=== PATIENT | male | born 1945 | race Caucasian/White ===

== ENCOUNTER → 2020-07-26 10:22 | Outpatient (BNVA) | payer MEDICARE, OTHER, SELFPAY | PROVIDERS: PCP Family Medicine; Visit Provider Internal Medicine | DX: I48.92 Unspecified atrial flutter (principal); I25.10 Atherosclerotic heart disease of native coronary artery without angina pectoris; I10 Essential (primary) hypertension; E11.9 Type 2 diabetes mellitus without complications; E78.5 Hyperlipidemia, unspecified; F17.200 Nicotine dependence, unspecified, uncomplicated; Z79.899 Other long term (current) drug therapy; Z95.5 Presence of coronary angioplasty implant and graft; Z71.6 Tobacco abuse counseling | CPT/HCPCS: 99214 ==

== ENCOUNTER → 2020-09-17 10:37 | Outpatient (BNVA) | payer MEDICARE, OTHER, SELFPAY | PROVIDERS: PCP Family Medicine; Referring Provider Family Medicine; Visit Provider Internal Medicine | DX: I48.92 Unspecified atrial flutter (principal); I48.0 Paroxysmal atrial fibrillation; I25.10 Atherosclerotic heart disease of native coronary artery without angina pectoris; I49.1 Atrial premature depolarization; I10 Essential (primary) hypertension; E11.9 Type 2 diabetes mellitus without complications; E78.5 Hyperlipidemia, unspecified; F17.210 Nicotine dependence, cigarettes, uncomplicated; Z88.0 Allergy status to penicillin; Z91.041 Radiographic dye allergy status; Z79.84 Long term (current) use of oral hypoglycemic drugs; Z79.899 Other long term (current) drug therapy | CPT/HCPCS: 93005; 99212 ==

== ENCOUNTER 2020-10-03 10:04 | Outpatient (REF) | payer MEDICARE, OTHER, SELFPAY ==
[2020-10-03 11:40] LABS: Anion Gap 13 (12-20); Blood Urea Nitrogen 19 mg/dL (9-16); Calcium 8.5 mg/dL (8.4-10.2); Carbon Dioxide 29 mmol/L (22-29); Chloride 106 mmol/L (96-108); Estimated Glomerular Filt Rate > 60; Glucose Fasting 103 mg/dL (60-99); Potassium 4.7 mmol/l (3.3-5.1); Sodium 143 mmol/L (135-145)
[2020-10-03 12:21] LABS: Creatinine Urine 34.72 mg/dL; Microalbum/Creatinine Ratio Ur 207.3 ug/mg cr
== END 2020-10-03 10:05 | disposition home or self-care (01) ==
LOC: HO.LAB 10:04
PROVIDERS: PCP Family Medicine; Visit Provider Family Medicine
DX: E78.5 Hyperlipidemia, unspecified (principal); E11.9 Type 2 diabetes mellitus without complications; I10 Essential (primary) hypertension
CPT/HCPCS: 80048; 82043

== ENCOUNTER → 2020-10-09 12:55 | Outpatient (REF) | payer MEDICARE, OTHER, SELFPAY ==
--- NOTE | 2020-10-09 12:58 | ECG_ITS ---
Hook-up date: 2020-10-09 13:09:00 Duration: 25:26:00 Test Indications: PAF Medications: 870652 QRS complexes 574 Ventricular ectopics which represent <1 % of total QRS comp. 69118 Supraventricular ectopics which represent 21 % of total QRS comp. * Paced QRS complexs which represent % of total QRS comp. VENTRICULAR ECTOPY 570 Isolated 0 Bigeminal Cycles 0 Couplets 1 Runs 4 Beats in Runs 4 Beats LONGEST at 210 BPM at 01:31:43 2020-10-10 4 Beats FASTEST at 210 BPM at 01:31:43 2020-10-10 SUPRAVENTRICULAR ECTOPY 40196 Isolated 1170 Couplets 1533 Runs 4715 Beats in Runs 6 Beats LONGEST at 86 BPM at 00:31:06 2020-10-10 3 Beats FASTEST at 172 BPM at 18:22:26 2020-10-09 HEART RATES 66 MIN at 08:01:56 2020-10-10 85 AVG 130 MAX at 18:02:59 2020-10-09 LONGEST RR 1.3360 secs at 04:45:59 2020-10-10 S-T LEVELS Channel 1 - 128 mm at 13:09:00 2020-10-09 - 128 mm at 13:09:00 2020-10-09 Channel 2 - 128 mm at 13:09:00 2020-10-09 - 128 mm at 13:09:00 2020-10-09 Channel 3 - 128 mm at 03:22:81 -- - 128 mm at 03:22:81 Basic rhythm Normal sinus rhythm No long pause or profound bradycardia Frequent Premature atrial complexes , 22% of total beats Frequent short runs of SVEs suggestive of PAT No sustained Atrial fibrillation Occasional Premature ventricular complexes One 4 beat runs of NSVT at 210 bpm Patient did not return diary Referred By: Mateo Lara Overread By: NAKUL RHODES MD
== END ==
LOC: HO.CARD 12:55
PROVIDERS: Visit Provider Internal Medicine
DX: I48.0 Paroxysmal atrial fibrillation (principal)
CPT/HCPCS: 93225; 93226

== ENCOUNTER 2020-10-24 14:03 | Inpatient (IN) | payer MEDICARE, SELFPAY ==
[2020-10-24 14:34] VITALS: BP 141/73; PULSE 86; RESP 14; TEMP 36.9; O2SAT 98; BMI 25.9
--- NOTE | 2020-10-24 14:41 | ECG_ITS ---
Test Reason : WEAKNESS Blood Pressure : / mmHG Vent. Rate : 083 BPM Atrial Rate : 083 BPM P-R Int : 168 ms QRS Dur : 106 ms QT Int : 380 ms P-R-T Axes : 040 -42 036 degrees QTc Int : 446 ms Sinus rhythm with Premature atrial complexes Left axis deviation Abnormal ECG When compared with ECG of 15-NOV-2019 14:39, Sinus rhythm has replaced Atrial flutter Referred By: Marcia Maza Electronically Signed By:TAABTHA ANTOINE
[2020-10-24 15:02] LABS: MANUAL DIFF FLAG NO
[2020-10-24 15:03] LABS: Basophils Percent Auto 0.2 % (0-2); Eosinophils Absolute Auto 0.1 X10*3/uL (0.0-0.4); Eosinophils Percent Auto 1.4 % (0-4); Hematocrit 41.9 % (42-52); Hemoglobin 13.8 g/dl (14.0-18.0); Imm Gran Abs Auto 0.03 X10*3/uL (0.00-0.03); Imm Gran Pct Auto 0.6 % (0.0-0.4); Lymphocytes Absolute Auto 0.7 X10*3/uL (1.2-4.9); Lymphocytes Percent Auto 15.3 % (20-40); Mean Corpuscular HGB Conc 32.9 g/dl (31.0-36.0); Mean Corpuscular Hemoglobin 34.3 pg (27.0-33.0); Mean Corpuscular Volume 104.2 fL (80-98); Monocytes Absolute Auto 0.6 X10*3/uL (0.1-1.2); Monocytes Percent Auto 11.8 % (2-11); Neutrophils Absolute Auto 3.4 X10*3/uL (2.0-8.3); Neutrophils Percent Auto 70.7 % (45-73); Platelet Count 170 X10*3/uL (160-400); Red Blood Count 4.02 X10*6/uL (4.60-5.80); Red Cell Distribution Width 14.6 % (11.0-16.0); White Blood Count 4.8 X10*3/uL (4.8-10.8)
[2020-10-24] MEDS: ondansetron HCL 4 MG/2 ML VIAL IVPUSH (15:04)
--- NOTE | 2020-10-24 15:09 | ED_ITS ---
HPI - GI Bleed General Chief complaint: Abdominal Pain Stated complaint: vomiting blood Time Seen by Provider: 10/24/20 14:33 Source: patient Mode of arrival: ambulatory Limitations: no limitations History of Present Illness HPI Narrative: 75-year-old male with a past medical history of AFib on Xarelto, high cholesterol, diabetes, hypertension, coronary artery disease with stents on plavix, peptic ulcer disease, former alcoholic here with vomiting blood x3 hours. The patient tells me that around 130 he started to have some upper abdominal discomfort and then vomited 3 times. He tells me there are large amount of bright red blood. On arrival he is feeling nauseous but denies any other complaints. He tells me that he has history of this happening before and had an upper endoscopy but is unclear what procedure he had done. Denies black or bloody stools. Denies fevers or chills. He tells me he has not drank alcohol in greater than 10 years. Of note he had an upper endoscopy done by Dr. Jackson 11/04/2019 which showed GERD, hiatal hernia, gastritis and duodenitis. He is on Pepcid 40 mg twice daily MD complaint: gross hematemesis Onset (ago): hour(s) Pain Consistency: intermittent Severity: mild Relieving factors: vomiting Context: history of GI bleed and alcohol abuse Associated symptoms: denies other symptoms Treatments Prior to Arrival: none Related Data Home Medications Medication Instructions Recorded Confirmed apixaban 5 mg tablet 5 mg PO BID 07/23/20 10/24/20 dulaglutide 0.75 mg/0.5 mL 0.75 mg SUBCUT MO 07/23/20 10/24/20 subcutaneous pen injector metformin 1,000 mg tablet 1,000 mg PO BIDWM 07/23/20 10/24/20 omeprazole 20 mg capsule,delayed 20 mg PO BEDTIME 07/23/20 10/24/20 release Previous Rx's Medication Instructions Recorded fluoxetine 20 mg capsule 60 mg PO DAILY #270 cap 08/27/20 diltiazem HCl 180 mg 180 mg PO DAILY #90 cap 08/28/20 capsule,extended release 24 hr atorvastatin 40 mg tablet 40 mg PO BEDTIME 90 Days #90 tab 10/03/20 Allergies Allergy/AdvReac Type Severity Reaction Status Date / Time Iodinated Contrast Media Allergy Severe ANAPHYLAXIS Verified 07/26/20 10:35 [IV CONTRAST] Penicillins [PENICILLINS] Allergy Unknown UNKNOWN Verified 07/26/20 10:35 Review of Systems Review of Systems: Yes all other systems are reviewed and are negative Constitutional: Constitutional: Reports no additional constitutional complaints, Denies body ache(s), Denies chills, Denies fever(s), Denies headache(s) and Denies weakness Eyes: Eyes: Reports no additional eye complaints and Denies change in vision ENT: Reports system reviewed and no additional complaints, except as documented, Denies dizziness, Denies headache(s), Denies nasal congestion, Denies nasal discharge and Denies neck pain Cardiovascular: Cardiovascular: Reports no additional cardiovascular comp laints, Denies chest pain, Denies leg edema and Denies dyspnea Respiratory: Respiratory: Reports no additional respiratory complaints, Denies cough and Denies dyspnea Gastrointestinal: Gastrointestinal: Reports no additional gastrointestinal complaints, Reports abdominal pain, Denies diarrhea, Reports nausea and Denies vomiting Comments: Hematemesis Genitourinary: Genitourinary: Denies urinary incontinence Musculoskeletal: Musculoskeletal: Reports no additional musculoskeletal complaints, Denies back pain, Denies arthralgias, Denies joint swelling, Denies neck pain, Denies numbness and Denies tingling Integumentary/Breasts: Skin/Breast: Reports system reviewed and no additional complaints, except as docu and Denies rash Neurologic: Reports system reviewed and no additional complaints, except as documented, Denies Abnormal speech present, Denies dizziness, Denies headache(s), Denies numbness, Denies tingling and Denies weakness [facility] Past Medical History Attestation statement: The following information was validated with the patient. Source: old records reviewed and nursing notes reviewed Medical History Arteriosclerotic cardiovascular disease Atrial flutter by electrocardiogram Essential hypertension Hyperlipidemia, unspecified PAF (paroxysmal atrial fibrillation) Smoker Type 2 diabetes mellitus with unspecified complications Surgical History History of surgical removal of ganglion cyst (~2016) Hx of cardiac cath (~2017) Hx of total knee replacement (~2004) S/P radical cystoprostatectomy (~2014) Family History Family History Father Staph infection Mother No problems noted. Social History Social History Alcohol intake: former Smoking Status: Current every day smoker Cigarettes Per Day: 5 Use of substances other than those prescribed or required for medical reasons: No Advance Directives: No Advance Directives Information Provided: Yes Physical Exam Vital Signs: Vital Signs: Last Vital Signs Temp 97.9 F 10/24/20 16:49 Pulse 81 10/24/20 16:49 Resp 18 10/24/20 16:49 BP 135/76 10/24/20 16:49 Pulse Ox 98 10/24/20 16:49 Body Mass Index 25.9 Const: General: cooperative, healthy appearing, comfortable and no acute distress Orientation/consciousness: patient oriented x3 Limitations: no limitations HENMT: Head: Yes normal to inspection Ears: hearing grossly normal bilaterally General nose exam: Normal external nose present Face and sinus : Yes normal facial exam Mouth: Normal oral and palatal mucosa present Throat: Yes posterior oropharynx normal Eyes: General: appearance normal, both eyes and all related structures Pupils: Equal, round and reactive pupils present Neck: Neck: Yes normal visual inspection Chest: Chest palpation & inspection: normal inspection of the chest Resp: Effort & Inspection: normal respiratory effort Auscultation: clear to auscultation bilaterally Cardio: Rate: regular rate Rhythm: regular rhythm Peripheral pulses: Peripheral pulses 2+ throughout GI: Inspection: Yes normal to inspection Palpation (GI): Soft to palpation and Tenderness to palpation present (GI) (Mild epigastric tenderness with no rebound or guarding) Auscultation: normal bowel sounds Rectal Exam - Male: Yes visual inspection normal, Yes normal sphincter tone and Yes other (Brown stool) Back/Spine/Pelvis: Thoracic/Lumbar Spine: thoracic and lumbar spine normal to inspection Skin: General skin exam: no rashes or lesions noted Neuro: General: patient oriented x3, no focal motor deficits and normal sensation to monofilament Cranial nerves: Yes Equal, round and reactive pu pils present Cognition (Neuro): normal cognition Speech: No Abnormal speech present Gait exam (Neuro): Normal gait present Motor exam (neuro): 5/5 motor strength present throughout Extrem: General: Yes normal to inspection Course Course Course Narrative: 75-year-old male here with a meta emesis x3 for the last 2-3 hours. He has some associated epigastric discomfort and nausea. Stable vital signs. History of the same secondary to PUD, gastritis, duodenitis, alcohol abuse. Will need labs including type and screen, EKG, discussion with GI. 1640-labs are stable. Patient has not had any additional vomiting episodes here. Discussed patient with Dr. Barbosa who recommends admission and endos copy in the morning. Discussed with Flora PALMER who accepted admission MDM - GI Bleed MDM Narrative Medical decision making narrative: Selene-Jackson tear, peptic ulcer disease, gastritis, upper GI bleed Medical Records Attestation: I reviewed the patient's medical records. Lab Data Attestation: I reviewed the patient's lab results. Result diagrams: 10/24/20 14:55 10/24/20 14:55 Labs: Lab Results 10/24/20 10/24/20 10/24/20 Range/Units 14:55 14:55 14:55 WBC 4.8 (4.8-10.8) X10*3/uL RBC 4.02 L (4.60-5.80) X10*6/uL Hgb 13.8 L (14.0-18.0) g/dl Hct 41.9 L (42-52) % MCV 104.2 H (80-98) fL MCH 34.3 H (27.0-33.0) pg MCHC 32.9 (31.0-36.0) g/dl RDW 14.6 (11.0-16.0) % Plt Count 170 (160-400) X10*3/uL MPV 10.0 (9.4-12.4) fL Immature Gran % (Auto) 0.6 H (0.0-0.4) % Neut % (Auto) 70.7 (45-73) % Lymph % (Auto) 15.3 L (20-40) % [place] % (Auto) 11.8 H (2-11) % Eos % (Auto) 1.4 (0-4) % Baso % (Auto) 0.2 (0-2) % Lymph # (Auto) 0.7 L (1.2-4.9) X10*3/uL [place] # (Auto) 0.6 (0.1-1.2) X10*3/uL Eos # (Auto) 0.1 (0.0-0.4) X10*3/uL Baso # (Auto) 0.0 (0.0-0.2) X10*3/uL Abs Immat Gran (auto) 0.03 (0.00-0.03) X10*3/uL Absolute Neuts (auto) 3.4 (2.0-8.3) X10*3/uL Absolute Nucleated RBC 0.000 (0.0-0.012) X10*3/uL Nucleated RBC % (auto) 0.0 (0.0-0.2) /100WBC PT 19.1 H (10.8-13.0) SEC INR 1.6 H (0.9-1.1) Sodium 142 (135-145) mmol/L Potassium 4.5 (3.3-5.1) mmol/l Chloride 107 (96-108) mmol/L Carbon Dioxide 26 (22-29) mmol/L Anion Gap 14 (12-20) BUN 33 H D (9-16) mg/dL Creatinine 1.02 (0.5-1.4) mg/dL Estim Creat Clear Calc 71.8 Estimated GFR > 60 Random Glucose 76 (60-115) mg/dL Calcium 9.1 D (8.4-10.2) mg/dL Total Bilirubin 0.4 (0.0-1.0) mg/dL Direct Bilirubin 0.2 (0.0-0.5) mg/dL AST 12 (5-37) U/L ALT 14 (0-40) U/L Alkaline Phosphatase 107 (39-117) U/L Total Protein 6.6 (6.5-8.0) g/dL Albumin 4.1 (3.5-5.0) g/dL Stool Occult Blood (NEG) COVID-19 ([facility]) (Negative) COVID-19 Clin Com Blood Type Antibody Screen 10/24/20 10/24/20 10/24/20 Range/Units 14:56 15:48 15:48 WBC (4.8-10.8) X10*3/uL RBC (4.60-5.80) X10*6/uL Hgb (14.0-18.0) g/dl Hct (42-52) % MCV (80-98) fL MCH (27.0-33.0) pg MCHC (31.0-36.0) g/dl RDW (11.0-16.0) % Plt Count (160-400) X10*3/uL MPV (9.4-12.4) fL Immature Gran % (Auto) (0.0-0.4) % Neut % (Auto) (45-73) % Lymph % (Auto) (20-40) % [place] % (Auto) (2-11) % Eos % (Auto) (0-4) % Baso % (Auto) (0-2) % Lymph # (Auto) (1.2-4.9) X10*3/uL [place] # (Auto) (0.1-1.2) X10*3/uL Eos # (Auto) (0.0-0.4) X10*3/uL Baso # (Auto) (0.0-0.2) X10*3/uL Abs Immat Gran (auto) (0.00-0.03) X10*3/uL Absolute Neuts (auto) (2.0-8.3) X10*3/uL Absolute Nucleated RBC (0.0-0.012) X10*3/uL Nucleated RBC % (auto) (0.0-0.2) /100WBC PT (10.8-13.0) SEC INR (0.9-1.1) Sodium (135-145) mmol/L Potassium (3.3-5.1) mmol/l Chloride (96-108) mmol/L Carbon Dioxide (22-29) mmol/L Anion Gap (12-20) BUN (9-16) mg/dL Creatinine (0.5-1.4) mg/dL Estim Creat Clear Calc Estimated GFR Random Glucose (60-115) mg/dL Calcium (8.4-10.2) mg/dL Total Bilirubin (0.0-1.0) mg/dL Direct Bilirubin (0.0-0.5) mg/dL AST (5-37) U/L ALT (0-40) U/L Alkaline Phosphatase (39-117) U/L Total Protein (6.5-8.0) g/dL Albumin (3.5-5.0) g/dL Stool Occult Blood NEG (NEG) COVID-19 ([facility]) Negative (Negative) COVID-19 Clin Com See Note Blood Type A Positive Antibody Screen NEGATIVE ECG Data Attestation: I personally reviewed and interpreted this ECG as follows: ECG interpretation date: 10/24/20 ECG interpretation time: 15:37 Interpretation: Sinus rhythm with occasional PACs, normal [place], normal QRS, normal QT Discharge Plan Discharge Clinical Impression: Hematemesis Patient Disposition: Admitted As Inpatient
[2020-10-24 15:10] LABS: INTERNATIONAL NORM RATIO 1.6 (0.9-1.1); Prothrombin Time 19.1 SEC (10.8-13.0)
[2020-10-24 15:18] LABS: COVID-19 Test Negative (Negative); IDNOW Serial# 9DD0AD1C
[2020-10-24 15:29] LABS: Alanine Aminotransferase 14 U/L (0-40); Albumin Level 4.1 g/dL (3.5-5.0); Alkaline Phosphatase 107 U/L (39-117); Anion Gap 14 (12-20); Aspartate Amino Transferase 12 U/L (5-37); Bilirubin Direct 0.2 mg/dL (0.0-0.5); Bilirubin Total 0.4 mg/dL (0.0-1.0); Blood Urea Nitrogen 33 mg/dL (9-16); Calcium 9.1 mg/dL (8.4-10.2); Carbon Dioxide 26 mmol/L (22-29); Chloride 107 mmol/L (96-108); Creatinine Clr Calc Pharmacy 71.8; Estimated Glomerular Filt Rate > 60; Glucose Random 76 mg/dL (60-115); Potassium 4.5 mmol/l (3.3-5.1); Sodium 142 mmol/L (135-145); Total Protein 6.6 g/dL (6.5-8.0)
[2020-10-24 15:58] LABS: OBS Int Ctl Valid YES; OBS1 NEG (NEG)
--- NOTE | 2020-10-24 16:29 | PM.EVENT ---
Event Note Date of Service: 10/24/20 Event Note: GI Pt to be seen and full note to follow in AM 75 yo male came to ED with hematemesis. On plavix and Eliquis for cad/stent. Hemodynamically stable, hct ok with neg AISLINN previous egd with gastritis and duodenitis. Rec: IV ppi follow hct EGD in am reviewed with Nico Maza NP.
[2020-10-24 16:49] VITALS: BP 135/76; PULSE 81; RESP 18; TEMP 36.6; O2SAT 98
[2020-10-24] MEDS: Pantoprazole Sodium 40 MG/10 ML VIAL IVPUSH (16:57)
--- NOTE | 2020-10-24 16:57 | PC.NURSE ---
Plan for pt to be admitted and to have upper GI procedure in am. Pt aware of plan.
[2020-10-24 17:00] VITALS: PULSE 82
--- NOTE | 2020-10-24 18:50 | P.EN_ITS ---
Event Note Date of Service: 10/24/20 Event Note: Patient seen examined with APC 75-year-old gentleman with history of coronary artery disease status post stent placement is stop using Plavix 2 days prior to presentation currently on Eliquis for atrial fibrillation presented to [facility] since he had 3 episodes of hematemesis this morning mostly bright red blood patient denies use of NSAIDs aspirin or any other ofbe-nkm-ywzlnwy medication, he does have prior history of gastric ulcer, on omeprazole 20 mg at bedtime. On examination Patient awake alert no distress Abdomen soft nontender bowel sounds audible Extremities no edema Assessment and plan Hematemesis likely related to use of Plavix and Eliquis with underlying history of gastric ulcer, patient stop using Plavix 2 days ago will discontinue Eliquis keep patient NPO for possible upper endoscopy at a.m. will check CBC q.6 hours and treat patient with Protonix.
[2020-10-24 19:05] LABS: Glucose, Whole Blood 134 mg/dL (60-115)
--- NOTE | 2020-10-24 19:07 | PC.NURSE ---
Pt tollerated clear liquid diet for dinner
--- NOTE | 2020-10-24 19:11 | PM.IMHP ---
History of Present Illness Date of Service: 10/24/20 <ESTELA Holland - Last Filed: 10/24/20 19:29> Chief Complaint: Vomiting blood <ESTELA Holland - Last Filed: 10/24/20 19:29> This is a 75-year-old male who presents to the emergency room today with complaints of vomiting blood. He was in his usual state of health until around 130 this afternoon when he and multiple episodes of hematemesis with bright red blood. Patient has a history of coronary artery disease but stopped taking his Plavix 2 days ago. He does take Eliquis for atrial fibrillation. In the emergency department vital signs remained stable. H/H 13/41. He was heme-negative from below. The case was discussed with GI who recommended IV PPI and plan for endoscopy in the morning. <ESTELA Holland - Last Filed: 10/24/20 19:29> Review of Systems Review of Systems: Yes all other systems are reviewed and are negative <ESTELA Holland - Last Filed: 10/24/20 19:29> Constitutional: Constitutional: Denies chills and Denies fever(s) <ESTELA Holland - Last Filed: 10/24/20 19:29> Cardiovascular: Cardiovascular: Denies chest pain <ESTELA Holland - Last Filed: 10/24/20 19:29> Respiratory: Respiratory: Denies cough <ESTELA Holland - Last Filed: 10/24/20 19:29> Gastrointestinal: Gastrointestinal: Denies abdominal pain <ESTELA Holland - Last Filed: 10/24/20 19:29> [facility] Medical History: Medical History Arteriosclerotic cardiovascular disease Atrial flutter by electrocardiogram Essential hypertension Hyperlipidemia, unspecified PAF (paroxysmal atrial fibrillation) Smoker Type 2 diabetes mellitus with unspecified complications <ESTELA Holland - Last Filed: 10/24/20 19:29> Functional capacity: independent ambulation <ESTELA Holland - Last Filed: 10/24/20 19:29> Family History: Family History Father Staph infection Mother No problems noted. <ESTELA Holland - Last Filed: 10/24/20 19:29> Surgical History: Surgical History History of surgical removal of ganglion cyst (~2016) Hx of cardiac cath (~2017) Hx of total knee replacement (~2004) S/P radical cystoprostatectomy (~2014) <ESTELA Holland - Last Filed: 10/24/20 19:29> Social History: Social History Household Members: Spouse Housing: House Do you presently have visiting nurse or other home services: No Alcohol intake: former Smoking Status: Current every day smoker Tobacco Type: Cigarette Cigarettes Per Day: 10 Smoked in Last 30 Days: Yes Patient Interested in Nicotine Replacement: No Patient Given Instructions on How to Stop Smoking: No Use of substances other than those prescribed or required for medical reasons: No Currently Displaying Signs/Symptoms of Drug Intoxication Withdrawal: No Have you been hit, kicked, punched, or otherwise hurt by someone within the past year? If so, by whom?: No Do you feel safe in your current relationship?: Yes Is there a partner from a previous relationship who is making you feel unsafe now?: No Are you made to feel afraid or neglected: No Advance Directives: No Advance Directives Information Provided: Yes Do you have thoughts of harming others: None Do you have a plan to hurt others: No Plan Recently lost weight without trying: Yes service: No Current occupational status: retired <ESTELA Holland - Last Filed: 10/24/20 19:29> Meds Allergies/Adverse reactions: Allergies Allergy/AdvReac Type Severity Reaction Status Date / Time Iodinated Contrast Media Allergy Severe ANAPHYLAXIS Verified 07/26/20 10:35 [IV CONTRAST] Penicillins [PENICILLINS] Allergy Unknown UNKNOWN Verified 07/26/20 10:35 <ESTELA Holland - Last Filed: 10/24/20 19:29> Home medications: Home Medications Medication Instructions Recorded Confirmed Type apixaban 5 mg tablet 5 mg PO BID 07/23/20 10/24/20 History dulaglutide 0.75 mg/0.5 mL 0.75 mg SUBCUT MO 07/23/20 10/24/20 History subcutaneous pen injector metformin 1,000 mg tablet 1,000 mg PO BIDWM 07/23/20 10/24/20 History <ESTELA Holland - Last Filed: 10/24/20 19:29> Physical Exam Vital Signs and Narrative: Vital Signs: Last Vital Signs Temp 97.9 F 10/24/20 16:49 Pulse 82 10/24/20 17:00 Resp 18 10/24/20 16:49 BP 135/76 10/24/20 16:49 Pulse Ox 98 10/24/20 16:49 Body Mass Index 25.9 <ESTELA Holland - Last Filed: 10/24/20 19:29> Const: General: no acute distress, alert and awake <ESTELA Holland - Last Filed: 10/24/20 19:29> Nutritional Appearance: well nourished <ESTELA Holland - Last Filed: 10/24/20 19:29> Orientation/consciousness: patient oriented x3 <ESTELA Holland - Last Filed: 10/24/20 19:29> HENMT: Head: Yes normocephalic and Yes atraumatic <ESTELA Holland - Last Filed: 10/24/20 19:29> Eyes: Sclerae: sclerae normal <ESTELA Holland - Last Filed: 10/24/20 19:29> Chest: Chest palpation & inspection: normal inspection of the chest <ESTELA Holland - Last Filed: 10/24/20 19:29> Resp: Effort & Inspection: normal respiratory effort and no respiratory distress <ESTELA Holland - Last Filed: 10/24/20 19:29> Auscultation: clear to auscultation bilaterally <ESTELA Holland - Last Filed: 10/24/20 19:29> Cardio: Rate: regular rate <ESTELA Holland - Last Filed: 10/24/20 19:29> Rhythm: regular rhythm <ESTELA Holland - Last Filed: 10/24/20 19:29> GI: Palpation (GI): Soft to palpation and nontender <ESTELA Holland - Last Filed: 10/24/20 19:29> Skin: General skin exam: no rashes or lesions noted <ESTELA Holland - Last Filed: 10/24/20 19:29> Neuro: General: patient oriented x3 <ESTELA Holland - Last Filed: 10/24/20 19:29> Cranial nerves: Yes CN's II-XII intact bilaterally and Yes Bilaterally intact EOM present <ESTELA Holland - Last Filed: 10/24/20 19:29> Extrem: General: Yes normal to inspection <ESTELA Holland - Last Filed: 10/24/20 19:29> Results Labs CBC and Chem 7: : 10/24/20 23:41 10/25/20 05:33 <ESTELA Holland - Last Filed: 10/24/20 19:29> Labs: Laboratory Results - last 24 hr 10/24/20 10/24/20 10/24/20 14:55 14:55 14:55 MCV 104.2 H MCH 34.3 H MCHC 32.9 RDW 14.6 Plt Count 170 MPV 10.0 Immature Gran % (Auto) 0.6 H Neut % (Auto) 70.7 Lymph % (Auto) 15.3 L [place] % (Auto) 11.8 H Eos % (Auto) 1.4 Baso % (Auto) 0.2 Lymph # (Auto) 0.7 L [place] # (Auto) 0.6 Eos # (Auto) 0.1 Baso # (Auto) 0.0 Abs Immat Gran (auto) 0.03 Absolute Neuts (auto) 3.4 Absolute Nucleated RBC 0.000 Nucleated RBC % (auto) 0.0 PT 19.1 H INR 1.6 H Anion Gap 14 Estim Creat Clear Calc 71.8 Estimated GFR > 60 POC Glucose Random Glucose 76 Calcium 9.1 D Total Bilirubin 0.4 Direct Bilirubin 0.2 AST 12 ALT 14 Alkaline Phosphatase 107 Total Protein 6.6 Albumin 4.1 Stool Occult Blood COVID-19 ([facility]) COVID-19 Clin Com Blood Type Antibody Screen 10/24/20 10/24/20 10/24/20 14:56 15:48 15:48 MCV MCH MCHC RDW Plt Count MPV Immature Gran % (Auto) Neut % (Auto) Lymph % (Auto) [place] % (Auto) Eos % (Auto) Baso % (Auto) Lymph # (Auto) [place] # (Auto) Eos # (Auto) Baso # (Auto) Abs Immat Gran (auto) Absolute Neuts (auto) Absolute Nucleated RBC Nucleated RBC % (auto) PT INR Anion Gap Estim Creat Clear Calc Estimated GFR POC Glucose Random Glucose Calcium Total Bilirubin Direct Bilirubin AST ALT Alkaline Phosphatase Total Protein Albumin Stool Occult Blood NEG COVID-19 ([facility]) Negative COVID-19 [facility] Com See Note Blood Type A Positive Antibody Screen NEGATIVE 10/24/20 19:01 MCV MCH MCHC RDW Plt Count MPV Immature Gran % (Auto) Neut % (Auto) Lymph % (Auto) [place] % (Auto) Eos % (Auto) Baso % (Auto) Lymph # (Auto) [place] # (Auto) Eos # (Auto) Baso # (Auto) Abs Immat Gran (auto) Absolute Neuts (auto) Absolute Nucleated RBC Nucleated RBC % (auto) PT INR Anion Gap Estim Creat Clear Calc Estimated GFR POC Glucose 134 H Random Glucose Calcium Total Bilirubin Direct Bilirubin AST ALT Alkaline Phosphatase Total Protein Albumin Stool Occult Blood COVID-19 ([facility]) COVID-19 Clin Com Blood Type Antibody Screen <ESTELA Holland - Last Filed: 10/24/20 19:29> Assessment and Plan (1) Hematemesis: Status: Acute <ESTELA Holland - Last Filed: 10/24/20 19:29> This is a 75-year-old male history of atrial fibrillation on Eliquis, CAD, PUD, diabetes among others presents the emergency department with hematemesis Hematemesis In the setting of Plavix (off plavix x 2 days) and Eliquis use h/o PUD NPO, IVF IV PPI CBC q.6 hours GI plan for EGD in a.m. Hold Eliquis Diabetes Hold Trulicity, metformin POC q.6 hours Atrial fibrillation Continue Cardizem Hold Eliquis Mood Continue fluoxetine Hyperlipidemia Hold statin DVT prophylaxis-mechanical devices due to GI bleed Code status-full code This case was discussed with <ESTELA Holland - Last Filed: 10/24/20 19:29>
[2020-10-24] MEDS: Lactated Ringers 1,000 ML 100 ML IVCONT (19:54)
[2020-10-24] MEDS: Pantoprazole Sodium 80 MG in 0.9 % Sodium Chloride 80 ML 10 MG IV (19:55)
[2020-10-24 20:31] VITALS: BP 142/76; PULSE 78; RESP 16; O2SAT 96
[2020-10-24 23:14] VITALS: BP 174/73; PULSE 69; RESP 18; TEMP 37.1; O2SAT 96
[2020-10-24 23:38] LABS: Glucose, Whole Blood 81 mg/dL (60-115)
[2020-10-24 23:49] LABS: MANUAL DIFF FLAG NO
[2020-10-25] VITALS (8 sets, daily range): BP systolic 94–161; BP diastolic 48–87; PULSE 67–83; RESP 14–18; TEMP 36.2–37.1; O2SAT 95–99
[2020-10-25 00:01] LABS: Basophils Percent Auto 0.5 % (0-2); Eosinophils Absolute Auto 0.1 X10*3/uL (0.0-0.4); Eosinophils Percent Auto 1.4 % (0-4); Hematocrit 38.3 % (42-52); Hemoglobin 12.3 g/dl (14.0-18.0); Imm Gran Abs Auto 0.02 X10*3/uL (0.00-0.03); Imm Gran Pct Auto 0.5 % (0.0-0.4); Lymphocytes Absolute Auto 0.9 X10*3/uL (1.2-4.9); Lymphocytes Percent Auto 21.4 % (20-40); Mean Corpuscular HGB Conc 32.1 g/dl (31.0-36.0); Mean Corpuscular Hemoglobin 34.1 pg (27.0-33.0); Mean Corpuscular Volume 106.1 fL (80-98); Mean Platelet Volume 9.9 fL (9.4-12.4); Monocytes Absolute Auto 0.6 X10*3/uL (0.1-1.2); Monocytes Percent Auto 13.5 % (2-11); Neutrophils Absolute Auto 2.6 X10*3/uL (2.0-8.3); Neutrophils Percent Auto 62.7 % (45-73); Platelet Count 140 X10*3/uL (160-400); Red Blood Count 3.61 X10*6/uL (4.60-5.80); Red Cell Distribution Width 14.6 % (11.0-16.0); White Blood Count 4.2 X10*3/uL (4.8-10.8)
[2020-10-25] MEDS: 0.9 % Sodium Chloride Flush 3 ML SYRINGE IVFLUSH ×2 (00:06→09:08)
[2020-10-25 01:35] LABS: Glucose, Whole Blood 143 mg/dL (60-115)
[2020-10-25] MEDS: Lactated Ringers 1,000 ML 100 ML IVCONT (05:54)
[2020-10-25] MEDS: Pantoprazole Sodium 80 MG in 0.9 % Sodium Chloride 80 ML 10 MG IV (05:55)
[2020-10-25 06:35] LABS: Glucose, Whole Blood 85 mg/dL (60-115)
[2020-10-25 07:00] LABS: Anion Gap 15 (12-20); Blood Urea Nitrogen 24 mg/dL (9-16); Calcium 8.6 mg/dL (8.4-10.2); Carbon Dioxide 25 mmol/L (22-29); Chloride 105 mmol/L (96-108); Creatinine Clr Calc Pharmacy 88.2; Estimated Glomerular Filt Rate > 60; Glucose Random 79 mg/dL (60-115); Potassium 4.2 mmol/l (3.3-5.1); Sodium 141 mmol/L (135-145)
[2020-10-25 07:29] LABS: Glucose, Whole Blood 88 mg/dL (60-115)
[2020-10-25] MEDS: Phytonadione (Vit K1) 10 MG in 0.9 % Sodium Chloride 50 ML 51 MG IV (09:08)
[2020-10-25] MEDS: FLUoxetine HCl 20 MG CAPSULE 60 MG PO (09:18)
[2020-10-25] MEDS: dilTIAZem HCL CD 180 MG CAP.ER.24H PO (09:18)
[2020-10-25 09:39] LABS: Glucose, Whole Blood 102 mg/dL (60-115)
--- NOTE | 2020-10-25 10:42 | P.CONAN_ITS ---
[facility] Past Medical History Medical History Arteriosclerotic cardiovascular disease Atrial flutter by electrocardiogram Essential hypertension Hyperlipidemia, unspecified PAF (paroxysmal atrial fibrillation) Smoker Type 2 diabetes mellitus with unspecified complications Functional capacity: independent ambulation Family History Family History Father Staph infection Mother No problems noted. Surgical History Surgical History History of surgical removal of ganglion cyst (~2016) Hx of cardiac cath (~2017) Hx of total knee replacement (~2004) S/P radical cystoprostatectomy (~2014) Social History Social History Household Members: Spouse Housing: House Do you presently have visiting nurse or other home services: No Alcohol intake: former Smoking Status: Current every day smoker Tobacco Type: Cigarette Cigarettes Per Day: 10 Smoked in Last 30 Days: Yes Patient Interested in Nicotine Replacement: No Patient Given Instructions on How to Stop Smoking: No Use of substances other than those prescribed or required for medical reasons: No Currently Displaying Signs/Symptoms of Drug Intoxication Withdrawal: No Have you been hit, kicked, punched, or otherwise hurt by someone within the past year? If so, by whom?: No Do you feel safe in your current relationship?: Yes Is there a partner from a previous relationship who is making you feel unsafe now?: No Are you made to feel afraid or neglected: No Advance Directives: No Advance Directives Information Provided: Yes Do you have thoughts of harming others: None Do you have a plan to hurt others: No Plan Recently lost weight without trying: Yes Meds Allergies Allergy/AdvReac Type Severity Reaction Status Date / Time Iodinated Contrast Media Allergy Severe ANAPHYLAXIS Verified 07/26/20 10:35 [IV CONTRAST] Penicillins [PENICILLINS] Allergy Unknown UNKNOWN Verified 07/26/20 10:35 Home Medications Medication Instructions Recorded Confirmed Type apixaban 5 mg tablet 5 mg PO BID 07/23/20 10/24/20 History dulaglutide 0.75 mg/0.5 mL 0.75 mg SUBCUT MO 07/23/20 10/24/20 History subcutaneous pen injector metformin 1,000 mg tablet 1,000 mg PO BIDWM 07/23/20 10/24/20 History omeprazole 20 mg capsule,delayed 20 mg PO BEDTIME 07/23/20 10/24/20 History release Exam Exam Date and Time: October 25, 2020 1042 Height,Weight and Vital Signs: Height 6 ft 1 in Weight 89.358 kg Last Vital Signs Temp 97.1 F 10/25/20 09:31 Pulse 78 10/25/20 09:31 Resp 16 10/25/20 09:31 BP 103/84 10/25/20 09:31 Pulse Ox 98 10/25/20 09:31 Pertinent Lab Results Pertinent Lab Results: Laboratory Tests 10/24/20 10/24/20 10/24/20 14:55 14:55 14:55 WBC 4.8 RBC 4.02 L Hgb 13.8 L Hct 41.9 L MCV 104.2 H MCH 34.3 H MCHC 32.9 RDW 14.6 Plt Count 170 MPV 10.0 Immature Gran % (Auto) 0.6 H Neut % (Auto) 70.7 Lymph % (Auto) 15.3 L [place] % (Auto) 11.8 H Eos % (Auto) 1.4 Baso % (Auto) 0.2 Lymph # (Auto) 0.7 L [place] # (Auto) 0.6 Eos # (Auto) 0.1 Baso # (Auto) 0.0 Abs Immat Gran (auto) 0.03 Absolute Neuts (auto) 3.4 Absolute Nucleated RBC 0.000 Nucleated RBC % (auto) 0.0 PT 19.1 H INR 1.6 H Sodium 142 Potassium 4.5 Chloride 107 Carbon Dioxide 26 Anion Gap 14 BUN 33 H D Creatinine 1.02 Estim Creat Clear Calc 71.8 Estimated GFR > 60 POC Glucose Random Glucose 76 Calcium 9.1 D Total Bilirubin 0.4 Direct Bilirubin 0.2 AST 12 ALT 14 Alkaline Phosphatase 107 Total Protein 6.6 Albumin 4.1 Stool Occult Blood COVID-19 ([facility]) COVID-19 Clin Com Blood Type Antibody Screen 10/24/20 10/24/20 10/24/20 14:56 15:48 15:48 WBC RBC Hgb Hct MCV MCH MCHC RDW Plt Count MPV Immature Gran % (Auto) Neut % (Auto) Lymph % (Auto) [place] % (Auto) Eos % (Auto) Baso % (Auto) Lymph # (Auto) [place] # (Auto) Eos # (Auto) Baso # (Auto) Abs Immat Gran (auto) Absolute Neuts (auto) Absolute Nucleated RBC Nucleated RBC % (auto) PT INR Sodium Potassium Chloride Carbon Dioxide Anion Gap BUN Creatinine Estim Creat Clear Calc Estimated GFR POC Glucose Random Glucose Calcium Total Bilirubin Direct Bilirubin AST ALT Alkaline Phosphatase Total Protein Albumin Stool Occult Blood NEG COVID-19 ([facility]) Negative COVID-19 Clin Com See Note Blood Type A Positive Antibody Screen NEGATIVE 10/24/20 10/24/20 10/24/20 19:01 23:13 23:41 WBC 4.2 L RBC 3.61 L Hgb 12.3 L Hct 38.3 L MCV 106.1 H MCH 34.1 H MCHC 32.1 RDW 14.6 Plt Count 140 L MPV 9.9 Immature Gran % (Auto) 0.5 H Neut % (Auto) 62.7 Lymph % (Auto) 21.4 [place] % (Auto) 13.5 H Eos % (Auto) 1.4 Baso % (Auto) 0.5 Lymph # (Auto) 0.9 L [place] # (Auto) 0.6 Eos # (Auto) 0.1 Baso # (Auto) 0.0 Abs Immat Gran (auto) 0.02 Absolute Neuts (auto) 2.6 Absolute Nucleated RBC 0.000 Nucleated RBC % (auto) 0.0 PT INR Sodium Potassium Chloride Carbon Dioxide Anion Gap BUN Creatinine Estim Creat Clear Calc Estimated GFR POC Glucose 134 H 81 Random Glucose Calcium Total Bilirubin Direct Bilirubin AST ALT Alkaline Phosphatase Total Protein Albumin Stool Occult Blood COVID-19 ([facility]) COVID-19 Clin Com Blood Type Antibody Screen 10/25/20 10/25/20 10/25/20 01:15 05:33 06:31 WBC RBC Hgb Hct MCV MCH MCHC RDW Plt Count MPV Immature Gran % (Auto) Neut % (Auto) Lymph % (Auto) [place] % (Auto) Eos % (Auto) Baso % (Auto) Lymph # (Auto) [place] # (Auto) Eos # (Auto) Baso # (Auto) Abs Immat Gran (auto) Absolute Neuts (auto) Absolute Nucleated RBC Nucleated RBC % (auto) PT INR Sodium 141 Potassium 4.2 Chloride 105 Carbon Dioxide 25 Anion Gap 15 BUN 24 H Creatinine 0.83 Estim Creat Clear Calc 88.2 Estimated GFR > 60 POC Glucose 143 H 85 Random Glucose 79 Calcium 8.6 Total Bilirubin Direct Bilirubin AST ALT Alkaline Phosphatase Total Protein Albumin Stool Occult Blood COVID-19 ([facility]) COVID-19 [employer] Com Blood Type Antibody Screen 10/25/20 10/25/20 07:14 09:36 WBC RBC Hgb Hct MCV MCH MCHC RDW Plt Count MPV Immature Gran % (Auto) Neut % (Auto) Lymph % (Auto) [place] % (Auto) Eos % (Auto) Baso % (Auto) Lymph # (Auto) [place] # (Auto) Eos # (Auto) Baso # (Auto) Abs Immat Gran (auto) Absolute Neuts (auto) Absolute Nucleated RBC Nucleated RBC % (auto) PT INR Sodium Potassium Chloride Carbon Dioxide Anion Gap BUN Creatinine Estim Creat Clear Calc Estimated GFR POC Glucose 88 102 Random Glucose Calcium Total Bilirubin Direct Bilirubin AST ALT Alkaline Phosphatase Total Protein Albumin Stool Occult Blood COVID-19 ([facility]) COVID-19 [employer] Com Blood Type Antibody Screen Airway Mallampati Class: III TM Dist: >3cm Neck ROM: Full Heart: RRR Lungs: CTA
--- NOTE | 2020-10-25 11:52 | PM.OP ---
Brief Operative Note Date of Service: 10/25/20 Pre-op diagnosis: hematemesis Post-op diagnosis: same (barretts esophagus) Procedure: egd Surgeon: Erlin Barbosa Anesthesia: MAC Estimated blood loss (mL): 0 Pathology: none sent Condition: stable Disposition: PACU
--- NOTE | 2020-10-25 12:02 | MHC.CM.PN ---
IMM 10/25/2020 Male 75 DX GI BLEED Pt is independent functional mobility. A copy of his HCP has been requested. DP home no services family transport. The patient is currantly in IR for upper endostomy.
[2020-10-25 12:58] LABS: Glucose, Whole Blood 96 mg/dL (60-115)
[2020-10-25] MEDS: Omeprazole 20 MG CAPSULE.DR PO (13:02)
--- NOTE | 2020-10-25 13:44 | CONS_ITS ---
DATE OF SERVICE: 10/25/2020 REFERRING PHYSICIAN: Anisa Castorena MD REASON FOR CONSULTATION: Hematemesis. HISTORY OF PRESENT ILLNESS: The patient is a 75-year-old man who was admitted to the hospital after presenting to the emergency room with hematemesis. He became nauseous after arriving at home after being out driving and vomited bright red blood 2 times and the 3rd time the blood was more pinkish. He had no abdominal pain or chest pain and denies using NSAIDs. He has been on Eliquis for atrial fibrillation with the last dose the day of admission. He was also on Plavix for a stent placement done approximately a year ago for coronary disease, which he stopped 2 days prior to admission because he ran out. He was evaluated in the emergency department with stable vital signs and a normal hematocrit with negative digital rectal examination. He does take omeprazole chronically and has previously undergone upper endoscopy in October of this year because of worsening reflux symptoms. Findings at that time included a small hiatal hernia, gastritis and duodenitis. He does have a remote history of peptic ulcer disease and does smoke. He denies alcohol use. PAST MEDICAL HISTORY: 1. Paroxysmal atrial fibrillation. 2. Peptic ulcer disease. 3. Coronary artery disease with history of stent placement. 4. Atrial flutter/fibrillation. 5. Hypertension. 6. Diabetes mellitus. CURRENT MEDICATIONS: His current medication list is reviewed in the chart. ALLERGIES: PENICILLIN AND CONTRAST DYE. FAMILY HISTORY: This is reviewed with the patient and is noncontributory. SOCIAL HISTORY: He does smoke. He denies alcohol use. REVIEW OF SYSTEMS: SKIN: No pruritus. HEENT: Negative. CARDIOPULMONARY: No shortness of breath or chest pain. GASTROINTESTINAL: As above. GENITOURINARY: Negative. NEUROPSYCHIATRIC: Negative. PAST SURGICAL HISTORY: Includes knee replacement, radical cystoprostatectomy, and ganglion cyst surgery. PHYSICAL EXAMINATION: GENERAL: Shows a pleasant male, lying in bed. VITAL SIGNS: Stable. SKIN: Anicteric. HEENT: Shows no scleral icterus. NECK: Without lymphadenopathy or thyromegaly. LUNGS: Clear. HEART: Shows regular rate and rhythm. S1, S2. No murmur. ABDOMEN: Soft without focal masses or tenderness. Bowel sounds are present. No organomegaly is noted. EXTREMITIES: Without edema. IMPRESSION: He should have further evaluation of his bleeding, especially as he will need to go back on Eliquis. I have discussed endoscopy with him including risks and benefits. He understands these and agrees to proceed. We discussed the differential diagnosis for upper GI bleeding including erosive esophagitis, gastritis, peptic ulcer disease, AVMs and Dieulafoy's lesions as well as Selene-Jackson tears. I would recommend monitoring his H and H and continuing his proton pump inhibitor. His Eliquis has been held. He will opt to check with his budget record clerk regarding whether he needs to resume Plavix. Thanks for asking me to see him. I will follow him in the hospital with you. MD RON Adams/ANGI / [phone]
--- NOTE | 2020-10-25 13:47 | MHC.CM.PN ---
Patient Discharged to home today. He had an upper Endostomy for GI bleed. DC with no services required. Patient is independent, no AD. He has arranged for a ride to home.
--- NOTE | 2020-10-25 14:06 | PM.DS ---
DS: Providers Provider Date of admission: 10/24/20 18:47 Primary care physician: Matias Roy. MD Consults: 10/24/20 18:47 Consult to Gastroenterology Routine Consulting Provider: Erlin Barbosa Reason for consultation: GI bleeding Has provider been notified: No DS: Diagnosis Discharge Diagnosis (1) Hematemesis: Status: Acute DS: Medications Discharge Medications Home Medications: Home Medications Medication Instructions Recorded Confirmed apixaban 5 mg tablet 5 mg PO BID 07/23/20 10/24/20 dulaglutide 0.75 mg/0.5 mL 0.75 mg SUBCUT MO 07/23/20 10/24/20 subcutaneous pen injector metformin 1,000 mg tablet 1,000 mg PO BIDWM 07/23/20 10/24/20 Previous Rx's Medication Instructions Recorded fluoxetine 20 mg capsule 60 mg PO DAILY #270 cap 08/27/20 diltiazem HCl 180 mg 180 mg PO DAILY #90 cap 08/28/20 capsule,extended release 24 hr atorvastatin 40 mg tablet 40 mg PO BEDTIME 90 Days #90 tab 10/03/20 omeprazole magnesium [Prilosec OTC] 20 mg PO BID #60 tab 10/25/20 DS: Summary Hospital Course Hospital Course: History of presenting illness Chief Complaint: Vomiting blood This is a 75-year-old male who presents to the emergency room today with complaints of vomiting blood. He was in his usual state of health until around 130 this afternoon when he and multiple episodes of hematemesis with bright red blood. Patient has a history of coronary artery disease but stopped taking his Plavix 2 days ago. He does take Eliquis for atrial fibrillation. In the emergency department vital signs remained stable. H/H 13/41. He was heme-negative from below. The case was discussed with GI who recommended IV PPI and plan for endoscopy in the morning. Medical History Arteriosclerotic cardiovascular disease Atrial flutter by electrocardiogram Essential hypertension Hyperlipidemia, unspecified PAF (paroxysmal atrial fibrillation) Smoker Type 2 diabetes mellitus with unspecified complications Hospital course 75-year-old male history of atrial fibrillation on Eliquis, CAD, PUD, diabetes among others presents the emergency department with hematemesis Hematemesis/upper GI bleed Patient admitted to intermediate care unit, repeat hematocrit remains stable, patient had no further bout of hematemesis or melena, patient seen by Dr. 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 Diabetes recommended to resume home medication Trulicity, and metformin Atrial fibrillation Continue Cardizem and Eliquis Mood Continue fluoxetine Time Spent with Patient Time attestation: Total time spent providing and/or coordinating discharge services: Physical Exam Vital Signs: Vital Signs: Last Vital Signs Temp 97.8 F 10/25/20 12:00 Pulse 83 10/25/20 12:12 Resp 18 10/25/20 12:12 BP 122/70 10/25/20 12:12 Pulse Ox 99 10/25/20 12:12 Body Mass Index 25.9 General patient resting comfortably in no acute distress. Neck is supple no JVD. CVS regular Respiratory lungs clear to auscultation, no respiratory distress. Gastrointestinal abdomen obese, soft, nontender, bowel sounds audible. Extremities no clubbing cyanosis or edema. Neuro nonfocal . Skin no rash DS: Data Data Completed and Pending Labs on day of discharge: Laboratory Last Values WBC 4.2 X10*3/uL (4.8-10.8) L 10/24/20 23:41 RBC 3.61 X10*6/uL (4.60-5.80) L 10/24/20 23:41 Hgb 12.3 g/dl (14.0-18.0) L 10/24/20 23:41 Hct 38.3 % (42-52) L 10/24/20 23:41 MCV 106.1 fL (80-98) H 10/24/20 23:41 MCH 34.1 pg (27.0-33.0) H 10/24/20 23:41 MCHC 32.1 g/dl (31.0-36.0) 10/24/20 23:41 RDW 14.6 % (11.0-16.0) 10/24/20 23:41 Plt Count 140 X10*3/uL (160-400) L 10/24/20 23:41 MPV 9.9 fL (9.4-12.4) 10/24/20 23:41 Immature Gran % (Auto) 0.5 % (0.0-0.4) H 10/24/20 23:41 Neut % (Auto) 62.7 % (45-73) 10/24/20 23:41 Lymph % (Auto) 21.4 % (20-40) 10/24/20 23:41 [place] % (Auto) 13.5 % (2-11) H 10/24/20 23:41 Eos % (Auto) 1.4 % (0-4) 10/24/20 23:41 Baso % (Auto) 0.5 % (0-2) 10/24/20 23:41 Lymph # (Auto) 0.9 X10*3/uL (1.2-4.9) L 10/24/20 23:41 [place] # (Auto) 0.6 X10*3/uL (0.1-1.2) 10/24/20 23:41 Eos # (Auto) 0.1 X10*3/uL (0.0-0.4) 10/24/20 23:41 Baso # (Auto) 0.0 X10*3/uL (0.0-0.2) 10/24/20 23:41 Abs Immat Gran (auto) 0.02 X10*3/uL (0.00-0.03) 10/24/20 23:41 Absolute Neuts (auto) 2.6 X10*3/uL (2.0-8.3) 10/24/20 23:41 Absolute Nucleated RBC 0.000 X10*3/uL (0.0-0.012) 10/24/20 23:41 Nucleated RBC % (auto) 0.0 /100WBC (0.0-0.2) 10/24/20 23:41 PT 19.1 SEC (10.8-13.0) H 10/24/20 14:55 INR 1.6 (0.9-1.1) H 10/24/20 14:55 Sodium 141 mmol/L (135-145) 10/25/20 05:33 Potassium 4.2 mmol/l (3.3-5.1) 10/25/20 05:33 Chloride 105 mmol/L (96-108) 10/25/20 05:33 Carbon Dioxide 25 mmol/L (22-29) 10/25/20 05:33 Anion Gap 15 (-20) 10/25/20 05:33 BUN 24 mg/dL (9-16) H 10/25/20 05:33 Creatinine 0.83 mg/dL (0.5-1.4) 10/25/20 05:33 Estim Creat Clear Calc 88.2 10/25/20 05:33 Estimated GFR > 60 10/25/20 05:33 POC Glucose 96 mg/dL (60-115) 10/25/20 12:50 Random Glucose 79 mg/dL (60-115) 10/25/20 05:33 Calcium 8.6 mg/dL (8.4-10.2) 10/25/20 05:33 Total Bilirubin 0.4 mg/dL (0.0-1.0) 10/24/20 14:55 Direct Bilirubin 0.2 mg/dL (0.0-0.5) 10/24/20 14:55 AST 12 U/L (5-37) 10/24/20 14:55 ALT 14 U/L (0-40) 10/24/20 14:55 Alkaline Phosphatase 107 U/L (39-117) 10/24/20 14:55 Total Protein 6.6 g/dL (6.5-8.0) 10/24/20 14:55 Albumin 4.1 g/dL (3.5-5.0) 10/24/20 14:55 Stool Occult Blood NEG (NEG) 10/24/20 15:48 COVID-19 ([facility]) Negative (Negative) 10/24/20 14:56 COVID-19 Clin Com See Note 10/24/20 14:56 Blood Type A Positive 10/24/20 15:48 Antibody Screen NEGATIVE 10/24/20 15:48 Discharge Plan Discharge Patient Disposition: Home, Self-Care Referrals: Matias Roy MD [Primary Care Provider] - Discharge Medications: New omeprazole magnesium [Prilosec OTC] 20 mg tablet,delayed release (DR/EC) 20 mg PO BID Qty: 60 RF: 0 Continued fluoxetine 20 mg capsule 60 mg PO DAILY Qty: 270 RF: 1 diltiazem HCl 180 mg capsule,extended release 24hr 180 mg PO DAILY Qty: 90 RF: 1 atorvastatin 40 mg tablet 40 mg PO BEDTIME 90 Days Qty: 90 RF: 3 dulaglutide 0.75 mg/0.5 mL pen injector 0.75 mg subcut MO RF: 0 apixaban 5 mg tablet 5 mg PO BID RF: 0 metformin 1,000 mg tablet 1,000 mg PO BIDWM RF: 0 Discontinued omeprazole 20 mg capsule,delayed release(DR/EC) 20 mg PO BEDTIME RF: 0 Discharge Orders: Discharge Order (Routine); Ordered 10/25/20 Ordered By: Anisa Castorena Diet: diabetic diet and low fat, low cholesterol Activity on Discharge: As tolerated Visit Report Forms: Patient Portal Discharge page Care Plan Goals: Return to check with any recurrent symptoms of bloody vomiting abdominal pain or diarrhea Health Concerns: Prevent further episodes of hematemesis Plan of Treatment: Outpatient follow-up with primary care physician and Dr. Jackson
--- NOTE | 2020-10-25 14:15 | OP_ITS ---
SURGEON: Erlin Barbosa MD INDICATIONS: Hematemesis. PREOPERATIVE DIAGNOSIS: POSTOPERATIVE DIAGNOSIS: PROCEDURE PERFORMED: Upper endoscopy. ESTIMATED BLOOD LOSS: COMPLICATIONS: ANESTHESIA: ASSISTANTS: SPECIMENS: MEDICATIONS: Monitored anesthesia care. DESCRIPTION OF PROCEDURE: History and physical performed. The risks and benefits of the procedure were explained to the patient. Informed consent was obtained. The patient was placed in the left lateral decubitus position. The Olympus video gastroscope was introduced into the esophagus, stomach, and duodenum. Examination was performed and the scope was removed. He tolerated the procedure well and was taken to recovery area in stable condition. FINDINGS: Esophagus: There appeared to be an approximately 1 cm patchy area of Rivera's esophagus at the EG junction with no raised lesions or ulcerated areas. There was no esophagitis. No biopsies were obtained because of the patient's recent use of Eliquis. Stomach: The stomach was normal. Two polyps were identified in the fundus with a benign appearance measuring less than 5 mm. No biopsies were obtained. There was no ulceration or no mass lesions. No source for bleeding was identified. Duodenum: The bulb and second portion were normal. IMPRESSION: 1. Normal upper endoscopy, no source for bleeding identified. 2. Rivera's esophagus. 3. Gastric polyps. RECOMMENDATIONS: 1. Follow up as needed. 2. Eliquis may be resumed. 3. Continue proton pump inhibitor. 4. The patient may be discharged later today. MD RON Adams/ANGI / [id number]
== END 2020-10-25 15:08 | disposition home or self-care (01) | DRG 382 ==
LOC: HO.ED 16:43 → HO.IMC 20:07
PROVIDERS: Internal Medicine Gastroenterology; Nurse Practitioner Family; Physician Assistant Medical; Admitting Provider Hospitalist; Emergency Provider Emergency Medicine Emergency Medical Services; PCP Family Medicine; Visit Provider Hospitalist
DX: K22.70 Barrett's esophagus without dysplasia (principal); K31.7 Polyp of stomach and duodenum; K92.0 Hematemesis; F17.210 Nicotine dependence, cigarettes, uncomplicated; I25.10 Atherosclerotic heart disease of native coronary artery without angina pectoris; I48.0 Paroxysmal atrial fibrillation; E11.9 Type 2 diabetes mellitus without complications; E78.5 Hyperlipidemia, unspecified; F39 Unspecified mood [affective] disorder; Z20.828 Contact with and (suspected) exposure to other viral communicable diseases; Z88.0 Allergy status to penicillin; Z79.01 Long term (current) use of anticoagulants; Z79.02 Long term (current) use of antithrombotics/antiplatelets; Z79.84 Long term (current) use of oral hypoglycemic drugs; Z79.899 Other long term (current) drug therapy
CPT/HCPCS: 36415; 80048; 80076; 82272; 82947; 85025; 85610; 86850; 86900; 86901; 87635; 93005; 96374; 96375; 99285; J2405; J3430

== ENCOUNTER → 2020-11-07 12:25 | Outpatient (BNVA) | payer MEDICARE, OTHER, SELFPAY | PROVIDERS: PCP Family Medicine; Visit Provider Internal Medicine | DX: Z01.810 Encounter for preprocedural cardiovascular examination (principal); I48.92 Unspecified atrial flutter; I48.0 Paroxysmal atrial fibrillation; I25.10 Atherosclerotic heart disease of native coronary artery without angina pectoris; I10 Essential (primary) hypertension; E11.8 Type 2 diabetes mellitus with unspecified complications; E78.5 Hyperlipidemia, unspecified; F17.200 Nicotine dependence, unspecified, uncomplicated; K92.2 Gastrointestinal hemorrhage, unspecified | CPT/HCPCS: 93005; 99212 ==

== ENCOUNTER → 2021-01-29 10:02 | Outpatient (BNVA) | payer MEDICARE, OTHER, SELFPAY | PROVIDERS: Visit Provider Internal Medicine | DX: J44.9 Chronic obstructive pulmonary disease, unspecified (principal); I25.10 Atherosclerotic heart disease of native coronary artery without angina pectoris; I10 Essential (primary) hypertension; I48.92 Unspecified atrial flutter; I48.0 Paroxysmal atrial fibrillation; G47.33 Obstructive sleep apnea (adult) (pediatric); F17.210 Nicotine dependence, cigarettes, uncomplicated; Z88.0 Allergy status to penicillin; Z91.041 Radiographic dye allergy status; Z99.89 Dependence on other enabling machines and devices; Z79.84 Long term (current) use of oral hypoglycemic drugs; Z79.899 Other long term (current) drug therapy | CPT/HCPCS: Q3014 ==

== ENCOUNTER → 2021-02-06 13:22 | Outpatient (BNVA) | payer MEDICARE, OTHER, SELFPAY | PROVIDERS: PCP Family Medicine; Visit Provider Internal Medicine | DX: I48.92 Unspecified atrial flutter (principal); I48.0 Paroxysmal atrial fibrillation; I25.10 Atherosclerotic heart disease of native coronary artery without angina pectoris; I10 Essential (primary) hypertension; E11.8 Type 2 diabetes mellitus with unspecified complications; E78.5 Hyperlipidemia, unspecified; F17.200 Nicotine dependence, unspecified, uncomplicated; K92.2 Gastrointestinal hemorrhage, unspecified | CPT/HCPCS: 93005; 99212 ==

== ENCOUNTER 2021-06-01 23:01 | Emergency (ER) | payer MEDICARE, OTHER, SELFPAY ==
--- NOTE | ~2021-06-01 | CT_ITS ---
EXAMINATION: CT HEAD WITHOUT CONTRAST CT CERVICAL SPINE WITHOUT CONTRAST CLINICAL INFORMATION: Reason for Exam s/p fall COMPARISON: None. TECHNIQUE: Imaging was performed from the skull base to vertex without intravenous administration of contrast. In addition, helical noncontrast CT imaging was acquired through the cervical spine and source images were reviewed along with axial reconstructions and sagittal and coronal MPRs. This CT examination was performed using dose optimization techniques as appropriate, variously including the following: *Automated exposure control. *Adjustment of mA and/or kV according to patient size (this includes techniques or standardized protocols for targeted exams where dose is matched to indication/reason for exam; i.e. extremities or head). *Use of iterative reconstruction technique. Total exam dose-length product 1461.1 mGy-cm FINDINGS: HEAD: No intracranial mass, hemorrhage, or midline shift is visualized. The ventricles and sulci are age-appropriate. No extra-axial collections are identified. The paranasal sinuses and mastoid air cells are well aerated. CERVICAL SPINE: Large claw like osteophyte formations are present with partial loss fusion at C3-C4, C4-C5 and C5-C6. Large claw like osteophyte formation/ossification of the posterior longitudinal ligament is also noted at the upper cervical spine at the level of C3, C4 and C5 vertebral bodies, producing significant narrowing of the central spinal canal. Moderate diffuse osteopenia is noted. Extensive hypertrophic changes are noted at the uncovertebral joints bilaterally throughout the entire cervical spine. There is no evidence of acute cervical spine fracture. Vertebral bodies remain normal in height, and alignment is anatomic. No evidence of any prevertebral soft tissue hematoma present. Incidental note is made of a circumscribed hypodense nodule within the right lobe of the thyroid gland measuring 1.4 cm (image #53 series 14). Limited assessment of the lung apices is unremarkable. CT/CT cervical spine wo con IMPRESSION: 1. No acute intracranial pathology. 2. No CT evidence of acute cervical spine fracture or traumatic subluxation. 3. Extensive osteophyte formations are present within the upper cervical spine with partial fusion of the upper cervical spine. Specific note is made of large claw like osteophyte formations/ossification of posterior longitudinal ligament at the upper cervical spine, producing significant central spinal canal narrowing. 4. 1.5 cm hypodense nodule within the right lobe of the thyroid gland.
[2021-06-01 23:05] VITALS: BP 142/82; PULSE 82; O2SAT 98
[2021-06-01 23:06] VITALS: BP 142/71; PULSE 83; RESP 18; TEMP 36.6; O2SAT 97; BMI 28.1
--- NOTE | 2021-06-01 23:28 | ED.FALL ---
HPI - Fall General Chief Complaint: Fall Stated Complaint: fall etoh Time Seen by Provider: 06/01/21 23:28 Source: patient Mode of arrival: EMS Limitations: no limitations History of Present Illness HPI Narrative: Patient on Eliquis for paroxysmal AFib was outside the bar had few drinks lost balance stumbled and fell came with superficial abrasion to the nose and head small abrasion to bilateral hand no neck pain no loss of consciousness no chest pain or palpitation no other injuries Related Data Home Medications Medication Instructions Recorded Confirmed apixaban 5 mg tablet 5 mg PO BID 07/23/20 02/06/21 dulaglutide 0.75 mg/0.5 mL 0.75 mg SUBCUT MO 07/23/20 02/06/21 subcutaneous pen injector omeprazole 20 mg capsule,delayed 20 mg PO DAILY 11/07/20 02/06/21 release cholecalciferol (vitamin D3) 50 50 mcg PO DAILY 11/14/20 02/06/21 mcg (2,000 unit) capsule zinc gluconate 50 mg tablet 50 mg PO DAILY 11/14/20 02/06/21 metformin 1,000 mg tablet 500 mg PO BIDWM tab 01/30/21 02/06/21 Previous Rx's Medication Instructions Recorded atorvastatin 40 mg tablet 40 mg PO BEDTIME 90 Days #90 tab 10/03/20 diltiazem HCl 180 mg 180 mg PO DAILY #90 cap 03/18/21 capsule,extended release 24 hr fluoxetine 20 mg capsule 60 mg PO DAILY #270 cap 04/09/21 Allergies Allergy/AdvReac Type Severity Reaction Status Date / Time Iodinated Contrast Media Allergy Severe ANAPHYLAXIS Verified 06/01/21 23:15 [IV CONTRAST] Penicillins [PENICILLINS] Allergy Severe trouble Verified 06/01/21 23:15 breathing Review of Systems Review of Systems: Yes all other systems are reviewed and are negative PMFSH Past Medical History Medical History Arteriosclerotic cardiovascular disease Atrial flutter by electrocardiogram COPD (chronic obstructive pulmonary disease) Essential hypertension Hyperlipidemia, unspecified ALISON on CPAP PAF (paroxysmal atrial fibrillation) Smoker Type 2 diabetes mellitus with unspecified complications Upper GI bleeding Surgical History History of surgical removal of ganglion cyst (~2016) Hx of cardiac cath (~2017) Hx of total knee replacement (~2004) S/P radical cystoprostatectomy (~2014) Family History Family History Father Staph infection Mother No problems noted. Social History Social History Household Members: Spouse Housing: House Do you presently have visiting nurse or other home services: No Alcohol intake: former Cigarettes Per Day: 10 Advance Directives: No Advance Directives Information Provided: Yes service: No Current occupational status: retired Physical Exam Vital Signs: Vital Signs: Last Vital Signs Temp 97.8 F 06/01/21 23:06 Pulse 83 06/01/21 23:06 Resp 18 06/01/21 23:06 BP 142/71 H 06/01/21 23:06 Pulse Ox 97 06/01/21 23:06 Body Mass Index 28.1 Const: General: comfortable and no acute distress Nutritional Appearance: average body habitus Orientation/consciousness: patient oriented x3 HENMT: Head: Yes normocephalic Head images: 1. Superficial abrasion 2. Superficial abrasion Ears: hearing grossly normal bilaterally Eyes: General: appearance normal, both eyes and all related structures Neck: Neck: Yes normal visual inspection, Yes full ROM and No tender Chest: Chest palpation & inspection: normal inspection of the chest and normal palpation of entire chest wall Resp: Effort & Inspection: normal respiratory effort Auscultation: clear to auscultation bilaterally Cardio: Palpation: normal PMI Rate: regular rate Rhythm: regular rhythm Heart sounds: S1 normal heart sound present and S2 normal heart sound present Peripheral pulses: Peripheral pulses 2+ throughout GI: Inspection: Yes normal to inspection Palpation (GI): Soft to palpation and nontender : General: Yes no CVA tenderness Back/Spine/Pelvis: Back: no CVA tenderness Cervical Spine: normal cervical lordosis and cervical ROM normal Thoracic/Lumbar Spine: No thoracic spinal tenderness and No lumbar spinal tenderness Neuro: General: patient oriented x3, gait normal, no focal motor deficits and CN's II-XI intact bilaterally MDM - Fall MDM Narrative Medical decision making narrative: Patient's CT scan head and C-spine negative for any acute ambulatory in the ER will discharge patient with family Imaging Data CT scan - head: Radiologist's impression: Patient: Chilo Fox MR#: [id number] : 1945 Acct:[id number] Age/Sex: 75 / M ADM Date: 06/01/21 Loc: HO.ED Attending Dr: Ordering Physician: Tanner Davidson MD Date of Service: 06/01/21 Procedure(s): CT head/brain wo con Accession Number(s): [id number] cc: Tanner Davidson MD~ EXAMINATION: CT HEAD WITHOUT CONTRAST CT CERVICAL SPINE WITHOUT CONTRAST CLINICAL INFORMATION: Reason for Exam s/p fall COMPARISON: None. TECHNIQUE: Imaging was performed from the skull base to vertex without intravenous administration of contrast. In addition, helical noncontrast CT imaging was acquired through the cervical spine and source images were reviewed along with axial reconstructions and sagittal and coronal MPRs. This CT examination was performed using dose optimization techniques as appropriate, variously including the following: *Automated exposure control. *Adjustment of mA and/or kV according to patient size (this includes techniques or standardized protocols for targeted exams where dose is matched to indication/reason for exam; i.e. extremities or head). *Use of iterative reconstruction technique. Total exam dose-length product 1461.1 mGy-cm FINDINGS: HEAD: No intracranial mass, hemorrhage, or midline shift is visualized. The ventricles and sulci are age-appropriate. No extra-axial collections are identified. The paranasal sinuses and mastoid air cells are well aerated. CERVICAL SPINE: Large claw like osteophyte formations are present with partial loss fusion at C3-C4, C4-C5 and C5-C6. Large claw like osteophyte formation/ossification of the posterior longitudinal ligament is also noted at the upper cervical spine at the level of C3, C4 and C5 vertebral bodies, producing significant narrowing of the central spinal canal. Moderate diffuse osteopenia is noted. Extensive hypertrophic changes are noted at the uncovertebral joints bilaterally throughout the entire cervical spine. There is no evidence of acute cervical spine fracture. Vertebral bodies remain normal in height, and alignment is anatomic. No evidence of any prevertebral soft tissue hematoma present. Incidental note is made of a circumscribed hypodense nodule within the right lobe of the thyroid gland measuring 1.4 cm (image #53 series 14). Limited assessment of the lung apices is unremarkable. CT/CT head/brain wo con IMPRESSION: 1. No acute intracranial pathology. 2. No CT evidence of acute cervical spine fracture or traumatic subluxation. 3. Extensive osteophyte formations are present within the upper cervical spine with partial fusion of the upper cervical spine. Specific note is made of large claw like osteophyte formations/ossification of posterior longitudinal ligament at the upper cervical spine, producing significant central spinal canal narrowing. 4. 1.5 cm hypodense nodule within the right lobe of the thyroid gland. Dictated By: MICHELLE WITT MD Signed By: <Electronically signed by MICHELLE WITT MD in OV> 06/02/21 0015 DD/ 2331 TD/TT:? Director Ambulatory: [facility] Discharge Plan Discharge Clinical Impression: Minor closed head injury Fall Qualifiers: Encounter type: initial encounter Qualified Code(s): W19.XXXA - Unspecified fall, initial encounter Patient Disposition: Home, Self-Care Instructions: Head Injury (ED), Fall Prevention (ED) Additional Instructions: Care as advised Follow-up with PCP if any concerns Prescriptions: No Action atorvastatin 40 mg tablet 40 mg PO BEDTIME 90 Days Qty: 90 RF: 3 diltiazem HCl 180 mg capsule,extended release 24hr 180 mg PO DAILY Qty: 90 RF: 1 fluoxetine 20 mg capsule 60 mg PO DAILY Qty: 270 RF: 1 zinc gluconate 50 mg tablet 50 mg PO DAILY RF: 0 cholecalciferol (vitamin D3) 50 mcg (2,000 unit) capsule 50 mcg PO DAILY RF: 0 omeprazole 20 mg capsule,delayed release(DR/EC) 20 mg PO DAILY RF: 0 dulaglutide 0.75 mg/0.5 mL pen injector 0.75 mg subcut MO RF: 0 apixaban 5 mg tablet 5 mg PO BID RF: 0 metformin 1,000 mg tablet 500 mg PO BIDWM RF: 0
--- NOTE | 2021-06-01 23:35 | PC.NURSE ---
Patient away for CT Scan.
== END 2021-06-02 01:09 | disposition home or self-care (01) ==
PROVIDERS: Emergency Provider Internal Medicine; PCP Family Medicine
DX: S09.90XA Unspecified injury of head, initial encounter (principal); S00.31XA Abrasion of nose, initial encounter; S60.512A Abrasion of left hand, initial encounter; S60.511A Abrasion of right hand, initial encounter; W01.0XXA Fall on same level from slipping, tripping and stumbling without subsequent striking against object, initial encounter; I48.0 Paroxysmal atrial fibrillation; E11.9 Type 2 diabetes mellitus without complications; I10 Essential (primary) hypertension; Y93.89 Activity, other specified; Y92.481 Parking lot as the place of occurrence of the external cause; Y99.9 Unspecified external cause status
CPT/HCPCS: 70450; 72125; 99283; 99284

== ENCOUNTER 2021-07-10 13:09 | Outpatient (REF) | payer MEDICARE, SELFPAY ==
[2021-07-10 15:14] LABS: Alanine Aminotransferase 15 U/L (0-40); Albumin Level 3.6 g/dL (3.5-5.0); Alkaline Phosphatase 108 U/L (39-117); Anion Gap 11 (12-20); Aspartate Amino Transferase 15 U/L (5-37); Bilirubin Total 0.5 mg/dL (0.0-1.0); Blood Urea Nitrogen 24 mg/dL (9-16); Calcium 8.2 mg/dL (8.4-10.2); Carbon Dioxide 22 mmol/L (22-29); Chloride 111 mmol/L (96-108); Cholesterol 125 mg/dL; Estimated Glomerular Filt Rate > 60; Glucose Fasting 132 mg/dL (60-99); HDL Cholesterol 56 mg/dL; LDL Cholesterol Calculated 55 mg/dl; Potassium 4.4 mmol/L (3.3-5.1); Sodium 140 mmol/L (135-145); Total Protein 5.9 g/dL (6.5-8.0); Triglycerides 71 mg/dL
[2021-07-10 15:35] LABS: TSH reflex Free T4 1.64 uIU/mL (0.32-4.0)
== END 2021-07-10 13:10 | disposition home or self-care (01) ==
LOC: HO.LAB 13:09
PROVIDERS: PCP Family Medicine; Visit Provider Family Medicine
DX: Z00.00 Encounter for general adult medical examination without abnormal findings (principal)
CPT/HCPCS: 36415; 80053; 80061; 84443

== ENCOUNTER 2021-07-11 11:26 | Outpatient (REF) | payer MEDICARE, SELFPAY | END 2021-07-11 11:27 | disposition home or self-care (01) | LOC: HO.LNP 11:26 | PROVIDERS: Visit Provider Family Medicine | DX: Z20.822 Contact with and (suspected) exposure to COVID-19 (principal); B34.9 Viral infection, unspecified | CPT/HCPCS: U0003; U0005 ==

== ENCOUNTER 2021-07-24 10:17 | Outpatient (REF) | payer MEDICARE, SELFPAY ==
[2021-07-24 11:06] LABS: Anion Gap 10 (12-20); Blood Urea Nitrogen 22 mg/dL (9-16); Calcium 8.7 mg/dL (8.4-10.2); Carbon Dioxide 26 mmol/L (22-29); Chloride 108 mmol/L (96-108); Estimated Glomerular Filt Rate > 60; Potassium 4.4 mmol/L (3.3-5.1); Sodium 140 mmol/L (135-145)
[2021-07-24 11:39] LABS: Appearance Urine CLOUDY; Color Urine YELLOW; Glucose Urine UA NEG (NEG); Leukocyte Esterase Urine 3+ (NEG); Nitrite Urine NEG (NEG); Urine Blood 2+ (NEG); Urine Ketones NEG (NEG); Urine Protein 1+ MG/DL (NEG-TRACE)
[2021-07-24 11:59] LABS: Squamous Epithelial Cell Urine 2+ /LPF; WBC Urine 50-75 /HPF (0-4)
[2021-07-24 12:00] LABS: Amorphous Sediment Urine 2+ /LPF; Bacteria Urine 2+ /LPF; Mucus Urine 2+ /LPF
[2021-07-24 12:10] LABS: Creatinine Urine 90.14 mg/dL; Protein/Creatinine Ratio, Ur 0.63 (<0.2); Total Protein Urine Random 57 mg/dL (<12)
== END 2021-07-24 10:18 | disposition home or self-care (01) ==
LOC: HO.LAB 10:17
PROVIDERS: PCP Family Medicine; Visit Provider Internal Medicine Hypertension Specialist
DX: N18.9 Chronic kidney disease, unspecified (principal)
CPT/HCPCS: 36415; 80051; 81001; 82310; 82565; 84156; 84520

== ENCOUNTER 2021-07-26 11:15 | Outpatient (REF) | payer MEDICARE, SELFPAY ==
--- NOTE | ~2021-07-26 | XR_ITS ---
EXAMINATION: XR CHEST CLINICAL INFORMATION: Orthopnea COMPARISON: Previous chest x-ray and chest CT October 2019 TECHNIQUE: 2 views of the chest were obtained. FINDINGS: The cardiac and mediastinal contours are stable. The lungs are clear. There is no pleural effusion or pneumothorax. There are degenerative changes of the spine. XR/XR chest 2V IMPRESSION: No evidence for acute disease in the chest.
[2021-07-26 11:30] LABS: MANUAL DIFF FLAG NO
[2021-07-26 11:39] LABS: Basophils Percent Auto 0.2 % (0-2); Hematocrit 37.2 % (42-52); Hemoglobin 11.6 g/dl (14.0-18.0); Imm Gran Abs Auto 0.04 X10*3/uL (0.00-0.03); Lymphocytes Absolute Auto 0.6 X10*3/uL (1.2-4.9); Lymphocytes Percent Auto 15.4 % (20-40); Mean Corpuscular HGB Conc 31.2 g/dl (31.0-36.0); Mean Corpuscular Hemoglobin 31.4 pg (27.0-33.0); Mean Corpuscular Volume 100.8 fL (80-98); Mean Platelet Volume 9.6 fL (9.4-12.4); Monocytes Absolute Auto 0.5 X10*3/uL (0.1-1.2); Monocytes Percent Auto 10.8 % (2-11); Neutrophils Percent Auto 71.6 % (45-73); Platelet Count 188 X10*3/uL (160-400); Red Blood Count 3.69 X10*6/uL (4.60-5.80); White Blood Count 4.2 X10*3/uL (4.8-10.8)
[2021-07-26 12:12] LABS: Alanine Aminotransferase 12 U/L (0-40); Albumin Level 3.7 g/dL (3.5-5.0); Alkaline Phosphatase 117 U/L (39-117); Anion Gap 12 (12-20); Aspartate Amino Transferase 15 U/L (5-37); Bilirubin Total 0.7 mg/dL (0.0-1.0); Blood Urea Nitrogen 19 mg/dL (9-16); Carbon Dioxide 29 mmol/L (22-29); Chloride 106 mmol/L (96-108); Estimated Glomerular Filt Rate > 60; Glucose Random 147 mg/dL (60-115); Potassium 4.6 mmol/L (3.3-5.1); Sodium 142 mmol/L (135-145); Total Protein 6.4 g/dL (6.5-8.0)
[2021-07-26 12:18] LABS: B Type Natriuretic Peptide 234 pg/mL (<100); Troponin-I High Sensitivity 36.6 ng/L (<3.5-35.0)
== END 2021-07-26 11:16 | disposition home or self-care (01) ==
LOC: HO.XRAY 11:15
PROVIDERS: PCP Family Medicine; Visit Provider Family Medicine
DX: Z00.00 Encounter for general adult medical examination without abnormal findings (principal); R06.01 Orthopnea; I50.9 Heart failure, unspecified; I48.91 Unspecified atrial fibrillation
CPT/HCPCS: 36415; 71046; 80053; 83880; 84484; 85025

== ENCOUNTER → 2021-07-29 14:06 | Outpatient (BNVA) | payer MEDICARE, SELFPAY | PROVIDERS: PCP Family Medicine; Referring Provider Family Medicine; Visit Provider Internal Medicine | DX: I11.0 Hypertensive heart disease with heart failure (principal); I50.31 Acute diastolic (congestive) heart failure; E11.8 Type 2 diabetes mellitus with unspecified complications; E78.5 Hyperlipidemia, unspecified; F17.200 Nicotine dependence, unspecified, uncomplicated; K92.2 Gastrointestinal hemorrhage, unspecified; R60.9 Edema, unspecified | CPT/HCPCS: 93005; 99212 ==

== ENCOUNTER → 2021-09-06 09:30 | Outpatient (REF) | payer MEDICARE, SELFPAY ==
--- NOTE | 2021-09-06 09:33 | CA_ITS ---
Transthoracic Echocardiogram Patient (Last, First, Middle): Chilo Fox J Gender: Male Date of : 1945 Age: 76 Procedure Date: 09/06/2021 Procedure Type: Transthoracic Echocardiogram Location: OP Height: 182.88 cm Weight: 91.63 kg BSA: 2.14 m2 Heart Rate: bpm BP: 130 / 70 mmHg [employer] Operator: DSG Referring MD: Mateo Lara MD Symptoms: I50.31 - Acute diastolic (congestive) heart failure Study Quality: Fair ECG Rhythm: Undetermined Conclusions: - The left ventricular systolic function is mildly decreased. The visually estimated ejection fraction is between 45-50%. - There is mild mitral annular calcification. Findings Left Ventricle Normal left ventricular cavity size. There is moderately increased left ventricular wall thickness. The left ventricular systolic function is mildly decreased. The visually estimated ejection fraction is between 45-50%. Diastolic function is indeterminate on the basis of available data. E/E prime ratio is between 8 and 15 consistent with indeterminate filling pressures. Right Ventricle Normal right ventricular cavity size and systolic function. Atria Both atria are normal in size. Aortic Valve There is a normal trileaflet aortic valve. There is mild calcification of the aortic valve. There is no aortic valve stenosis. There is trace (trivial) aortic valve regurgitation. Mitral Valve There is mild mitral annular calcification. There is trace mitral valve regurgitation. There is no mitral valve stenosis. Pulmonic Valve The pulmonic valve was not well visualized. Tricuspid Valve Normal tricuspid valve structure. There is trace tricuspid valve regurgitation. The pulmonary artery systolic pressure is normal. Great Vessels The aortic annulus, sinuses of valsalva, and asc aorta are normal in size. Venous The inferior vena cava is normal in size and collapses greater than 50% with inspiration. Pericardium/Pleural There is no evidence of pericardial effusion. Prior Study Comparison Changes noted compared to prior study dated: 10/12/2019. LVEF is lower. Measurements 2D Linear Measurements IVSd: 1.60 0.6-0.9/0.6-1.0 cm LVIDd: 5.46 3.9-5.3/4.2-5.9 cm LVIDd Index: 2.55 2.4-3.2/2.2-3.1 cm/m2 LVIDs: 3.96 2.0-3.6 cm LVPWd: 1.58 0.7-1.1 cm Ao Root: 3.50 2.1-3.5 cm LA Diam: 4.10 2.7-3.8/3.0-4.0 cm LAIDs Index: 1.92 1.5-2.3 cm/m2 LV Mass: 501.49 67-162/88-224 g LV Mass Index: 234.34 43-95/49-115 g/m2 LVOT Diam: 2.10 3.0+(-)1.3 cm 2D Systolic Function EF 4C: 50.10 >55% EF 2C: 53.80 >55% EF BiP: 51.00 >55% Mitral Valve MV Pk E: 0.58 MV PK A: 0.89 MV Decel Time: 336.00 E/A: 0.70 E'Lateral: 4.68 E'Medial: 3.92 E/E' Med: 14.80 E/E' Lat: 12.40 PHT: 98.00 MVA PHT: 2.24 Decel [place]: 1.73 Aortic Valve AoV Pk Brant: 1.51 AoV Pk Grad: 9.00 LVOT LVOT Pk Brant: 1.14 LVOT Mn Brant: 0.70 LVOT VTI: 0.22 LVOT Pk Grad: 5.00 LVOT Mn Grad: 3.00 LVOT Diam: 2.10 LVOT Area: 3.46 Diastolic Function MV Pk E: 0.58 MV Pk A: 0.89 E/A: 0.70 E'Medial: 3.92 E/E' Med: 14.80 E' Laterial: 4.68 E/E' Lat: 12.40 Right Ventricle TAPSE (mm): 2.52 Tricuspid Valve TR Pk Brant: 2.32 TR Pk Grad: 22.00 Great Vessels Aorta Ao Root-2D: 3.50 2.0-3.7 cm Ao Asc: 3.60 2.1-3.4 cm Updated in Other Vendor System with Status of Final Mateo Lara MD electronically signed on 09/08/2021 1:06:07 PM with status of Final
== END ==
LOC: HO.CARD 09:30
PROVIDERS: PCP Family Medicine; Visit Provider Internal Medicine
DX: I50.31 Acute diastolic (congestive) heart failure (principal)
CPT/HCPCS: 93306

== ENCOUNTER → 2021-09-16 13:31 | Outpatient (BNVA) | payer MEDICARE, SELFPAY | PROVIDERS: PCP Family Medicine; Referring Provider Family Medicine; Visit Provider Internal Medicine | DX: I48.92 Unspecified atrial flutter (principal); I48.0 Paroxysmal atrial fibrillation; I25.10 Atherosclerotic heart disease of native coronary artery without angina pectoris; I11.0 Hypertensive heart disease with heart failure; I50.32 Chronic diastolic (congestive) heart failure; E78.5 Hyperlipidemia, unspecified; E11.8 Type 2 diabetes mellitus with unspecified complications; K92.2 Gastrointestinal hemorrhage, unspecified; G47.33 Obstructive sleep apnea (adult) (pediatric); Z99.89 Dependence on other enabling machines and devices; F17.200 Nicotine dependence, unspecified, uncomplicated | CPT/HCPCS: 99212 ==

== ENCOUNTER 2021-10-01 10:45 | Outpatient (REF) | payer MEDICARE, SELFPAY ==
[2021-10-01 13:53] LABS: MANUAL DIFF FLAG NO
[2021-10-01 14:03] LABS: Basophils Percent Auto 0.6 % (0-2); Eosinophils Absolute Auto 0.1 X10*3/uL (0.0-0.4); Eosinophils Percent Auto 1.7 % (0-4); Hematocrit 36.3 % (42.0-52.0); Hemoglobin 11.4 g/dl (14.0-18.0); Imm Gran Abs Auto 0.05 X10*3/uL (0.00-0.03); Imm Gran Pct Auto 1.4 % (0.0-0.4); Lymphocytes Absolute Auto 0.7 X10*3/uL (1.2-4.9); Lymphocytes Percent Auto 19.9 % (20-40); Mean Corpuscular HGB Conc 31.4 g/dl (31.0-36.0); Mean Corpuscular Hemoglobin 30.9 pg (27.0-33.0); Mean Corpuscular Volume 98.4 fL (80.0-98.0); Mean Platelet Volume 9.8 fL (9.4-12.4); Monocytes Absolute Auto 0.5 X10*3/uL (0.1-1.2); Monocytes Percent Auto 14.4 % (2-11); Neutrophils Absolute Auto 2.2 x10*3/uL (2.0-8.3); Platelet Count 183 X10*3/uL (160-400); Red Blood Count 3.69 X10*6/uL (4.60-5.80); Red Cell Distribution Width 16.7 % (11.0-16.0); White Blood Count 3.6 X10*3/uL (4.8-10.8)
[2021-10-01 14:28] LABS: Anion Gap 10 (12-20); Blood Urea Nitrogen 24 mg/dL (9-16); Carbon Dioxide 24 mmol/L (22-29); Chloride 110 mmol/L (96-108); Estimated Glomerular Filt Rate > 60; Glucose Random 192 mg/dL (60-115); Potassium 4.4 mmol/L (3.3-5.1); Sodium 140 mmol/L (135-145)
== END 2021-10-01 10:46 | disposition home or self-care (01) ==
LOC: HO.WFDLDS 10:45
PROVIDERS: Visit Provider Family Medicine
DX: Z00.00 Encounter for general adult medical examination without abnormal findings (principal)
CPT/HCPCS: 36415; 80048; 85025

== ENCOUNTER → 2021-11-11 09:47 | Outpatient (BNVA) | payer MEDICARE, SELFPAY | PROVIDERS: PCP Family Medicine; Referring Provider Family Medicine; Visit Provider Internal Medicine | DX: Z01.810 Encounter for preprocedural cardiovascular examination (principal); I11.0 Hypertensive heart disease with heart failure; I50.32 Chronic diastolic (congestive) heart failure; I48.0 Paroxysmal atrial fibrillation; I48.92 Unspecified atrial flutter; I25.10 Atherosclerotic heart disease of native coronary artery without angina pectoris; E11.8 Type 2 diabetes mellitus with unspecified complications; E78.5 Hyperlipidemia, unspecified; K92.2 Gastrointestinal hemorrhage, unspecified; G47.33 Obstructive sleep apnea (adult) (pediatric); F17.200 Nicotine dependence, unspecified, uncomplicated; Z79.84 Long term (current) use of oral hypoglycemic drugs; Z99.89 Dependence on other enabling machines and devices | CPT/HCPCS: 93005; 99212 ==

== ENCOUNTER 2021-11-29 06:26 | Emergency (ER) | payer MEDICARE, SELFPAY ==
--- NOTE | ~2021-11-29 | CT_ITS ---
EXAMINATION: CT HEAD WITHOUT CONTRAST CLINICAL INFORMATION: Hallucinations. On Eliquis. COMPARISON: Head CT 06/01/2021 TECHNIQUE: Contiguous axial imaging was performed from the skull base to vertex without intravenous administration of contrast. This CT examination was performed using dose optimization techniques as appropriate, variously including the following: *Automated exposure control *Adjustment of mA and/or kV according to patient size (this includes techniques or standardized protocols for targeted exams where dose is matched to indication/reason for exam; i.e. extremities or head) *Use of iterative reconstruction technique DLP: 815 mGy-cm FINDINGS: There is no evidence of acute intracranial hemorrhage or territorial infarction. No abnormal mass effect or midline shift is appreciated. Ruiz-white differentiation is well preserved. No extra-axial fluid collections. The ventricular system and cortical sulci are normal in size for age. There are areas of low density in the periventricular and subcortical white matter, most consistent with sequelae of microvascular ischemic change. The osseous structures and soft tissues are normal. There are calcifications of the cavernous internal carotid arteries. The visualized paranasal sinuses and mastoid air cells are well aerated. CT/CT head/brain wo con IMPRESSION: Chronic microvascular ischemic changes with no CT evidence of acute intracranial abnormality.
--- NOTE | ~2021-11-29 | XR_ITS ---
EXAMINATION: XR CHEST CLINICAL INFORMATION: Hallucinations and weakness COMPARISON: 07/26/2021 TECHNIQUE: Frontal view of the chest was obtained. FINDINGS: No significant abnormality is noted involving the heart, lungs, mediastinum, bony thorax or soft tissues. XR/XR chest 1V IMPRESSION: Unremarkable examination.
[2021-11-29 06:32] VITALS: BP 137/98; BP 148/70; PULSE 88; PULSE 95; RESP 20; TEMP 37; O2SAT 97; O2SAT 98; BMI 28.4
--- NOTE | 2021-11-29 06:41 | ECG_ITS ---
Test Reason : afib Blood Pressure : / mmHG Vent. Rate : 094 BPM Atrial Rate : 094 BPM P-R Int : 170 ms QRS Dur : 100 ms QT Int : 362 ms P-R-T Axes : 079 -36 036 degrees QTc Int : 452 ms Sinus rhythm with Premature atrial complexes Left axis deviation Abnormal ECG When compared with ECG of 24-OCT-2020 15:37, No significant change was found Referred By: Ashlie Duran Electronically Signed By:TABATHA ANTOINE
--- NOTE | 2021-11-29 06:41 | ED_ITS ---
HPI - General Adult General Chief complaint: General Medical Stated complaint: AMS Time Seen by Provider: 11/29/21 06:40 Source: patient Mode of arrival: EMS Limitations: no limitations History of Present Illness HPI narrative: called police tonight about someone in his car - no one was there brought to ED, alert and oriented x 3, has hallucinated on oxycodone in the past. MD complaint: hallucinations Onset (ago): week(s) (1) Severity: moderate Relieving factors: none Exacerbating factors: other (started since taking oxycodone for L TKR 1 week ago since then hallucinating he is seeing people and animals in the evening mostly) Associated symptoms: confusion and malaise Treatments prior to arrival: none Related Data Home Medications Medication Instructions Recorded Confirmed omeprazole 20 mg capsule,delayed 20 mg PO DAILY 11/07/20 11/11/21 release cholecalciferol (vitamin D3) 50 50 mcg PO DAILY 11/14/20 11/11/21 mcg (2,000 unit) capsule magnesium chloride 70 mg 70 mg PO .QOD tab 11/11/21 11/11/21 (magnesium chloride) tablet,delayed release metformin 500 mg tablet,extended 500 mg PO BID 11/11/21 11/11/21 release 24 hr Previous Rx's Medication Instructions Recorded atorvastatin 40 mg tablet 40 mg PO BEDTIME 90 Days #90 tab 10/03/20 apixaban 5 mg tablet 5 mg PO BID 90 Days #180 tab 07/04/21 furosemide 20 mg tablet (Lasix) 20 mg PO DAILY #90 tab 07/29/21 diltiazem HCl 240 mg 240 mg PO DAILY #90 cap 10/08/21 capsule,extended release 24 hr fluoxetine 20 mg capsule 40 mg PO ONCE 90 Days #180 cap 10/24/21 Allergies Allergy/AdvReac Type Severity Reaction Status Date / Time Iodinated Contrast Allergy Severe ANAPHYLAXIS Verified 11/29/21 06:41 Media [IV CONTRAST] Penicillins Allergy Severe trouble Verified 11/29/21 06:41 [PENICILLINS] breathing Review of Systems Verdana 4l Review of Systems: Verdana 4d Verdana 4d Constitutional : No Weight loss, No Fever, No Chills, No Fatigue, No Malaise ENT/Mouth : No sore throat, No Rhinorrhea Eyes: No Eye Pain, No Swelling, No Redness Cardiovascular : No Chest Pain, No SOB, No Dyspnea on Exertion, No Orthopnea,, No Edema, No Palpitations Respiratory : No Cough, No Sputum, No Wheezing Gastrointestinal : No Nausea, No Vomiting, No Diarrhea, No Constipation, No abdominal Pain, No Hematochezia, No Melena Genitourinary : No Dysuria, No Urinary Frequency, No Hematuria, Musculoskeletal : pos joint pain, No Myalgias, No Joint Swelling Skin : No Skin Lesions, No rash Neuro : No Weakness, No Numbness, No Dizziness, No Headache Psych : No Anxiety/Panic, No Depression, pos hallucinations Heme/Lymph: No Bruising, No Bleeding,No Lymphadenopathy Endocrine : No Polyuria, No Polydipsia All other systems reviewed and are negative [facility] Past Medical History Attestation statement: The following information was validated with the patient. Medical History Arteriosclerotic cardiovascular disease Atrial flutter by electrocardiogram COPD (chronic obstructive pulmonary disease) Essential hypertension Hyperlipidemia, unspecified ALISON on CPAP PAF (paroxysmal atrial fibrillation) Smoker Type 2 diabetes mellitus with unspecified complications Upper GI bleeding Surgical History History of surgical removal of ganglion cyst (~2016) Hx of cardiac cath (~2017) Hx of total knee replacement (~2004) S/P radical cystoprostatectomy (~2014) Family History Family History Father Staph infection Mother No problems noted. Social History Social History Household Members: Spouse Housing: House Do you presently have visiting nurse or other home services: No Alcohol intake: former Patient Tobacco Use Status: Current everyday Tobacco user Cigarettes Per Day: 10 Use of substances other than those prescribed or required for medical reasons: No Advance Directives: No Advance Directives Information Provided: Yes service: No Current occupational status: retired Physical Exam Verdana 4l Vital Signs: Verdana 4d Verdana 4d Vital Signs: Verdana 4d Verdana 4Bd Last Vital Signs Verdana 4d Credit Collections Specialist New 4d Credit Collections Specialist New 4d Temp 98.2 F 11/29/21 07:13 Credit Collections Specialist New 4d Pulse 81 11/29/21 07:13 Credit Collections Specialist New 4d Resp 19 11/29/21 07:13 BP 155/76 H 11/29/21 07:13 Pulse Ox 98 11/29/21 07:13 BMI result Body Mass Index 28.4 Appearance: Alert. Oriented X3. No acute distress. Eyes: Pupils equal, round and reactive to light. ENT: Pharynx normal. Neck: Normal inspection. Neck supple. CVS: Normal heart rate and rhythm. Pulses normal. Respiratory: No respiratory distress. Breath sounds normal. Abdomen: Soft and nontender. Skin: Skin warm and dry. Normal skin color. L knee swollen no erythema no warmth no drainage, dressing c/d/i - distal NV intact Neuro: Oriented X 3. No motor deficit. No sensory deficit. Course Course Course Narrative: baseline hemoglobin around 11 prior to surgery today 8.9 - will obtain post op H/H from [facility] preop hemoglobin 9.4 - surgery on 11/22 hemoglobin on 11/23 9.7 suspect patient is still coming up from acute blood loss anemiam- no hypotension no GIB symptoms no UTI oxycodone likely causing hallucinations - review of literature could try dilaudid or the patient may just have to take tylenol at this time given his sensitivity to narcotics and prior reports of hallucinations with narcotics completely alert and oriented did discuss maybe switching narcotics but he does not want want them and only wants to try tylenol at this time - he is alert and oriented, no hallucinations while here, negative work up Medical Decision Making MDM Narrative Medical decision making narrative: 76 yo male with hx of HFpEF, arhritis, PAF On eliquis, DM, HTN here 1 week post op L TKR at [facility] he notes since starting oxycodone he has had hallucinations in regards to seeing people and animals mostly at night. Tonight he called the police about someone in his car. He is alert and oriented. He denies infectious symptoms. At this time will need labs, UA, CXR, CT head for ICH. He is sensitive to narcotics and reports hallucinations in the past. Possible reaction to the oxycodone. Lab Data Result diagrams: 11/29/21 06:51 11/29/21 06:51 Labs: Lab Results 11/29/21 11/29/21 11/29/21 Range/Units 06:50 06:51 06:51 WBC 4.7 L (4.8-10.8) X10*3/uL RBC 2.84 L D (4.60-5.80) X10*6/uL Hgb 8.9 L D (14.0-18.0) g/dl Hct 28.1 L D (42.0-52.0) % MCV 98.9 H (80.0-98.0) fL MCH 31.3 (27.0-33.0) pg MCHC 31.7 (31.0-36.0) g/dl RDW 16.4 H (11.0-16.0) % Plt Count 226 (160-400) X10*3/uL MPV 9.7 (9.4-12.4) fL Immature Gran % (Auto) 3.0 H (0.0-0.4) % Neut % (Auto) 67.7 (45-73) % Lymph % (Auto) 10.2 L (20-40) % Trego % (Auto) 17.0 H (2-11) % Eos % (Auto) 1.7 (0-4) % Baso % (Auto) 0.4 (0-2) % Lymph # (Auto) 0.5 L (1.2-4.9) X10*3/uL Trego # (Auto) 0.8 (0.1-1.2) X10*3/uL Eos # (Auto) 0.1 (0.0-0.4) X10*3/uL Baso # (Auto) 0.0 (0.0-0.2) X10*3/uL Abs Immat Gran (auto) 0.14 H (0.00-0.03) X10*3/uL Absolute Neuts (auto) 3.2 (2.0-8.3) x10*3/uL Absolute Nucleated RBC 0.000 (0.0-0.012) X10*3/uL Nucleated RBC % (auto) 0.0 (0.0-0.2) /100WBC PT (9.9-13.0) SEC INR (0.9-1.1) Sodium 136 (135-145) mmol/L Potassium 4.9 (3.3-5.1) mmol/L Chloride 103 (96-108) mmol/L Carbon Dioxide 23 (22-29) mmol/L Anion Gap 15 (12-20) BUN 20 H (9-16) mg/dL Creatinine 0.90 (0.5-1.4) mg/dL Estim Creat Clear Calc 82.4 Estimated GFR > 60 Random Glucose 145 H (60-115) mg/dL Lactic Acid (0.5-2.0) mmol/L Calcium 9.0 (8.4-10.2) mg/dL Magnesium 1.6 (1.6-2.6) mg/dL Total Bilirubin 0.7 (0.0-1.0) mg/dL Direct Bilirubin 0.3 (0.0-0.5) mg/dL AST 18 (5-37) U/L ALT 10 (0-40) U/L Alkaline Phosphatase 84 D (39-117) U/L Troponin I High Sens (<3.5-35.0) ng/L C-Reactive Protein 10.13 H (< or = 0.50) mg/dL Total Protein 6.4 L (6.5-8.0) g/dL Albumin 3.4 L (3.5-5.0) g/dL TSH 1.04 (0.32-4.0) uIU/mL Urine Color Urine Appearance Urine pH (5.0-8.0) Ur Specific [place] (1.005-1.025) Urine Protein (NEG-TRACE) MG/DL Urine Glucose (UA) (NEG) MG/DL Urine Ketones (NEG) MG/DL Urine Blood (NEG) Urine Nitrite (NEG) Ur Leukocyte Esterase (NEG) Urine RBC (0) /HPF Urine WBC (0-4) /HPF Ur Squamous Epith Cells /LPF Ur Renal Epithelial Cell /LPF Urine Bacteria /LPF COVID-19 (ENMANUEL) Negative (Negative) COVID-19 Clin Com See Note 11/29/21 11/29/21 11/29/21 Range/Units 06:51 06:51 06:51 WBC (4.8-10.8) X10*3/uL RBC (4.60-5.80) X10*6/uL Hgb (14.0-18.0) g/dl Hct (42.0-52.0) % MCV (80.0-98.0) fL MCH (27.0-33.0) pg MCHC (31.0-36.0) g/dl RDW (11.0-16.0) % Plt Count (160-400) X10*3/uL MPV (9.4-12.4) fL Immature Gran % (Auto) (0.0-0.4) % Neut % (Auto) (45-73) % Lymph % (Auto) (20-40) % Trego % (Auto) (2-11) % Eos % (Auto) (0-4) % Baso % (Auto) (0-2) % Lymph # (Auto) (1.2-4.9) X10*3/uL [place] # (Auto) (0.1-1.2) X10*3/uL Eos # (Auto) (0.0-0.4) X10*3/uL Baso # (Auto) (0.0-0.2) X10*3/uL Abs Immat Gran (auto) (0.00-0.03) X10*3/uL Absolute Neuts (auto) (2.0-8.3) x10*3/uL Absolute Nucleated RBC (0.0-0.012) X10*3/uL Nucleated RBC % (auto) (0.0-0.2) /100WBC PT 15.4 H (9.9-13.0) SEC INR 1.3 H (0.9-1.1) Sodium (135-145) mmol/L Potassium (3.3-5.1) mmol/L Chloride (96-108) mmol/L Carbon Dioxide (22-29) mmol/L Anion Gap (12-20) BUN (9-16) mg/dL Creatinine (0.5-1.4) mg/dL Estim Creat Clear Calc Estimated GFR Random Glucose (60-115) mg/dL Lactic Acid 1.2 (0.5-2.0) mmol/L Calcium (8.4-10.2) mg/dL Magnesium (1.6-2.6) mg/dL Total Bilirubin (0.0-1.0) mg/dL Direct Bilirubin (0.0-0.5) mg/dL AST (5-37) U/L ALT (0-40) U/L Alkaline Phosphatase (39-117) U/L Troponin I High Sens 26.8 (<3.5-35.0) ng/L C-Reactive Protein (< or = 0.50) mg/dL Total Protein (6.5-8.0) g/dL Albumin (3.5-5.0) g/dL TSH (0.32-4.0) uIU/mL Urine Color Urine Appearance Urine pH (5.0-8.0) Ur Specific [place] (1.005-1.025) Urine Protein (NEG-TRACE) MG/DL Urine Glucose (UA) (NEG) MG/DL Urine Ketones (NEG) MG/DL Urine Blood (NEG) Urine Nitrite (NEG) Ur Leukocyte Esterase (NEG) Urine RBC (0) /HPF Urine WBC (0-4) /HPF Ur Squamous Epith Cells /LPF Ur Renal Epithelial Cell /LPF Urine Bacteria /LPF COVID-19 (ENMANUEL) (Negative) COVID-19 Clin Com 11/29/21 11/29/21 Range/Units 06:51 07:29 WBC (4.8-10.8) X10*3/uL RBC (4.60-5.80) X10*6/uL Hgb (14.0-18.0) g/dl Hct (42.0-52.0) % MCV (80.0-98.0) fL MCH (27.0-33.0) pg MCHC (31.0-36.0) g/dl RDW (11.0-16.0) % Plt Count (160-400) X10*3/uL MPV (9.4-12.4) fL Immature Gran % (Auto) (0.0-0.4) % Neut % (Auto) (45-73) % Lymph % (Auto) (20-40) % Trego % (Auto) (2-11) % Eos % (Auto) (0-4) % Baso % (Auto) (0-2) % Lymph # (Auto) (1.2-4.9) X10*3/uL Treg[place] # (Auto) (0.1-1.2) X10*3/uL Eos # (Auto) (0.0-0.4) X10*3/uL Baso # (Auto) (0.0-0.2) X10*3/uL Abs Immat Gran (auto) (0.00-0.03) X10*3/uL Absolute Neuts (auto) (2.0-8.3) x10*3/uL Absolute Nucleated RBC (0.0-0.012) X10*3/uL Nucleated RBC % (auto) (0.0-0.2) /100WBC PT (9.9-13.0) SEC INR (0.9-1.1) Sodium (135-145) mmol/L Potassium (3.3-5.1) mmol/L Chloride (96-108) mmol/L Carbon Dioxide (22-29) mmol/L Anion Gap (12-20) BUN (9-16) mg/dL Creatinine (0.5-1.4) mg/dL Estim Creat Clear Calc Estimated GFR Random Glucose (60-115) mg/dL Lactic Acid (0.5-2.0) mmol/L Calcium (8.4-10.2) mg/dL Magnesium (1.6-2.6) mg/dL Total Bilirubin (0.0-1.0) mg/dL Direct Bilirubin (0.0-0.5) mg/dL AST (5-37) U/L ALT (0-40) U/L Alkaline Phosphatase (39-117) U/L Troponin I High Sens (<3.5-35.0) ng/L C-Reactive Protein (< or = 0.50) mg/dL Total Protein (6.5-8.0) g/dL Albumin (3.5-5.0) g/dL TSH Cancelled (0.32-4.0) uIU/mL Urine Color YELLOW Urine Appearance CLEAR Urine pH 6.0 (5.0-8.0) Ur Specific [place] 1.010 (1.005-1.025) Urine Protein 1+ H (NEG-TRACE) MG/DL Urine Glucose (UA) NEG (NEG) MG/DL Urine Ketones NEG (NEG) MG/DL Urine Blood 3+ H (NEG) Urine Nitrite NEG (NEG) Ur Leukocyte Esterase NEG (NEG) Urine RBC 10-14 H (0) /HPF Urine WBC 1-4 (0-4) /HPF Ur Squamous Epith Cells TRACE /LPF Ur Renal Epithelial Cell TRACE /LPF Urine Bacteria TRACE /LPF COVID-19 (ENMANUEL) (Negative) COVID-19 Clin Com ECG Data Attestation: I personally reviewed and interpreted this ECG as follows: Interpretation: Rate: 94 Rhythm: NSR with PACs [place]: left Normal P waves. Normal AILYN. Normal QRS complex. ST T wave : no JET, nonspecific qTC: normal prior studies: no acute ischemia The study has been interpreted contemporaneously by me. . Discharge Plan Discharge Clinical Impression: Postoperative anemia Adverse reaction to drug Qualifiers: Encounter type: initial encounter Qualified Code(s): T50.905A - Adverse effect of unspecified drugs, medicaments and biological substances, initial encounter Patient Disposition: Home, Self-Care Instructions: Anemia (ED), Hallucinations (ED) Additional Instructions: return to ED for any worsening symptoms or concerns you are very sensitive to narcotics - negative workup for infection, no UTI, no pneumonia, CT of the head is normal your doctor needs to recheck your hemoglobin CBC on Thursday for post operative anemia please take tylenol for pain no more than 3 grams per day total Prescriptions: No Action atorvastatin 40 mg tablet 40 mg PO BEDTIME 90 Days Qty: 90 3RF apixaban 5 mg tablet 5 mg PO BID 90 Days Qty: 180 3RF diltiazem HCl 240 mg capsule,extended release 24hr 240 mg PO DAILY Qty: 90 4RF cholecalciferol (vitamin D3) 50 mcg (2,000 unit) capsule 50 mcg PO DAILY 0RF magnesium chloride 70 mg tablet,delayed release (DR/EC) 70 mg PO .QOD 0RF omeprazole 20 mg capsule,delayed release(DR/EC) 20 mg PO DAILY 0RF fluoxetine 20 mg capsule 40 mg PO ONCE 90 Days Qty: 180 2RF furosemide [Lasix] 20 mg tablet 20 mg PO DAILY Qty: 90 4RF Rx Instructions: daily as needed for leg swelling. metformin 500 mg tablet extended release 24 hr 500 mg PO BID 0RF Referrals: Physician,Unknown J [Primary Care Provider] - 3 days
[2021-11-29 06:57] LABS: MANUAL DIFF FLAG NO
[2021-11-29 07:07] LABS: Basophils Percent Auto 0.4 % (0-2); Eosinophils Absolute Auto 0.1 X10*3/uL (0.0-0.4); Eosinophils Percent Auto 1.7 % (0-4); Hematocrit 28.1 % (42.0-52.0); Imm Gran Abs Auto 0.14 X10*3/uL (0.00-0.03); Lymphocytes Absolute Auto 0.5 X10*3/uL (1.2-4.9); Lymphocytes Percent Auto 10.2 % (20-40); Mean Corpuscular HGB Conc 31.7 g/dl (31.0-36.0); Mean Corpuscular Hemoglobin 31.3 pg (27.0-33.0); Mean Corpuscular Volume 98.9 fL (80.0-98.0); Mean Platelet Volume 9.7 fL (9.4-12.4); Monocytes Absolute Auto 0.8 X10*3/uL (0.1-1.2); Neutrophils Absolute Auto 3.2 x10*3/uL (2.0-8.3); Neutrophils Percent Auto 67.7 % (45-73); Platelet Count 226 X10*3/uL (160-400); Red Blood Count 2.84 X10*6/uL (4.60-5.80); Red Cell Distribution Width 16.4 % (11.0-16.0); White Blood Count 4.7 X10*3/uL (4.8-10.8)
[2021-11-29 07:09] LABS: Hemoglobin 8.9 g/dl (14.0-18.0); Lactic Acid 1.2 mmol/L (0.5-2.0)
[2021-11-29 07:11] LABS: COVID-19 Test Negative (Negative); IDNOW Serial# 9DD0AD1C
[2021-11-29 07:13] VITALS: BP 155/76; PULSE 81; RESP 19; TEMP 36.8; O2SAT 98
[2021-11-29 07:14] LABS: INTERNATIONAL NORM RATIO 1.3 (0.9-1.1); Prothrombin Time 15.4 SEC (9.9-13.0)
[2021-11-29 07:15] LABS: Alanine Aminotransferase 10 U/L (0-40); Albumin Level 3.4 g/dL (3.5-5.0); Alkaline Phosphatase 84 U/L (39-117); Anion Gap 15 (12-20); Aspartate Amino Transferase 18 U/L (5-37); Bilirubin Direct 0.3 mg/dL (0.0-0.5); Bilirubin Total 0.7 mg/dL (0.0-1.0); Blood Urea Nitrogen 20 mg/dL (9-16); C Reactive Protein 10.13 mg/dL (< or = 0.50); Carbon Dioxide 23 mmol/L (22-29); Chloride 103 mmol/L (96-108); Creatinine Clr Calc Pharmacy 82.4; Estimated Glomerular Filt Rate > 60; Glucose Random 145 mg/dL (60-115); Magnesium 1.6 mg/dL (1.6-2.6); Potassium 4.9 mmol/L (3.3-5.1); Sodium 136 mmol/L (135-145); Total Protein 6.4 g/dL (6.5-8.0)
[2021-11-29 07:19] LABS: Troponin-I High Sensitivity 26.8 ng/L (<3.5-35.0)
[2021-11-29 07:34] LABS: TSH reflex Free T4 1.04 uIU/mL (0.32-4.0)
[2021-11-29 07:43] LABS: Appearance Urine CLEAR; Color Urine YELLOW; Glucose Urine UA NEG (NEG); Leukocyte Esterase Urine NEG (NEG); Nitrite Urine NEG (NEG); UACC Culture Trigger NO; Urine Blood 3+ (NEG); Urine Ketones NEG (NEG); Urine Protein 1+ MG/DL (NEG-TRACE)
[2021-11-29 07:55] LABS: Bacteria Urine TRACE /LPF; Renal Epithelial Cells Urine TRACE /LPF; Squamous Epithelial Cell Urine TRACE /LPF
[2021-11-29] MEDS: Acetaminophen 325 MG TABLET 650 MG PO (10:09)
== END 2021-11-29 10:17 | disposition home or self-care (01) ==
PROVIDERS: Emergency Provider Emergency Medicine
DX: R44.1 Visual hallucinations (principal); T40.2X5A Adverse effect of other opioids, initial encounter; Y92.019 Unspecified place in single-family (private) house as the place of occurrence of the external cause; Z20.822 Contact with and (suspected) exposure to COVID-19; D64.89 Other specified anemias; E11.9 Type 2 diabetes mellitus without complications; E78.5 Hyperlipidemia, unspecified; I48.0 Paroxysmal atrial fibrillation; I11.0 Hypertensive heart disease with heart failure; I50.31 Acute diastolic (congestive) heart failure; F17.200 Nicotine dependence, unspecified, uncomplicated; Z96.652 Presence of left artificial knee joint
CPT/HCPCS: 36415; 70450; 71045; 80048; 80076; 81001; 83605; 83735; 84443; 84484; 85025; 85610; 86140; 87040; 87635; 93005; 99284; 99285

== ENCOUNTER → 2022-02-24 10:50 | Outpatient (REF) | payer MEDICARE, SELFPAY ==
--- NOTE | 2022-02-24 11:16 | HM_ITS ---
* Total monitoring time 3 days. * Underlying rhythm is sinus; average rate 82/Min; range 58 to 109/Min. * No atrial fibrillation or flutter or AV blocks or pauses. * Frequent supraventricular ectopy with short runs. Longest episode 32 beats. Overall burden 16%. * Rare ventricular ectopy; overall burden 0.4%. * No patient events. MTDD
== END ==
LOC: HO.CARD 10:50
PROVIDERS: PCP Family Medicine; Visit Provider Internal Medicine
DX: I48.0 Paroxysmal atrial fibrillation (principal)
CPT/HCPCS: 93242

== ENCOUNTER 2022-03-12 08:30 | Outpatient (REF) | payer MEDICARE, SELFPAY ==
[2022-03-12 11:39] LABS: MANUAL DIFF FLAG NO
[2022-03-12 11:48] LABS: Basophils Percent Auto 0.3 % (0-2); Eosinophils Absolute Auto 0.1 X10*3/uL (0.0-0.4); Eosinophils Percent Auto 3.1 % (0-4); Hematocrit 33.1 % (42.0-52.0); Hemoglobin 9.9 g/dl (14.0-18.0); Imm Gran Abs Auto 0.03 X10*3/uL (0.00-0.03); Lymphocytes Absolute Auto 0.6 X10*3/uL (1.2-4.9); Lymphocytes Percent Auto 20.5 % (20-40); Mean Corpuscular HGB Conc 29.9 g/dl (31.0-36.0); Mean Corpuscular Hemoglobin 28.4 pg (27.0-33.0); Mean Corpuscular Volume 95.1 fL (80.0-98.0); Mean Platelet Volume 10.7 fL (9.4-12.4); Monocytes Absolute Auto 0.5 X10*3/uL (0.1-1.2); Monocytes Percent Auto 15.6 % (2-11); Neutrophils Absolute Auto 1.7 x10*3/uL (2.0-8.3); Neutrophils Percent Auto 59.5 % (45-73); Platelet Count 173 X10*3/uL (160-400); Red Blood Count 3.48 X10*6/uL (4.60-5.80); Red Cell Distribution Width 16.7 % (11.0-16.0); White Blood Count 2.9 X10*3/uL (4.8-10.8)
[2022-03-12 11:49] LABS: Appearance Urine HAZY; Color Urine YELLOW; Glucose Urine UA NEG (NEG); Leukocyte Esterase Urine TRACE (NEG); Nitrite Urine POS (NEG); PH 7.5 (5.0-8.0); Urine Blood 3+ (NEG); Urine Ketones NEG (NEG); Urine Protein 1+ MG/DL (NEG-TRACE)
[2022-03-12 12:06] LABS: Alanine Aminotransferase 11 U/L (0-40); Albumin Level 3.6 g/dL (3.5-5.0); Alkaline Phosphatase 117 U/L (39-117); Anion Gap 11 (12-20); Aspartate Amino Transferase 11 U/L (5-37); Bilirubin Total 0.5 mg/dL (0.0-1.0); Blood Urea Nitrogen 19 mg/dL (9-16); Calcium 8.7 mg/dL (8.4-10.2); Carbon Dioxide 23 mmol/L (22-29); Chloride 108 mmol/L (96-108); Cholesterol 122 mg/dL; Estimated Glomerular Filt Rate > 60; Glucose Fasting 212 mg/dL (60-99); HDL Cholesterol 55 mg/dL; LDL Cholesterol Calculated 58 mg/dl; Potassium 4.2 mmol/L (3.3-5.1); Sodium 138 mmol/L (135-145); Total Protein 6.2 g/dL (6.5-8.0); Triglycerides 47 mg/dL; WBC Urine 30-49 /HPF (0-4)
[2022-03-12 12:07] LABS: Bacteria Urine 1+ /LPF; Renal Epithelial Cells Urine 2+ /LPF; Squamous Epithelial Cell Urine 1+ /LPF
[2022-03-12 12:10] LABS: Creatinine Urine 59.66 mg/dL; Microalbum/Creatinine Ratio Ur 221.2 ug/mg cr
[2022-03-12 12:28] LABS: Prostate Specific Antigen Scr < 0.05 ng/mL (<0.05-4.0); TSH reflex Free T4 1.45 uIU/mL (0.32-4.0)
== END 2022-03-12 08:31 | disposition home or self-care (01) ==
LOC: HO.WFDLDS 08:30
PROVIDERS: Visit Provider Family Medicine
DX: Z00.00 Encounter for general adult medical examination without abnormal findings (principal); Z12.5 Encounter for screening for malignant neoplasm of prostate; I10 Essential (primary) hypertension
CPT/HCPCS: 36415; 80053; 80061; 81001; 82043; 84153; 84443; 85025

== ENCOUNTER 2022-03-13 09:14 | Outpatient (REF) | payer MEDICARE, SELFPAY ==
[2022-03-13 11:31] LABS: Appearance Urine HAZY; Color Urine YELLOW; Glucose Urine UA NEG (NEG); Leukocyte Esterase Urine NEG (NEG); Nitrite Urine POS (NEG); PH 7.5 (5.0-8.0); Urine Blood 2+ (NEG); Urine Ketones NEG (NEG); Urine Protein 1+ MG/DL (NEG-TRACE)
[2022-03-13 11:39] LABS: Mucus Urine 4+ /LPF
[2022-03-13 11:41] LABS: WBC Clumps Urine NOTED
[2022-03-13 11:42] LABS: Amorphous Sediment Urine 3+ /LPF; Bacteria Urine 2+ /LPF; Squamous Epithelial Cell Urine 2+ /LPF
== END 2022-03-13 09:15 | disposition home or self-care (01) ==
LOC: HO.WFDLNP 09:14
PROVIDERS: Visit Provider Family Medicine
DX: R82.90 Unspecified abnormal findings in urine (principal)
CPT/HCPCS: 81001; 87086

== ENCOUNTER → 2022-03-17 09:38 | Outpatient (BNVA) | payer MEDICARE, SELFPAY | PROVIDERS: PCP Family Medicine; Referring Provider Family Medicine; Visit Provider Internal Medicine | DX: I11.0 Hypertensive heart disease with heart failure (principal); I50.32 Chronic diastolic (congestive) heart failure; I48.0 Paroxysmal atrial fibrillation; I48.92 Unspecified atrial flutter; I25.10 Atherosclerotic heart disease of native coronary artery without angina pectoris; E11.8 Type 2 diabetes mellitus with unspecified complications; E78.5 Hyperlipidemia, unspecified; G47.33 Obstructive sleep apnea (adult) (pediatric); K92.2 Gastrointestinal hemorrhage, unspecified; F17.210 Nicotine dependence, cigarettes, uncomplicated; Z99.89 Dependence on other enabling machines and devices | CPT/HCPCS: 99212 ==

== ENCOUNTER 2022-06-12 10:32 | Outpatient (REF) | payer MEDICARE, SELFPAY ==
[2022-06-12 11:10] LABS: Appearance Urine Cloudy; Color Urine Yellow; Glucose Urine UA Negative (Negative); Leukocyte Esterase Urine Trace (Negative); Nitrite Urine Positive (Negative); PH 8.5 (5.0-8.0); Urine Blood Small (1+) (Negative); Urine Ketones Negative (Negative); Urine Protein 30 (1+) mg/dL (Neg-Trace)
[2022-06-12 11:38] LABS: Bacteria Urine 4+ (None Seen); Hyaline Casts Urine 0-2 /LPF (0-2); Other Crystals Urine Present; RBC Urine 0-2 /HPF (0-2); UACC Culture Trigger YES; WBC Urine 21-50 /HPF (0-5)
== END 2022-06-12 10:33 | disposition home or self-care (01) ==
LOC: HO.LNP 10:32
PROVIDERS: Visit Provider Family Medicine
DX: R82.71 Bacteriuria (principal)
CPT/HCPCS: 81001; 81003; 87086

== ENCOUNTER 2022-06-20 09:39 | Outpatient (RCR) | payer MEDICARE, SELFPAY ==
[2022-06-20 10:07] VITALS: BP 126/70; PULSE 68; O2SAT 100
== END 2022-08-25 12:34 | disposition home or self-care (01) ==
LOC: HO.PTWFD 09:39
PROVIDERS: PCP Family Medicine; Visit Provider Family Medicine
DX: M25.551 Pain in right hip (principal); M25.552 Pain in left hip
CPT/HCPCS: 97110; 97162; 97535

== ENCOUNTER → 2023-01-16 14:53 | Outpatient (BNVA) | payer MEDICARE, SELFPAY | PROVIDERS: PCP Family Medicine; Visit Provider Nurse Practitioner Family | DX: G47.33 Obstructive sleep apnea (adult) (pediatric) (principal); J44.9 Chronic obstructive pulmonary disease, unspecified; I11.0 Hypertensive heart disease with heart failure; I50.33 Acute on chronic diastolic (congestive) heart failure; I48.0 Paroxysmal atrial fibrillation; Z99.89 Dependence on other enabling machines and devices | CPT/HCPCS: 99202 ==

== ENCOUNTER → 2023-02-05 19:30 | Outpatient (REF) | payer MEDICARE, SELFPAY | LOC: HO.SL 19:30 | PROVIDERS: PCP Family Medicine; Visit Provider Nurse Practitioner Family | DX: G47.33 Obstructive sleep apnea (adult) (pediatric) (principal); G47.9 Sleep disorder, unspecified; I50.33 Acute on chronic diastolic (congestive) heart failure; Z99.89 Dependence on other enabling machines and devices; J44.9 Chronic obstructive pulmonary disease, unspecified; I48.0 Paroxysmal atrial fibrillation; I10 Essential (primary) hypertension | CPT/HCPCS: 95811 ==

== ENCOUNTER 2023-02-10 08:00 | Outpatient (RCR) | payer MEDICARE, SELFPAY ==
--- NOTE | 2023-01-05 09:54 | MHC.PT.EP ---
[facility] [place] Office [place] Office [place] Office [address] Jose Niño [address] [phone] F: [phone] F: [phone] F: [phone] F: [phone] Physical Therapy Plan of Care Date of Evaluation: Date of Surgery: N/A Diagnosis: Other symptoms and signs involving the musculoskeletal system Unspecified mononeuropathy of unspecified lower limb Lower extremity weakness Neuropathy of foot Assessment: Pt is a pleasant 77yo M who presents to PT with lower extremity weakness and neuropathy. He presents to PT with current impairments in pain, decreased L ankle ROM, decreased L ankle strength, decreased muscle length, and impaired balance and gait. Light touch and proprioception intact L foot. Pt is limited functionally by prolonged standing, bending, prolonged walking, stair navigation, and golfing. He is a good candidate for skilled PT in order to address current impairments to facilitate return to PLOF. He is recommended to be seen 1x/week for 5 weeks and will be reassessed at that time. Frequency and Duration: The patient will be seen 1x/week for 5 weeks Short Term Goals: Pt will be I with HEP to promote self management of symptoms Pt will improve L DF by at least 5 degrees Skilled Nursing Goals: Pt will achieve full ROM and strength throughout L ankle to improve gait mechanics Pt will demonstrate improvements in function as evidenced by statistically significant improvement in LEFI outcome measure Treatment Plan: Modalities to reduce pain, spasms and effusion. Manual therapy to restore motion and function. Therapeutic exercise to improve strength and flexibility. Neuromuscular re-education for posture and balance. Therapeutic activities to return to functional activities of daily living. Electronically signed by: Maylin Villanueva, PT, DPT Please sign and return to therapist. Thank you for your referral.
--- NOTE | 2023-03-17 15:15 | MHC.PT.DC ---
[facility] [place] Office [place] Office [place] Office [address] Jose Niño [address] [facility] [phone] F: [phone] F: [phone] F: [phone] F: [phone] Physical Therapy Discharge Report Diagnosis: Other symptoms and signs involving the musculoskeletal system Unspecified mononeuropathy of unspecified lower limb Lower extremity weakness Neuropathy of foot Date of Surgery: N/A Date of Evaluation: 01/05/23 Date of Discharge: 03/17/23 Treatments to Date: 5 Cancellations to Date: 2 No Shows to Date: 2 Discharge Status: Visit Non-compliance Discharge Summary: Pt was seen for PT from 01/05/23-02/10/23. His last attended appointment was 02/10/23. He has had multiple cancellations and no-show appointments since SOC. Pt is being D/C from skilled PT per [facility] attendance policy and visit non-compliance. Pt current level of function unknown at this time. Electronically signed by: Maylin Villanueva, PT, DPT Please sign and return to therapist. Thank you for your referral.
== END 2023-03-17 15:16 | disposition home or self-care (01) ==
LOC: HO.PT 08:00
PROVIDERS: PCP Family Medicine; Visit Provider Family Medicine
DX: R29.898 Other symptoms and signs involving the musculoskeletal system (principal); G57.90 Unspecified mononeuropathy of unspecified lower limb
CPT/HCPCS: 97110; 97162; 97530

== ENCOUNTER → 2023-02-12 07:20 | Outpatient (BNVA) | payer MEDICARE, SELFPAY | PROVIDERS: PCP Family Medicine; Visit Provider Psychiatry & Neurology Neurology | DX: M21.372 Foot drop, left foot (principal); G47.30 Sleep apnea, unspecified | CPT/HCPCS: 99212 ==

== ENCOUNTER 2023-03-17 11:24 | Outpatient (REF) | payer MEDICARE, SELFPAY ==
[2023-03-17 12:22] LABS: Appearance Urine Cloudy; Color Urine Yellow; Glucose Urine UA Negative (Negative); Leukocyte Esterase Urine Trace (Negative); Mean Corpuscular Volume 103.5 fL (80.0-98.0); Nitrite Urine Negative (Negative); SCAN SMEAR FLAG 1; UMIC TRIGGER UA YES; Urine Blood Moderate (2+) (Negative); Urine Ketones Negative (Negative); Urine Protein 100 (2+) mg/dL (Neg-Trace)
[2023-03-17 12:27] LABS: Basophils Percent Auto 0.3 % (0-2); Eosinophils Absolute Auto 0.2 X10*3/uL (0.0-0.4); Eosinophils Percent Auto 5.4 % (0-4); Hematocrit 38.9 % (42.0-52.0); Imm Gran Abs Auto 0.09 X10*3/uL (0.00-0.03); Lymphocytes Absolute Auto 0.5 X10*3/uL (1.2-4.9); Lymphocytes Percent Auto 17.8 % (20-40); Mean Corpuscular HGB Conc 30.8 g/dl (31.0-36.0); Mean Corpuscular Hemoglobin 31.9 pg (27.0-33.0); Mean Platelet Volume 10.2 fL (9.4-12.4); Monocytes Absolute Auto 0.4 X10*3/uL (0.1-1.2); Monocytes Percent Auto 13.5 % (2-11); Neutrophils Absolute Auto 1.8 x10*3/uL (2.0-8.3); Platelet Count 172 X10*3/uL (160-400); Red Blood Count 3.76 X10*6/uL (4.60-5.80); Red Cell Distribution Width 16.8 % (11.0-16.0)
[2023-03-17 12:28] LABS: MANUAL DIFF FLAG NO
[2023-03-17 12:38] LABS: Bacteria Urine 4+ (None Seen); Hyaline Casts Urine 0-2 /LPF (0-2)
[2023-03-17 12:41] LABS: Creatinine Urine 63.89 mg/dL; Microalbum/Creatinine Ratio Ur 483.6 ug/mg cr
[2023-03-17 15:35] LABS: Alanine Aminotransferase 10 U/L (0-40); Albumin Level 3.6 g/dL (3.5-5.0); Alkaline Phosphatase 102 U/L (39-117); Anion Gap 12 (12-20); Aspartate Amino Transferase 12 U/L (5-37); Bilirubin Total 0.5 mg/dL (0.0-1.0); Blood Urea Nitrogen 24 mg/dL (9-16); Calcium 8.9 mg/dL (8.4-10.2); Carbon Dioxide 24 mmol/L (22-29); Chloride 109 mmol/L (96-108); Cholesterol 141 mg/dL; Estimated Glomerular Filt Rate > 60; Glucose Random 171 mg/dL (60-115); HDL Cholesterol 59 mg/dL; Iron 47 mcg/dL (45-160); LDL Cholesterol Calculated 70 mg/dl; Percent Iron Saturation 14 % (15-50); Potassium 4.6 mmol/L (3.3-5.1); Sodium 140 mmol/L (135-145); Total Iron Binding Capacity 328 mcg/dL (228-428); Total Protein 6.5 g/dL (6.5-8.0); Triglycerides 62 mg/dL; Unsaturated Iron Binding 281 ug/dL
[2023-03-17 16:04] LABS: Prostate Specific Antigen Scr < 0.10 ng/mL (<0.05-4.0); TSH reflex Free T4 1.41 uIU/mL (0.32-4.0); Vitamin B12 186 pg/mL (200-900)
[2023-03-20 00:58] LABS: LDL Cholesterol Direct 60 mg/dL (<100)
== END 2023-03-17 11:25 | disposition home or self-care (01) ==
LOC: HO.WFDLDS 11:24
PROVIDERS: Visit Provider Family Medicine
DX: Z00.00 Encounter for general adult medical examination without abnormal findings (principal); Z12.5 Encounter for screening for malignant neoplasm of prostate; I10 Essential (primary) hypertension; D64.9 Anemia, unspecified; E53.8 Deficiency of other specified B group vitamins
CPT/HCPCS: 36415; 80053; 80061; 81001; 82043; 82607; 82746; 83540; 83721; 84153; 84443; 85025

== ENCOUNTER → 2023-03-20 10:51 | Outpatient (BNVA) | payer MEDICARE, SELFPAY | PROVIDERS: PCP Family Medicine; Visit Provider Nurse Practitioner Family | DX: G47.30 Sleep apnea, unspecified (principal) | CPT/HCPCS: 99212 ==

== ENCOUNTER → 2023-03-31 08:50 | Outpatient (BNVA) | payer MEDICARE, SELFPAY | PROVIDERS: PCP Family Medicine; Referring Provider Family Medicine; Visit Provider Internal Medicine | DX: I11.0 Hypertensive heart disease with heart failure (principal); I50.32 Chronic diastolic (congestive) heart failure; I48.0 Paroxysmal atrial fibrillation; I48.92 Unspecified atrial flutter; I25.10 Atherosclerotic heart disease of native coronary artery without angina pectoris; E11.8 Type 2 diabetes mellitus with unspecified complications; K92.2 Gastrointestinal hemorrhage, unspecified; G47.33 Obstructive sleep apnea (adult) (pediatric); F17.210 Nicotine dependence, cigarettes, uncomplicated; Z99.89 Dependence on other enabling machines and devices | CPT/HCPCS: 93005; 99212 ==

== ENCOUNTER 2023-05-27 08:52 | Outpatient (AMB) | payer MEDICARE, OTHER, SELFPAY ==
[2023-05-27 08:55] VITALS: BP 130/90; PULSE 85; O2SAT 100
--- NOTE | 2023-05-27 08:55 | A.OFFVIS_ITS ---
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 He feels better with PT and not crossing his legs . His dropped foot is better It started about 12 months ago . He had h/o pain and numbness in todd feet for 2 years. He thinks its related to diabetic neuropathy. He takes marijuana gummies which helps his discomfort at nightHe has neck pain since his injury 35 years ago , low back pain. No shooting pains from back .He had h/o bladder cancer and has a ostomy .His walk is slower and he fell twice while playing Golf.His last HgA1C was 6.5 . Pt underwent split sleep study. The baseline portion of the sleep study was significant for severe degree of sleep apnea with increased severity in REM. The AHI was 34/hr, REM AHI was 73/hr and oxygen geovanna was 84%. Pt was trialed on CPAP [id number]. The breathing and oxygenation improved with CPAP at 9cmH2O and above. New CPAP prescription sent but pt wants to try Inspire. He has schedule for initial evaluation for Inspire on 06/22. He is using his CPAP until then [facility] Medical History Arteriosclerotic cardiovascular disease Atrial flutter by electrocardiogram COPD (chronic obstructive pulmonary disease) Essential hypertension Foot drop, left foot Hyperlipidemia, unspecified MRSA infection ALISON on CPAP PAF (paroxysmal atrial fibrillation) Smoker Type 2 diabetes mellitus with unspecified complications Upper GI bleeding Surgical History History of knee replacement (~10/2021) History of surgical removal of ganglion cyst (~2016) Hx of cardiac cath (~2017) Hx of total knee replacement (~2004) S/P radical cystoprostatectomy (~2014) Status post surgical removal of malignant neoplasm of skin Family History Father Staph infection Mother Hypertension Brother Heart problem Social History (Updated 05/27/23 @ 09:02 by Constance Murry CMA) Household Members: Spouse Household Members Other:: pets: dogs Housing: House Do you presently have visiting nurse or other home services: No Alcohol intake: former Patient Tobacco Use Status: Current everyday Tobacco user Cigarettes Per Day: 6 e-Cigarette/Vaping Use: Never Used Second Hand Smoke Exposure: No Use of substances other than those prescribed or required for medical reasons: No service: No Current occupational status: retired Current occupational exposures/hazards: No Cognitive needs: No Hearing needs: No Vision needs: No Review of Systems ENT Reports Normal hearing present Neuro Reports Normal hearing present Physical Exam Vital Signs: Last Vital Signs Pulse 85 05/27/23 08:55 BP 130/90 H 05/27/23 08:55 Pulse Ox 100 05/27/23 08:55 Oxygen Delivery Method Room Air 05/27/23 08:55 Const General: cooperative and tired appearing Nutritional Appearance: average body habitus Orientation/consciousness: patient oriented x3 Neuro Other: motor- 5/5 in all , weakness of left great toe dorsiflexion- mild Left foot- dorsiflexion 5/5 Foot adduction and abduction 5/5 plantar flexion 5/5 General: patient oriented x3, gait normal and moves all extremities Cranial nerves: Yes Bilaterally intact EOM present, Yes Normal facial strength present, Yes Midline tongue present, Yes Symmetric palate elevation present, Yes Normal hearing present, Yes Ability to bilaterally rotate head present and Yes Ability to bilaterally elevate shoulders present Cognition (Neuro): normal cognition Deep tendon reflexes (DTR's): Right triceps reflex intensity grade: 1+, Left triceps reflex intensity grade: 1+, Rt Biceps (C5, C6): 1+, Left biceps reflex intensity grade: 1+, Right brachioradialis reflex intensity grade: 1+, Left brachioradialis reflex intensity grade: 1+, Right patellar reflex intensity grade: 1+ and Left patellar reflex intensity grade: 1+ Assessment & Plan Assessment & Plan (1) Foot drop, left foot: Comment: 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 The AHI was 34/hr. Code(s): G47.30 - Sleep apnea, unspecified Plan Continue PT AVoid crossing legs Continue CPAP - compliance stressed Inspire appointment in 4 weeks Coding Level of Care Code Est Pt Level 4 (74229) Diagnoses Foot drop, left foot M21.372 Sleep apnea G47.30
== END 2023-05-27 09:18 | disposition home or self-care (01) ==
PROVIDERS: Visit Provider Psychiatry & Neurology Neurology
DX: M21.372 Foot drop, left foot (principal); G47.30 Sleep apnea, unspecified
CPT/HCPCS: 99214

== ENCOUNTER → 2023-05-27 08:52 | Outpatient (BNVA) | payer MEDICARE, SELFPAY | PROVIDERS: Visit Provider Psychiatry & Neurology Neurology | DX: M21.372 Foot drop, left foot (principal); G47.30 Sleep apnea, unspecified; E11.41 Type 2 diabetes mellitus with diabetic mononeuropathy; E11.65 Type 2 diabetes mellitus with hyperglycemia; Z99.89 Dependence on other enabling machines and devices | CPT/HCPCS: 99212 ==

== ENCOUNTER 2023-10-12 20:40 | Emergency (ER) | payer MEDICARE, OTHER, SELFPAY ==
--- NOTE | 2023-10-12 | ECG_ITS ---
Test Reason : chest pain Blood Pressure : / mmHG Vent. Rate : 087 BPM Atrial Rate : 087 BPM P-R Int : 160 ms QRS Dur : 100 ms QT Int : 366 ms P-R-T Axes : 065 -46 034 degrees QTc Int : 440 ms Poor data quality, interpretation may be adversely affected Sinus rhythm with Premature atrial complexes Left anterior fascicular block Abnormal ECG When compared with ECG of 29-NOV-2021 06:47, No significant change was found Referred By: Generic ED Physician Electronically Signed By:NAKUL RHODES MD
--- NOTE | ~2023-10-12 | XR_ITS ---
EXAMINATION: XR CHEST CLINICAL INFORMATION: Chest pain. Shortness of breath. COMPARISON: Chest x-ray November 29, 2021 TECHNIQUE: Frontal portable view of the chest was obtained. 2130 hours FINDINGS: Lungs are clear. No pulmonary vascular congestion. There is no pleural effusion. The heart size is normal. The cardiac and mediastinal contours are normal. There are calcifications of the thoracic aorta. There are multilevel degenerative changes of dorsal spine. XR/XR chest 1V IMPRESSION: Unremarkable examination.
--- NOTE | 2023-10-12 20:45 | ED_ITS ---
HPI - Chest Pain General Chief Complaint: Chest Pain Stated Complaint: chest pain Time Seen by Provider: 10/12/23 20:58 Source: patient Mode of arrival: ambulatory Limitations: no limitations History of Present Illness HPI narrative: Patient is a 78-year-old male with past medical history of atrial fibrillation anticoagulated on Eliquis, history of a flutter, COPD, ALISON, hyperlipidemia, diabetes, bladder cancer s/p Cystectomy with urostomy, heart failure with preserved EF presenting to emergency department for evaluation of chest pain and shortness of breath. He reports he has been experiencing intermittent substernal chest pain/left sternal border pain for the past few weeks, and shortness of breath with a productive cough that is typical for him. He reports that tonight he had sudden onset worsening of his chest pain and shortness of breath. Pain is described as a ?banging/pounding sensation? lasting approximately 5-10 seconds before self-resolving and occurs approximately every 10 minutes. Shortness of breath is felt even when pain is not present, worse with exertion. Denies any known sick contacts. Denies fevers, chills, nausea vomiting, abdominal pain, numbness or tingling of the extremities, lower extremity edema. Related Data Home Medications Medication Instructions Recorded Confirmed omeprazole 20 mg capsule,delayed 20 mg PO DAILY 11/07/20 04/15/23 release cholecalciferol (vitamin D3) 50 50 mcg PO DAILY 11/14/20 04/15/23 mcg (2,000 unit) capsule magnesium chloride 70 mg 70 mg PO .QOD 11/11/21 04/15/23 (magnesium chloride) tablet,delayed release metformin 500 mg tablet,extended 500 mg PO BID 11/11/21 04/15/23 release 24 hr lisinopril 5 mg tablet 5 mg PO DAILY 01/23/22 04/15/23 fluocinonide 0.05 % topical cream appl topical BID PRN 12/08/22 04/15/23 mecobalamin (vitamin B12) 1,000 1,000 mcg PO DAILY 05/27/23 mcg chewable tablet Previous Rx's Medication Instructions Recorded trazodone 100 mg tablet 100 mg PO BEDTIME PRN sleep 30 01/06/23 days #30 tabs atorvastatin 40 mg tablet 40 mg PO BEDTIME 90 days #90 tabs 02/24/23 mecobalamin (vitamin B12) 1,000 1,000 mcg sublingual DAILY 90 days 04/15/23 mcg disintegrating #90 tabs tablet,sublingual diltiazem HCl 180 mg 180 mg PO DAILY #90 caps 07/21/23 capsule,extended release 24 hr apixaban 5 mg tablet (Eliquis) 5 mg PO BID #180 tabs 10/05/23 ferrous gluconate 324 mg (38 mg 324 mg PO DAILY #30 tabs 10/05/23 iron) tablet fluoxetine 20 mg capsule 40 mg (2 x 20 mg) PO ONCE 90 days 10/05/23 #180 caps Allergies Allergy/AdvReac Type Severity Reaction Status Date / Time Iodinated Contrast Media Allergy Severe ANAPHYLAXIS Verified 05/27/23 08:58 [IV CONTRAST] Penicillins [PENICILLINS] Allergy Severe trouble Verified 05/27/23 08:58 breathing doxycycline AdvReac Intermediate rASH Verified 05/27/23 08:58 Review of Systems 2 Review of Systems: Yes all other systems are reviewed and are negative PMFSH Past Medical History Attestation statement: The following information was validated with the patient. Source: old records reviewed Medical History MRSA infection Foot drop, left foot ALISON on CPAP COPD (chronic obstructive pulmonary disease) Upper GI bleeding PAF (paroxysmal atrial fibrillation) Smoker Hyperlipidemia, unspecified Type 2 diabetes mellitus with unspecified complications Essential hypertension Arteriosclerotic cardiovascular disease Atrial flutter by electrocardiogram Surgical History Status post surgical removal of malignant neoplasm of skin History of knee replacement (~10/2021) Hx of cardiac cath (~2017) History of surgical removal of ganglion cyst (~2016) S/P radical cystoprostatectomy (~2014) Hx of total knee replacement (~2004) Family History Family History Father Staph infection Mother Hypertension Brother Heart problem Social History Social History (Updated 05/27/23 @ 09:02 by Constance Murry CMA) Household Members: Spouse Household Members Other:: pets: dogs Housing: House Do you presently have visiting nurse or other home services: No Alcohol intake: former Patient Tobacco Use Status: Current everyday Tobacco user Cigarettes Per Day: 6 Smoked in Last 30 Days: Yes e-Cigarette/Vaping Use: Never Used Second Hand Smoke Exposure: No Use of substances other than those prescribed or required for medical reasons: No Advance Directives: Yes Advance Directives Information Provided: No Advance Directives on File: No service: No Current occupational status: retired Current occupational exposures/hazards: No Cognitive needs: No Hearing needs: No Vision needs: No Physical Exam 2 Vital Signs: Vital Signs: Last Vital Signs Temp 98.2 F 10/12/23 21:01 Pulse 74 10/13/23 01:45 Resp 20 10/13/23 01:45 BP 132/80 10/13/23 01:45 Pulse Ox 93 10/13/23 01:45 O2 Del Method Room Air 10/13/23 01:45 BMI result Body Mass Index 30.0 Appearance: Alert.?Oriented to person, place and time. No acute distress.?Normal affect. Eyes: Pupils equal, round and reactive to light.? ENT: Pharynx normal.?? Neck: Normal inspection.? Neck supple.?? CVS: Heart sounds normal. Normal heart rate and rhythm.? Pulses normal.?? Respiratory: No respiratory distress.? Lung sounds clear to auscultation bilaterally except for mild rhonchi to the right lower lobe Abdomen: Soft and non-tender. Normoactive bowel sounds. No pulsatile mass.?? Skin: Skin warm and dry.? Normal skin color.? Extremities: No lower extremity edema.? No calf ttp? Neuro: Moves all extremities spontaneously. Sensation intact bilaterally. CN II- XII intact. No focal neuro deficits. Ambulates with normal steady gait. Course Course Course Narrative: This is an RME: Additional HPI, ROS, PE not included below will be deferred to primary provider. 78-year-old male, with a hx of a flutter, COPD, ALISON, HLD, PAF on eliquis, DM, presenting to the ER with complaints of chest pain. He has had intermittent chest pain for the last several weeks however states that tonight has been much worse. Patient wheezing in triage. Plan: EKG, CXR, labs, further ER evaluation needed. Reevaluation(s) Reevaluation #1: CBC reveals pancytopenia consistent with baseline. CMP reveals renal function slightly increased from baseline, though does not meet criteria for DOM. Overall to frequency of the chest pain is improving, states he has only had a few episodes over the past couple of hours. High sensitive troponin 29.1 which appears consistent with prior levels obtained November 2021, EKG without acute ischemic findings, clinically have lower suspicion for ACS given duration of symptoms, however based on his past medical history, age, sudden onset of worsening of symptoms will obtain delta troponin. Chest x-ray without acute cardiopulmonary findings. BNP consistent with baseline, no evidence of fluid overload. Time: 22:55 Reevaluation #2: Delta troponin pending, patient signed out to Dr. Duran. I anticipate discharge home should there be no acute changes. Time: 01:53 Reevaluation #3: discussed findings - NSR on monitor, trop flat, CXR negative - he states he is always compliant with eliquis doubt VTE. he states he feels better and just wants to go home and sleep. I asked if he needed to stay but he states no. Medical Decision Making Medical Decision Making MDM Narrative: Patient is a 78-year-old male with past medical history of atrial fibrillation anticoagulated on Eliquis, history of a flutter, COPD, ALISON, hyperlipidemia, diabetes, bladder cancer s/p Cystectomy with urostomy, heart failure with preserved EF, CAD with stent, presenting to emergency department for evaluation of chest pain and shortness of breath as per HPI of sudden onset at 19:30 today. At the time my examination he is overall well-appearing, nontoxic, afebrile. No tachycardia. No tachypnea or hypoxia. He speaking clear full sentences. Will obtain CBC to evaluate for leukocytosis/ anemia, CMP to evaluate for abnormal electrolytes /abnormal renal function/ abnormal hepatic function, EKG and troponin to evaluate for ischemia/ACS. Chest x-ray to evaluate for consolidation/ infiltrate/ mass/ pulmonary congestion and Urinalysis. Differential Diagnosis Differential Diagnoses: The differential diagnosis associated with the presentation includes (ACS, COPD exacerbation, pneumonia, muscular strain, arrhythmia. Wells negative, unlikely PE, and he is anticoagulated on Eliquis with compliance) Admission/Observation Consideration of admission/observation: Escalation of care including admission/observation considered (See narrative above and course narrative for further details) Lab Data MDM Lab Attestation statement: I reviewed the patient's lab results. (See course narrative for further details) 10/12/23 21:06 10/12/23 21:06 Labs: Lab Results 10/12/23 10/12/23 10/13/23 Range/Units 21:06 21:43 01:48 WBC 4.4 L (4.8-10.8) X10*3/uL RBC 3.70 L (4.60-5.80) X10*6/uL Hgb 13.5 L (14.0-18.0) g/dl Hct 41.0 L (42.0-52.0) % MCV 110.8 H (80.0-98.0) fL MCH 36.5 H (27.0-33.0) pg MCHC 32.9 (31.0-36.0) g/dl RDW 15.8 (11.0-16.0) % Plt Count 145 L (160-400) X10*3/uL MPV 10.3 (9.4-12.4) fL Immature Gran % (Auto) 4.3 H (0.0-0.4) % Neut % (Auto) 59.9 (45-73) % Lymph % (Auto) 22.0 (20-40) % [place] % (Auto) 9.6 (2-11) % Eos % (Auto) 3.7 (0-4) % Baso % (Auto) 0.5 (0-2) % Lymph # (Auto) 1.0 L (1.2-4.9) X10*3/uL [place] # (Auto) 0.4 (0.1-1.2) X10*3/uL Eos # (Auto) 0.2 (0.0-0.4) X10*3/uL Baso # (Auto) 0.0 (0.0-0.2) X10*3/uL Abs Immat Gran (auto) 0.19 H (0.00-0.03) X10*3/uL Absolute Neuts (auto) 2.6 (2.0-8.3) x10*3/uL Absolute Nucleated RBC 0.000 (0.0-0.012) X10*3/uL Nucleated RBC % (auto) 0.0 (0.0-0.2) /100WBC Sodium 138 (135-145) mmol/L Potassium 4.3 (3.3-5.1) mmol/L Chloride 110 H (96-108) mmol/L Carbon Dioxide 19 L (22-29) mmol/L Anion Gap 13 (12-20) BUN 37 H (9-16) mg/dL Creatinine 1.33 (0.5-1.4) mg/dL Estim Creat Clear Calc 55.3 Estimated GFR 52 Random Glucose 243 H (60-115) mg/dL Calcium 8.7 (8.4-10.2) mg/dL Total Bilirubin 0.3 (0.0-1.0) mg/dL AST 14 (5-37) U/L ALT 13 (0-40) U/L Alkaline Phosphatase 93 (39-117) U/L Troponin I High Sens 29.1 22.3 (<3.5-35.0) ng/L B-Natriuretic Peptide 216 H (<100) pg/mL Total Protein 7.2 (6.5-8.0) g/dL Albumin 3.5 (3.5-5.0) g/dL COVID-19 (ENMANUEL) Negative (Negative) COVID-19 Clin Com See Note Influenza Type A (DON) Negative (Negative) Influenza Type B (DON) Negative (Negative) Influenza A & B Note See Note Independent Interpretation I performed an independent interpretation of an: EKG and Plain X-Ray (I personally interpreted chest x-ray and agree with radiologist impression) Interpretation: Rate:87 Rhythm:? Sinus rhythm with PACs Normal P waves.? Normal AILYN.?? Normal QRS complex.?? ST T wave :??No ST elevation, no ST depression qTC:440 prior studies:? November 2021 The study has been interpreted contemporaneously by me. Radiology Impression Discussion of test interpretation with radiology: I have reviewed the radiologist's reading. Independent Historian Clinical information obtained from an independent historian. History obtained from or confirmed by: Spouse (Present at bedside who confirms history) External Record Review External record reviewed: Outpatient record Discharge Plan Discharge Clinical Impression: Chest pain Patient Disposition: Home, Self-Care Instructions: Chest Pain (ED) Additional Instructions: Please contact your primary care provider and arrange for a follow-up visit within 1-2 days. Continue taking all of your medications as prescribed. You may return back to emergency department any new or worsening symptoms or concerns. Prescriptions: No Action trazodone 100 mg tablet 100 mg PO BEDTIME PRN (Reason: sleep) 30 Days Qty: 30 0RF atorvastatin 40 mg tablet 40 mg PO BEDTIME 90 Days Qty: 90 3RF diltiazem HCl 180 mg capsule,extended release 24hr 180 mg PO DAILY Qty: 90 3RF Eliquis 5 mg tablet 5 mg PO BID Qty: 180 3RF fluoxetine 20 mg capsule 40 mg PO ONCE 90 Days Qty: 180 3RF ferrous gluconate 324 mg (38 mg iron) tablet 324 mg PO DAILY Qty: 30 6RF Rx Instructions: 4x week due to constipation. cholecalciferol (vitamin D3) 50 mcg (2,000 unit) capsule 50 mcg PO DAILY magnesium chloride 70 mg tablet,delayed release (DR/EC) 70 mg PO .QOD omeprazole 20 mg capsule,delayed release(DR/EC) 20 mg PO DAILY fluocinonide 0.05 % cream topical BID PRN mecobalamin (vitamin B12) 1,000 mcg tablet,disintegrating 1,000 mcg sublingual DAILY 90 Days Qty: 90 3RF Rx Instructions: place tablet under tongue and allow to dissolve for at least30 secs before swallowing lisinopril 5 mg tablet 5 mg PO DAILY metformin 500 mg tablet extended release 24 hr 500 mg PO BID mecobalamin (vitamin B12) 1,000 mcg tablet,chewable 1,000 mcg PO DAILY Referrals: Matias Roy MD [Primary Care Provider] -
[2023-10-12 20:56] VITALS: BP 138/81; PULSE 84; RESP 20; TEMP 37.1; O2SAT 97
[2023-10-12 21:01] VITALS: BP 132/62; PULSE 82; RESP 23; TEMP 36.8; O2SAT 96
[2023-10-12 21:10] LABS: MANUAL DIFF FLAG NO
[2023-10-12 21:14] LABS: Basophils Percent Auto 0.5 % (0-2); Eosinophils Absolute Auto 0.2 X10*3/uL (0.0-0.4); Eosinophils Percent Auto 3.7 % (0-4); Hemoglobin 13.5 g/dl (14.0-18.0); Imm Gran Abs Auto 0.19 X10*3/uL (0.00-0.03); Imm Gran Pct Auto 4.3 % (0.0-0.4); Mean Corpuscular HGB Conc 32.9 g/dl (31.0-36.0); Mean Corpuscular Hemoglobin 36.5 pg (27.0-33.0); Mean Platelet Volume 10.3 fL (9.4-12.4); Monocytes Absolute Auto 0.4 X10*3/uL (0.1-1.2); Monocytes Percent Auto 9.6 % (2-11); Neutrophils Absolute Auto 2.6 x10*3/uL (2.0-8.3); Neutrophils Percent Auto 59.9 % (45-73); Platelet Count 145 X10*3/uL (160-400); Red Cell Distribution Width 15.8 % (11.0-16.0); White Blood Count 4.4 X10*3/uL (4.8-10.8)
[2023-10-12 21:27] LABS: Alanine Aminotransferase 13 U/L (0-40); Albumin Level 3.5 g/dL (3.5-5.0); Alkaline Phosphatase 93 U/L (39-117); Anion Gap 13 (12-20); Aspartate Amino Transferase 14 U/L (5-37); Bilirubin Total 0.3 mg/dL (0.0-1.0); Blood Urea Nitrogen 37 mg/dL (9-16); Calcium 8.7 mg/dL (8.4-10.2); Carbon Dioxide 19 mmol/L (22-29); Chloride 110 mmol/L (96-108); Creatinine Clr Calc Pharmacy 55.3; Estimated Glomerular Filt Rate 52; Glucose Random 243 mg/dL (60-115); Potassium 4.3 mmol/L (3.3-5.1); Sodium 138 mmol/L (135-145); Total Protein 7.2 g/dL (6.5-8.0)
[2023-10-12 21:34] LABS: Troponin-I High Sensitivity 29.1 ng/L (<3.5-35.0)
[2023-10-12 21:36] LABS: Mean Corpuscular Volume 110.8 fL (80.0-98.0)
[2023-10-12 21:51] LABS: B Type Natriuretic Peptide 216 pg/mL (<100)
[2023-10-12 21:55] VITALS: PULSE 87
--- NOTE | 2023-10-12 21:57 | PC.NURSE ---
Pt presents to ED with reports of intermittent chest pains over the last month. Pt reports pain has been coming and going, with sharp pain ranging from 6-10 on the pain scale. Pt is an everyday smoker and reports some incresaed wheezing over the past month. Otherwise, pt is A&Ox4, GCS 15, denies nausea/vomiting at this time. labs and ekg obtained, pt waiting results at this time.
[2023-10-12 22:12] LABS: IDNOW Serial# 08D9AD1C; Influenza A Negative (Negative); Influenza B2 Negative (Negative)
[2023-10-12 22:13] LABS: COVID-19 Test Negative (Negative); IDNOW Serial# BCCEAD1C
[2023-10-12 23:34] VITALS: BP 125/78; PULSE 77; RESP 20; O2SAT 95
[2023-10-13 01:45] VITALS: BP 132/80; PULSE 74; RESP 20; O2SAT 93
[2023-10-13 02:13] LABS: Troponin-I High Sensitivity 22.3 ng/L (<3.5-35.0)
== END 2023-10-13 02:55 | disposition home or self-care (01) ==
PROVIDERS: Nurse Practitioner Family; Emergency Provider Internal Medicine; PCP Family Medicine
DX: R07.89 Other chest pain (principal); R06.02 Shortness of breath; F17.210 Nicotine dependence, cigarettes, uncomplicated; Z71.6 Tobacco abuse counseling; Z11.52 Encounter for screening for COVID-19; Z20.822 Contact with and (suspected) exposure to COVID-19; Z79.899 Other long term (current) drug therapy
CPT/HCPCS: 36415; 71045; 80053; 83880; 84484; 85025; 87502; 87635; 93005; 99284; 99285

== ENCOUNTER → 2023-10-12 20:40 | Outpatient (BNV) | payer MEDICARE, OTHER, SELFPAY | PROVIDERS: Emergency Provider Internal Medicine; PCP Family Medicine; Visit Provider Internal Medicine Cardiovascular Disease | DX: R07.9 Chest pain, unspecified (principal) | CPT/HCPCS: 93010 ==

== ENCOUNTER 2023-11-04 14:46 | Outpatient (REF) | payer MEDICARE, OTHER, SELFPAY ==
[2023-11-04 15:34] LABS: Basophils Percent Auto 0.5 % (0-2); Eosinophils Absolute Auto 0.1 X10*3/uL (0.0-0.4); Eosinophils Percent Auto 2.7 % (0-4); Hematocrit 42.7 % (42.0-52.0); Hemoglobin 13.7 g/dl (14.0-18.0); Lymphocytes Absolute Auto 0.7 X10*3/uL (1.2-4.9); Lymphocytes Percent Auto 16.6 % (20-40); Mean Corpuscular HGB Conc 32.1 g/dl (31.0-36.0); Mean Corpuscular Hemoglobin 35.8 pg (27.0-33.0); Mean Platelet Volume 10.9 fL (9.4-12.4); Monocytes Absolute Auto 0.4 X10*3/uL (0.1-1.2); Monocytes Percent Auto 10.1 % (2-11); Neutrophils Absolute Auto 2.6 x10*3/uL (2.0-8.3); Neutrophils Percent Auto 65.1 % (45-73); Platelet Count 114 X10*3/uL (160-400); Red Blood Count 3.83 X10*6/uL (4.60-5.80); Red Cell Distribution Width 16.3 % (11.0-16.0)
[2023-11-04 15:39] LABS: MANUAL DIFF FLAG SCAN; Mean Corpuscular Volume 111.5 fL (80.0-98.0)
[2023-11-04 15:46] LABS: Appearance Urine Cloudy; Color Urine Yellow; Glucose Urine UA Negative (Negative); Leukocyte Esterase Urine Trace (Negative); Nitrite Urine Negative (Negative); PH >= 9.0 (5.0-9.0); Specific Gravity - Urine 1.015 (1.005-1.025); UMIC TRIGGER UA YES; Urine Blood Large (3+) (Negative); Urine Ketones Negative (Negative); Urine Protein 100 (2+) mg/dL (Neg-Trace)
[2023-11-04 15:52] LABS: Bacteria Urine 4+ (None Seen); Hyaline Casts Urine 0-2 /LPF (0-2)
[2023-11-04 16:16] LABS: Creatinine Urine 79.79 mg/dL; Microalbum/Creatinine Ratio Ur 255.6 ug/mg cr (<30)
[2023-11-04 16:22] LABS: Alanine Aminotransferase 12 U/L (0-40); Albumin Level 3.6 g/dL (3.5-5.0); Alkaline Phosphatase 97 U/L (39-117); Anion Gap 13 (12-20); Aspartate Amino Transferase 13 U/L (5-37); Bilirubin Total 0.4 mg/dL (0.0-1.0); Blood Urea Nitrogen 30 mg/dL (9-16); Calcium 9.3 mg/dL (8.4-10.2); Carbon Dioxide 23 mmol/L (22-29); Chloride 109 mmol/L (96-108); Cholesterol 144 mg/dL (<200); Estimated Glomerular Filt Rate 57; Glucose Fasting 153 mg/dL (60-99); Glucose Random 152 mg/dL (60-115); HDL Cholesterol 57 mg/dL (>40); Iron 73 mcg/dL (45-160); LDL Cholesterol Calculated 65 mg/dL (<100); Percent Iron Saturation 29 % (15-50); Potassium 4.1 mmol/L (3.3-5.1); Sodium 141 mmol/L (135-145); Total Iron Binding Capacity 249 mcg/dL (228-428); Total Protein 7.1 g/dL (6.5-8.0); Triglycerides 110 mg/dL (<150); Unsaturated Iron Binding 176 ug/dL
[2023-11-04 16:36] LABS: SLIDE REVIEW VERIFIED
[2023-11-04 16:38] LABS: TSH reflex Free T4 0.98 uIU/mL (0.32-4.0)
[2023-11-04 16:56] LABS: Prostate Specific Antigen Scr < 0.10 ng/mL (<0.05-4.0); Vitamin B12 574 pg/mL (200-900)
== END 2023-11-04 14:47 | disposition home or self-care (01) ==
LOC: HO.LAB 14:46
PROVIDERS: PCP Family Medicine; Visit Provider Family Medicine
DX: Z00.00 Encounter for general adult medical examination without abnormal findings (principal); D64.9 Anemia, unspecified; I10 Essential (primary) hypertension; E53.8 Deficiency of other specified B group vitamins; Z12.5 Encounter for screening for malignant neoplasm of prostate
CPT/HCPCS: 36415; 80053; 80061; 81001; 82043; 82570; 82607; 82746; 83540; 84153; 84443; 85025

== ENCOUNTER 2023-11-06 14:29 | Outpatient (AMB) | payer MEDICARE, OTHER, SELFPAY ==
[2023-11-06 14:33] VITALS: BP 118/70; PULSE 51; RESP 19; O2SAT 98; BMI 28.7
--- NOTE | 2023-11-06 14:33 | MHC.PC.OV ---
Vital Signs 11/06/23 14:33 Height 5 ft 11 in Weight 206 lb BMI 28.7 BP 118/70 Blood Pressure Location Rt brachial Position Sitting Respiration 19 Pulse 51 Pulse Source Pulse Oximeter Pulse Oximetry (%) 98 Oxygen Delivery Method Room Air Intake Visit Reasons: f/u anemia, rescheduled from 10/15 Patient Service Technician Pst Required: No Accompanied by: Self / Same As Patient Allergies Iodinated Contrast Media [IV CONTRAST] Allergy (Severe, Verified 11/06/23 14:40) ANAPHYLAXIS Penicillins [PENICILLINS] Allergy (Severe, Verified 11/06/23 14:40) trouble breathing doxycycline Adverse Reaction (Intermediate, Verified 11/06/23 14:40) rASH Tobacco use date assessed: 11/06/23 Fall risk assessment: No Falls in past year Last assessed Fall Risk: 11/06/23 Dental Screening Dental Screen Date: 11/06/23 Did you have a dental visit in the last 12 months?: Yes Did you have a dental problem in the last 6 months where you did not have access to dental care?: No Was dental information given to patient?: Patient has dentist HPI f/u anemia, rescheduled from 10/15 HPI Details 78 y/o male presents to f/u anemia with B12 deficiency and mild iron deficiency. Labs were drawn 11/04/23. Reviewed labs with pt. Ongoing anemia though RBC, Hgb mildly improved. Pt reports he has been taking an iron pill along with vitamin B12. Blood pressure today 118/70. He is on lisinopril 5mg daily. Pt notes he had recently went to the emergency department for chest pain. Cardiac work-up had been negative. He reports he f/u with [facility] endocrinology for his diabetes. He notes last A1c was controlled. [facility] Medical History MRSA infection Foot drop, left foot ALISON on CPAP COPD (chronic obstructive pulmonary disease) Upper GI bleeding PAF (paroxysmal atrial fibrillation) Smoker Hyperlipidemia, unspecified Type 2 diabetes mellitus with unspecified complications Essential hypertension Arteriosclerotic cardiovascular disease Atrial flutter by electrocardiogram Surgical History Status post surgical removal of malignant neoplasm of skin History of knee replacement (~10/2021) Hx of cardiac cath (~2017) History of surgical removal of ganglion cyst (~2016) S/P radical cystoprostatectomy (~2014) Hx of total knee replacement (~2004) Family History Father Staph infection Mother Hypertension Brother Heart problem Social History Household Members: Spouse Household Members Other:: pets: dogs Housing: House Do you presently have visiting nurse or other home services: No Alcohol intake: former Patient Tobacco Use Status: Current everyday Tobacco user Cigarettes Per Day: 6 e-Cigarette/Vaping Use: Never Used Second Hand Smoke Exposure: No service: No Current occupational status: retired Current occupational exposures/hazards: No Cognitive needs: No Hearing needs: No Vision needs: No Questionnaire PHQ-9 Over the last 2 weeks, how often have you been bothered by any of the following problems? 1. Little interest or pleasure in doing things: not at all 2. Feeling down, depressed, or hopeless: not at all 3. Trouble falling or staying asleep, or sleeping too much: not at all 4. Feeling tired or having little energy: not at all 5. Poor appetite or overeating: not at all 6. Feeling bad about yourself - or that you are a failure or have let yourself or your family down: not at all 7. Trouble concentrating on things, such as reading the newspaper or watching television: not at all 8. Moving or speaking so slowly that other people could have noticed. Or the opposite - being so fidgety or restless that you have been moving around a lot more than usual: not at all 9. Thoughts that you would be better off or of hurting yourself in some way: not at all Total score: 0 Depression Screening Interpretation: Negative Depression Screening Done: Yes 59325 - PHQ-9 Billing: Yes Source: Developed by Drs. Shiva Kearney, Kaycee Berry, Dale Alston and colleagues, with an educational shannon from [employer]. Thrive Questionnaire Date Thrive assessed: 11/06/23 I am a: Patient What is your living situation today?: I have a steady place to live Within the past 12 months, did the food you bought not last and you didn't have the money to get more?: Never true Within the past 12 months, did you worry whether your food would run out before you got money to buy more?: Never true Do you have trouble paying for medicines?: No Do you have trouble getting transportation to medical appointments?: No Do you have trouble paying your heating and electricity bill?: No Do you have trouble taking care of your child, family member or friend?: No Do you have trouble with day-to-day activities such as bathing, preparing meals, shopping, managing finances, etc.?: No Are you currently unemployed and looking for a job?: No Are you interested in more education?: No Please select the resources that you would like help with: None Currently or been in a relationship where the following occur: no concerns reported AUDIT C Alcohol Use Questionnaire (AUDIT-C) 1. How often do you have a drink containing alcohol?: Never 3. How often do you have six or more drinks on one occasion?: Never Total Score: 0 SURYA-7 AMB Questionnaire SURYA-7 Date SURYA - 7 assessed: 11/06/23 Feeling nervous, anxious, or on edge: 0 = Not at all Not being able to stop or control worryin = Not at all Worrying too much about different things: 0 = Not at all Trouble relaxin = Not at all Being so restless that it is hard to sit still: 0 = Not at all Becoming easily annoyed or irritable: 0 = Not at all Feeling afraid as if something awful might happen: 0 = Not at all Total SURYA-7 score (0-4 normal; 5-9 mild; 10-14 moderate; 15-21 severe): 0 Source: Developed by Drs. Shiva Kearney, Kaycee Berry, Dale Alston and colleagues, with an educational shannon from [employer]. SURYA-7 Assessment Billing SURYA-7 Assessment Tool: SURYA-7 Assessment 64964 Review of Systems Const Denies chills, Denies fatigue, Denies fever(s), Denies headache(s) and Denies weakness ENT Denies dizziness and Denies headache(s) Card Denies chest pain, Denies lightheadedness, Denies dyspnea and Denies other (Palpitations) Resp Denies cough, Denies dyspnea, Denies wheezing and Denies other ( shortness of breath) Musc Denies numbness and Denies tingling Neuro Denies dizziness, Denies headache(s), Denies numbness, Denies tingling, Denies paresthesias and Denies weakness Psych Denies anxiety and Denies depression Endo Denies fatigue Aller/Immun Denies wheezing Physical exam (Primary Care) Vital Signs: Last Vital Signs Pulse 51 11/06/23 14:33 Resp 19 11/06/23 14:33 BP 118/70 11/06/23 14:33 Pulse Ox 98 11/06/23 14:33 Oxygen Delivery Method Room Air 11/06/23 14:33 BMI result Body Mass Index 28.7 Tobacco/Smoking Status: Tobacco use Status Tobacco use date assessed 11/06/23 11/06/23 14:43 Patient Tobacco Use Status Current everyday Tobacco 11/06/23 14:36 e-Cigarette/Vaping Use Never Used 11/06/23 14:36 PHQ-9: PHQ-9 Score PHQ-9: Total score 0 11/06/23 14:45 Depression Screening Interpretation: Negative Thrive Assessment: Date of Thrive Assessment Date Thrive assessed 11/06/23 11/06/23 14:45 Currently or been in a relationship where the following occur: no concerns reported Const General: no acute distress and well developed Nutritional Appearance: well nourished Orientation/consciousness: patient oriented x3 [facility] Head: Yes normocephalic and Yes atraumatic Eyes General: appearance normal, both eyes and all related structures Pupils: Equal, round and reactive pupils present EOM: EOMs intact bilaterally Resp Effort & Inspection: normal respiratory effort Auscultation: clear to auscultation bilaterally Cardio Rate: regular rate Rhythm: abnormal rhythm Heart sounds: S1 normal heart sound present, S2 normal heart sound present, no gallops, no murmurs and no rubs Neuro General: patient oriented x3 and gait normal Cranial nerves: Yes Equal, round and reactive pupils present Psych Affect: normal affect Assessment and Plan Assessment & Plan (1) Anemia: Code(s): D64.9 - Anemia, unspecified Plan: Patient?had?had?a?macrocytic?anemia?with?low?B12?level. B12?levels?have?been?improving?with?me?cobalamin?and?his?H&H?has?steadily?been?increasing?as?macrocytosis?has?been?normalizing. Continue?B12 (2) Essential hypertension: Code(s): I10 - Essential (primary) hypertension Plan: Blood?pressure?is?well?controlled (3) Chest pain: Code(s): R07.9 - Chest pain, unspecified Plan: Patient?had?been?to?the?ED?for?chest?pain?and?workup?was?negative?for?ACS Diagnosed?as?chest?wall?pain Has?a?history?COPD,?paroxysmal?atrial?fibrillation?and?coronary?artery?disease. Follow-up?with?tug master Call?or?come?to?office?if?any?concerning?symptoms?or?if?chest?pain?lasting?longer?than?a?few?minutes,?he?should?go?to?the?ED?again (4) Type 2 diabetes mellitus with unspecified complications: Code(s): E11.8 - Type 2 diabetes mellitus with unspecified complications Plan: Last?A1c?by?his?test operator?showed?good?control Continue?diabetic?diet?and?follow-up?with?endocrinology Coding Level of Care Code Est Pt Level 4 (41195) Diagnoses Anemia D64.9 Essential hypertension I10 Chest pain R07.9 Type 2 diabetes mellitus with unspecified complications E11.8 Additional Codes SURYA-7 Assessment Billing - SURYA-7 Assessment Tool: SURYA-7 Assessment [id number] ([id number])
== END 2023-11-06 15:11 | disposition home or self-care (01) ==
PROVIDERS: PCP Family Medicine; Visit Provider Family Medicine
DX: E11.8 Type 2 diabetes mellitus with unspecified complications (principal); D64.9 Anemia, unspecified; I10 Essential (primary) hypertension; R07.9 Chest pain, unspecified
CPT/HCPCS: 99214

== ENCOUNTER 2023-11-26 11:34 | Outpatient (AMB) | payer MEDICARE, OTHER, SELFPAY ==
--- NOTE | 2023-11-26 11:47 | A.OFFVIS_ITS ---
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 He feels better with PT and not crossing his legs . His dropped foot is better. He sees a coding specialist home health Pt underwent split sleep study. The baseline portion of the sleep study was significant for severe degree of sleep apnea with increased severity in REM. The AHI was 34/hr, REM AHI was 73/hr and oxygen geovanna was 84%. Pt was trialed on CPAP [id number]. The breathing and oxygenation improved with CPAP at 9cmH2O and above. He wants to get a new CPAP and king snot want INSPIRE> PFSH Medical History MRSA infection Foot drop, left foot ALISON on CPAP COPD (chronic obstructive pulmonary disease) Upper GI bleeding PAF (paroxysmal atrial fibrillation) Smoker Hyperlipidemia, unspecified Type 2 diabetes mellitus with unspecified complications Essential hypertension Arteriosclerotic cardiovascular disease Atrial flutter by electrocardiogram Surgical History Status post surgical removal of malignant neoplasm of skin History of knee replacement (~10/2021) Hx of cardiac cath (~2017) History of surgical removal of ganglion cyst (~2016) S/P radical cystoprostatectomy (~2014) Hx of total knee replacement (~2004) Family History Father Staph infection Mother Hypertension Brother Heart problem Social History Household Members: Spouse Household Members Other:: pets: dogs Housing: House Do you presently have visiting nurse or other home services: No Alcohol intake: former Patient Tobacco Use Status: Current everyday Tobacco user Cigarettes Per Day: 6 e-Cigarette/Vaping Use: Never Used Second Hand Smoke Exposure: No service: No Current occupational status: retired Current occupational exposures/hazards: No Cognitive needs: No Hearing needs: No Vision needs: No Review of Systems ENT Reports Normal hearing present Neuro Reports Normal hearing present Physical Exam Vital Signs: Last Vital Signs Pulse 80 11/26/23 11:48 Resp 16 11/26/23 11:48 BP 134/72 11/26/23 11:48 Pulse Ox 97 11/26/23 11:48 Oxygen Delivery Method Room Air 11/26/23 11:48 Const General: cooperative and tired appearing Nutritional Appearance: average body habitus Orientation/consciousness: patient oriented x3 Neuro Other: motor- 5/5 in all , weakness of left great toe dorsiflexion- mild Left foot- dorsiflexion 5/5 Foot adduction and abduction 5/5 plantar flexion 5/5 General: patient oriented x3, gait normal and moves all extremities Cranial nerves: Yes Bilaterally intact EOM present, Yes Normal facial strength present, Yes Midline tongue present, Yes Symmetric palate elevation present, Yes Normal hearing present, Yes Ability to bilaterally rotate head present and Yes Ability to bilaterally elevate shoulders present Cognition (Neuro): normal cognition Assessment & Plan Assessment & Plan (1) Foot drop, left foot: Comment: 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 The AHI was 34/hr. Code(s): G47.30 - Sleep apnea, unspecified Plan Continue PT AVoid crossing legs AN order for a new CPAP 9-20 was sent to [facility] Coding Level of Care Code Est Pt Level 4 (76519) Diagnoses Foot drop, left foot M21.372 Sleep apnea G47.30
[2023-11-26 11:48] VITALS: BP 134/72; PULSE 80; RESP 16; O2SAT 97
== END 2023-11-26 12:10 | disposition home or self-care (01) ==
PROVIDERS: PCP Family Medicine; Visit Provider Psychiatry & Neurology Neurology
DX: M21.372 Foot drop, left foot (principal); G47.30 Sleep apnea, unspecified
CPT/HCPCS: 99214

== ENCOUNTER → 2023-11-26 11:34 | Outpatient (BNVA) | payer MEDICARE, SELFPAY | PROVIDERS: PCP Family Medicine; Visit Provider Psychiatry & Neurology Neurology | DX: G47.30 Sleep apnea, unspecified (principal); M21.372 Foot drop, left foot | CPT/HCPCS: 99212 ==

== ENCOUNTER 2023-12-27 22:25 | Emergency (ER) | payer MEDICARE, OTHER, SELFPAY ==
--- NOTE | 2023-12-27 22:36 | ECG_ITS ---
Test Reason : OD ON MEDS Blood Pressure : / mmHG Vent. Rate : 075 BPM Atrial Rate : 075 BPM P-R Int : 196 ms QRS Dur : 108 ms QT Int : 410 ms P-R-T Axes : 067 -23 033 degrees QTc Int : 457 ms Sinus rhythm with Premature supraventricular complexes Otherwise normal ECG When compared with ECG of 27-DEC-2023 22:38, No significant change was found Referred By: Generic ED Physician Electronically Signed By:Navarro King
[2023-12-27 22:38] VITALS: BP 132/63; BP 150/86; PULSE 53; PULSE 60; RESP 16; TEMP 36.5; O2SAT 96; O2SAT 99; BMI 28.6
--- NOTE | 2023-12-27 23:04 | ED_ITS ---
HPI - Overdose General Chief Complaint: Overdose Stated Complaint: SI, TOOK 400MG OF TRAZADONE W/ 3 ALCOHOLIC DRINKS Time Seen by Provider: 12/27/23 23:03 Source: patient and EMS Mode of arrival: EMS Limitations: no limitations History of Present Illness HPI Narrative: 78-year-old male brought in by ambulance for evaluation of depression and attempt of overdose on trazodone. Patient had an argument with his because he went to buy a new car with his senior living money but did not want to approve it, patient went out for dinner had 3 martinis beverage, while he was in a car patient felt frustrated and depressed took 4 pills of trazodone 100 mg each, patient declined any other coingestion. Patient also complaining of chest pain that is been chronic and he had a previous evaluation of the chest pain and was told it is muscular pain. Related Data Home Medications Medication Instructions Recorded Confirmed omeprazole 20 mg capsule,delayed 20 mg PO DAILY 11/07/20 04/15/23 release cholecalciferol (vitamin D3) 50 50 mcg PO DAILY 11/14/20 04/15/23 mcg (2,000 unit) capsule magnesium chloride 70 mg 70 mg PO .QOD 11/11/21 04/15/23 (magnesium chloride) tablet,delayed release metformin 500 mg tablet,extended 500 mg PO BID 11/11/21 04/15/23 release 24 hr lisinopril 5 mg tablet 5 mg PO DAILY 01/23/22 04/15/23 mecobalamin (vitamin B12) 1,000 1,000 mcg PO DAILY 05/27/23 mcg chewable tablet Previous Rx's Medication Instructions Recorded trazodone 100 mg tablet 100 mg PO BEDTIME PRN sleep 30 01/06/23 days #30 tabs atorvastatin 40 mg tablet 40 mg PO BEDTIME 90 days #90 tabs 02/24/23 mecobalamin (vitamin B12) 1,000 1,000 mcg sublingual DAILY 90 days 04/15/23 mcg disintegrating #90 tabs tablet,sublingual diltiazem HCl 180 mg 180 mg PO DAILY #90 caps 07/21/23 capsule,extended release 24 hr apixaban 5 mg tablet (Eliquis) 5 mg PO BID #180 tabs 10/05/23 ferrous gluconate 324 mg (38 mg 324 mg PO DAILY #30 tabs 10/05/23 iron) tablet fluoxetine 20 mg capsule 40 mg (2 x 20 mg) PO ONCE 90 days 10/05/23 #180 caps Allergies Allergy/AdvReac Type Severity Reaction Status Date / Time Iodinated Contrast Media Allergy Severe ANAPHYLAXIS Verified 12/27/23 22:37 [IV CONTRAST] Penicillins [PENICILLINS] Allergy Severe trouble Verified 12/27/23 22:37 breathing doxycycline AdvReac Intermediate rASH Verified 12/27/23 22:37 Review of Systems 2 Review of Systems: All other systems are reviewed and are negative Constitutional: Reports as per HPI and Reports no additional constitutional complaints Eyes: Reports as per HPI and Reports no additional eye complaints Reports system reviewed and no additional complaints, except as documented Cardiovascular: Reports as per HPI and Reports no additional cardiovascular complaints Respiratory: Reports as per HPI and Reports no additional respiratory complaints Gastrointestinal: Reports as per HPI and Reports no additional gastrointestinal complaints Genitourinary: Reports no additional female genitourinary complaints Musculoskeletal: Reports no additional musculoskeletal complaints Skin/Breast: Reports system reviewed and no additional complaints, except as docu Psychiatric: Reports no additional psychiatric complaints Endocrine: Reports no additional endocrine complaints Hematologic/Lymphatic: Reports no additional hematologic/lymphatic complaints Allergic/Immunologic: Reports no additional allergic/immunologic complaints Reports system reviewed and no additional complaints, except as documented and Reports Abnormal speech present [facility] Past Medical History Medical History MRSA infection Foot drop, left foot ALISON on CPAP COPD (chronic obstructive pulmonary disease) Upper GI bleeding PAF (paroxysmal atrial fibrillation) Smoker Hyperlipidemia, unspecified Type 2 diabetes mellitus with unspecified complications Essential hypertension Arteriosclerotic cardiovascular disease Atrial flutter by electrocardiogram Surgical History Status post surgical removal of malignant neoplasm of skin History of knee replacement (~10/2021) Hx of cardiac cath (~2017) History of surgical removal of ganglion cyst (~2016) S/P radical cystoprostatectomy (~2014) Hx of total knee replacement (~2004) Family History Family History Father Staph infection Mother Hypertension Brother Heart problem Social History Social History Household Members: Spouse Household Members Other:: pets: dogs Housing: House Do you presently have visiting nurse or other home services: No Alcohol intake: current Alcohol intake frequency: 0-2 drinks per day Alcohol type: hard liquor Patient Tobacco Use Status: Current everyday Tobacco user Cigarettes Per Day: 6 Smoked in Last 30 Days: Yes e-Cigarette/Vaping Use: Never Used Second Hand Smoke Exposure: No Use of substances other than those prescribed or required for medical reasons: No Advance Directives: No Advance Directives Information Provided: No service: No Current occupational status: retired Current occupational exposures/hazards: No Cognitive needs: No Hearing needs: No Vision needs: No Physical Exam 2 Vital Signs: Vital Signs: Last Vital Signs Temp 97.4 F 12/28/23 01:55 Pulse 75 12/28/23 01:55 Resp 19 12/28/23 01:55 BP 139/71 12/28/23 01:55 Pulse Ox 95 12/28/23 01:55 O2 Del Method Room Air 12/28/23 01:55 BMI result Body Mass Index 28.6 Vital signs have been reviewed and appear to be correct. Blood pressure elevated. Heart rate normal. Respiratory rate normal. Temperature normal. Oxygen saturation normal. Appearance: Alert. Oriented X3. No acute distress. Head: Normal external exam. Normocephalic. Atraumatic. No Ramsey signs noted. No raccoon eyes noted Eyes: PERRLA. EOMI. Conjunctiva and sclera normal. Eyelids normal. ENT: TM's Normal. Pharynx normal. Uvula midline. Moist mucous membranes. No trismus noted. No drooling noted. No muffled voice noted. Neck: Normal inspection. Neck supple. FROM. No adenopathy. Thyroid Normal. No meningeal signs. No neck mass noted. CVS: Normal heart rate and rhythm. Heart sound normal. No murmurs noted. Pulses normal throughout. Respiratory: No respiratory distress. Painless inspiration. Breath sounds normal. No wheezes/rales/rhonchi noted. Chest nontender. No accessory muscle usage noted or decreased air movement noted. Abdomen: Soft and nontender. Bowel sounds normal in all 4 quadrants. No distention noted. No organomegaly noted. No visible injury noted. Back: No CVA tenderness. Full range of motion noted. Skin: Skin warm and dry. Normal skin color. Normal skin turgor. No rashes/lesions/lacerations noted. Extremities: No lower extremity edema. Extremities exhibit normal range of motion. Extremities nontender. Neuro: Oriented X 3. Cranial nerve exam: II-XII are grossly intact No motor deficit. No sensory deficit. Reflexes normal. Patient Orientation: Person, Place, Time and Situation, okay hygiene and grooming. Fair eye contact, attentive, no tics or tremors. Level of Consciousness: Awake, Appropriate and Alert Patient Behavior: Appropriate, Guarded, Cooperative and Anxious Mood Description: Constricted, Blunted and Apprehensive Affect Description: Constricted, Blunted and Apprehensive Patient Cognition Impaired: No Ability to Follow Directions: Excellent Speech Pattern: Clear, Appropriate and Spontaneous Speech, nonpressured, spontaneous with regular rate and rhythm, normal volume and prosody. No dysarthria. Memory Description: Intact, Immediate Intact and Short Term Intact Hallucinations: None Delusions: Not Present Thought Process: Intact Thought Content: positive for Intact, positive for Logical, patient remorses his suicidal attempt last night however still feel depressed. denies Homicidal Ideation. Depressive Symptoms: Not present. Judgement and Insight: Limited but adequate. Course Reevaluation(s) Reevaluation #1: Poison control was contacted recommended EKG, labs, drug/ETOH levels, electrolytes, monitor for 4 hours. Time: 23:12 Reevaluation #2: Labs are unremarkable, ASA, and Tylenol level nontoxic, case was discussed and reviewed with poison control input is appreciated patient is medically cleared for psych consultation. Time: 05:15 Medications Administered Discontinued Medications Generic Name Dose Route Start Last Admin Trade Name Freq PRN Reason Stop Dose Admin Magnesium Sulfate 2 gm in 50 mls @ 25 mls/hr 12/28/23 04:36 12/28/23 04:44 Magnesium Sulfate/H2o IV 12/28/23 06:35 25 mls/hr ONCE ONE Administration Medical Decision Making Differential Diagnosis Differential Diagnoses: The differential diagnosis associated with the presentation includes (Trazodone overdose, aspirin overdose, Tylenol overdose, alcohol intoxication, severe anemia, electrolyte derangement, EKG changes, psych evaluation.) Admission/Observation Consideration of admission/observation: Escalation of care including admission/observation considered Consult Healthcare Provider Management of the patient was discussed with: [facility] (With poison control) Lab Data MDM Lab Attestation statement: I reviewed the patient's lab results. 12/28/23 02:58 12/28/23 02:58 Labs: Lab Results 12/27/23 12/28/23 Range/Units 23:19 02:58 WBC 2.8 L 2.6 L (4.8-10.8) X10*3/uL RBC 3.02 L D 3.00 L (4.60-5.80) X10*6/uL Hgb 11.4 L 11.2 L (14.0-18.0) g/dl Hct 34.4 L 34.2 L (42.0-52.0) % MCV 113.9 H 114.0 H (80.0-98.0) fL MCH 37.7 H 37.3 H (27.0-33.0) pg MCHC 33.1 32.7 (31.0-36.0) g/dl RDW 16.5 H 16.4 H (11.0-16.0) % Plt Count 107 L 102 L (160-400) X10*3/uL MPV 10.5 10.3 (9.4-12.4) fL Immature Gran % (Auto) 3.9 H Cancelled (0.0-0.4) % Neut % (Auto) 40.5 L Cancelled (45-73) % Lymph % (Auto) 40.2 H Cancelled (20-40) % [place] % (Auto) 10.7 Cancelled (2-11) % Eos % (Auto) 4.3 H Cancelled (0-4) % Baso % (Auto) 0.4 Cancelled (0-2) % Lymph # (Auto) 1.1 L Cancelled (1.2-4.9) X10*3/uL [place] # (Auto) 0.3 Cancelled (0.1-1.2) X10*3/uL Eos # (Auto) 0.1 Cancelled (0.0-0.4) X10*3/uL Baso # (Auto) 0.0 Cancelled (0.0-0.2) X10*3/uL Abs Immat Gran (auto) 0.11 H Cancelled (0.00-0.03) X10*3/uL Absolute Neuts (auto) 1.1 L Cancelled (2.0-8.3) x10*3/uL Absolute Nucleated RBC 0.000 0.000 (0.0-0.012) X10*3/uL Nucleated RBC % (auto) 0.0 0.0 (0.0-0.2) /100WBC Neutrophils % (Manual) 27 L (45-73) % Band Neutrophils % 5 (3-5) % Lymphocytes % (Manual) 44 H (20-40) % Atypical Lymphs % (Man) 2 (0-6) % Monocytes % (Manual) 15 H (2-11) % Eosinophils % (Manual) 6 H (0-4) % Metamyelocytes % 1 % Abs Neuts (Manual) 0.8 L (2.0-8.3) X10*3/uL Lymphocytes # (Manual) 1.1 L (1.2-4.9) X10*3/uL Atyp Lymphs # (Manual) 0.1 x10*3/uL Monocytes # (Manual) 0.4 (0.1-1.2) X10*3/uL Eosinophils # (Manual) 0.2 (0.0-0.4) X10*3/uL Platelet Estimate DECREASED (NORMAL) Large Platelets PRESENT Plt Morphology Comment NOTED RBC Morphology NOTED Macrocytosis 3+ (>30) /OIF Tear Drop Cells 1+ (0-2) /OIF Ovalocytes 1+ (5-14) /OIF Acanthocytes (Spur) 1+ (0-2) /OIF Sodium 141 142 (135-145) mmol/L Potassium 4.1 4.0 (3.3-5.1) mmol/L Chloride 112 H 111 H (96-108) mmol/L Carbon Dioxide 18 L 22 (22-29) mmol/L Anion Gap 15 13 (12-20) BUN 20 H 18 H (9-16) mg/dL Creatinine 1.16 1.09 (0.5-1.4) mg/dL Estim Creat Clear Calc 62.1 66.0 Estimated GFR > 60 > 60 Random Glucose 146 H 123 H (60-115) mg/dL Calcium 8.5 D 8.6 (8.4-10.2) mg/dL Magnesium 1.6 1.5 L (1.6-2.6) mg/dL Total Bilirubin 0.2 (0.0-1.0) mg/dL AST 17 (5-37) U/L ALT 13 (0-40) U/L Alkaline Phosphatase 79 (39-117) U/L Troponin I High Sens 29.7 (<3.5-35.0) ng/L Total Protein 6.3 L (6.5-8.0) g/dL Albumin 3.2 L (3.5-5.0) g/dL Salicylates < 5.0 L < 5.0 L (15-30) mg/dL Acetaminophen < 3 < 3 (<30) mcg/mL Ethyl Alcohol 83 mg/dL Independent Interpretation I performed an independent interpretation of an: EKG (Normal sinus rhythm at 75 beats per minutes with occasional premature supraventricular complex, mild QRS prolongation otherwise normal intervals, no ST-T changes.) Discharge Plan Discharge Clinical Impression: Suicide attempt, Depression, Intentional overdose, Medical clearance for psychiatric admission Patient Disposition: Still a Patient Prescriptions: No Action trazodone 100 mg tablet 100 mg PO BEDTIME PRN (Reason: sleep) 30 Days Qty: 30 0RF atorvastatin 40 mg tablet 40 mg PO BEDTIME 90 Days Qty: 90 3RF diltiazem HCl 180 mg capsule,extended release 24hr 180 mg PO DAILY Qty: 90 3RF Eliquis 5 mg tablet 5 mg PO BID Qty: 180 3RF fluoxetine 20 mg capsule 40 mg PO ONCE 90 Days Qty: 180 3RF ferrous gluconate 324 mg (38 mg iron) tablet 324 mg PO DAILY Qty: 30 6RF Rx Instructions: 4x week due to constipation. cholecalciferol (vitamin D3) 50 mcg (2,000 unit) capsule 50 mcg PO DAILY magnesium chloride 70 mg tablet,delayed release (DR/EC) 70 mg PO .QOD omeprazole 20 mg capsule,delayed release(DR/EC) 20 mg PO DAILY mecobalamin (vitamin B12) 1,000 mcg tablet,disintegrating 1,000 mcg sublingual DAILY 90 Days Qty: 90 3RF Rx Instructions: place tablet under tongue and allow to dissolve for at least30 secs before swallowing lisinopril 5 mg tablet 5 mg PO DAILY metformin 500 mg tablet extended release 24 hr 500 mg PO BID mecobalamin (vitamin B12) 1,000 mcg tablet,chewable 1,000 mcg PO DAILY
--- NOTE | 2023-12-27 23:05 | PC.NURSE ---
Patient BIBA from home for evaluation s/p taking Trazodone 400 mg PO with 3 martini drinks around 9:00 pm. Patient reports taking Trazodone 50 mg PO at bedtime at baseline. Patient admits SI earlier today. Patient denies SI/HI at present. Patient endorsing upper chest pain 3/10, states more likely musculoskeletal. EKG completed, patient placed \on quarrying manager. Patient is alert and oriented x4. VSS. Patient changed over with assistance of security, patient's belongings placed into a pod. 1:1 sitter at bedside. Phone call made to [facility], instructions received to draw labs CBC, CMP, Trop, Mg, repaet EKG in 1 hr, labs in 4 hrs. Monitor patient for SNS depression, hypotension, bradycardia, supplement potassium and magnesium as needed, IV fluids as needed.
[2023-12-27 23:25] LABS: Basophils Percent Auto 0.4 % (0-2); Eosinophils Absolute Auto 0.1 X10*3/uL (0.0-0.4); Eosinophils Percent Auto 4.3 % (0-4); Hematocrit 34.4 % (42.0-52.0); Hemoglobin 11.4 g/dl (14.0-18.0); Imm Gran Abs Auto 0.11 X10*3/uL (0.00-0.03); Imm Gran Pct Auto 3.9 % (0.0-0.4); Lymphocytes Absolute Auto 1.1 X10*3/uL (1.2-4.9); Lymphocytes Percent Auto 40.2 % (20-40); MANUAL DIFF FLAG NO; Mean Corpuscular HGB Conc 33.1 g/dl (31.0-36.0); Mean Corpuscular Hemoglobin 37.7 pg (27.0-33.0); Mean Corpuscular Volume 113.9 fL (80.0-98.0); Mean Platelet Volume 10.5 fL (9.4-12.4); Monocytes Absolute Auto 0.3 X10*3/uL (0.1-1.2); Monocytes Percent Auto 10.7 % (2-11); Neutrophils Absolute Auto 1.1 x10*3/uL (2.0-8.3); Neutrophils Percent Auto 40.5 % (45-73); Platelet Count 107 X10*3/uL (160-400); Red Blood Count 3.02 X10*6/uL (4.60-5.80); Red Cell Distribution Width 16.5 % (11.0-16.0); White Blood Count 2.8 X10*3/uL (4.8-10.8)
[2023-12-27 23:51] LABS: Alanine Aminotransferase 13 U/L (0-40); Albumin Level 3.2 g/dL (3.5-5.0); Alkaline Phosphatase 79 U/L (39-117); Anion Gap 15 (12-20); Aspartate Amino Transferase 17 U/L (5-37); Bilirubin Total 0.2 mg/dL (0.0-1.0); Blood Urea Nitrogen 20 mg/dL (9-16); Calcium 8.5 mg/dL (8.4-10.2); Carbon Dioxide 18 mmol/L (22-29); Chloride 112 mmol/L (96-108); Creatinine Clr Calc Pharmacy 62.1; Estimated Glomerular Filt Rate > 60; Ethanol 83 mg/dL; Glucose Random 146 mg/dL (60-115); Magnesium 1.6 mg/dL (1.6-2.6); Potassium 4.1 mmol/L (3.3-5.1); Sodium 141 mmol/L (135-145); Total Protein 6.3 g/dL (6.5-8.0)
[2023-12-27 23:52] LABS: Troponin-I High Sensitivity 29.7 ng/L (<3.5-35.0)
[2023-12-28 01:55] VITALS: BP 139/71; PULSE 75; RESP 19; TEMP 36.3; O2SAT 95
[2023-12-28 03:04] LABS: Hematocrit 34.2 % (42.0-52.0); Hemoglobin 11.2 g/dl (14.0-18.0); Mean Corpuscular HGB Conc 32.7 g/dl (31.0-36.0); Mean Corpuscular Hemoglobin 37.3 pg (27.0-33.0); Mean Platelet Volume 10.3 fL (9.4-12.4); Platelet Count 102 X10*3/uL (160-400); Red Cell Distribution Width 16.4 % (11.0-16.0); White Blood Count 2.6 X10*3/uL (4.8-10.8)
[2023-12-28 03:20] LABS: Acetaminophen LAB < 3 mcg/mL (<30); Anion Gap 13 (12-20); Blood Urea Nitrogen 18 mg/dL (9-16); Calcium 8.6 mg/dL (8.4-10.2); Carbon Dioxide 22 mmol/L (22-29); Chloride 111 mmol/L (96-108); Estimated Glomerular Filt Rate > 60; Glucose Random 123 mg/dL (60-115); Magnesium 1.5 mg/dL (1.6-2.6); Salicylate < 5.0 mg/dL (15-30); Sodium 142 mmol/L (135-145)
[2023-12-28 03:26] LABS: Acetaminophen LAB < 3 mcg/mL (<30); Salicylate < 5.0 mg/dL (15-30)
[2023-12-28 04:21] LABS: Atypical Lymph Absolute Manual 0.1 x10*3/uL; Atypical Lymphs Percent Manual 2 % (0-6); Band Neutrophils Percent 5 % (3-5); Eosinophils Absolute Manual 0.2 X10*3/uL (0.0-0.4); Eosinophils Percent Manual 6 % (0-4); Lymphocytes Absolute Manual 1.1 X10*3/uL (1.2-4.9); Lymphocytes Percent Manual 44 % (20-40); Metamyelocytes Percent 1 %; Monocytes Absolute Manual 0.4 X10*3/uL (0.1-1.2); Monocytes Percent Manual 15 % (2-11); Neutrophils Absolute Manual 0.8 X10*3/uL (2.0-8.3); Neutrophils Percent Manual 27 % (45-73)
[2023-12-28 04:23] LABS: Macrocytosis 3+ (>30) /OIF; Platelet Estimate DECREASED (NORMAL); Platelet Morphology Comment NOTED; RBC Morphology NOTED
[2023-12-28 04:24] LABS: Acanthocytes 1+ (0-2) /OIF; Large Platelet PRESENT; Ovalocytes 1+ (5-14) /OIF; Tear Drop Cells 1+ (0-2) /OIF
--- NOTE | 2023-12-28 04:39 | PC.NURSE ---
This RN called to [facility], patient cleared. Plan to be seen by care team.
[2023-12-28] MEDS: Magnesium Sulfate/H2O 2 GM/50 ML PIGGYBACK IV (04:44)
[2023-12-28 07:41] LABS: MANUAL DIFF FLAG NO
[2023-12-28 07:42] LABS: Basophils Percent Auto 0.3 % (0-2); Eosinophils Absolute Auto 0.1 X10*3/uL (0.0-0.4); Eosinophils Percent Auto 3.5 % (0-4); Hematocrit 37.4 % (42.0-52.0); Hemoglobin 12.3 g/dl (14.0-18.0); Imm Gran Abs Auto 0.17 X10*3/uL (0.00-0.03); Lymphocytes Absolute Auto 0.9 X10*3/uL (1.2-4.9); Lymphocytes Percent Auto 25.7 % (20-40); Mean Corpuscular HGB Conc 32.9 g/dl (31.0-36.0); Mean Corpuscular Hemoglobin 37.4 pg (27.0-33.0); Mean Platelet Volume 10.6 fL (9.4-12.4); Monocytes Absolute Auto 0.2 X10*3/uL (0.1-1.2); Monocytes Percent Auto 6.7 % (2-11); Neutrophils Percent Auto 58.8 % (45-73); Platelet Count 106 X10*3/uL (160-400); Red Blood Count 3.29 X10*6/uL (4.60-5.80); Red Cell Distribution Width 16.2 % (11.0-16.0); White Blood Count 3.4 X10*3/uL (4.8-10.8)
[2023-12-28 07:45] VITALS: BP 173/88; PULSE 75; RESP 12; O2SAT 97
[2023-12-28 07:46] LABS: Mean Corpuscular Volume 113.7 fL (80.0-98.0)
[2023-12-28 07:50] LABS: Amphetamine Screen Urine Not Detected (Not Detect); Barbiturates, Urine Not Detected (Not Detect); Benzodiazepines Screen Urine Not Detected (Not Detect); Cannabinoid Screen Urine Not Detected (Not Detect); Cocaine Screen Urine Not Detected (Not Detect); Fentanyl, urine Not Detected (Not Detect); Opiate Screen Urine Not Detected (Not Detect); Phencyclidine Screen Urine Not Detected (Not Detect)
[2023-12-28 07:58] LABS: Anion Gap 10 (12-20); Blood Urea Nitrogen 19 mg/dL (9-16); Calcium 8.8 mg/dL (8.4-10.2); Carbon Dioxide 26 mmol/L (22-29); Chloride 110 mmol/L (96-108); Estimated Glomerular Filt Rate > 60; Glucose Random 150 mg/dL (60-115); Magnesium 1.9 mg/dL (1.6-2.6); Potassium 4.7 mmol/L (3.3-5.1); Sodium 141 mmol/L (135-145)
[2023-12-28 08:00] VITALS: PULSE 70
--- NOTE | 2023-12-28 08:04 | PC.NURSE ---
Patient denies HI/SI, flood and fluids provided
[2023-12-28 10:12] VITALS: BP 160/75; PULSE 72; RESP 13; TEMP 36.6; O2SAT 99
--- NOTE | 2023-12-28 11:09 | MHC.CARE ---
Pt has care manger through [facility] [phone]
--- NOTE | 2023-12-28 13:09 | MHC.EDTECH ---
am care done bed change .
--- NOTE | 2023-12-28 14:04 | PC.NURSE ---
With patients permission updated on current condition, aware [facility] care team will be seeing patient this afternoon and she can call back alter this afternoon for furhter updates
--- NOTE | 2023-12-28 15:39 | MHC.CARE ---
Patient evaluated by the CARE Team, does not need an inpatient hospitalization and his will pick him up at 4:30 pm. See record for written assessment and safety plan. ED provider, Dr. Duran updated and in agreement with plan of care.
--- NOTE | 2023-12-28 16:17 | PC.NURSE ---
Ambulating with steady gait to bathroom, denies SI/HI. Patient requesting for to bring ostomy supplies, per care team wfie coming at 4:30 to bring patient home
--- NOTE | 2023-12-28 16:48 | PC.NURSE ---
Cleared by care team, patients belongings in POD returned to patient along with ostomy supplies. renetta at bedside to transport patient home
== END 2023-12-28 17:09 | disposition home or self-care (01) ==
PROVIDERS: Emergency Medicine; Emergency Provider Emergency Medicine
DX: T43.212A Poisoning by selective serotonin and norepinephrine reuptake inhibitors, intentional self-harm, initial encounter (principal); R45.851 Suicidal ideations; F33.1 Major depressive disorder, recurrent, moderate; R94.31 Abnormal electrocardiogram [ECG] [EKG]; Y92.9 Unspecified place or not applicable; F10.20 Alcohol dependence, uncomplicated; Y90.4 Blood alcohol level of 80-99 mg/100 ml; Z79.899 Other long term (current) drug therapy
CPT/HCPCS: 36415; 80048; 80053; 80143; 80179; 80307; 83735; 84484; 85007; 85025; 85027; 93005; 96365; 96366; 99284; 99285; J3475; S9485

== ENCOUNTER → 2023-12-27 22:36 | Outpatient (BNV) | payer MEDICARE, OTHER, SELFPAY | PROVIDERS: Emergency Provider Emergency Medicine; Visit Provider Internal Medicine Cardiovascular Disease | DX: T43.292A Poisoning by other antidepressants, intentional self-harm, initial encounter (principal) | CPT/HCPCS: 93010 ==

== ENCOUNTER 2024-02-09 09:21 | Outpatient (AMB) | payer MEDICARE, OTHER, SELFPAY ==
[2024-02-09 09:23] VITALS: BP 138/72; PULSE 63; O2SAT 99; BMI 28.4
--- NOTE | 2024-02-09 09:23 | MHC.PC.OV ---
Vital Signs 02/09/24 09:23 Height 5 ft 11 in Weight 204 lb BMI 28.4 BP 138/72 Blood Pressure Location Rt brachial Position Sitting Pulse 63 Pulse Source Pulse Oximeter Pulse Oximetry (%) 99 Oxygen Delivery Method Room Air Intake Visit Reasons: f/u hypertension, diabetes Intake Note: Patient is here to follow up on hypertension, and diabetes, complains of left elbow pain, swelling since last night. Allergies Iodinated Contrast Media [IV CONTRAST] Allergy (Severe, Verified 02/09/24 09:30) ANAPHYLAXIS Penicillins [PENICILLINS] Allergy (Severe, Verified 02/09/24 09:30) trouble breathing doxycycline Adverse Reaction (Intermediate, Verified 02/09/24 09:30) rASH Medication List - Last Reconciled 02/09/24 by Matias Roy MD apixaban (Eliquis) 5 mg PO BID atorvastatin 40 mg PO BEDTIME 90 days cholecalciferol (vitamin D3) 50 mcg PO DAILY diltiazem HCl CD 180 mg PO DAILY ferrous gluconate 324 mg PO DAILY fluoxetine 40 mg (2 x 20 mg) PO ONCE 90 days lisinopril 10 mg PO DAILY 90 days magnesium chloride 70 mg PO .QOD mecobalamin (vitamin B12) 1,000 mcg sublingual DAILY 90 days mecobalamin (vitamin B12) 1,000 mcg PO DAILY metformin ER 500 mg PO BID omeprazole 20 mg PO DAILY Tobacco use date assessed: 02/09/24 Fall risk assessment: No Falls in past year Last assessed Fall Risk: 02/09/24 Dental Screening Dental Screen Date: 11/06/23 HPI f/u hypertension, diabetes HPI Details 78 y/o male presents to f/u hypertension, diabetes. Follows up with endocrinology for his diabetes - last seen 01/25/24 and A1c 6.3%. Blood pressure today 138/72. He is on lisinopril 5mg daily. Pt has complaints of L elbow pain and swelling. He denies any recent falls/trauma. Pt reports depression. FOR[facility]LY [facility] Medical History MRSA infection Foot drop, left foot ALISON on CPAP COPD (chronic obstructive pulmonary disease) Upper GI bleeding PAF (paroxysmal atrial fibrillation) Smoker Hyperlipidemia, unspecified Type 2 diabetes mellitus with unspecified complications Essential hypertension Arteriosclerotic cardiovascular disease Atrial flutter by electrocardiogram Surgical History Status post surgical removal of malignant neoplasm of skin History of knee replacement (~10/2021) Hx of cardiac cath (~2017) History of surgical removal of ganglion cyst (~2016) S/P radical cystoprostatectomy (~2014) Hx of total knee replacement (~2004) Family History Father Staph infection Mother Hypertension Brother Heart problem Social History Household Members: Spouse Household Members Other:: pets: dogs Housing: House Do you presently have visiting nurse or other home services: No Alcohol intake: current Alcohol intake frequency: 0-2 drinks per day Alcohol type: hard liquor Patient Tobacco Use Status: Current everyday Tobacco user Cigarettes Per Day: 5 e-Cigarette/Vaping Use: Never Used Second Hand Smoke Exposure: No service: No Current occupational status: retired Current occupational exposures/hazards: No Cognitive needs: No Hearing needs: No Vision needs: No Questionnaire Thrive Questionnaire Date Thrive assessed: 11/06/23 SURYA-7 AMB Questionnaire SURYA-7 Date SURYA - 7 assessed: 11/06/23 Source: Developed by Drs. Shiva Kearney, Kaycee Berry, Dale Alston and colleagues, with an educational shannon from [employer]. Review of Systems Const Denies chills, Denies fatigue, Denies fever(s), Denies headache(s) and Denies weakness ENT Denies dizziness and Denies headache(s) Card Denies dyspnea Resp Denies cough, Denies dyspnea, Denies wheezing and Denies other (shortness of breath) Musc Denies numbness and Denies tingling Neuro Denies dizziness, Denies headache(s), Denies numbness, Denies tingling and Denies weakness Psych Reports depression Endo Denies fatigue Aller/Immun Denies wheezing Physical exam (Primary Care) Vital Signs: Last Vital Signs Pulse 63 02/09/24 09:23 BP 138/72 02/09/24 09:23 Pulse Ox 99 02/09/24 09:23 Oxygen Delivery Method Room Air 02/09/24 09:23 BMI result Body Mass Index 28.4 Tobacco/Smoking Status: Tobacco use Status Tobacco use date assessed 02/09/24 02/09/24 09:31 Patient Tobacco Use Status Current everyday Tobacco 02/09/24 09:25 e-Cigarette/Vaping Use Never Used 02/09/24 09:25 Thrive Assessment: Date of Thrive Assessment Date Thrive assessed 11/06/23 02/09/24 09:25 Const General: well developed; No acute distress Nutritional Appearance: well nourished Orientation/consciousness: patient oriented x3 HENMT Head: Yes normocephalic and Yes atraumatic Eyes General: appearance normal, both eyes and all related structures Pupils: Equal, round and reactive pupils present EOM: EOMs intact bilaterally Resp Effort & Inspection: normal respiratory effort Auscultation: clear to auscultation bilaterally Cardio Rate: regular rate Rhythm: regular rhythm Heart sounds: S1 normal heart sound present, S2 normal heart sound present, no gallops, no murmurs and no rubs Neuro General: patient oriented x3 and gait normal Cranial nerves: Yes Equal, round and reactive pupils present Psych Affect: normal affect Assessment and Plan Assessment & Plan (1) Essential hypertension: Code(s): I10 - Essential (primary) hypertension Plan: Blood?pressure?is?a?little?above?goal?of?less?than?130/80 Increase?lisinopril?from?5?mg?to?10?mg?daily (2) Type 2 diabetes mellitus with unspecified complications: Code(s): E11.8 - Type 2 diabetes mellitus with unspecified complications Plan: A1c?6.3%?earlier?this?month. 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 Will?continue?to?follow?and?will?manage?his?medications?and?A1c subsequently. (3) Arteriosclerotic cardiovascular disease: Comment: Status post LAD stenting- 09/2019 Code(s): I25.10 - Atherosclerotic heart disease of [place] coronary artery without angina pectoris Plan: Stable Continue?atorvastatin Follow-up?with?Cardiology?as?recommended (4) Bursitis of left elbow: Code(s): M70.32 - Other bursitis of elbow, left elbow Plan: Infected?left?olecranon?bursitis Will?send?script?for?cephalexin Also?advise?cold?packs?and?keeping?pressure?off?elbow (5) Depression with anxiety: Code(s): F41.8 - Other specified anxiety disorders Plan: Now?has?a?therapist Continue?fluoxetine Patient?declined?adjunct?medication?such?as?bupropion?but?seems?to?be?doing?well?with?therapist?now. Orders: Orders Comprehensive Met. Panel Today M70.32 - Other bursitis of elbow, left elbow Uric Acid Today M70.32 - Other bursitis of elbow, left elbow Complete Blood Count Auto Diff Today M70.32 - Other bursitis of elbow, left elbow, Z00.00 - Encounter for general adult medical examination without abnormal findings Medications: Changed From lisinopril 5 mg PO DAILY To lisinopril 10 mg PO DAILY 90 days 90 tabs 2RF Discontinued trazodone Discontinued Reason: Doctor's Order 100 mg PO BEDTIME 30 days PRN 30 tabs 0RF sleep Coding Level of Care Code Est Pt Level 4 (50600) Diagnoses Essential hypertension I10 Type 2 diabetes mellitus with unspecified complications E11.8 Arteriosclerotic cardiovascular disease I25.10 Bursitis of left elbow M70.32 Depression with anxiety F41.8
== END 2024-02-09 10:07 | disposition home or self-care (01) ==
PROVIDERS: PCP Family Medicine; Visit Provider Family Medicine
DX: I10 Essential (primary) hypertension (principal); E11.8 Type 2 diabetes mellitus with unspecified complications; I25.10 Atherosclerotic heart disease of native coronary artery without angina pectoris; M70.32 Other bursitis of elbow, left elbow; F41.8 Other specified anxiety disorders
CPT/HCPCS: 99214

== ENCOUNTER 2024-02-09 10:58 | Outpatient (REF) | payer MEDICARE, OTHER, SELFPAY ==
--- NOTE | ~2024-02-09 | XR_ITS ---
EXAMINATION: XR ELBOW, LEFT CLINICAL INFORMATION: Left elbow pain, bursitis. Patient stated swollen left elbow this morning, no injury. COMPARISON: None available. TECHNIQUE: AP, lateral, and oblique views of the left elbow. FINDINGS: Bony alignment is preserved. Focal calcification versus bony exostosis in the soft tissues along the medial epicondyle and faint calcifications in the soft tissues lateral to the lateral epicondyle, concerning for epicondylitis. Alignment preserved. Radiopaque marker placed by technologist to indicate the area of concern as indicated by the patient along the dorsal aspect of the elbow and demonstrated focal soft tissue swelling. There is a tiny dorsal olecranon spur. XR/XR elbow LT min 3V IMPRESSION: 1. Focal calcification versus bony exostosis in the soft tissues along the medial epicondyle and faint calcifications in the soft tissues lateral to the lateral epicondyle, concerning for epicondylitis. 2. Focal soft tissue swelling along the dorsal aspect of the elbow. 3. Recommend follow up imaging in 10-14 days if fracture is suspected.
[2024-02-09 11:11] LABS: MANUAL DIFF FLAG NO
[2024-02-09 11:49] LABS: Eosinophils Absolute Auto 0.1 X10*3/uL (0.0-0.4); Eosinophils Percent Auto 3.8 % (0-4); Hematocrit 38.7 % (42.0-52.0); Hemoglobin 12.7 g/dl (14.0-18.0); Imm Gran Abs Auto 0.07 X10*3/uL (0.00-0.03); Imm Gran Pct Auto 1.9 % (0.0-0.4); Lymphocytes Absolute Auto 1.1 X10*3/uL (1.2-4.9); Mean Corpuscular HGB Conc 32.8 g/dl (31.0-36.0); Mean Corpuscular Hemoglobin 38.4 pg (27.0-33.0); Mean Platelet Volume 10.2 fL (9.4-12.4); Monocytes Absolute Auto 0.5 X10*3/uL (0.1-1.2); Monocytes Percent Auto 12.5 % (2-11); Neutrophils Absolute Auto 1.9 x10*3/uL (2.0-8.3); Neutrophils Percent Auto 50.8 % (45-73); Platelet Count 114 X10*3/uL (160-400); Red Blood Count 3.31 X10*6/uL (4.60-5.80); Red Cell Distribution Width 15.1 % (11.0-16.0); White Blood Count 3.7 X10*3/uL (4.8-10.8)
[2024-02-09 11:57] LABS: Appearance Urine Cloudy; Color Urine Yellow; Glucose Urine UA Negative (Negative); Leukocyte Esterase Urine Small (1+) (Negative); Nitrite Urine Negative (Negative); Specific Gravity - Urine 1.015 (1.005-1.025); UMIC TRIGGER UA YES; Urine Blood Large (3+) (Negative); Urine Ketones Negative (Negative); Urine Protein 100 (2+) mg/dL (Neg-Trace)
[2024-02-09 11:58] LABS: Mean Corpuscular Volume 116.9 fL (80.0-98.0)
[2024-02-09 12:05] LABS: Bacteria Urine 4+ (None Seen); Hyaline Casts Urine 0-2 /LPF (0-2); RBC Urine >20 /HPF (0-2); Squamous Epithelial Cell Urine 0-2 /HPF (0-2); WBC Urine 21-50 /HPF (0-5)
[2024-02-09 12:44] LABS: Alanine Aminotransferase 15 U/L (0-40); Albumin Level 3.5 g/dL (3.5-5.0); Alkaline Phosphatase 89 U/L (39-117); Anion Gap 12 (12-20); Aspartate Amino Transferase 14 U/L (5-37); Bilirubin Total 0.4 mg/dL (0.0-1.0); Blood Urea Nitrogen 23 mg/dL (9-16); Calcium 8.9 mg/dL (8.4-10.2); Carbon Dioxide 24 mmol/L (22-29); Chloride 108 mmol/L (96-108); Estimated Glomerular Filt Rate 54; Glucose Random 192 mg/dL (60-115); Sodium 139 mmol/L (135-145); Total Protein 6.9 g/dL (6.5-8.0); Uric Acid 4.9 mg/dL (3.4-7.0)
[2024-02-09 19:28] LABS: Folate 10.4 ng/mL (> or = 4.0); Vitamin B12 687 pg/mL (200-900)
== END 2024-02-09 10:59 | disposition home or self-care (01) ==
LOC: HO.LAB 10:58
PROVIDERS: PCP Family Medicine; Visit Provider Family Medicine
DX: Z00.00 Encounter for general adult medical examination without abnormal findings (principal); M70.32 Other bursitis of elbow, left elbow; E53.8 Deficiency of other specified B group vitamins; D64.9 Anemia, unspecified; M25.522 Pain in left elbow; M25.422 Effusion, left elbow
CPT/HCPCS: 36415; 73080; 80053; 81001; 81003; 82607; 82746; 84550; 85025

== ENCOUNTER → 2024-03-02 07:46 | Outpatient (REF) | payer MEDICARE, OTHER, SELFPAY ==
--- NOTE | 2024-03-02 07:49 | HM_ITS ---
* Total monitoring time 3 days. * Underlying rhythm is sinus with an average rate of 77/Min. * Frequent supraventricular ectopy with a burden of 24%. * Atrial fibrillation burden 0.3%. Controlled rates. * Rare ventricular ectopy. * No significant pauses or AV blocks. * No patient markers or diary events. MTDD
--- NOTE | 2024-03-02 07:49 | CA_ITS ---
Transthoracic Echocardiogram Patient (Last, First, Middle): Chilo Fox J Gender: Male Date of : 1945 Age: 78 Procedure Date: 03/02/2024 Procedure Type: Transthoracic Echocardiogram Location: OP Height: 182.88 cm Weight: 92.99 kg BSA: 2.15 m2 Heart Rate: bpm BP: 150 / 82 mmHg Peanut [place]orter: TO Referring MD: Mateo Lara MD Rnfa: Cesar Gallo MD Symptoms: I50.32 - Chronic diastolic (congestive) heart failure Study Quality: Adequate ECG Rhythm: Sinus with extra beats Conclusions: - 1. Low normal LV ejection fraction 50-55% with grade 2 diastolic dysfunction with regional wall motion abnormality consistent with underlying coronary artery disease 2. Mild aortic regurgitation 3. Mildly dilated ascending aorta 3.7 cm 4. Normal RV systolic pressure 5. No gross pericardial effusion Findings Left Ventricle Normal left ventricular cavity size. There is mildly increased left ventricular wall thickness. The left ventricular systolic function is low normal. The visually estimated ejection fraction is between 50-55%. Spectral Doppler is indicative of a pseudonormal filling pattern. E/E prime ratio is >15, consistent with elevated filling pressures. Evidence suggests grade II (moderate) diastolic dysfunction. Wall Motion Rest Echo Findings The inferoseptal wall, the basal inferior, and mid inferior segments are hypokinetic. All other scored wall segments showed normal motion. Right Ventricle Normal right ventricular cavity size and systolic function. Atria The left atrium is moderately dilated. There is lipomatous hypertrophy of the interatrial septum. There is no evidence of interatrial shunt. The right atrium is likely dilated. Aortic Valve There is mild calcification of the aortic valve. There is mild thickening of the aortic valve. There is no aortic valve stenosis. There is mild aortic valve regurgitation. Mitral Valve There is mild anterior and posterior mitral leaflet thickening. There is mild anterior and mild posterior mitral annular calcification. There is mild mitral annular calcification. There is trace mitral valve regurgitation. There is no mitral valve stenosis. Pulmonic Valve The pulmonic valve is likely normal. There is trace pulmonic valve regurgitation. Tricuspid Valve Normal tricuspid valve structure. There is mild tricuspid valve regurgitation. The right ventricular systolic pressure is normal. The right ventricular systolic pressure is 34 mmHg. Normal right atrial pressure. There is no evidence of pulmonary hypertension. Great Vessels The pulmonary artery was not well visualized. There is mild dilatation of the ascending aorta measuring 3.70 cm. Venous The inferior vena cava is normal in size and collapses greater than 50% with inspiration. Pericardium/Pleural There is no evidence of pericardial effusion. Prior Study Comparison Changes noted compared to prior study dated: 09/06/2021. Mild aortic regurgitation noted Measurements 2D Linear Measurements IVSd: 1.23 0.6-0.9/0.6-1.0 cm LVIDd: 5.94 3.9-5.3/4.2-5.9 cm LVIDd Index: 2.76 2.4-3.2/2.2-3.1 cm/m2 LVIDs: 3.61 2.0-3.6 cm LVPWd: 1.20 0.7-1.1 cm LA Diam: 4.70 2.7-3.8/3.0-4.0 cm LAIDs Index: 2.19 1.5-2.3 cm/m2 LV Mass: 391.86 67-162/88-224 g LV Mass Index: 182.26 43-95/49-115 g/m2 LVOT Diam: 2.30 3.0+(-)1.3 cm 2D Systolic Function EF 4C: 47.80 >55% EF 2C: 59.30 >55% EF BiP: 54.20 >55% Mitral Valve MV VTI: 0.34 MV Pk Brant: 1.15 MV Mn Brant: 0.71 MV Pk Grad: 5.00 MV Mn Grad: 2.00 MV Pk E: 0.90 MV PK A: 0.75 MV Decel Time: 287.00 E/A: 1.20 E'Lateral: 5.66 E'Medial: 4.57 E/E' Med: 19.60 E/E' Lat: 15.80 PHT: 84.00 MVA PHT: 2.62 MVA Continuity: 3.18 Decel [place]: 3.13 Aortic Valve AoV Pk Brant: 1.69 AoV Mn Brant: 1.17 AoV VTI: 0.36 AoV Pk Grad: 11.00 Aov Mn Grad: 6.00 ESME Cont.VTI: 2.97 LVOT LVOT Pk Brant: 1.21 LVOT Mn Brant: 0.74 LVOT VTI: 0.26 LVOT Pk Grad: 6.00 LVOT Mn Grad: 2.00 LVOT Diam: 2.30 LVOT Area: 4.15 Diastolic Function MV Pk E: 0.90 MV Pk A: 0.75 E/A: 1.20 E'Medial: 4.57 E/E' Med: 19.60 E' Laterial: 5.66 E/E' Lat: 15.80 Right Ventricle TAPSE (mm): 20.40 TVS' Brant: 14.00 Tricuspid Valve TR Pk Brant: 2.55 TR Pk Grad: 26.00 RA Press: 8.00 RVSP: 34.00 Great Vessels Aorta Sinus of Valsalva: 4.11 2.0-3.[address] [place]: 3.03 1.7-3.4 cm Ao Asc: 3.70 2.1-3.4 cm Updated in Other Vendor System with Status of Final Cesar Gallo MD electronically signed on 03/02/2024 3:44:02 PM with status of Final
== END ==
LOC: HO.CARD 07:46
PROVIDERS: PCP Family Medicine; Visit Provider Internal Medicine
DX: I48.0 Paroxysmal atrial fibrillation (principal); I50.32 Chronic diastolic (congestive) heart failure
CPT/HCPCS: 93242; 93306

== ENCOUNTER → 2024-03-02 07:49 | Outpatient (BNV) | payer MEDICARE, OTHER, SELFPAY | PROVIDERS: PCP Family Medicine; Visit Provider Internal Medicine Cardiovascular Disease | DX: I47.10 Supraventricular tachycardia, unspecified (principal) | CPT/HCPCS: 93244; 93306 ==

== ENCOUNTER 2024-04-05 13:37 | Outpatient (AMB) | payer MEDICARE, OTHER, SELFPAY ==
[2024-04-05 13:45] VITALS: BP 132/70; PULSE 74; BMI 29.3
--- NOTE | 2024-04-05 13:45 | A.OFFVIS_ITS ---
Vital Signs 04/05/24 13:45 Height 5 ft 11 in Weight 210 lb BMI 29.3 BP 132/70 Blood Pressure Location Lt brachial Position Sitting Pulse 74 Intake Visit Reasons: 1 yr s/p echo/ [facility] Shift Lead Required: No Accompanied by: Self / Same As Patient Allergies Iodinated Contrast Media [IV CONTRAST] Allergy (Severe, Verified 02/09/24 09:30) ANAPHYLAXIS Penicillins [PENICILLINS] Allergy (Severe, Verified 02/09/24 09:30) trouble breathing doxycycline Adverse Reaction (Intermediate, Verified 02/09/24 09:30) rASH Medication List - Last Reconciled 04/05/24 by Mateo Lara MD apixaban (Eliquis) 5 mg PO BID atorvastatin 40 mg PO BEDTIME cephalexin 500 mg PO Q12H 12 days cholecalciferol (vitamin D3) 50 mcg PO DAILY diltiazem HCl CD 180 mg PO DAILY ferrous gluconate 324 mg PO DAILY fluoxetine 40 mg (2 x 20 mg) PO ONCE 90 days lisinopril 10 mg PO DAILY 90 days magnesium chloride 70 mg PO .QOD mecobalamin (vitamin B12) 1,000 mcg sublingual DAILY 90 days mecobalamin (vitamin B12) 1,000 mcg PO DAILY metformin ER 500 mg PO BID omeprazole 20 mg PO DAILY sulfamethoxazole-trimethoprim 800-160 mg (Bactrim DS) 1 tab PO Q12H 10 days HPI Comments Details: Chilo returns for follow-up including various cardiac issues including coronary artery disease, atrial arrhythmias among others. He states that he is extremely active and feeling great. Plays golf regularly without any issues. He was recently in [place] and walk miles with no issues. No complaints like angina or shortness of breath or palpitations or in fact anything cardiac sounding. He plans to go for colonoscopy as well as elbow surgery in the near future. FORMERLY [facility] Medical History MRSA infection Foot drop, left foot ALISON on CPAP COPD (chronic obstructive pulmonary disease) Upper GI bleeding PAF (paroxysmal atrial fibrillation) Smoker Hyperlipidemia, unspecified Type 2 diabetes mellitus with unspecified complications Essential hypertension Arteriosclerotic cardiovascular disease Atrial flutter by electrocardiogram Surgical History Status post surgical removal of malignant neoplasm of skin History of knee replacement (~10/2021) Hx of cardiac cath (~2017) History of surgical removal of ganglion cyst (~2016) S/P radical cystoprostatectomy (~2014) Hx of total knee replacement (~2004) Family History Father Staph infection Mother Hypertension Brother Heart problem Social History Household Members: Spouse Household Members Other:: pets: dogs Housing: House Do you presently have visiting nurse or other home services: No Alcohol intake: current Alcohol intake frequency: 0-2 drinks per day Alcohol type: hard liquor Patient Tobacco Use Status: Current everyday Tobacco user Cigarettes Per Day: 5 e-Cigarette/Vaping Use: Never Used Second Hand Smoke Exposure: No service: No Current occupational status: retired Current occupational exposures/hazards: No Cognitive needs: No Hearing needs: No Vision needs: No Review of Systems Const Denies chills, Denies fatigue, Denies fever(s), Denies frequent falls, Denies weakness, Denies weight gain and Denies weight loss ENT Denies dizziness Card Denies chest pain, Denies leg edema, Denies lightheadedness, Denies palpitations, Denies dyspnea and Denies dyspnea on exertion Resp Denies cough, Denies dyspnea and Denies dyspnea on exertion GI Denies hematochezia Musc Denies abnormal gait, Denies muscle weakness, Denies numbness, Denies radiating pain into limb and Denies tingling Neuro Denies abnormal gait, Denies dizziness, Denies frequent falls, Denies numbness, Denies tingling and Denies weakness Endo Denies fatigue and Denies palpitations Physical Exam Vital Signs: Last Vital Signs Pulse 74 04/05/24 13:45 BP 132/70 04/05/24 13:45 BMI result Body Mass Index 29.3 Const General: comfortable and no acute distress Orientation/consciousness: patient oriented x3 HEENT Other: Unremarkable Head: Yes normal to inspection Neck Neck: Yes normal visual inspection Chest Chest palpation & inspection: normal inspection of the chest Resp Auscultation: clear to auscultation bilaterally Cardio Palpation: normal PMI Heart sounds: S1 normal heart sound present, S2 normal heart sound present, no gallops, no murmurs and no rubs GI Palpation (GI): Soft to palpation Back/Spine/Pelvis Other: unremarkable Skin General skin exam: no rashes or lesions noted Neuro General: patient oriented x3 Extrem General: Yes normal to inspection Psych Mental Status: mental status grossly normal Office Procedures EKG Details: EKG with sinus rhythm at 74/Min; incomplete right bundle-branch pattern; supraventricular and ventricular ectopy; [place] [id number], Complete Assessment & Plan Assessment & Plan (1) Chronic heart failure with preserved ejection fraction (HFpEF): Code(s): I50.32 - Chronic diastolic (congestive) heart failure Category: Medical Plan: Stable. No recent issues. (2) PAF (paroxysmal atrial fibrillation): Comment: status post pulmonary vein isolation 08/2020 Code(s): I48.0 - Paroxysmal atrial fibrillation Category: Medical Plan: No recent issues. Continue diltiazem, anticoagulation. (3) Atrial flutter by electrocardiogram: Comment: status post ablation 08/2020. Code(s): I48.92 - Unspecified atrial flutter Category: Medical Plan: Continue anticoagulation. (4) Arteriosclerotic cardiovascular disease: Comment: Status post LAD stenting- 09/2019 Code(s): I25.10 - Atherosclerotic heart disease of [place] coronary artery without angina pectoris Category: Medical Plan: No recent angina. Continue statins. Direct LDL 60 mg/dL. (5) Essential hypertension: Code(s): I10 - Essential (primary) hypertension Category: Medical Plan: Stable. No changes. (6) Smoker: Code(s): F17.200 - Nicotine dependence, unspecified, uncomplicated Category: Social Hx Plan: He states that he smokes about 6 cigarettes a day. Advised to stop. (7) Upper GI bleeding: Code(s): K92.2 - Gastrointestinal hemorrhage, unspecified Category: Medical Plan: Endoscopy showed Rivera's esophagus but no clear sources. Off Plavix. No recent issues. (8) ALISON on CPAP: Code(s): G47.33 - Obstructive sleep apnea (adult) (pediatric); Z99.89 - Dependence on other enabling machines and devices Category: Medical Plan: Continue CPAP. (9) Preoperative cardiovascular examination: Code(s): Z01.810 - Encounter for preprocedural cardiovascular examination Category: Medical Plan: Plan for colonoscopy/elbow surgery. May proceed as planned. Intermediate cardiac risk. May hold Eliquis-last 4 doses prior to surgery, if necessary Coding Level of Care Code Est Pt Level 4 (33940) Diagnoses Chronic heart failure with preserved ejection fraction (HFpEF) I50.32 PAF (paroxysmal atrial fibrillation) I48.0 Atrial flutter by electrocardiogram I48.92 Arteriosclerotic cardiovascular disease I25.10 Essential hypertension I10 Smoker F17.200 Upper GI bleeding K92.2 ALISON on CPAP G47.33; Z99.89 Preoperative cardiovascular examination Z01.810 CPT Codes EKG - CPT: 70540-[id number], Complete ([id number])
== END 2024-04-05 14:26 | disposition home or self-care (01) ==
PROVIDERS: PCP Family Medicine; Visit Provider Internal Medicine
DX: I50.32 Chronic diastolic (congestive) heart failure (principal); I48.0 Paroxysmal atrial fibrillation; I48.92 Unspecified atrial flutter; I25.10 Atherosclerotic heart disease of native coronary artery without angina pectoris; I10 Essential (primary) hypertension; F17.200 Nicotine dependence, unspecified, uncomplicated; K92.2 Gastrointestinal hemorrhage, unspecified; G47.33 Obstructive sleep apnea (adult) (pediatric); Z99.89 Dependence on other enabling machines and devices; Z01.810 Encounter for preprocedural cardiovascular examination
CPT/HCPCS: 93010; 99214

== ENCOUNTER → 2024-04-05 13:37 | Outpatient (BNVA) | payer MEDICARE, OTHER, SELFPAY | PROVIDERS: PCP Family Medicine; Visit Provider Internal Medicine | DX: Z01.810 Encounter for preprocedural cardiovascular examination (principal); I11.0 Hypertensive heart disease with heart failure; I50.32 Chronic diastolic (congestive) heart failure; I48.0 Paroxysmal atrial fibrillation; I48.92 Unspecified atrial flutter; I25.10 Atherosclerotic heart disease of native coronary artery without angina pectoris; K92.2 Gastrointestinal hemorrhage, unspecified; G47.33 Obstructive sleep apnea (adult) (pediatric); F17.210 Nicotine dependence, cigarettes, uncomplicated; Z99.89 Dependence on other enabling machines and devices | CPT/HCPCS: 93005; 99212 ==

== ENCOUNTER 2024-04-20 06:18 | Day surgery (SDC) | payer MEDICARE, OTHER, SELFPAY ==
[2024-04-18 12:49] VITALS: BMI 29.3
--- NOTE | 2024-04-19 10:05 | HO.ANESPROP2 ---
Documented by User: Shayy Jenkins NP 04/19/24 10:08 HPI - Anesthesia Eval Consult details Narrative: 78yo M for Colonoscopy Eliquis for afib Follows [facility] cardiology. Last office visit 03/2024. Stable, good exercise tolerance. PMF Active Problems Active Problems: All Active Problems Olecranon bursitis (Acute) Pain and swelling of left elbow (Acute) Depression with anxiety (Acute) Bursitis of left elbow (Acute) Low vitamin B12 level (Acute) Adult general medical examination (Acute) Foot drop, left foot (Acute) Difficulty sleeping (Acute) Sleep apnea (Acute) Lower extremity weakness (Acute) Neuropathy of foot (Acute) Anemia (Acute) Seasonal allergies (Acute) Bacteriuria (Acute) Screening for prostate cancer (Acute) Screening for colon cancer (Acute) Annual physical exam (Acute) Abnormal urine findings (Acute) Arthritis of knee (Acute) Neoplasm of uncertain behavior of skin (Acute) Chronic heart failure with preserved ejection fraction (HFpEF) (Acute) Acute diastolic (congestive) heart failure (Acute) Edema (Acute) Edema of right ankle (Acute) Orthopnea (Acute) Viral illness (Acute) Depression (Acute) Status post left knee replacement (Acute) ALISON on CPAP (Acute) COPD (chronic obstructive pulmonary disease) (Acute) Preoperative clearance (Acute) Upper GI bleeding (Acute) Preoperative cardiovascular examination (Acute) PAF (paroxysmal atrial fibrillation) (Acute) Smoker (Acute) Hyperlipidemia, unspecified (Acute) Type 2 diabetes mellitus with unspecified complications (Acute) Essential hypertension (Acute) Arteriosclerotic cardiovascular disease (Acute) Atrial flutter by electrocardiogram (Acute) Past Medical History Medical History MRSA infection Foot drop, left foot ALISON on CPAP COPD (chronic obstructive pulmonary disease) Upper GI bleeding PAF (paroxysmal atrial fibrillation) Smoker Hyperlipidemia, unspecified Type 2 diabetes mellitus with unspecified complications Essential hypertension Arteriosclerotic cardiovascular disease Atrial flutter by electrocardiogram Family History Family History Father Staph infection Mother Hypertension Brother Heart problem Surgical History Surgical History Status post surgical removal of malignant neoplasm of skin History of knee replacement (~10/2021) Hx of cardiac cath (~2018) History of surgical removal of ganglion cyst (~2016) S/P radical cystoprostatectomy (~2014) Hx of total knee replacement (~2004) Social History Social History Household Members: Spouse Household Members Other:: pets: dogs Housing: House Do you presently have visiting nurse or other home services: No Alcohol intake: current Alcohol intake frequency: 0-2 drinks per day Alcohol type: hard liquor Patient Tobacco Use Status: Current everyday Tobacco user Cigarettes Per Day: 5 e-Cigarette/Vaping Use: Never Used Second Hand Smoke Exposure: No Advance Directives: No Advance Directives Information Provided: Yes service: No Current occupational status: retired Current occupational exposures/hazards: No Cognitive needs: No Hearing needs: No Vision needs: No Meds Allergies Allergy/AdvReac Type Severity Reaction Status Date / Time Iodinated Contrast Media Allergy Severe ANAPHYLAXIS Verified 02/09/24 09:30 [IV CONTRAST] Penicillins [PENICILLINS] Allergy Severe trouble Verified 02/09/24 09:30 breathing doxycycline AdvReac Intermediate rASH Verified 02/09/24 09:30 Home Medications ?Medication ?Instructions ?Recorded ?Confirmed ?Last Taken ?Type omeprazole 20 mg capsule,delayed 20 mg PO DAILY 11/07/20 04/20/24 04/20/24 06:00 History release cholecalciferol (vitamin D3) 50 50 mcg PO DAILY 11/14/20 04/18/24 Unknown History mcg (2,000 unit) capsule magnesium chloride 70 mg 70 mg PO .QOD 11/11/21 04/18/24 Unknown History (magnesium chloride) tablet,delayed release metformin 500 mg tablet,extended 500 mg PO BID 11/11/21 04/18/24 Unknown History release 24 hr mecobalamin (vitamin B12) 1,000 1,000 mcg PO DAILY 05/27/23 04/18/24 Unknown History mcg chewable tablet Exam Height,Weight and Vital Signs: Height 5 ft 11 in Weight 95.254 kg Pertinent Lab Results Pertinent Lab Results: Laboratory Tests 02/09/24 11:09 WBC 3.7 L Hgb 12.7 L Hct 38.7 L Plt Count 114 L Sodium 139 Potassium 5.0 Chloride 108 Carbon Dioxide 24 BUN 23 H Creatinine 1.30 Narrative Narrative: EKG 03/2024 sinus rhythm at 74/Min; incomplete right bundle-branch pattern; supraventricular and ventricular ectopy; normal UT and corrected QT ECHO 02/2024 Conclusions: - 1. Low normal LV ejection fraction 50-55% with grade 2 diastolic dysfunction with regional wall motion abnormality consistent with underlying coronary artery disease 2. Mild aortic regurgitation 3. Mildly dilated ascending aorta 3.7 cm 4. Normal RV systolic pressure 5. No gross pericardial effusion Holter 2023 Total monitoring time 3 days. Underlying rhythm is sinus with an average rate of 77/Min. Frequent supraventricular ectopy with a burden of 24%. Atrial fibrillation burden 0.3%. Controlled rates. Rare ventricular ectopy. No significant pauses or AV blocks. No patient markers or diary events. Assessment and Plan Assessment Anesthesia Assessment: Chart Reviewed Documented by User: Xavi Felix MD 04/20/24 07:06 [facility] Past Medical History Medical History MRSA infection Foot drop, left foot ALISON on CPAP COPD (chronic obstructive pulmonary disease) Upper GI bleeding PAF (paroxysmal atrial fibrillation) Smoker Hyperlipidemia, unspecified Type 2 diabetes mellitus with unspecified complications Essential hypertension Arteriosclerotic cardiovascular disease Atrial flutter by electrocardiogram Family History Family History Father Staph infection Mother Hypertension Brother Heart problem Family history of problems with anesthesia: No Surgical History Surgical History Status post surgical removal of malignant neoplasm of skin History of knee replacement (~10/2021) Hx of cardiac cath (~2017) History of surgical removal of ganglion cyst (~2016) S/P radical cystoprostatectomy (~2014) Hx of total knee replacement (~2004) History of Problems with Anesthesia: No Social History Social History Household Members: Spouse Household Members Other:: pets: dogs Housing: House Do you presently have visiting nurse or other home services: No Alcohol intake: current Alcohol intake frequency: 0-2 drinks per day Alcohol type: hard liquor Patient Tobacco Use Status: Current everyday Tobacco user Cigarettes Per Day: 5 e-Cigarette/Vaping Use: Never Used Second Hand Smoke Exposure: No Advance Directives: No Advance Directives Information Provided: Yes service: No Current occupational status: retired Current occupational exposures/hazards: No Cognitive needs: No Hearing needs: No Vision needs: No Meds Allergies Allergy/AdvReac Type Severity Reaction Status Date / Time Iodinated Contrast Media Allergy Severe ANAPHYLAXIS Verified 02/09/24 09:30 [IV CONTRAST] Penicillins [PENICILLINS] Allergy Severe trouble Verified 02/09/24 09:30 breathing doxycycline AdvReac Intermediate rASH Verified 02/09/24 09:30 Home Medications ?Medication ?Instructions ?Recorded ?Confirmed ?Last Taken ?Type omeprazole 20 mg capsule,delayed 20 mg PO DAILY 11/07/20 04/20/24 04/20/24 06:00 History release cholecalciferol (vitamin D3) 50 50 mcg PO DAILY 11/14/20 04/18/24 Unknown History mcg (2,000 unit) capsule magnesium chloride 70 mg 70 mg PO .QOD 11/11/21 04/18/24 Unknown History (magnesium chloride) tablet,delayed release metformin 500 mg tablet,extended 500 mg PO BID 11/11/21 04/18/24 Unknown History release 24 hr mecobalamin (vitamin B12) 1,000 1,000 mcg PO DAILY 05/27/23 04/18/24 Unknown History mcg chewable tablet Exam Airway Mallampati Class: III TM Dist: >3cm Neck ROM: Full Assessment and Plan Assessment Anesthesia Assessment: Anesthesia Plan Discussed Final Anesthetic Review Family History of Problems with Anesthesia: No History of Problems with Anesthesia: No NPO: Yes ASA Class: III Final Preanesthetic Review: No Changes in Pt Med Stat, Meds/Allgs Chart Reviewed, Consent Obtained/Reviewed and Anes Risks/Benef Reviewed Patient Risk: Intermediate Procedure Risk: Low Anesthetic Plan Anesthetic Plan: TIVA Disposition: Standard PACU
[2024-04-20 07:05] VITALS: BMI 29.0
[2024-04-20 07:11] VITALS: BP 133/63; PULSE 81; RESP 18; TEMP 36.2; O2SAT 96
[2024-04-20] MEDS: Lactated Ringers 1,000 ML 100 ML IVCONT (07:18)
[2024-04-20 07:27] LABS: Glucose, Whole Blood 135 mg/dL (60-115)
--- NOTE | 2024-04-20 07:35 | PC.NURSE ---
24hr update documented on paper.
[2024-04-20 08:38] VITALS: BP 106/61; PULSE 80; RESP 20; TEMP 36.1; O2SAT 97
--- NOTE | 2024-04-20 08:41 | P.BOP_ITS ---
Brief Operative Note Date of Service: 04/20/24 Pre-op diagnosis: Screening Post-op diagnosis: other (Polyp) Procedure: Colonoscopy to the cecum with hot snare polypectomy and placement of 2 Resolution clips Surgeon: Shiva Jackson MD Anesthesia: MAC Was an Addiction Psychiatrist used for this Procedure?: No Estimated blood loss (mL): 0 Pathology: other (A. Cecal polyp) Condition: stable Disposition: PACU
[2024-04-20 08:53] VITALS: BP 103/58; PULSE 81; RESP 20; O2SAT 98
[2024-04-20 09:05] VITALS: BP 107/71; PULSE 82; RESP 16; TEMP 36.3; O2SAT 98
--- NOTE | 2024-04-20 09:41 | OP_ITS ---
DATE OF SERVICE: 04/20/2024 SURGEON: Shiva Jackson MD INDICATIONS: The patient presents for evaluation of colorectal cancer screening and personal history of tubular adenoma of the colon. Full consent has been obtained from him for this, including risks of bleeding and perforation. PREOPERATIVE DIAGNOSIS: POSTOPERATIVE DIAGNOSIS: PROCEDURE PERFORMED: Colonoscopy to the cecum with hot snare polypectomy and placement of 2 Resolution clips on the cecal polypectomy site. ESTIMATED BLOOD LOSS: COMPLICATIONS: ANESTHESIA: Monitored anesthesia care. ASSISTANTS: SPECIMENS: PREOPERATIVE DIAGNOSES: Colorectal cancer screening and personal history of tubular adenoma of the colon. POSTOPERATIVE DIAGNOSES: Colorectal cancer screening, personal history of tubular adenoma of the colon, colon polyp, diverticulosis, and internal hemorrhoids. DESCRIPTION OF PROCEDURE: The patient was placed in the left lateral decubitus position. The digital rectal exam revealed some external hemorrhoids. The [employer] video pediatric colonoscope was then entered into the rectum and advanced easily to the cecum. Once in the cecum, I identified cecal pouch with appendiceal orifice and a normal-appearing ileocecal valve. The entire cecum was well visualized. In the cecum, was an approximately 6 mm x 15 mm flat, but raised polypoid lesion. This was removed in piecemeal fashion by hot snare polypectomy with pieces recovered by suction. The polypectomy site appeared clean, without any sign of residual polyp nor bleeding. I did place 2 Resolution clips on to the polypectomy site with good deployment and good hemostasis. The scope was then slowly withdrawn assessing all mucosal surfaces carefully. Preparation throughout the colon for the most part was good, but there was some residual fair amount of liquid stool in the descending and sigmoid colon, which had to be irrigated and suctioned away as best as possible. I did not visualize any other polyps, colitis, nor angiodysplasias. There was a moderate amount of descending and sigmoid colon diverticulosis. In the rectum, scope was retroflexed, visualizing some small internal hemorrhoids, but no other pathology. The rectal mucosa appeared normal. The scope was straightened and withdrawn from the patient. He tolerated the procedure well and was returned to the recovery area in stable condition. IMPRESSION: 1. Cecal polyp. 2. Diverticulosis. 3. Internal hemorrhoids. PLAN: The results of the pathology will be checked. At this point, given his age and associated medical problems, I do not think he will need any further screening colonoscopy. He was advised not to use any aspirin nor NSAIDs for least 1 week, but most likely should avoid them long-term since he is on chronic Eliquis. He was advised to resume his Eliquis in 48 hours. He will, otherwise, see me on a p.r.n. basis. This has been discussed with his . MD ADRIÁN Aviles/ANGI / [id number]
== END 2024-04-20 09:42 | disposition home or self-care (01) ==
PROVIDERS: PCP Family Medicine; Visit Provider Internal Medicine
PROC: 0DJD8ZZ Inspection of Lower Intestinal Tract, Via Natural or Artificial Opening Endoscopic (ICD-10-PCS; CPT 45378; principal; 2024-04-20 07:30)
DX: Z12.11 Encounter for screening for malignant neoplasm of colon (principal); Z86.010 Personal history of colon polyps; D12.0 Benign neoplasm of cecum; K57.30 Diverticulosis of large intestine without perforation or abscess without bleeding; K64.8 Other hemorrhoids; K21.9 Gastro-esophageal reflux disease without esophagitis; I10 Essential (primary) hypertension; I48.91 Unspecified atrial fibrillation; I48.92 Unspecified atrial flutter; G47.33 Obstructive sleep apnea (adult) (pediatric); J44.9 Chronic obstructive pulmonary disease, unspecified; E11.9 Type 2 diabetes mellitus without complications; Z79.01 Long term (current) use of anticoagulants; Z79.51 Long term (current) use of inhaled steroids; Z79.84 Long term (current) use of oral hypoglycemic drugs; Z79.899 Other long term (current) drug therapy; Z99.89 Dependence on other enabling machines and devices; Z85.51 Personal history of malignant neoplasm of bladder; F17.210 Nicotine dependence, cigarettes, uncomplicated; Z98.890 Other specified postprocedural states
CPT/HCPCS: 45385; 82947; 88305; J2704

== ENCOUNTER 2024-05-10 09:27 | Outpatient (AMB) | payer MEDICARE, OTHER, SELFPAY ==
[2024-05-10 09:34] VITALS: BP 144/74; PULSE 77; RESP 15; TEMP 36.6; O2SAT 96; BMI 28.3
--- NOTE | 2024-05-10 09:34 | MHC.PC.OV ---
Vital Signs 05/10/24 09:34 05/10/24 11:05 Height 5 ft 11 in Weight 203 lb BMI 28.3 BP 144/74 H 114/76 Blood Pressure Location Rt brachial Position Sitting Respiration 15 Pulse 77 Pulse Source Pulse Oximeter Temp 98 F Temp Source Temporal Artery Scan Pulse Oximetry (%) 96 Oxygen Delivery Method Room Air Intake Visit Reasons: Extended exam with f/u labs and health maint. Intake Note: Patiemt currently has no concerns Weights And Measures Inspector Required: No Accompanied by: Self / Same As Patient Allergies Iodinated Contrast Media [IV CONTRAST] Allergy (Severe, Verified 05/10/24 09:38) ANAPHYLAXIS Penicillins [PENICILLINS] Allergy (Severe, Verified 05/10/24 09:38) trouble breathing doxycycline Adverse Reaction (Intermediate, Verified 05/10/24 09:38) rASH Medication List - Last Reconciled 05/10/24 by Matias Roy MD apixaban (Eliquis) 5 mg PO BID atorvastatin 40 mg PO BEDTIME cholecalciferol (vitamin D3) 50 mcg PO DAILY diltiazem HCl CD 180 mg PO DAILY ferrous gluconate 324 mg PO DAILY fluoxetine 40 mg (2 x 20 mg) PO ONCE 90 days lisinopril 10 mg PO DAILY 90 days mecobalamin (vitamin B12) 1,000 mcg PO DAILY metformin ER 500 mg PO BID omeprazole 20 mg PO DAILY Tobacco use date assessed: 05/10/24 Fall risk assessment: 1 Fall in past year Last assessed Fall Risk: 05/10/24 Dental Screening Dental Screen Date: 05/10/24 Did you have a dental visit in the last 12 months?: Yes Did you have a dental problem in the last 6 months where you did not have access to dental care?: No Was dental information given to patient?: Patient has dentist HPI Extended exam with f/u labs and health maint. HPI Details 78 y/o male presents for an extended exam with f/u labs and health maintenance. No recent CPE-labs to review. A1c today 05/10/24 6.6%. He is on metformin 500mg b.i.d. Blood pressure today 144/74. He is on lisinopril 10mg daily. He notes he has surgery this week for his L elbow with [facility]. Pt reports ongoing blood in urine. PENDING SALE TO [facility] Medical History (Updated 05/10/24 @ 10:44 by Tripp Morrow) MRSA infection Foot drop, left foot ALISON on CPAP COPD (chronic obstructive pulmonary disease) Upper GI bleeding PAF (paroxysmal atrial fibrillation) Smoker Hyperlipidemia, unspecified Type 2 diabetes mellitus with unspecified complications Essential hypertension Arteriosclerotic cardiovascular disease Atrial flutter by electrocardiogram Surgical History (Updated 05/10/24 @ 09:41 by MUKUL Darling) H/O colonoscopy Status post surgical removal of malignant neoplasm of skin History of knee replacement (~10/2021) Hx of cardiac cath (~2017) History of surgical removal of ganglion cyst (~2016) S/P radical cystoprostatectomy (~2014) Hx of total knee replacement (~2004) Family History (Updated 05/10/24 @ 09:41 by MUKUL Darling) Father Staph infection Mother Hypertension Brother Heart problem Social History Household Members: Spouse Household Members Other:: pets: dogs Housing: House Do you presently have visiting nurse or other home services: No Alcohol intake: current Alcohol intake frequency: 0-2 drinks per day Alcohol type: hard liquor Patient Tobacco Use Status: Current everyday Tobacco user Cigarette Packs Per Day: 0.25 Cigarettes Per Day: 5 Years Smoked: 64 e-Cigarette/Vaping Use: Never Used Second Hand Smoke Exposure: No service: Yes Current occupational status: retired Current occupational exposures/hazards: No Cognitive needs: No Hearing needs: Yes Vision needs: No Questionnaire PHQ-9 Over the last 2 weeks, how often have you been bothered by any of the following problems? 1. Little interest or pleasure in doing things: not at all 2. Feeling down, depressed, or hopeless: not at all 3. Trouble falling or staying asleep, or sleeping too much: not at all 4. Feeling tired or having little energy: not at all 5. Poor appetite or overeating: not at all 6. Feeling bad about yourself - or that you are a failure or have let yourself or your family down: not at all 7. Trouble concentrating on things, such as reading the newspaper or watching television: not at all 8. Moving or speaking so slowly that other people could have noticed. Or the opposite - being so fidgety or restless that you have been moving around a lot more than usual: not at all 9. Thoughts that you would be better off or of hurting yourself in some way: not at all Total score: 0 Depression Screening Interpretation: Negative Depression Screening Done: Yes 97881 - PHQ-9 Billing: Yes Source: Developed by Drs. Shiva Kearney, Kaycee Berry, Dale Alston and colleagues, with an educational shannon from [employer]. Thrive Questionnaire Date Thrive assessed: 05/10/24 I am a: Patient What is your living situation today?: I have a steady place to live Within the past 12 months, did the food you bought not last and you didn't have the money to get more?: Never true Within the past 12 months, did you worry whether your food would run out before you got money to buy more?: Never true Do you have trouble paying for medicines?: No Do you have trouble getting transportation to medical appointments?: No Do you have trouble paying your heating and electricity bill?: No Do you have trouble taking care of your child, family member or friend?: No Do you have trouble with day-to-day activities such as bathing, preparing meals, shopping, managing finances, etc.?: No Are you currently unemployed and looking for a job?: No Are you interested in more education?: No Please select the resources that you would like help with: None Currently or been in a relationship where the following occur: No concerns reported THRIVE Score: 0 AUDIT C Alcohol Use Questionnaire (AUDIT-C) 1. How often do you have a drink containing alcohol?: Never 3. How often do you have six or more drinks on one occasion?: Never Total Score: 0 SURYA-7 AMB Questionnaire SURYA-7 Date SURYA - 7 assessed: 05/10/24 Feeling nervous, anxious, or on edge: 0 = Not at all Not being able to stop or control worryin = Not at all Worrying too much about different things: 0 = Not at all Trouble relaxin = Not at all Being so restless that it is hard to sit still: 0 = Not at all Becoming easily annoyed or irritable: 0 = Not at all Feeling afraid as if something awful might happen: 0 = Not at all Total SURYA-7 score (0-4 normal; 5-9 mild; 10-14 moderate; 15-21 severe): 0 Source: Developed by Drs. Shiva Kearney, Kaycee Berry, Dale Alston and colleagues, with an educational shannon from [employer]. SURYA-7 Assessment Billing SURYA-7 Assessment Tool: SURYA-7 Assessment 38131 Review of Systems Const Denies chills, Denies fatigue, Denies fever(s), Denies headache(s) and Denies weakness Eyes Denies change in vision ENT Denies dizziness, Denies headache(s), Denies hearing loss, Denies nasal congestion, Denies sinus pain, Denies sinus pressure and Denies sore throat Card Denies chest pain, Denies lightheadedness, Denies dyspnea and Denies other (palpitations) Resp Denies cough, Denies dyspnea and Denies wheezing GI Denies abdominal pain, Denies melena, Denies hematochezia, Denies change in bowel habits, Denies dyspepsia and Denies nausea Denies hematuria and Denies dysuria Musc Denies abnormal gait, Denies myalgias, Denies arthralgias, Denies numbness and Denies tingling Skin/Breast Denies rash, Denies unusual bruising and Denies wounds Neuro Denies abnormal gait, Denies dizziness, Denies headache(s), Denies memory loss, Denies numbness, Denies Sensory deficit (Neuro), Denies tingling and Denies weakness Psych Denies anxiety, Denies depression and Denies memory loss Endo Denies cold intolerance, Denies fatigue, Denies heat intolerance, Denies polydipsia and Denies polyuria Phill/Lymph Denies easy bleeding and Denies easy bruising Aller/Immun Denies wheezing Physical exam (Primary Care) Vital Signs: Last Vital Signs Temp 98 F 05/10/24 09:34 Pulse 77 05/10/24 09:34 Resp 15 05/10/24 09:34 BP 114/76 05/10/24 11:05 Pulse Ox 96 05/10/24 09:34 Oxygen Delivery Method Room Air 05/10/24 09:34 BMI result Body Mass Index 28.3 Tobacco/Smoking Status: Tobacco use Status Tobacco use date assessed 05/10/24 05/10/24 09:43 Patient Tobacco Use Status Current everyday Tobacco 05/10/24 09:43 e-Cigarette/Vaping Use Never Used 05/10/24 09:43 PHQ-9: PHQ-9 Score PHQ-9: Total score 0 05/10/24 11:05 Depression Screening Interpretation: Negative Thrive Assessment: Date of Thrive Assessment Date Thrive assessed 05/10/24 05/10/24 09:43 Currently or been in a relationship where the following occur: No concerns reported Const General: no acute distress, well developed, alert and awake Nutritional Appearance: well nourished Orientation/consciousness: patient oriented x3 HENMT Head: Yes normocephalic and Yes atraumatic Ears: hearing grossly normal bilaterally and TM's normal bilaterally General nose exam: Normal external nose present and Normal nares present Mouth: Normal oral and palatal mucosa present and moist mucous membranes Teeth and gingiva: dentition normal Throat: Yes posterior oropharynx normal Eyes General: appearance normal, both eyes and all related structures Pupils: Equal, round and reactive pupils present and Pupil accommodation reflex normal EOM: EOMs intact bilaterally Neck Neck: Yes normal visual inspection, Yes no lymphadenopathy and Yes trachea midline Thyroid: Thyroid normal Carotids: no bruits Lymphatic: no lymphadenopathy noted Chest Chest palpation & inspection: normal inspection of the chest Resp Effort & Inspection: normal respiratory effort Auscultation: clear to auscultation bilaterally Cardio Rate: regular rate Rhythm: regular rhythm Heart sounds: S1 normal heart sound present, S2 normal heart sound present, no gallops, no murmurs and no rubs Bruits: no abdominal aortic bruits and no carotid bruits GI Palpation (GI): No Abdominal aortic bruit present, Soft to palpation, nontender, No hepatosplenomegaly present and No Rebound tenderness present Auscultation: normal bowel sounds General: Yes no CVA tenderness Back/Spine/Pelvis Back: no CVA tenderness Cervical Spine: cervical ROM normal and No Cervical spine tenderness Thoracic/Lumbar Spine: thoraco-lumbar ROM normal, No pain with thoraco-lumbar ROM, No thoracic spinal tenderness and No lumbar spinal tenderness Skin Lesions: no lesions Rashes: no rashes Trauma: no lacerations or abrasions Wounds: no wounds Nails: normal Neuro General: patient oriented x3 Cranial nerves: Yes Equal, round and reactive pupils present Cognition (Neuro): normal cognition Gait exam (Neuro): Normal gait present Motor exam (neuro): 5/5 motor strength present throughout Sensory Exam: No Sensory deficit (Neuro) Deep tendon reflexes (DTR's): Right patellar reflex intensity grade: 2+ and Left patellar reflex intensity grade: 2+ Extrem General: Yes normal to inspection and No edema Psych Appearance: grossly normal Affect: normal affect Attitude: cooperative Thought process: Normal thought process present Results AMB Hemoglobin A1c AMB Hemoglobin A1c 6.6 % Last Edit by MUKUL Darling on 05/10/24 10:00 Results Reviewed Results Reviewed: Laboratory Last Values Hgb A1c (Clinic) 6.6 % (4.0-6.0) H 05/10/24 09:44 Assessment and Plan Assessment & Plan (1) Type 2 diabetes mellitus with unspecified complications: Code(s): E11.8 - Type 2 diabetes mellitus with unspecified complications Plan: A1c?climbed?to?6.6%?but?still?at?goal?less?than?7.0% He?notes?that?he?was?on?vacation?and?had?dietary?indiscretions He?will?work?at?a?diet?lower?in?sugars?and?starches.??Control?weight?and?continue?regular?exercise. (2) Essential hypertension: Code(s): I10 - Essential (primary) hypertension Plan: Blood?pressure?had?been?elevated?at?prior?visit?so?I changed?lisinopril?to?10?mg?daily. Blood?pressure?mildly?elevated?at?initial?presentation?but?decreases?with?relaxation. BP?controlled.??Goal?is?less?than?130/80 Continue?current?medication (3) Arteriosclerotic cardiovascular disease: Comment: Status post LAD stenting- 09/2019 Code(s): I25.10 - Atherosclerotic heart disease of [place] coronary artery without angina pectoris Plan: Stable Follow-up?with?Cardiology?as?recommended-has?appointment?in?September (4) Screening for colon cancer: Code(s): Z12.11 - Encounter for screening for malignant neoplasm of colon Plan: Patient?had?recent?colonoscopy?with? Single?polyp?seen?in?patient?is?78.??Patient?says?that?his?medical accounting clerk?told?him?he?does?not?need?further?screening.?? (5) Screening for prostate cancer: Code(s): Z12.5 - Encounter for screening for malignant neoplasm of prostate Plan: PSA?acquired?in?October?was?okay (6) Hematuria: Code(s): R31.9 - Hematuria, unspecified Plan: Ongoing?hematuria Referred?to?urology (7) Annual physical exam: Code(s): Z00.00 - Encounter for general adult medical examination without abnormal findings Plan: 78-year-old?male?presents?for?extended?exam Orders: Orders AMB Hemoglobin A1c Today E11.8 - Type 2 diabetes mellitus with unspecified complications Referrals Urology Referral R31.9 - Hematuria, unspecified Coding Level of Care Code Est Pt Level 4 (63506) Diagnoses Type 2 diabetes mellitus with unspecified complications E11.8 Essential hypertension I10 Arteriosclerotic cardiovascular disease I25.10 Screening for colon cancer Z12.11 Screening for prostate cancer Z12.5 Hematuria R31.9 Annual physical exam Z00.00 Additional Codes SURYA-7 Assessment Billing - SURYA-7 Assessment Tool: SURYA-7 Assessment [id number] ([id number])
[2024-05-10 11:05] VITALS: BP 114/76
== END 2024-05-10 11:44 | disposition home or self-care (01) ==
PROVIDERS: Visit Provider Family Medicine
DX: E11.8 Type 2 diabetes mellitus with unspecified complications (principal); I10 Essential (primary) hypertension; I25.10 Atherosclerotic heart disease of native coronary artery without angina pectoris; Z12.11 Encounter for screening for malignant neoplasm of colon; Z12.5 Encounter for screening for malignant neoplasm of prostate; R31.9 Hematuria, unspecified; Z00.00 Encounter for general adult medical examination without abnormal findings
CPT/HCPCS: 83036; 99214

== ENCOUNTER 2024-06-19 17:37 | Inpatient (IN) | payer MEDICARE, OTHER, SELFPAY ==
--- NOTE | ~2024-06-19 | NM_ITS ---
Lexiscan Myocardial perfusion study Indication: Chest pain Technique: The patient was brought in for a Lexiscan perfusion study on 06/21/2024 and was injected 0.4 mg of Lexiscan intravenously. Within a minute of this injection 30 mCi of sestamibi was given intravenously. Images were obtained using the SPECT gamma camera interlaced with the gating device. Images were obtained in supine position. Resting perfusion study was performed on 06/20/2024. Patient was administered 30 mCi of sestamibi intravenously at rest. Images were then obtained in supine position. Total DLP 88mGy-cm. Images were processed with the software and compared side to side in short axis, horizontal long axis and vertical long axis views. Findings: Raw acquisition reviewed. The stress perfusion study showed diminished tracer uptake along the inferior wall. There is improvement with CT attenuation correction suggestive of diaphragmatic attenuation artifact. There is also subdiaphragmatic tracer uptake. The gated study shows diminished LV systolic function with calculated LVEF of 49%. LV cavity is normal in size. The gated study shows globally reduced wall thickening and contraction of segments. Resting study shows diminished tracer uptake along the inferior wall. There is also subdiaphragmatic tracer uptake. There is improvement with CT attenuation correction suggestive of diaphragmatic attenuation artifact. Gating at rest reveals normal wall motion with ejection fraction at 47%. The findings are consistent with fixed inferior perfusion defect, that could be from diaphragmatic attenuation artifact.. NM/NM andrea perf SPECT rest & str Impression: 1. Myocardial perfusion imaging study shows no clear evidence of ischemia or infarction. Probably normal perfusion. 2. Gated LVEF is 49% during stress and 57% during rest. Correlate with echocardiogram. 3. Transient ischemic dilatation not present. EKG component of the test reported separately. Electronically signed by: Mateo Lara MD 06/21/2024 11:50 AM EDT
--- NOTE | ~2024-06-19 | XR_ITS ---
EXAMINATION: XR CHEST CLINICAL INFORMATION: Chest pain COMPARISON: Chest radiograph October 12, 2023 TECHNIQUE: 2 views of the chest FINDINGS: Prominent pulmonary vasculature. No pleural effusion. The heart and mediastinal borders are normal. No pneumothorax. No acute osseous abnormality. XR/XR chest 2V IMPRESSION: Pulmonary vasculature. Electronically signed by: Jovanni Rayo MD 06/19/2024 06:46 PM EDT RP
--- NOTE | ~2024-06-19 | MR_ITS ---
EXAMINATION: MRA OF THE CHEST WITHOUT AND WITH CONTRAST CLINICAL INFORMATION: Chest pain. Evaluate for aortic pathology COMPARISON: CT chest with contrast March 28, 2018 TECHNIQUE: MR angiography of the chest was performed without and with contrast. 15 mL Gadavist administered intravenously without complication. FINDINGS: ASCENDING AORTA: No aortic dissection. The mid ascending aorta measures 3.6 cm in diameter. AORTIC ARCH: 2-vessel arch anatomy. The great vessels are patent. DESCENDING AORTA: Normal in caliber. No aortic dissection. INCLUDED UPPER ABDOMINAL AORTA: The upper abdominal aorta is normal in caliber. The included celiac and superior mesenteric artery origins appear patent. PULMONARY ARTERIES: The exam was performed in the systemic arterial phase and not timed to evaluate the pulmonary arteries. NON-VASCULAR: Lungs: The lungs are clear with no evidence of inflammation or nodules. Mediastinum: The mediastinum is normal. Central vascular structures are unremarkable. No hilar or mediastinal lymphadenopathy. Pericardium/Pleura: There is no significant effusion. No pleural mass or thickening. Chest Wall/Axilla: Unremarkable. Upper Abdomen: Unremarkable Osseous Structures: Unremarkable. MR/MR angio chest wo/w con IMPRESSION: No aortic dissection. The thoracic aorta is normal in caliber. Electronically signed by: Jovanni Rayo MD 06/21/2024 11:04 AM EDT
--- NOTE | 2024-06-19 17:37 | ECG_ITS ---
Test Reason : CHEST PAIN Blood Pressure : / mmHG Vent. Rate : 082 BPM Atrial Rate : 000 BPM P-R Int : 000 ms QRS Dur : 108 ms QT Int : 388 ms P-R-T Axes : 000 -38 035 degrees QTc Int : 453 ms Atrial fibrillation Left axis deviation Abnormal ECG When compared with ECG of 27-DEC-2023 23:51, Atrial fibrillation has replaced Sinus rhythm Referred By: Anahi Erwin Electronically Signed By:COLEEN BARRIGA
[2024-06-19 17:49] VITALS: BP 184/86; PULSE 73; RESP 20; TEMP 36.8; O2SAT 99; BMI 30.2
--- NOTE | 2024-06-19 17:49 | ED_ITS ---
HPI - General Adult General Chief complaint: Chest Pain Stated complaint: chest pain Time Seen by Provider: 06/19/24 19:57 Source: patient, RN notes reviewed and old records reviewed Mode of arrival: ambulatory Limitations: no limitations History of Present Illness ED Provider: Nico Argueta PA-C HPI narrative: 78-year-old male with a history of CAD s/p LAD stent in 2018, AFib/aflutter on Eliquis, HLD, DM2, COPD, ALISON, smoker, HFpEF who presents to the ER for evaluation chest pain. He states around 16:00 today he was lying down in bed when he got a 10/10 very sharp, central chest pain that lasted 3 or 4 seconds and self-resolved. He states since then he has had another 20-30 episodes of dull, aching, 6/10, central and nonradiating chest pains that last anywhere from 1-2 minutes. They are associated with shortness of breath, nausea and dizziness. He denies any history of angina, he does not have a prescription for nitroglycerin. He states his last episode was about an hour ago when he was sitting in the waiting room. He has been compliant with all of his cardiac medications. He follows with Dr. Lara and last saw him in March. complaint: Chest pain Onset (ago): hour(s) (4) Location: chest Radiation: non-radiation Severity: severe Severity scale (1-10): 10 Quality: aching Pain Consistency: intermittent Related Data Home Medications ?Medication ?Instructions ?Recorded ?Confirmed omeprazole 20 mg capsule,delayed 20 mg PO DAILY 11/07/20 05/10/24 release cholecalciferol (vitamin D3) 50 50 mcg PO DAILY 11/14/20 05/10/24 mcg (2,000 unit) capsule metformin 500 mg tablet,extended 500 mg PO BID 11/11/21 05/10/24 release 24 hr Previous Rx's ?Medication ?Instructions ?Recorded diltiazem HCl 180 mg 180 mg PO DAILY #90 caps 07/21/23 capsule,extended release 24 hr apixaban 5 mg tablet (Eliquis) 5 mg PO BID #180 tabs 10/05/23 fluoxetine 20 mg capsule 40 mg (2 x 20 mg) PO ONCE 90 days 10/05/23 #180 caps lisinopril 10 mg tablet 10 mg PO DAILY 90 days #90 tabs 02/09/24 atorvastatin 40 mg tablet 40 mg PO BEDTIME #90 tabs 06/03/24 ferrous gluconate 324 mg (38 mg 324 mg PO DAILY #30 tabs 06/14/24 iron) tablet mecobalamin (vitamin B12) 1,000 1,000 mcg sublingual DAILY 90 days 06/17/24 mcg disintegrating #90 tabs tablet,sublingual Allergies Allergy/AdvReac Type Severity Reaction Status Date / Time Iodinated Contrast Media Allergy Severe ANAPHYLAXIS Verified 06/19/24 17:52 [IV CONTRAST] Penicillins [PENICILLINS] Allergy Severe trouble Verified 06/19/24 17:52 breathing doxycycline AdvReac Intermediate rASH Verified 06/19/24 17:52 Review of Systems 2 Review of Systems: Yes all other systems are reviewed and are negative [facility] Past Medical History Medical History MRSA infection Foot drop, left foot ALISON on CPAP COPD (chronic obstructive pulmonary disease) Upper GI bleeding PAF (paroxysmal atrial fibrillation) Smoker Hyperlipidemia, unspecified Type 2 diabetes mellitus with unspecified complications Essential hypertension Arteriosclerotic cardiovascular disease Atrial flutter by electrocardiogram Surgical History H/O colonoscopy Status post surgical removal of malignant neoplasm of skin History of knee replacement (~10/2021) Hx of cardiac cath (~2017) History of surgical removal of ganglion cyst (~2016) S/P radical cystoprostatectomy (~2014) Hx of total knee replacement (~2004) Family History Family History Father Staph infection Mother Hypertension Brother Heart problem Social History Social History Household Members: Spouse Household Members Other:: pets: dogs Housing: House Do you presently have visiting nurse or other home services: No Alcohol intake: current Alcohol intake frequency: 0-2 drinks per day Alcohol type: hard liquor Patient Tobacco Use Status: Current everyday Tobacco user Cigarette Packs Per Day: 0.25 Cigarettes Per Day: 5 Years Smoked: 64 Smoked in Last 30 Days: Yes e-Cigarette/Vaping Use: Never Used Second Hand Smoke Exposure: No Use of substances other than those prescribed or required for medical reasons: No Advance Directives: No Advance Directives Information Provided: No Do you have a plan to hurt others: No Plan service: Yes Current occupational status: retired Current occupational exposures/hazards: No Cognitive needs: No Hearing needs: Yes Vision needs: No Physical Exam ED Vital Signs: Vital Signs - 24 hr 06/19/24 17:49 06/19/24 19:43 06/19/24 20:30 Temperature 98.2 F 97.4 F 97.6 F Pulse Rate 73 89 66 Respiratory Rate 20 22 H 19 Blood Pressure 184/86 H 158/89 H 163/74 H Pulse Oximetry 99 97 98 Oxygen Delivery Method Room Air Room Air Room Air 06/19/24 21:47 Temperature Pulse Rate Respiratory Rate Blood Pressure 174/86 H Pulse Oximetry Oxygen Delivery Method BMI result Body Mass Index 30.2 Appearance: Alert. Oriented X3. No acute distress. Head: normocephalic, atraumatic. Eyes: Pupils equal, round and reactive to light. ENT: Pharynx normal. No tonsillar swelling or exudate. Neck: Normal inspection. Neck supple. CVS: Irregularly irregular, ventricular rate 60-70. Pulses normal. Respiratory: No respiratory distress. Breath sounds normal. Abdomen: Soft and nontender. Urostomy in place +BS x4 Skin: Skin warm and dry. Normal skin color. Normal skin turgor. No rashes. Extremities: No lower extremity edema. No joint swelling. Neuro/psych: Oriented X 3. No motor deficit. No sensory deficit. CN II-XII intact. Normal speech and cognition. Course Course Course Narrative: This is a rapid medical exam performed by Benjamin Erwin NP: Additional HPI, ROS, PE not included below will be deferred to primary provider. Patient is a 78-year-old male with history of T2DM, HTN, aib on eliquis, ALISON, COPD, HLD arteriosclerotic cardiovascular disease, stent presenting with intermittent mild chest pain for several days, today was laying down and had an episode of severe chest pain lasting 3-4 seconds, associated dyspnea. Sees Dr. Lara. Feels lightheaded. Plan: EKG, labs, cxr Medications Administered Generic Name Dose Route Start Last Admin Trade Name Freq PRN Reason Stop Dose Admin Atorvastatin Calcium 40 mg 06/19/24 22:00 06/19/24 22:51 Atorvastatin Calcium 40 Mg Tablet PO 40 mg BEDTIME JASMYNE Administration Discontinued Medications Generic Name Dose Route Start Last Admin Trade Name Timothy PRN Reason Stop Dose Admin Nitroglycerin 0.4 mg 06/19/24 21:43 06/19/24 21:47 Nitroglycerin 0.4 Mg Tab.Subl SUBLINGUAL 06/19/24 21:44 0.4 mg ONCE ONE Administration Medical Decision Making Medical Decision Making [facility] Narrative: 78-year-old male an extensive cardiac history including coronary artery disease requiring stent to the left anterior descending artery, history of AFib/a flutter on Eliquis, multiple cardiac risk factors including hypertension, hyperlipidemia, diabetes, smoker who presents to the ER for evaluation of recurrent episodes of chest pain that started about 4 hours ago. EKG does not have any ischemic changes. Patient has multiple comorbidities with concern for unstable angina/ACS. Patient is currently hemodynamically stable and pain-free. Will consult Cardiology. Initial troponin is 25, repeat is flat. 21:20 - Dr. Jacob recommend admit, NPO after midnight, hold eliquis for now, heparin TDB, may need stress test. patient updated on plan of care Differential Diagnosis Differential Diagnoses: The differential diagnosis associated with the presentation includes Unstable angina, ACS, dissection, myocarditis, pericarditis, pneumothorax, CHF Admission/Observation Consideration of admission/observation: Escalation of care including admission/observation considered Consult Healthcare Provider Management of the patient was discussed with: Hospitalist and Manufacturing Engineering Technologist Dr. King Lab Data [facility] Lab Attestation statement: I reviewed the patient's lab results. Pancytopenia, which is stable and chronic 06/19/24 17:57 06/19/24 17:57 Labs: Lab Results 06/19/24 06/19/24 Range/Units 17:57 20:19 WBC 2.7 L (4.8-10.8) X10*3/uL RBC 3.04 L (4.60-5.80) X10*6/uL Hgb 11.9 L (14.0-18.0) g/dl Hct 35.7 L (42.0-52.0) % MCV 117.4 H (80.0-98.0) fL MCH 39.1 H (27.0-33.0) pg MCHC 33.3 (31.0-36.0) g/dl RDW 15.9 (11.0-16.0) % Plt Count 96 L (160-400) X10*3/uL MPV 10.7 (9.4-12.4) fL Immature Gran % (Auto) 2.6 H (0.0-0.4) % Neut % (Auto) 35.1 L (45-73) % Lymph % (Auto) 45.4 H (20-40) % [place] % (Auto) 11.4 H (2-11) % Eos % (Auto) 5.5 H (0-4) % Baso % (Auto) 0.0 (0-2) % Lymph # (Auto) 1.2 (1.2-4.9) X10*3/uL [place] # (Auto) 0.3 (0.1-1.2) X10*3/uL Eos # (Auto) 0.2 (0.0-0.4) X10*3/uL Baso # (Auto) 0.0 (0.0-0.2) X10*3/uL Abs Immat Gran (auto) 0.07 H (0.00-0.03) X10*3/uL Absolute Neuts (auto) 1.0 L (2.0-8.3) x10*3/uL Absolute Nucleated RBC 0.020 H (0.0-0.012) X10*3/uL Nucleated RBC % (auto) 0.7 H (0.0-0.2) /100WBC Smear Tech's Comments VERIFIED PT 16.4 H (11.1-13.3) SEC INR 1.3 H (0.9-1.1) Sodium 142 (135-145) mmol/L Potassium 4.3 (3.3-5.1) mmol/L Chloride 110 H (96-108) mmol/L Carbon Dioxide 25 (22-29) mmol/L Anion Gap 11 L (12-20) BUN 28 H (9-16) mg/dL Creatinine 1.38 (0.5-1.4) mg/dL Estim Creat Clear Calc 53.5 Estimated GFR 50 Random Glucose 98 (60-115) mg/dL Calcium 9.0 (8.4-10.2) mg/dL Magnesium 1.6 (1.6-2.6) mg/dL Total Bilirubin 0.4 (0.0-1.0) mg/dL AST 19 (5-37) U/L ALT 15 (0-40) U/L Alkaline Phosphatase 97 (39-117) U/L Troponin I High Sens 24.3 22.8 (<3.5-35.0) ng/L B-Natriuretic Peptide 346 H (<100) pg/mL Total Protein 7.1 (6.5-8.0) g/dL Albumin 3.7 (3.5-5.0) g/dL Independent Interpretation I performed an independent interpretation of an: EKG and Plain X-Ray Interpretation: EKG with irregularly irregular, ?afib vs sinus with PAC (p waves seen) ventricular rate 82 beats per minute, no ST segment elevations or depressions Chest x-ray with increased vascular congestion, no pleural effusions or overt pulmonary edema Radiology Impression Discussion of test interpretation with radiology: I have reviewed the radiologist's reading. Radiologist Impression: EXAMINATION: XR CHEST CLINICAL INFORMATION: Chest pain COMPARISON: Chest radiograph October 12, 2023 TECHNIQUE: 2 views of the chest FINDINGS: Prominent pulmonary vasculature. No pleural effusion. The heart and mediastinal borders are normal. No pneumothorax. No acute osseous abnormality. XR/XR chest 2V IMPRESSION: Pulmonary vasculature External Record Review External record reviewed: Inpatient record, Office record, Outpatient record, Prior outpatient labs and Prior outpatient radiology Prescription Management I considered prescription management with: Pain Medication and Other (nitroglycerina) Chronic Conditions Patient?s care impacted by: Diabetes, Hypertension and Other (HLD, CAD, smoker) Discharge Plan Discharge Clinical Impression: Chest pain Qualifiers: Chest pain type: unspecified Qualified Code(s): R07.9 - Chest pain, unspecified Patient Disposition: Admitted As Inpatient
[2024-06-19 18:08] LABS: Eosinophils Absolute Auto 0.2 X10*3/uL (0.0-0.4); Eosinophils Percent Auto 5.5 % (0-4); Hematocrit 35.7 % (42.0-52.0); Hemoglobin 11.9 g/dl (14.0-18.0); Imm Gran Abs Auto 0.07 X10*3/uL (0.00-0.03); Imm Gran Pct Auto 2.6 % (0.0-0.4); Lymphocytes Absolute Auto 1.2 X10*3/uL (1.2-4.9); Lymphocytes Percent Auto 45.4 % (20-40); MANUAL DIFF FLAG SCAN; Mean Corpuscular HGB Conc 33.3 g/dl (31.0-36.0); Mean Corpuscular Hemoglobin 39.1 pg (27.0-33.0); Mean Corpuscular Volume 117.4 fL (80.0-98.0); Mean Platelet Volume 10.7 fL (9.4-12.4); Monocytes Absolute Auto 0.3 X10*3/uL (0.1-1.2); Monocytes Percent Auto 11.4 % (2-11); NRBC Pct Auto 0.7 /100WBC (0.0-0.2); Neutrophils Percent Auto 35.1 % (45-73); Platelet Count 96 X10*3/uL (160-400); Red Blood Count 3.04 X10*6/uL (4.60-5.80); Red Cell Distribution Width 15.9 % (11.0-16.0); SCAN SMEAR FLAG 1; White Blood Count 2.7 X10*3/uL (4.8-10.8)
[2024-06-19 18:15] LABS: INTERNATIONAL NORM RATIO 1.3 (0.9-1.1); Prothrombin Time 16.4 SEC (11.1-13.3)
[2024-06-19 18:21] LABS: Alanine Aminotransferase 15 U/L (0-40); Albumin Level 3.7 g/dL (3.5-5.0); Alkaline Phosphatase 97 U/L (39-117); Anion Gap 11 (12-20); Aspartate Amino Transferase 19 U/L (5-37); Bilirubin Total 0.4 mg/dL (0.0-1.0); Blood Urea Nitrogen 28 mg/dL (9-16); Carbon Dioxide 25 mmol/L (22-29); Chloride 110 mmol/L (96-108); Creatinine Clr Calc Pharmacy 53.5; Estimated Glomerular Filt Rate 50; Glucose Random 98 mg/dL (60-115); Magnesium 1.6 mg/dL (1.6-2.6); Potassium 4.3 mmol/L (3.3-5.1); Sodium 142 mmol/L (135-145); Total Protein 7.1 g/dL (6.5-8.0)
[2024-06-19 18:27] LABS: B Type Natriuretic Peptide 346 pg/mL (<100)
[2024-06-19 18:28] LABS: Troponin-I High Sensitivity 24.3 ng/L (<3.5-35.0)
[2024-06-19 18:35] LABS: SLIDE REVIEW VERIFIED
[2024-06-19 19:43] VITALS: BP 158/89; PULSE 89; RESP 22; TEMP 36.3; O2SAT 97
--- NOTE | 2024-06-19 19:57 | PC.NURSE ---
pt comes to ED from home reporting an pisode of 10/10 chest pain this afternoon at 1600. He says since then it has somwhat subsided but comes and goes at about 4 or 5 out of 10. denies SOB, nausea, vomiting, radiating pain, headache and other symptoms. alert and oriented. Afib on tele.
[2024-06-19 20:30] VITALS: BP 163/74; PULSE 66; RESP 19; TEMP 36.4; O2SAT 98
[2024-06-19 20:52] LABS: Troponin-I High Sensitivity 22.8 ng/L (<3.5-35.0)
[2024-06-19 21:47] VITALS: BP 174/86
[2024-06-19] MEDS: Nitroglycerin 0.4 MG TAB.SUBL SUBLINGUAL (21:47)
--- NOTE | 2024-06-19 21:53 | PM.IMHP ---
History of Present Illness Date of Service: 06/19/24 Chief Complaint: chest pain 78M PMH CAD s/p stent, DM, htn, alison on cpap at night, pafib, copd, hfpef, bladder ca, b12 deficiency, mood disorder, presented with chest pain. Patient reports playing golf on day of presentation and feeling well. Then on returning home felt sudden onset midsternal tenderness 10 chest pressure, nonradiating, lasted several seconds. Continued to have several similar episodes 3-4 minutes apart with varying degrees of intensity, denies shortness of breath, diaphoresis, chills. In ED EKG AFib, nonischemic, troponin negative x2, chest x-ray unremarkable. Review of Systems Review of Systems: Yes all other systems are reviewed and are negative [facility] Medical History MRSA infection Foot drop, left foot ALISON on CPAP COPD (chronic obstructive pulmonary disease) Upper GI bleeding PAF (paroxysmal atrial fibrillation) Smoker Hyperlipidemia, unspecified Type 2 diabetes mellitus with unspecified complications Essential hypertension Arteriosclerotic cardiovascular disease Atrial flutter by electrocardiogram Family History Father Staph infection Mother Hypertension Brother Heart problem Surgical History H/O colonoscopy Status post surgical removal of malignant neoplasm of skin History of knee replacement (~10/2021) Hx of cardiac cath (~2017) History of surgical removal of ganglion cyst (~2016) S/P radical cystoprostatectomy (~2014) Hx of total knee replacement (~2004) Social History Household Members: Spouse Household Members Other:: pets: dogs Housing: House Do you presently have visiting nurse or other home services: No Alcohol intake: current Alcohol intake frequency: 0-2 drinks per day Alcohol type: hard liquor Patient Tobacco Use Status: Current everyday Tobacco user Cigarette Packs Per Day: 0.25 Cigarettes Per Day: 5 Years Smoked: 64 Smoked in Last 30 Days: Yes e-Cigarette/Vaping Use: Never Used Second Hand Smoke Exposure: No Use of substances other than those prescribed or required for medical reasons: No Advance Directives: No Advance Directives Information Provided: No Do you have a plan to hurt others: No Plan service: Yes Current occupational status: retired Current occupational exposures/hazards: No Cognitive needs: No Hearing needs: Yes Vision needs: No Meds Allergies Allergy/AdvReac Type Severity Reaction Status Date / Time Iodinated Contrast Media Allergy Severe ANAPHYLAXIS Verified 06/19/24 17:52 [IV CONTRAST] Penicillins [PENICILLINS] Allergy Severe trouble Verified 06/19/24 17:52 breathing doxycycline AdvReac Intermediate rASH Verified 06/19/24 17:52 Active Medications: Current Medications Acetaminophen (Acetaminophen 325 Mg Tablet) 650 mg PO Q6H PRN PRN Reason: Pain, Mild (Pain Scale 1-3), fever or headache Aspirin (Aspirin Enteric Coated 81 Mg Tablet.) 81 mg PO DAILY [facility] Atorvastatin Calcium (Atorvastatin Calcium 40 Mg Tablet) 40 mg PO BEDTIME [facility] Calcium Carbonate (Calcium Carbonate 750 Mg Tab.Chew) 750 mg PO Q4H PRN PRN Reason: Heartburn Cyanocobalamin (Cyanocobalamin (Vitamin B-12) 1,000 Mcg Tablet) 1,000 mcg PO DAILY [facility] Diltiazem HCl (Diltiazem Hcl Cd 180 Mg Cap.Er.24h) 180 mg PO DAILY [facility]; Protocol Ferrous Sulfate (Ferrous Sulfate 324 Mg Tablet.) 324 mg PO QAM [facility] Fluoxetine HCl (Fluoxetine Hcl 20 Mg Capsule) 20 mg PO DAILY [facility] Glucose (Glucose Gel 15 Gm Gel..Gram.) 15 gm PO Q15M PRN; Protocol PRN Reason: per Hypoglycemia Standing Ord. Dextrose (D10) 250 mls @ 750 mls/hr IV Q15M PRN; Protocol PRN Reason: per Hypoglycemia Standing Ord. Insulin Human Lispro (Insulin Lispro 100 Unit/Ml 3 Ml Vial) 0 unit SUBCUT QIDACHS [facility]; Protocol Lisinopril (Lisinopril 10 Mg Tablet) 10 mg PO DAILY [facility]; Protocol Magnesium Hydroxide (Milk Of Magnesia 30 Ml Oral.Susp) 30 ml PO DAILY PRN PRN Reason: Constipation Melatonin (Melatonin 3 Mg Tablet) 6 mg PO BEDTIME PRN PRN Reason: Insomnia Sodium Chloride (0.9 % Sodium Chloride Flush 3 Ml Syringe) 3 ml IVFLUSH QSHIFT [facility] Vitamin D (Cholecalciferol (Vitamin D3) 10 Mcg Tablet) 10 mcg PO DAILY [facility] Home Medications ?Medication ?Instructions ?Recorded ?Confirmed ?Last Taken ?Type omeprazole 20 mg capsule,delayed 20 mg PO DAILY 11/07/20 05/10/24 04/20/24 06:00 History release cholecalciferol (vitamin D3) 50 50 mcg PO DAILY 11/14/20 05/10/24 Unknown History mcg (2,000 unit) capsule metformin 500 mg tablet,extended 500 mg PO BID 11/11/21 05/10/24 Unknown History release 24 hr Physical Exam Vital Signs and Narrative: Vital Signs: Last Vital Signs Temp 97.6 F 06/19/24 20:30 Pulse 66 06/19/24 20:30 Resp 19 06/19/24 20:30 BP 174/86 H 06/19/24 21:47 Pulse Ox 98 06/19/24 20:30 O2 Del Method Room Air 06/19/24 20:30 BMI result Body Mass Index 30.2 General: AO X 3, no acute distress Resp: CTA bilateral, no accessory muscles used CVS: S1,S2,irregular GI: soft, non tender, non distended Neuro: motor grossly intact, alert Psych: appropriate affect, appropriate insight Results Labs 06/19/24 17:57 06/19/24 17:57 Labs: Laboratory Results - last 24 hr 06/19/24 06/19/24 17:57 20:19 MCV 117.4 H MCH 39.1 H MCHC 33.3 RDW 15.9 Plt Count 96 L MPV 10.7 Immature Gran % (Auto) 2.6 H Neut % (Auto) 35.1 L Lymph % (Auto) 45.4 H [place] % (Auto) 11.4 H Eos % (Auto) 5.5 H Baso % (Auto) 0.0 Lymph # (Auto) 1.2 [place] # (Auto) 0.3 Eos # (Auto) 0.2 Baso # (Auto) 0.0 Abs Immat Gran (auto) 0.07 H Absolute Neuts (auto) 1.0 L Absolute Nucleated RBC 0.020 H Nucleated RBC % (auto) 0.7 H Smear Tech's Comments VERIFIED PT 16.4 H INR 1.3 H Anion Gap 11 L Estim Creat Clear Calc 53.5 Estimated GFR 50 Random Glucose 98 Calcium 9.0 Magnesium 1.6 Total Bilirubin 0.4 AST 19 ALT 15 Alkaline Phosphatase 97 Troponin I High Sens 24.3 22.8 B-Natriuretic Peptide 346 H Total Protein 7.1 Albumin 3.7 Imaging Radiologist's Impressions: Impressions Chest X-Ray 06/19/24 18:38 IMPRESSION: Pulmonary vasculature. Electronically signed by: Jovanni Rayo MD 06/19/2024 06:46 PM EDT RP Assessment and Plan (1) Chest pain: Qualifiers: Chest pain type: unspecified Qualified Code(s): R07.9 - Chest pain, unspecified Status: Acute Plan 78M PMH CAD s/p stent, DM, htn, alison on cpap at night, pafib, copd, hfpef, bladder ca, b12 deficiency, mood disorder, presented with chest pain Chest pain Rule out unstable angina Eliquis on hold for now, follow-up cardiology for decision on anticoagulation NPO after midnight Continue statin Follow-up repeat troponin CAD status post stent Continue statin, Eliquis on hold Diabetes Insulin sliding scale Hold metformin Hypertension Uncontrolled Continue diltiazem and lisinopril Chronic pancytopenia ? B12 deficiency, has been on supplement, last labs normal Check levels ALISON CPAP at night COPD Stable Chronic diastolic CHF Euvolemic Bladder CA In remission Mood disorder Fluoxetine DVT prophylaxis - had Eliquis this morning, TBD depending on decision on anticoagulation Full code Patient with possible unstable angina/ACS require close monitoring and possible intervention therefore expected require at least 2 midnights inpatient Quality Stroke Does the patient have a stroke diagnosis?: No VTE Prior VTE?: No VTE Risk Level:: Medical - moderate - high VTE Device Contraindication: Treatment Not Indicated VTE Drug Contraindication: N/A - Med Ordered
[2024-06-19] MEDS: Atorvastatin Calcium 40 MG TABLET PO (22:51)
[2024-06-19 23:43] VITALS: BP 158/78; PULSE 90; RESP 17; O2SAT 97
[2024-06-20] VITALS (11 sets, daily range): BP systolic 144–176; BP diastolic 70–93; PULSE 60–81; RESP 14–21; TEMP 36.4–37; O2SAT 95–99
[2024-06-20 05:24] LABS: Hematocrit 36.8 % (42.0-52.0); Hemoglobin 12.2 g/dl (14.0-18.0); Mean Corpuscular HGB Conc 33.2 g/dl (31.0-36.0); Mean Corpuscular Hemoglobin 39.1 pg (27.0-33.0); Red Blood Count 3.12 X10*6/uL (4.60-5.80); Red Cell Distribution Width 15.8 % (11.0-16.0)
[2024-06-20 05:25] LABS: Mean Corpuscular Volume 117.9 fL (80.0-98.0); Platelet Count 75 X10*3/uL (160-400); White Blood Count 2.5 X10*3/uL (4.8-10.8)
[2024-06-20 05:45] LABS: Anion Gap 16 (12-20); Blood Urea Nitrogen 23 mg/dL (9-16); Carbon Dioxide 20 mmol/L (22-29); Chloride 109 mmol/L (96-108); Creatinine Clr Calc Pharmacy 73.8; Estimated Glomerular Filt Rate > 60; Glucose Fasting 95 mg/dL (60-99); Potassium 4.3 mmol/L (3.3-5.1); Sodium 141 mmol/L (135-145)
[2024-06-20 05:47] LABS: Troponin-I High Sensitivity 22.4 ng/L (<3.5-35.0)
[2024-06-20 06:13] LABS: Folate 13.1 ng/mL (> or = 4.0); Vitamin B12 1595 pg/mL (200-900)
--- NOTE | 2024-06-20 07:00 | CA_ITS ---
Transthoracic Echocardiogram Patient (Last, First, Middle): Chilo Fox J Gender: Male Date of : 1945 Age: 78 Procedure Date: 06/20/2024 Procedure Type: Transthoracic Echocardiogram Location: ER Height: 180.34 cm Weight: 97.98 kg BSA: 2.18 m2 Heart Rate: 72 bpm BP: 176 / 88 mmHg [employer] Director: EL Referring MD: Barbara PALMER [employer] Teacher: Cesar Gallo MD Symptoms: chest pain, eval for wall motion abn Study Quality: Adequate w contrast ECG Rhythm: Sinus Conclusions: - Low normal LV ejection fraction of 50-55% with mild LVH without any obvious regional wall motion abnormality Findings Procedure Information Contrast agent, definity, is being given per protocol without apparent complications. Left Ventricle Normal left ventricular cavity size. There is mildly increased left ventricular wall thickness. The left ventricular systolic function is low normal. The visually estimated ejection fraction is between 50-55%. There is no evidence of regional wall motion abnormalities. Prior Study Comparison No significant change compared to prior study dated: 03/02/2024. Measurements 2D Linear Measurements IVSd: 1.36 0.6-0.9/0.6-1.0 cm LVIDd: 5.63 3.9-5.3/4.2-5.9 cm LVIDd Index: 2.58 2.4-3.2/2.2-3.1 cm/m2 LVIDs: 3.35 2.0-3.6 cm LVPWd: 1.38 0.7-1.1 cm LA Diam: 4.70 2.7-3.8/3.0-4.0 cm LAIDs Index: 2.16 1.5-2.3 cm/m2 LV Mass: 424.24 67-162/88-224 g LV Mass Index: 194.61 43-95/49-115 g/m2 LVOT Diam: 2.20 3.0+(-)1.3 cm 2D Systolic Function EF 4C: 51.20 >55% EF 2C: 54.40 >55% EF BiP: 51.20 >55% Mitral Valve MV Pk E: 1.04 MV PK A: 0.97 MV Decel Time: 160.00 E/A: 1.10 E'Lateral: 3.02 E'Medial: 4.07 E/E' Med: 25.60 E/E' Lat: 34.40 PHT: 47.00 MVA PHT: 4.68 Decel [place]: 7.18 LVOT LVOT Pk Brant: 0.88 LVOT Mn [place]: 0.59 LVOT VTI: 0.22 LVOT Pk Grad: 3.00 LVOT Mn Grad: 2.00 LVOT Diam: 2.20 LVOT Area: 3.80 Diastolic Function MV Pk E: 1.04 MV Pk A: 0.97 E/A: 1.10 E'Medial: 4.07 E/E' Med: 25.60 E' Laterial: 3.02 E/E' Lat: 34.40 Tricuspid Valve RA Press: 3.00 Updated in Other Vendor System with Status of Final Cesar Gallo MD electronically signed on 06/20/2024 11:53:19 AM with status of Final
[2024-06-20] MEDS: 0.9 % Sodium Chloride Flush 3 ML SYRINGE IVFLUSH ×2 (07:33→18:50)
[2024-06-20 07:36] LABS: Glucose, Whole Blood 136 mg/dL (60-115)
[2024-06-20 07:48] LABS: Appearance Urine Clear; Color Urine Yellow; Glucose Urine UA Negative (Negative); Leukocyte Esterase Urine Trace (Negative); Nitrite Urine Negative (Negative); UMIC TRIGGER UACC YES; Urine Blood Moderate (2+) (Negative); Urine Ketones Negative (Negative); Urine Protein 30 (1+) mg/dL (Neg-Trace)
[2024-06-20 07:53] LABS: Bacteria Urine 4+ (None Seen); Hyaline Casts Urine 0-2 /LPF (0-2); Squamous Epithelial Cell Urine 0-2 /HPF (0-2); UACC Culture Trigger YES; WBC Urine 21-50 /HPF (0-5)
--- NOTE | 2024-06-20 08:24 | P.PNIM_ITS ---
Subjective Subjective Date of Service: 06/20/24 Interval History: Seen in follow up for chest pain Interval history: Continues to report 8/10 intermittent episodes of non radiating chest pressure lasting seconds to one minute at rest. no associated symptoms. Review of Systems Review of Systems: Yes all other systems are reviewed and are negative Physical Exam 2 Vital Signs: Vital Signs: Last Vital Signs Temp 97.6 F 06/19/24 20:30 Pulse 63 06/20/24 04:42 Resp 14 06/20/24 05:14 BP 145/71 H 06/20/24 04:42 Pulse Ox 97 06/20/24 04:42 O2 Del Method CPAP 06/20/24 04:42 BMI result Body Mass Index 30.2 Constitutional - Awake and Alert, No apparent distress Eyes - PERRLA, EOMI Cardiovascular - S1S2, RRR, No edema Respiratory - Normal lung expansion, Normal respiratory effort, No respiratory distress, CTA bilaterally Gastrointestinal - NT / ND; +BS; No rebound or guarding Extremities - no calf tenderness bilaterally, no swelling Skin - Warm/Dry Neurological - Alert & oriented x3 Psychological - Appropriate affect Objective Data Active Medications Acetaminophen (Acetaminophen 325 Mg Tablet) 650 mg PO Q6H PRN PRN Reason: Pain, Mild (Pain Scale 1-3), fever or headache Aspirin (Aspirin Enteric Coated 81 Mg Tablet.) 81 mg PO DAILY [facility] Atorvastatin Calcium (Atorvastatin Calcium 40 Mg Tablet) 40 mg PO BEDTIME JASMYNE Last Admin: 06/19/24 22:51 Dose: 40 mg Documented By: ELIUD Calcium Carbonate (Calcium Carbonate 750 Mg Tab.Chew) 750 mg PO Q4H PRN PRN Reason: Heartburn Cyanocobalamin (Cyanocobalamin (Vitamin B-12) 1,000 Mcg Tablet) 1,000 mcg PO DAILY [facility] Diltiazem HCl (Diltiazem Hcl Cd 180 Mg Cap.Er.24h) 180 mg PO DAILY [facility]; Protocol Ferrous Sulfate (Ferrous Sulfate 324 Mg Tablet.) 324 mg PO DAILY [facility] Fluoxetine HCl (Fluoxetine Hcl 20 Mg Capsule) 20 mg PO DAILY [facility] Glucose (Glucose Gel 15 Gm Gel..Gram.) 15 gm PO Q15M PRN; Protocol PRN Reason: per Hypoglycemia Standing Ord. Dextrose (D10) 250 mls @ 750 mls/hr IV Q15M PRN; Protocol PRN Reason: per Hypoglycemia Standing Ord. Insulin Human Lispro (Insulin Lispro 100 Unit/Ml 3 Ml Vial) 0 unit SUBCUT QIDACHS [facility]; Protocol Last Admin: 06/20/24 07:34 Dose: Not Given Documented By: RONDA Non-Admin Reason: No Insulin Coverage Lisinopril (Lisinopril 10 Mg Tablet) 10 mg PO DAILY [facility]; Protocol Magnesium Hydroxide (Milk Of Magnesia 30 Ml Oral.Susp) 30 ml PO DAILY PRN PRN Reason: Constipation Melatonin (Melatonin 3 Mg Tablet) 6 mg PO BEDTIME PRN PRN Reason: Insomnia Sodium Chloride (0.9 % Sodium Chloride Flush 3 Ml Syringe) 3 ml IVFLUSH QSHIFT [facility] Last Admin: 06/20/24 07:33 Dose: 3 ml Documented By: RONDA Vitamin D (Cholecalciferol (Vitamin D3) 10 Mcg Tablet) 10 mcg PO DAILY [facility] Labs 06/20/24 04:02 06/20/24 04:02 Labs: Laboratory Results - last 24 hr 06/19/24 06/19/24 06/20/24 17:57 20:19 04:02 MCV 117.4 H 117.9 H MCH 39.1 H 39.1 H MCHC 33.3 33.2 RDW 15.9 15.8 Plt Count 96 L 75 L MPV 10.7 12.0 Immature Gran % (Auto) 2.6 H Neut % (Auto) 35.1 L Lymph % (Auto) 45.4 H Story % (Auto) 11.4 H Eos % (Auto) 5.5 H Baso % (Auto) 0.0 Lymph # (Auto) 1.2 Story # (Auto) 0.3 Eos # (Auto) 0.2 Baso # (Auto) 0.0 Abs Immat Gran (auto) 0.07 H Absolute Neuts (auto) 1.0 L Absolute Nucleated RBC 0.020 H 0.000 Nucleated RBC % (auto) 0.7 H 0.0 Smear Tech's Comments VERIFIED PT 16.4 H INR 1.3 H Anion Gap 11 L 16 Estim Creat Clear Calc 53.5 73.8 Estimated GFR 50 > 60 POC Glucose Random Glucose 98 Fasting Glucose 95 Calcium 9.0 9.0 Magnesium 1.6 Total Bilirubin 0.4 AST 19 ALT 15 Alkaline Phosphatase 97 Troponin I High Sens 24.3 22.8 22.4 B-Natriuretic Peptide 346 H Total Protein 7.1 Albumin 3.7 Vitamin B12 1595 H Folate 13.1 Urine Color Urine Appearance Urine pH Ur Specific [place] Urine Protein Urine Glucose (UA) Urine Ketones Urine Blood Urine Nitrite Ur Leukocyte Esterase Urine RBC Urine WBC Ur Squamous Epith Cells Urine Bacteria Hyaline Casts 06/20/24 06/20/24 07:29 07:36 MCV MCH MCHC RDW Plt Count MPV Immature Gran % (Auto) Neut % (Auto) Lymph % (Auto) Story % (Auto) Eos % (Auto) Baso % (Auto) Lymph # (Auto) Story # (Auto) Eos # (Auto) Baso # (Auto) Abs Immat Gran (auto) Absolute Neuts (auto) Absolute Nucleated RBC Nucleated RBC % (auto) Smear Tech's Comments PT INR Anion Gap Estim Creat Clear Calc Estimated GFR POC Glucose 136 H Random Glucose Fasting Glucose Calcium Magnesium Total Bilirubin AST ALT Alkaline Phosphatase Troponin I High Sens B-Natriuretic Peptide Total Protein Albumin Vitamin B12 Folate Urine Color Yellow Urine Appearance Clear Urine pH 7.0 Ur Specific [place] 1.010 Urine Protein 30 (1+) H Urine Glucose (UA) Negative Urine Ketones Negative Urine Blood Moderate (2+) H Urine Nitrite Negative Ur Leukocyte Esterase Trace H Urine RBC 6-10 H Urine WBC 21-50 H Ur Squamous Epith Cells 0-2 Urine Bacteria 4+ Hyaline Casts 0-2 Assessment and Plan (1) Chest pain: Status: Acute Plan 78M PMH CAD s/p stent, DM, htn, alison on cpap at night, pafib, copd, hfpef, bladder ca, b12 deficiency, mood disorder, presented with chest pain Chest pain Rule out unstable angina continue eliquis Per cardiology, limited echo, stress test inpt. MRA chest (eval for aortic pathology- has anaphylaxis history with CT contrast) Continue statin monitor on tele cardiology consult CAD status post stent Continue statin, Eliquis on hold Paroxysmal atrial fibrillation eliquis, diltiazem Diabetes Insulin sliding scale Hold metformin Hypertension Uncontrolled Continue diltiazem and lisinopril Chronic pancytopenia ? B12 deficiency, has been on supplement b12/folic acid normal. Labs baseline ALISON CPAP at night COPD Stable Chronic diastolic CHF Euvolemic Bladder CA In remission Mood disorder Fluoxetine DVT prophylaxis - eliquis Full code Patient requires ongoing inpt stay with possible unstable angina/ACS require close monitoring, expert consultation with further imaging modalities pending to assist wtih definitive diagnosis and need for possible transfer to tertiary facility Quality Stroke Does the patient have a stroke diagnosis?: No VTE Prior VTE?: No VTE Risk Level:: Medical - moderate - high VTE Device Contraindication: Treatment Not Indicated VTE Drug Contraindication: N/A - Med Ordered
[2024-06-20] MEDS: dilTIAZem HCL CD 180 MG CAP.ER.24H PO (08:50)
[2024-06-20] MEDS: Apixaban 5 MG TABLET PO ×2 (08:50→21:20)
[2024-06-20] MEDS: Ferrous Sulfate 324 MG TABLET.DR PO (08:51)
[2024-06-20] MEDS: Cyanocobalamin (Vitamin B-12) 1,000 MCG TABLET 1000 MCG PO (08:51)
[2024-06-20] MEDS: Cholecalciferol (Vitamin D3) 10 MCG TABLET PO (08:52)
[2024-06-20] MEDS: FLUoxetine HCl 20 MG CAPSULE PO (08:52)
[2024-06-20] MEDS: Aspirin Enteric Coated 81 MG TABLET.DR PO (08:52)
[2024-06-20] MEDS: lisinopriL 10 MG TABLET PO (08:52)
--- NOTE | 2024-06-20 09:19 | PM.CNCAR ---
History of Present Illness History of Present Illness Date of Service: 06/20/24 Requesting physician: Richard Loya Consult reason: chest pain Chief complaint: Chest pain Narrative: I was consulted to see Chilo in cardiology consultation today for chest pain. He is a 78-year-old male with prior history of CAD status post LAD stenting 2019, paroxysmal atrial fibrillation, hypertension, sleep apnea, COPD, heart failure preserved ejection fraction, hyperlipidemia, diabetes comes to the hospital sudden-onset right-sided chest pain. Patient says that he was in his usual state of health yesterday event for playing golf in the came back in his suddenly felt right-sided chest pain which she said was significantly severe on a scale of 1-10 he said was 20. He could not describe the nature of the chest pain although says the chest pain was quite different from a chest pain he had prior to LAD stenting. He said then he tried to sit out on the porch and felt a little cloudy vision and was unstable on his feet. He subsequently continued to have intermittent episode of chest discomfort and came to the hospital. He is actually having chest discomfort while I was talking to him says the intensity significantly improved but 3 to 4/10. Feels like pressure in the chest. Worse with movement but not worse with deep breathing or palpation. He had serial troponins which were all within normal range with no rise and fall. He has EKG shows atrial fibrillation but no ischemic changes. Chest x-ray shows no widened mediastinum shows prominent pulmonary vasculature but no acute intrathoracic pathology. Cardiology consult was sought for further management of the chest pain. Review of Systems Constitutional: Constitutional: Reports no additional constitutional complaints Eyes: Eyes: Reports no additional eye complaints Cardiovascular: Cardiovascular: Reports chest pain at rest, Denies lightheadedness, Denies Loss of Consciousness, Denies palpitations and Denies dyspnea Respiratory: Respiratory: Reports cough and Denies dyspnea Gastrointestinal: Gastrointestinal: Denies no additional gastrointestinal complaints Genitourinary: Genitourinary: Denies no additional male genitourinary complaints Musculoskeletal: Musculoskeletal: Denies no additional musculoskeletal complaints Neurologic: Denies system reviewed and no additional complaints, except as documented Psychiatric: Psychiatric: Denies no additional psychiatric complaints Endocrine: Endocrine: Denies no additional endocrine complaints and Denies palpitations PMFSH Past Medical History Medical History MRSA infection Foot drop, left foot ALISON on CPAP COPD (chronic obstructive pulmonary disease) Upper GI bleeding PAF (paroxysmal atrial fibrillation) Smoker Hyperlipidemia, unspecified Type 2 diabetes mellitus with unspecified complications Essential hypertension Arteriosclerotic cardiovascular disease Atrial flutter by electrocardiogram Family History Family History Father Staph infection Mother Hypertension Brother Heart problem Surgical History Surgical History H/O colonoscopy Status post surgical removal of malignant neoplasm of skin History of knee replacement (~10/2021) Hx of cardiac cath (~2017) History of surgical removal of ganglion cyst (~2016) S/P radical cystoprostatectomy (~2014) Hx of total knee replacement (~2004) Social History Social History Household Members: Spouse Household Members Other:: pets: dogs Housing: House Do you presently have visiting nurse or other home services: No Alcohol intake: current Alcohol intake frequency: 0-2 drinks per day Alcohol type: hard liquor Patient Tobacco Use Status: Current everyday Tobacco user Cigarette Packs Per Day: 0.25 Cigarettes Per Day: 5 Years Smoked: 64 Smoked in Last 30 Days: Yes e-Cigarette/Vaping Use: Never Used Second Hand Smoke Exposure: No Use of substances other than those prescribed or required for medical reasons: No Advance Directives: No Advance Directives Information Provided: No Do you have a plan to hurt others: No Plan service: Yes Current occupational status: retired Current occupational exposures/hazards: No Cognitive needs: No Hearing needs: Yes Vision needs: No Meds Allergies Allergy/AdvReac Type Severity Reaction Status Date / Time Iodinated Contrast Media Allergy Severe ANAPHYLAXIS Verified 06/19/24 17:52 [IV CONTRAST] Penicillins [PENICILLINS] Allergy Severe trouble Verified 06/19/24 17:52 breathing doxycycline AdvReac Intermediate rASH Verified 06/19/24 17:52 Active Medications: Current Medications Acetaminophen (Acetaminophen 325 Mg Tablet) 650 mg PO Q6H PRN PRN Reason: Pain, Mild (Pain Scale 1-3), fever or headache Apixaban (Apixaban 5 Mg Tablet) 5 mg PO BID JASMYNE Last Admin: 06/20/24 08:50 Dose: 5 mg Aspirin (Aspirin Enteric Coated 81 Mg Tablet.) 81 mg PO DAILY [facility] Last Admin: 06/20/24 08:52 Dose: 81 mg Atorvastatin Calcium (Atorvastatin Calcium 40 Mg Tablet) 40 mg PO BEDTIME [facility] Last Admin: 06/19/24 22:51 Dose: 40 mg Calcium Carbonate (Calcium Carbonate 750 Mg Tab.Chew) 750 mg PO Q4H PRN PRN Reason: Heartburn Cyanocobalamin (Cyanocobalamin (Vitamin B-12) 1,000 Mcg Tablet) 1,000 mcg PO DAILY [facility] Last Admin: 06/20/24 08:51 Dose: 1,000 mcg Diltiazem HCl (Diltiazem Hcl Cd 180 Mg Cap.Er.24h) 180 mg PO DAILY [facility]; Protocol Last Admin: 06/20/24 08:50 Dose: 180 mg Ferrous Sulfate (Ferrous Sulfate 324 Mg Tablet.) 324 mg PO DAILY [facility] Last Admin: 06/20/24 08:51 Dose: 324 mg Fluoxetine HCl (Fluoxetine Hcl 20 Mg Capsule) 20 mg PO DAILY [facility] Last Admin: 06/20/24 08:52 Dose: 20 mg Glucose (Glucose Gel 15 Gm Gel..Gram.) 15 gm PO Q15M PRN; Protocol PRN Reason: per Hypoglycemia Standing Ord. Dextrose (D10) 250 mls @ 750 mls/hr IV Q15M PRN; Protocol PRN Reason: per Hypoglycemia Standing Ord. Insulin Human Lispro (Insulin Lispro 100 Unit/Ml 3 Ml Vial) 0 unit SUBCUT QIDACHS [facility]; Protocol Last Admin: 06/20/24 07:34 Dose: Not Given Lisinopril (Lisinopril 10 Mg Tablet) 10 mg PO DAILY [facility]; Protocol Last Admin: 06/20/24 08:52 Dose: 10 mg Magnesium Hydroxide (Milk Of Magnesia 30 Ml Oral.Susp) 30 ml PO DAILY PRN PRN Reason: Constipation Melatonin (Melatonin 3 Mg Tablet) 6 mg PO BEDTIME PRN PRN Reason: Insomnia Sodium Chloride (0.9 % Sodium Chloride Flush 3 Ml Syringe) 3 ml IVFLUSH QSHIFT [facility] Last Admin: 06/20/24 07:33 Dose: 3 ml Vitamin D (Cholecalciferol (Vitamin D3) 10 Mcg Tablet) 10 mcg PO DAILY [facility] Last Admin: 06/20/24 08:52 Dose: 10 mcg Home Medications ?Medication ?Instructions ?Recorded ?Confirmed ?Last Taken ?Type omeprazole 20 mg capsule,delayed 20 mg PO DAILY 11/07/20 05/10/24 04/20/24 06:00 History release cholecalciferol (vitamin D3) 50 50 mcg PO DAILY 11/14/20 05/10/24 Unknown History mcg (2,000 unit) capsule metformin 500 mg tablet,extended 500 mg PO BID 11/11/21 05/10/24 Unknown History release 24 hr Physical Exam Vital Signs: Vital Signs: Last Vital Signs Temp 97.6 F 06/20/24 09:08 Pulse 73 06/20/24 09:08 Resp 15 06/20/24 09:08 BP 176/88 H 06/20/24 09:08 Pulse Ox 95 06/20/24 09:08 O2 Del Method Room Air 06/20/24 09:08 BMI result Body Mass Index 30.2 Const: General: cooperative, comfortable, no acute distress, alert and awake Nutritional Appearance: overweight Orientation/consciousness: patient oriented x3 HEENT: Head: Yes normocephalic and Yes atraumatic Neck: Neck: Yes trachea midline, Yes supple and Yes no JVD Resp: Effort & Inspection: normal respiratory effort Auscultation: clear to auscultation bilaterally, no rales and no wheezes Cardio: Jugular venous distension: no JVD Rate: regular rate Rhythm: abnormal rhythm irregularly irregular Heart sounds: S1 normal heart sound present, S2 normal heart sound present, no click, no gallops and no murmurs GI: Auscultation: normal bowel sounds Skin: General skin exam: no rashes or lesions noted Neuro: General: patient oriented x3 and no focal motor deficits Extrem: General: Yes no clubbing, cyanosis or edema Psych: Appearance: grossly normal Objective Labs and Meds 06/20/24 04:02 06/20/24 04:02 Lab results: Laboratory Results - last 24 hr 06/19/24 06/19/24 06/20/24 17:57 20:19 04:02 WBC 2.7 L 2.5 L RBC 3.04 L 3.12 L Hgb 11.9 L 12.2 L Hct 35.7 L 36.8 L MCV 117.4 H 117.9 H MCH 39.1 H 39.1 H MCHC 33.3 33.2 RDW 15.9 15.8 Plt Count 96 L 75 L MPV 10.7 12.0 Immature Gran % (Auto) 2.6 H Neut % (Auto) 35.1 L Lymph % (Auto) 45.4 H [place] % (Auto) 11.4 H Eos % (Auto) 5.5 H Baso % (Auto) 0.0 Lymph # (Auto) 1.2 [place] # (Auto) 0.3 Eos # (Auto) 0.2 Baso # (Auto) 0.0 Abs Immat Gran (auto) 0.07 H Absolute Neuts (auto) 1.0 L Absolute Nucleated RBC 0.020 H 0.000 Nucleated RBC % (auto) 0.7 H 0.0 Smear Tech's Comments VERIFIED PT 16.4 H INR 1.3 H Sodium 142 141 Potassium 4.3 4.3 Chloride 110 H 109 H Carbon Dioxide 25 20 L Anion Gap 11 L 16 BUN 28 H 23 H Creatinine 1.38 1.00 Estim Creat Clear Calc 53.5 73.8 Estimated GFR 50 > 60 POC Glucose Random Glucose 98 Fasting Glucose 95 Calcium 9.0 9.0 Magnesium 1.6 Total Bilirubin 0.4 AST 19 ALT 15 Alkaline Phosphatase 97 Troponin I High Sens 24.3 22.8 22.4 B-Natriuretic Peptide 346 H Total Protein 7.1 Albumin 3.7 Vitamin B12 1595 H Folate 13.1 Urine Color Urine Appearance Urine pH Ur Specific [place] Urine Protein Urine Glucose (UA) Urine Ketones Urine Blood Urine Nitrite Ur Leukocyte Esterase Urine RBC Urine WBC Ur Squamous Epith Cells Urine Bacteria Hyaline Casts 06/20/24 06/20/24 07:29 07:36 WBC RBC Hgb Hct MCV MCH MCHC RDW Plt Count MPV Immature Gran % (Auto) Neut % (Auto) Lymph % (Auto) [place] % (Auto) Eos % (Auto) Baso % (Auto) Lymph # (Auto) [place] # (Auto) Eos # (Auto) Baso # (Auto) Abs Immat Gran (auto) Absolute Neuts (auto) Absolute Nucleated RBC Nucleated RBC % (auto) Smear Tech's Comments PT INR Sodium Potassium Chloride Carbon Dioxide Anion Gap BUN Creatinine Estim Creat Clear Calc Estimated GFR POC Glucose 136 H Random Glucose Fasting Glucose Calcium Magnesium Total Bilirubin AST ALT Alkaline Phosphatase Troponin I High Sens B-Natriuretic Peptide Total Protein Albumin Vitamin B12 Folate Urine Color Yellow Urine Appearance Clear Urine pH 7.0 Ur Specific [place] 1.010 Urine Protein 30 (1+) H Urine Glucose (UA) Negative Urine Ketones Negative Urine Blood Moderate (2+) H Urine Nitrite Negative Ur Leukocyte Esterase Trace H Urine RBC 6-10 H Urine WBC 21-50 H Ur Squamous Epith Cells 0-2 Urine Bacteria 4+ Hyaline Casts 0-2 Imaging Radiologist's impression: Impressions Chest X-Ray 06/19/24 18:38 IMPRESSION: Pulmonary vasculature. Electronically signed by: Jovanni Rayo MD 06/19/2024 06:46 PM EDT RP Assessment and Plan (1) Chest pain: Qualifiers: Chest pain type: unspecified Qualified Code(s): R07.9 - Chest pain, unspecified Status: Acute Sudden-onset chest pain this elderly gentleman with prior history of CAD status post LAD stenting 5 years ago along with paroxysmal atrial fibrillation along with heart failure preserved ejection fraction. The chest pain syndrome with negative troponins and no ischemic EKG changes. Likelihood of acute coronary syndrome is low although can not be entirely ruled out. Also likelihood of acute aortic syndrome. I would suggest him to undergo CTA of chest with aortogram to evaluate for acute aortic pathology such as penetrating ulcer and/or intramural hematoma that could going to severe chest pain. Clinically does not have any signs of acute aortic dissection. I would suggest him to also have a limited echocardiogram to evaluate for wall motion abnormality. If he has no significant abnormality in this to testing that would suggest him to undergo a vasodilating myocardial perfusion imaging with resting perfusion study to be performed today and stress perfusion study to be performed tomorrow. I would suggest to continue all his medication at this point time. If the stress test is negative, likelihood of acute musculoskeletal chest pain is likely. To be treated with nonsteroidals/pain meds. Clinically no signs of congestive heart failure. Will follow with you. (2) Atrial fibrillation: Status: Acute Atrial fibrillation which is not persistent. Was in sinus rhythm when he saw Dr. Lara in March. This is new onset persistent atrial fibrillation. Will need to follow-up as outpatient to see whether we would pursue rhythm control approach. For now continue current rate control and Eliquis therapy. Procedures Date of Service Date of Service: 06/20/24
--- NOTE | 2024-06-20 11:37 | PHA.MEDREC ---
Addendum entered by Michaela Velasquez RPh 06/20/24 12:08: Med rec was reviewed by [facility]. Original Note: Pharmacy Consult ? Medication Reconciliation Pharmacy has completed the medication reconciliation. Spoke to patient to [facility] med list. Patient was able to confirm all his medications. Patient states he takes Ferrous Gluconate 324 mg on Mondays and because it makes him constipated.
--- NOTE | 2024-06-20 12:19 | PC.NURSE ---
Pt noted to get out of bed, take off monitor and fall into [address]. RNs and techs quickly at pts side, pt is alert and answering questions. Reports he did hit his head but denies new pain or LOC/ dizziness. No obvious injuries to head. Pt appears confused, reports he thought the curtain was a wall and leaned onto curtain causing him to fall. Reports he got up because he needed the bathroom. MD notified and reports he will come down to [facility].
[2024-06-20 12:34] LABS: Glucose, Whole Blood 104 mg/dL (60-115)
--- NOTE | 2024-06-20 13:43 | MHC.CM.PN ---
IMM 06/20/24, pt lives with his , he does not use home health services or DME. His car is in the lot for transport home. He is a , [facility] not [facility] PCP confirmed: Dr. Roy, HCP is , [place]. DCP: home, self care.
[2024-06-20 18:29] LABS: Glucose, Whole Blood 84 mg/dL (60-115)
[2024-06-20] MEDS: cefTRIAXone sodium 1 GM in 0.9 % Sodium Chloride 50 ML IV (18:49)
--- NOTE | 2024-06-20 19:13 | MHC.EDTECH ---
Pt given dinner tray and set up to eat.
[2024-06-20] MEDS: gadobutroL 7.5 ML VIAL IVPUSH ×2 (20:36→20:38)
[2024-06-20 21:15] LABS: Glucose, Whole Blood 144 mg/dL (60-115)
[2024-06-20] MEDS: Atorvastatin Calcium 40 MG TABLET PO (21:20)
[2024-06-21] VITALS (7 sets, daily range): BP systolic 125–177; BP diastolic 73–87; PULSE 54–62; RESP 16–20; TEMP 36.2–36.7; O2SAT 96–100
[2024-06-21 06:44] LABS: Anion Gap 15 (12-20); Blood Urea Nitrogen 23 mg/dL (9-16); Calcium 9.5 mg/dL (8.4-10.2); Carbon Dioxide 24 mmol/L (22-29); Chloride 107 mmol/L (96-108); Creatinine Clr Calc Pharmacy 72.4; Estimated Glomerular Filt Rate > 60; Glucose Random 134 mg/dL (60-115); Sodium 142 mmol/L (135-145)
--- NOTE | 2024-06-21 07:29 | HO.PM.IMPN ---
Subjective Subjective Date of Service: 06/21/24 Physical Exam Vital Signs: Vital Signs: Last Vital Signs Temp 97.8 F 06/21/24 04:00 Pulse 62 06/21/24 04:00 Resp 16 06/21/24 04:57 BP 177/80 H 06/21/24 04:00 Pulse Ox 96 06/21/24 04:00 O2 Del Method Room Air 06/21/24 04:00 BMI result Body Mass Index 30.2 Objective Data Active Medications Acetaminophen (Acetaminophen 325 Mg Tablet) 650 mg PO Q6H PRN PRN Reason: Pain, Mild (Pain Scale 1-3), fever or headache Apixaban (Apixaban 5 Mg Tablet) 5 mg PO BID FORMERLY [facility], [facility] Last Admin: 06/20/24 21:20 Dose: 5 mg Documented By: JOHN Aspirin (Aspirin Enteric Coated 81 Mg Tablet.) 81 mg PO DAILY FORMERLY [facility], [facility]1983 Last Admin: 06/20/24 08:52 Dose: 81 mg Documented By: RONDA Atorvastatin Calcium (Atorvastatin Calcium 40 Mg Tablet) 40 mg PO BEDTIME FORMERLY [facility], [facility]1983 Last Admin: 06/20/24 21:20 Dose: 40 mg Documented By: JOHN Calcium Carbonate (Calcium Carbonate 750 Mg Tab.Chew) 750 mg PO Q4H PRN PRN Reason: Heartburn Cyanocobalamin (Cyanocobalamin (Vitamin B-12) 1,000 Mcg Tablet) 1,000 mcg PO DAILY FORMERLY [facility], [facility] Last Admin: 06/20/24 08:51 Dose: 1,000 mcg Documented By: RONDA Cyanocobalamin (Cyanocobalamin (Vitamin B-12) 1,000 Mcg Tablet) 1,000 mcg PO DAILY [facility]LY [facility], [facility]1983 Diltiazem HCl (Diltiazem Hcl Cd 180 Mg Cap.Er.24h) 180 mg PO DAILY FOR[facility]LY [facility], [facility]; Protocol Last Admin: 06/20/24 08:50 Dose: 180 mg Documented By: RONDA Diltiazem HCl (Diltiazem Hcl Cd 180 Mg Cap.Er.24h) 180 mg PO DAILY [facility]LY [facility], [facility]; Protocol Last Admin: 06/20/24 14:00 Dose: Not Given Documented By: RONDA Non-Admin Reason: Duplicate Order Ferrous Sulfate (Ferrous Sulfate 324 Mg Tablet.) 324 mg PO MoTh FOR[facility], [facility] Ferrous Sulfate (Ferrous Sulfate 324 Mg Tablet.) 324 mg PO MOTH FOR[facility]LY [facility], [facility] Last Admin: 06/20/24 14:00 Dose: Not Given Documented By: RONDA Non-Admin Reason: Duplicate Order Fluoxetine HCl (Fluoxetine Hcl 20 Mg Capsule) 40 mg PO DAILY FOR[facility], [facility] Fluoxetine HCl (Fluoxetine Hcl 20 Mg Capsule) 40 mg PO DAILY [facility], [facility]1983 Glucose (Glucose Gel 15 Gm Gel..Gram.) 15 gm PO Q15M PRN; Protocol PRN Reason: per Hypoglycemia Standing Ord. Dextrose (D10) 250 mls @ 750 mls/hr IV Q15M PRN; Protocol PRN Reason: per Hypoglycemia Standing Ord. Ceftriaxone Sodium 1 gm/ (Sodium Chloride) 50 mls @ 100 mls/hr IV Q24H [facility], [facility] Last Infusion: 06/20/24 19:19 Dose: Infused Documented By: JOHN Insulin Human Lispro (Insulin Lispro 100 Unit/Ml 3 Ml Vial) 0 unit SUBCUT QIDACHS FORMERLY [facility], [facility]; Protocol Last Admin: 06/20/24 21:20 Dose: Not Given Documented By: JOHN Non-Admin Reason: No Insulin Coverage Lisinopril (Lisinopril 10 Mg Tablet) 10 mg PO DAILY [facility]LY [facility], [facility]; Protocol Last Admin: 06/20/24 08:52 Dose: 10 mg Documented By: RONDA Lisinopril (Lisinopril 10 Mg Tablet) 10 mg PO DAILY [facility], [facility]; Protocol Last Admin: 06/20/24 14:00 Dose: Not Given Documented By: RONDA Non-Admin Reason: Duplicate Order Magnesium Hydroxide (Milk Of Magnesia 30 Ml Oral.Susp) 30 ml PO DAILY PRN PRN Reason: Constipation Melatonin (Melatonin 3 Mg Tablet) 6 mg PO BEDTIME PRN PRN Reason: Insomnia Omeprazole (Omeprazole 20 Mg Capsule.Dr) 20 mg PO DAILY [facility], [facility]1983 Sodium Chloride (0.9 % Sodium Chloride Flush 3 Ml Syringe) 3 ml IVFLUSH QSHIFT [facility], [facility] Last Admin: 06/21/24 01:02 Dose: Not Given Documented By: ROBEL Non-Admin Reason: Patient Refused Vitamin D (Cholecalciferol (Vitamin D3) 10 Mcg Tablet) 10 mcg PO DAILY [facility], [facility] Last Admin: 06/20/24 08:52 Dose: 10 mcg Documented By: RONDA Vitamin D (Cholecalciferol (Vitamin D3) 25 Mcg Tablet) 50 mcg PO DAILY [facility] Labs 06/20/24 04:02 06/21/24 05:41 Labs: Laboratory Results - last 24 hr 06/20/24 06/20/24 06/20/24 07:29 07:36 12:13 Hold Purple Top Anion Gap Estim Creat Clear Calc Estimated GFR POC Glucose 136 H 104 Random Glucose Calcium Urine Color Yellow Urine Appearance Clear Urine pH 7.0 Ur Specific Haynes 1.010 Urine Protein 30 (1+) H Urine Glucose (UA) Negative Urine Ketones Negative Urine Blood Moderate (2+) H Urine Nitrite Negative Ur Leukocyte Esterase Trace H Urine RBC 6-10 H Urine WBC 21-50 H Ur Squamous Epith Cells 0-2 Urine Bacteria 4+ Hyaline Casts 0-2 06/20/24 06/20/24 06/21/24 18:25 21:10 05:41 Hold Purple Top SEE NOTE Anion Gap 15 Estim Creat Clear Calc 72.4 Estimated GFR > 60 POC Glucose 84 144 H Random Glucose 134 H Calcium 9.5 Urine Color Urine Appearance Urine pH Ur Specific Haynes Urine Protein Urine Glucose (UA) Urine Ketones Urine Blood Urine Nitrite Ur Leukocyte Esterase Urine RBC Urine WBC Ur Squamous Epith Cells Urine Bacteria Hyaline Casts Quality Stroke Does the patient have a stroke diagnosis?: No VTE Prior VTE?: No VTE Risk Level:: Medical - moderate - high VTE Device Contraindication: Treatment Not Indicated VTE Drug Contraindication: N/A - Med Ordered
[2024-06-21 07:34] LABS: Glucose, Whole Blood 135 mg/dL (60-115)
--- NOTE | 2024-06-21 09:47 | PM.PNCARD ---
Subjective Subjective Date of Service: 06/21/24 Principal diagnosis: Chest pain Interval history: No chest pain reported this morning. Thoracic MRI reviewed, there is no clear evidence of dissection appreciated. No clear ulceration noted either. Of she reported waited. Plan to undergo stress test. Echocardiogram did not show any significant wall motion abnormality. Review of Systems Review of Systems Yes all other systems are reviewed and are negative Physical Exam Vital Signs: Last Vital Signs Temp 97.1 F 06/21/24 07:56 Pulse 61 06/21/24 07:56 Resp 18 06/21/24 07:56 BP 170/86 H 06/21/24 07:56 Pulse Ox 98 06/21/24 07:56 O2 Del Method Room Air 06/21/24 07:56 BMI result Body Mass Index 30.2 Const General: cooperative, comfortable, no acute distress, alert and awake Nutritional Appearance: overweight Orientation/consciousness: patient oriented x3 HEENT Head: Yes normocephalic and Yes atraumatic Neck Neck: Yes trachea midline, Yes supple and Yes no JVD Resp Effort & Inspection: normal respiratory effort Auscultation: clear to auscultation bilaterally, no rales and no wheezes Cardio Jugular venous distension: no JVD Rate: regular rate Rhythm: abnormal rhythm irregularly irregular Heart sounds: S1 normal heart sound present, S2 normal heart sound present, no click, no gallops and no murmurs GI Auscultation: normal bowel sounds Skin General skin exam: no rashes or lesions noted Neuro General: patient oriented x3 and no focal motor deficits Extrem General: Yes no clubbing, cyanosis or edema Psych Appearance: grossly normal Objective Labs and Meds 06/20/24 04:02 06/21/24 05:41 Lab results: Laboratory Results - last 24 hr 06/20/24 06/20/24 06/20/24 12:13 18:25 21:10 Hold Purple Top Sodium Potassium Chloride Carbon Dioxide Anion Gap BUN Creatinine Estim Creat Clear Calc Estimated GFR POC Glucose 104 84 144 H Random Glucose Calcium 06/21/24 06/21/24 05:41 07:22 Hold Purple Top SEE NOTE Sodium 142 Potassium 4.0 Chloride 107 Carbon Dioxide 24 Anion Gap 15 BUN 23 H Creatinine 1.02 Estim Creat Clear Calc 72.4 Estimated GFR > 60 POC Glucose 135 H Random Glucose 134 H Calcium 9.5 Progress Note: A&P Assessment and plan (1) Chest pain: Status: Acute Assessment and Plan: Chest pain of unclear etiology. Negative troponins and EKG changes. New onset persistent atrial fibrillation. Undergoing myocardial perfusion imaging today. Further treatment based on the findings. If this is negative could represent musculoskeletal chest pain. (2) Atrial fibrillation: Status: Acute Assessment and Plan: Persistent atrial fibrillation, rate control. Currently not having any overt symptoms. He has been on oral anticoagulation therapy. Will follow-up as outpatient to discuss rhythm control approach. Will follow up with test results Time Spent With Patient Time: Total time managing care of this patient today ____ minutes. Progress Note: Quality Stroke Does the patient have a stroke diagnosis?: No Procedures Date of Service Date of Service: 06/21/24
[2024-06-21] MEDS: Aspirin Enteric Coated 81 MG TABLET.DR PO (11:02)
[2024-06-21] MEDS: dilTIAZem HCL CD 180 MG CAP.ER.24H PO (11:03)
[2024-06-21] MEDS: lisinopriL 10 MG TABLET PO (11:03)
[2024-06-21] MEDS: FLUoxetine HCl 20 MG CAPSULE 40 MG PO (11:03)
[2024-06-21] MEDS: Apixaban 5 MG TABLET PO (11:04)
[2024-06-21 11:15] LABS: Glucose, Whole Blood 156 mg/dL (60-115)
--- NOTE | 2024-06-21 11:18 | CA_ITS ---
Acquisition Time: 2024-06-21 09:27:47 Total Exercise Time: 00:02:00 Test Indications: CHEST PAIN Medications: see h Protocol: LEXISCAN Max HR: 113 BPM 79% of Pred: 143 BPM Max BP: 158/070 mmHG Max Work Load: 1.0 METS Pharmacological stress test with Lexiscan injection while sititng, without anginal;symptoms, with isolated PVCs, with normotensive response to injection, with nondiagnoisitic EKGs. Aminophylline 75mg IVP given to reverse Lexiscan. Nuclear images pending. Test reviewed with Dr. Gallo Referred By: Cesar Gallo Overread By: Kathrine Muniz
--- NOTE | 2024-06-21 12:56 | P.DS_ITS ---
DS: Providers Provider Date of Service: 06/21/24 Date of admission: 06/19/24 21:51 Date of discharge: 06/21/24 Primary care physician: Matias Roy MD Attending physician on admission: Richard Loya Consults: 06/19/24 21:18 Consult to Cardiology Stat Consulting Provider: [facility] [place] Reason for consultation: chest pain, mult risk factors Has provider been notified: Yes 06/19/24 21:48 Consult to Cardiology Routine Consulting Provider: [facility] [place] Reason for consultation: chest pain Has provider been notified: Yes Attending physician on discharge: Arvin Liz Discharging clinician: Barbara De Jesus DS: Diagnosis Discharge Diagnosis (1) Chest pain: Status: Acute (2) Atrial fibrillation: Status: Acute DS: Summary Hospital Course Hospital Course: HPI on admission by Dr. Loya 06/19: 78M PMH CAD s/p stent, DM, htn, davidson on cpap at night, pafib, copd, hfpef, bladder ca, b12 deficiency, mood disorder, presented with chest pain. Patient reports playing golf on day of presentation and feeling well. Then on returning home felt sudden onset midsternal tenderness 10 chest pressure, nonradiating, lasted several seconds. Continued to have several similar episodes 3-4 minutes apart with varying degrees of intensity, denies shortness of breath, diaphoresis, chills. In ED EKG AFib, nonischemic, troponin negative x2, chest x-ray unremarkable. Hospital course: Pt admitted to [facility] for evaluation of chest pain. in the ED, EKG showed atrial fibrillation without any ischemic changes. Troponins negative and flat. Followed by cardiology and monitoring on telemtry. Limited echo showed normal EF without any regional wall motion abnormality. MRA chest evlauated (in place of CTA given hx anaphylaxis) without any clear aortic dissection or ulceration. Etiology of chest pain unlikely to be cardiac per cardiology, possibly musculoskeletal in nature. Discussed with patient he can use ibuprofen or tylenol as needed. UA was also positive with 2+ blood, neg nitrites, trace leuks, significant WBCs, and 4+ bacteria. Given chronic mcbride, treated empirically with ceftriaxone. No leukocytosis, no sepsis. Afebrile, non toxic appearing. NO history of prior UTI. Urine culture remains pending. He will be discharged on cefuroxime 250mg bid x 5 days. He did convert back to sinus rhythm and was continued on eliquis and diltiazem with good rate control. Blood pressures initially elevated, but normotensive on discharge. Continue diltiazem 180mg daily and lisinopril 10mg daily. Continue chronic mcbride and outpt follow up with urology. Continue metformin for DM. Continue prilosec for gerd. Outpt follow up with cardiology and pcp. Status at Discharge Functional status at discharge: independent ambulation Overall status at discharge: patient is progressing back to baseline Time Attestation Discharge Coordination Time (in mins): 35 Quality: Safe Use of Opioids Does Pt have an Active Cancer Diagnosis on the Problem List?: No Quality: Stroke Does the patient have a stroke diagnosis?: No Physical Exam Vital Signs: Vital Signs: Last Vital Signs Temp 98.0 F 06/21/24 11:35 Pulse 54 06/21/24 11:35 Resp 18 06/21/24 11:35 BP 174/87 H 06/21/24 11:35 Pulse Ox 100 06/21/24 11:35 O2 Del Method Room Air 06/21/24 11:35 BMI result Body Mass Index 30.2 DS: Data Data Completed and Pending Completed studies during hospitalization [Text1]: Procedures Inspection of Upper Intestinal Tract, Via Natural or Artificial Opening Endoscopic (10/24/20) Labs on day of discharge: Laboratory Results - last 24 hr 06/20/24 06/20/24 06/21/24 18:25 21:10 05:41 Hold Purple Top SEE NOTE Sodium 142 Potassium 4.0 Chloride 107 Carbon Dioxide 24 Anion Gap 15 BUN 23 H Creatinine 1.02 Estim Creat Clear Calc 72.4 Estimated GFR > 60 POC Glucose 84 144 H Random Glucose 134 H Calcium 9.5 06/21/24 06/21/24 07:22 10:59 Hold Purple Top Sodium Potassium Chloride Carbon Dioxide Anion Gap BUN Creatinine Estim Creat Clear Calc Estimated GFR POC Glucose 135 H 156 H Random Glucose Calcium Preliminary micro results at discharge 06/20/24 Unknown Urine Culture - Preliminary Urine clean catch - Clean Catch Midstream Culture in progress. Discharge Plan Discharge Anticipated Discharge Date/Time: 06/21/24 12:20 Patient Disposition: Home, Self-Care Discharge Diagnosis: chest pain Referrals: Matias Roy MD [Primary Care Provider] - 1 Week Discharge Medications: New cefuroxime axetil 250 mg tablet 250 mg PO BID Qty: 10 0RF Continued diltiazem HCl 180 mg capsule,extended release 24hr 180 mg PO DAILY Qty: 90 3RF Eliquis 5 mg tablet 5 mg PO BID Qty: 180 3RF atorvastatin 40 mg tablet 40 mg PO BEDTIME Qty: 90 3RF mecobalamin (vitamin B12) 1,000 mcg tablet,disintegrating 1,000 mcg sublingual DAILY 90 Days Qty: 90 3RF Rx Instructions: place tablet under tongue and allow to dissolve for at least 30 secs before swallowing acetaminophen [Tylenol] 325 mg Tablet 650 mg PO DAILY fluoxetine 20 mg capsule 40 mg PO DAILY ferrous gluconate 324 mg (38 mg iron) tablet 324 mg PO MOTH Rx Instructions: 4x week due to constipation. cholecalciferol (vitamin D3) 50 mcg (2,000 unit) capsule 50 mcg PO DAILY omeprazole 20 mg capsule,delayed release(DR/EC) 20 mg PO DAILY lisinopril 10 mg tablet 10 mg PO DAILY 90 Days Qty: 90 2RF metformin 500 mg tablet extended release 24 hr 500 mg PO BID Discharge Orders: Discharge Order (Routine); Ordered 06/21/24 Ordered By: Barbara De Jesus Diet: Advance to usual diet Activity on Discharge: As tolerated Stand Alone Forms: Patient Portal Discharge page Print Language: Cymro Care Plan Goals: Manage chest pain Health Concerns: Chest pain Atrial fibrillation Plan of Treatment: Chest pain -echo, nuclear stress test and cardiac MRA all essentially normal. Troponins within normal limits. Chest pain does not appear to be cardiac in origin -Can use ibuprofen as needed for pain -OK to participate in golf tournament today. Discussed with cardiology. Follow up with cardiology on outpatient basis Hypertension -blood pressures controlled on discharge though had episodes of hypertension while admitted -continue diltiazem 180mg daily and lisinopril 10mg daily Atrial fibrillation -you were in afib but converted to sinus rhythm during admission -continue eliquis 5mg twice daily and diltiazem Possible urinary tract infection -urine culture still pending but urinaylsis showed possible infection -would continue cefuroxime 250mg twice daily x 5 days. Due around 6pm this evening. Follow up with PCP. If urine culture is negative (still pending on discharge), can discontinue medication follow up with cardiology and pcp Assessment: See above. See discharge summary
--- NOTE | 2024-06-21 13:25 | MHC.CM.PN ---
pt has been medically cleared for DC. He will go home via private transport, plan is self care.
== END 2024-06-21 15:14 | disposition home or self-care (01) | DRG 313 ==
LOC: HO.ED 21:18 → HO.EDOVER 21:57 → HO.IMC 06-20 23:12
PROVIDERS: Physician Assistant; Registered Nurse Emergency; Admitting Provider Internal Medicine; Emergency Provider Emergency Medicine Emergency Medical Services; PCP Family Medicine; Visit Provider Physician Assistant
DX: R07.89 Other chest pain (principal); I50.32 Chronic diastolic (congestive) heart failure; D61.818 Other pancytopenia; I48.19 Other persistent atrial fibrillation; N39.0 Urinary tract infection, site not specified; I25.10 Atherosclerotic heart disease of native coronary artery without angina pectoris; I11.0 Hypertensive heart disease with heart failure; E53.8 Deficiency of other specified B group vitamins; Z86.14 Personal history of Methicillin resistant Staphylococcus aureus infection; E11.9 Type 2 diabetes mellitus without complications; G47.33 Obstructive sleep apnea (adult) (pediatric); F17.210 Nicotine dependence, cigarettes, uncomplicated; Z95.5 Presence of coronary angioplasty implant and graft; Z87.892 Personal history of anaphylaxis; Z71.6 Tobacco abuse counseling; Z91.041 Radiographic dye allergy status; Z79.01 Long term (current) use of anticoagulants; Z79.84 Long term (current) use of oral hypoglycemic drugs; Z79.899 Other long term (current) drug therapy
CPT/HCPCS: 36415; 71046; 71555; 78452; 80048; 80053; 81001; 82607; 82746; 82947; 83735; 83880; 84484; 85025; 85027; 85610; 87086; 87088; 87186; 93005; 93017; 93308; 94660; 99285; A9500; A9585; J0280; J0696; J2785; Q9957

== ENCOUNTER 2024-06-19 21:51 | Outpatient (BNV) | payer MEDICARE, OTHER, SELFPAY | END 2024-06-20 07:00 | PROVIDERS: Admitting Provider Internal Medicine; Emergency Provider Emergency Medicine Emergency Medical Services; PCP Family Medicine; Visit Provider Internal Medicine Cardiovascular Disease | DX: R07.9 Chest pain, unspecified (principal) | CPT/HCPCS: 78452; 93308 ==

== ENCOUNTER 2024-06-19 21:51 | Outpatient (BNV) | payer MEDICARE, OTHER, SELFPAY | END 2024-06-21 11:18 | PROVIDERS: Admitting Provider Internal Medicine; Emergency Provider Emergency Medicine Emergency Medical Services; PCP Family Medicine; Visit Provider Nurse Practitioner | DX: I49.3 Ventricular premature depolarization (principal) | CPT/HCPCS: 93016; 93018 ==

== ENCOUNTER → 2024-06-19 21:51 | Outpatient (BNV) | payer MEDICARE, OTHER, SELFPAY | PROVIDERS: Admitting Provider Internal Medicine; Emergency Provider Emergency Medicine Emergency Medical Services; PCP Family Medicine; Visit Provider Internal Medicine | DX: R07.9 Chest pain, unspecified (principal); N39.0 Urinary tract infection, site not specified | CPT/HCPCS: 99223; 99232; 99239 ==

== ENCOUNTER → 2024-06-19 21:51 | Outpatient (BNV) | payer MEDICARE, OTHER, SELFPAY | PROVIDERS: Admitting Provider Internal Medicine; Emergency Provider Emergency Medicine Emergency Medical Services; PCP Family Medicine; Visit Provider Internal Medicine Cardiovascular Disease | DX: R07.9 Chest pain, unspecified (principal); I48.91 Unspecified atrial fibrillation | CPT/HCPCS: 99222; 99233 ==

== ENCOUNTER → 2024-07-12 10:48 | Outpatient (BNVA) | payer MEDICARE, OTHER, SELFPAY | PROVIDERS: PCP Family Medicine; Visit Provider Family Medicine ==

== ENCOUNTER 2024-08-16 08:32 | Outpatient (AMB) | payer MEDICARE, OTHER, SELFPAY ==
--- NOTE | 2024-08-16 08:46 | MHC.PC.OV ---
Vital Signs 08/16/24 08:48 Height 6 ft Weight 206 lb BMI 27.9 BP 121/56 L Blood Pressure Location Rt brachial Position Sitting Respiration 14 Pulse 89 Pulse Source Pulse Oximeter Temp 99.3 F Temp Source Temporal Artery Scan Pulse Oximetry (%) 94 Oxygen Delivery Method Room Air Intake Visit Reasons: F/U HTN/DM - see comments Intake Note: F/U DM and HTN Allergies Iodinated Contrast Media [IV CONTRAST] Allergy (Severe, Verified 08/16/24 08:46) ANAPHYLAXIS Penicillins [PENICILLINS] Allergy (Severe, Verified 08/16/24 08:46) trouble breathing doxycycline Adverse Reaction (Intermediate, Verified 08/16/24 08:46) rASH Medication List - Last Reconciled 08/16/24 by Matias Roy MD acetaminophen (Tylenol) 650 mg PO DAILY apixaban (Eliquis) 5 mg PO BID atorvastatin 40 mg PO BEDTIME cefuroxime axetil 250 mg PO BID cholecalciferol (vitamin D3) 50 mcg PO DAILY diltiazem HCl CD 180 mg PO DAILY ferrous gluconate 324 mg PO MOTH fluoxetine 40 mg PO DAILY lisinopril 10 mg PO DAILY 90 days mecobalamin (vitamin B12) 1,000 mcg sublingual DAILY 90 days metformin ER 500 mg PO BID omeprazole 20 mg PO DAILY Tobacco use date assessed: 05/10/24 Dental Screening Dental Screen Date: 05/10/24 HPI F/U HTN/DM - see comments HPI Details Patient?presents?to?follow-up?chronic?conditions?including?diabetes?and?hypertension. Blood?pressure?today?121/56. He is on lisinopril 10mg, diltiazem 180mg daily. Prior?A1c?6.6%?and?A1c?today: 6.2%. He is on metformin 500mg b.i.d. patient?was?not?seen?at?last?visit?as?provider?was?running?late?and?patient?left?without?being?seen. ?He?had?been?admitted?for?atrial?fibrillation. Reviewed?hospital?discharge. 79 y/o ?patient?with?a?history?of?atrial?fibrillation?went?to?the?ED?on?06/19/2024?due?to?chest?pain.??EKG?did?show?that?he?was?in?atrial?fibrillation.??EKG?findings?otherwise?nonischemic?and?troponin?levels?negative?x2.??Chest?x-ray?was?unremarkable.??Echoc ardiogram?showed?normal?ejection?fraction?without?wall?motion?abnormalities.??MRA of?chest (patient?is?allergic?to?CT?IV?contrast)?negative?for?aortic?dissection.Patient?did?convert?back?to?sinus?rhythm. Diltiazem?and?Eliquis?are?continued. Patient?was?also?noted?to?have?hematuria?and?bacteria?in?urine.??He?does?have?an?indwelling?catheter?so?was?treated?with?antibiotics. Per AMPARO, pt was running late to play golf and could not stay for visit. He reports some hematuria. He reports difficulty falling asleep. HPI Comments History of Present Illness Details Documentation assistance for Matias Roy MD, was provided by Tripp Morrow,? Pharmacy Technician Assistant on 08/16/2024 at 9:09 AM EST. I, Dr. Roy, have read, observed, and verified documentation. [facility] Medical History MRSA infection Foot drop, left foot ALISON on CPAP COPD (chronic obstructive pulmonary disease) Upper GI bleeding PAF (paroxysmal atrial fibrillation) Smoker Hyperlipidemia, unspecified Type 2 diabetes mellitus with unspecified complications Essential hypertension Arteriosclerotic cardiovascular disease Atrial flutter by electrocardiogram Surgical History H/O colonoscopy Status post surgical removal of malignant neoplasm of skin History of knee replacement (~10/2021) Hx of cardiac cath (~2017) History of surgical removal of ganglion cyst (~2016) S/P radical cystoprostatectomy (~2014) Hx of total knee replacement (~2004) Family History Father Staph infection Mother Hypertension Brother Heart problem Social History Household Members: Spouse Household Members Other:: pets: dogs Housing: House Do you presently have visiting nurse or other home services: No Alcohol intake: current Alcohol intake frequency: 0-2 drinks per day Alcohol type: hard liquor Patient Tobacco Use Status: Current someday Tobacco user Tobacco use type: Cigarette Cigarette Packs Per Day: 1 Cigarettes Per Day: 5 Years Smoked: 64 e-Cigarette/Vaping Use: Never Used Second Hand Smoke Exposure: No Advance Directives Date on File: 05/26/24 service: Yes Current occupational status: retired Current occupational exposures/hazards: No Cognitive needs: No Hearing needs: Yes Vision needs: No Questionnaire PHQ-9 Over the last 2 weeks, how often have you been bothered by any of the following problems? 1. Little interest or pleasure in doing things: not at all Source: Developed by Drs. Shiva Kearney, Kaycee Berry, Dale Alston and colleagues, with an educational shannon from [employer]. Thrive Questionnaire Date Thrive assessed: 08/13/24 I am a: Patient What is your living situation today?: I have a steady place to live Within the past 12 months, did the food you bought not last and you didn't have the money to get more?: Sometimes True Within the past 12 months, did you worry whether your food would run out before you got money to buy more?: Never true Do you have trouble paying for medicines?: No Do you have trouble getting transportation to medical appointments?: No Do you have trouble paying your heating and electricity bill?: No Do you have trouble taking care of your child, family member or friend?: No Do you have trouble with day-to-day activities such as bathing, preparing meals, shopping, managing finances, etc.?: No Are you currently unemployed and looking for a job?: No Are you interested in more education?: No Please select the resources that you would like help with: None Currently or been in a relationship where the following occur: No concerns reported THRIVE Score: 1 AUDIT C Alcohol Use Questionnaire (AUDIT-C) 1. How often do you have a drink containing alcohol?: Never Total Score: 0 SURYA-7 AMB Questionnaire SURYA-7 Date SURYA - 7 assessed: 05/10/24 Feeling nervous, anxious, or on edge: 1 = Several days Not being able to stop or control worryin = Not at all Worrying too much about different things: 1 = Several days Trouble relaxin = Not at all Being so restless that it is hard to sit still: 0 = Not at all Becoming easily annoyed or irritable: 1 = Several days Feeling afraid as if something awful might happen: 0 = Not at all Total SURYA-7 score (0-4 normal; 5-9 mild; 10-14 moderate; 15-21 severe): 3 Source: Developed by Drs. Shiva Kearney, Kaycee Berry, Dale Alston and colleagues, with an educational shannon from [employer]. Review of Systems Const Denies chills, Denies fatigue, Denies fever(s), Denies headache(s) and Denies weakness ENT Denies dizziness and Denies headache(s) Card Denies dyspnea Resp Denies cough, Denies dyspnea, Denies wheezing and Denies other (shortness of breath) Musc Denies numbness and Denies tingling Neuro Denies dizziness, Denies headache(s), Denies numbness, Denies tingling and Denies weakness Psych Denies anxiety and Denies depression Endo Denies fatigue Aller/Immun Denies wheezing Physical exam (Primary Care) Vital Signs: Last Vital Signs Temp 99.3 F 08/16/24 08:48 Pulse 89 08/16/24 08:48 Resp 14 08/16/24 08:48 BP 121/56 L 08/16/24 08:48 Pulse Ox 94 08/16/24 08:48 Oxygen Delivery Method Room Air 08/16/24 08:48 BMI result Body Mass Index 27.9 Tobacco/Smoking Status: Tobacco use Status Tobacco use date assessed 05/10/24 08/16/24 08:50 Patient Tobacco Use Status Current someday Tobacco 08/16/24 08:50 Tobacco use type Cigarette 08/16/24 08:50 e-Cigarette/Vaping Use Never Used 08/16/24 08:50 Thrive Assessment: Date of Thrive Assessment Date Thrive assessed 08/13/24 08/16/24 08:50 Currently or been in a relationship where the following occur: No concerns reported Const General: well developed; No acute distress Nutritional Appearance: well nourished Orientation/consciousness: patient oriented x3 HENMT Head: Yes normocephalic and Yes atraumatic Eyes General: appearance normal, both eyes and all related structures Pupils: Equal, round and reactive pupils present EOM: EOMs intact bilaterally Resp Effort & Inspection: normal respiratory effort Auscultation: clear to auscultation bilaterally Cardio Rate: regular rate Rhythm: regular rhythm Heart sounds: S1 normal heart sound present, S2 normal heart sound present, no gallops, no murmurs and no rubs Neuro General: patient oriented x3 and gait normal Cranial nerves: Yes Equal, round and reactive pupils present Psych Affect: normal affect Coding Level of Care Code Est Pt Level 4 (70812) Diagnoses Essential hypertension I10 Arteriosclerotic cardiovascular disease I25.10 Type 2 diabetes mellitus with unspecified complications E11.8 PAF (paroxysmal atrial fibrillation) I48.0 Hematuria R31.9 Difficulty sleeping G47.9 Assessment & Plan Assessment & Plan (1) Essential hypertension: Code(s): I10 - Essential (primary) hypertension Category: Medical Plan: Blood?pressure?is?controlled.??Goal?is?less?than?130/80 Continue?current?medications?including?lisinopril?and?diltiazem (2) Arteriosclerotic cardiovascular disease: Comment: Status post LAD stenting- 09/2019 Code(s): I25.10 - Atherosclerotic heart disease of [place] coronary artery without angina pectoris Category: Medical Plan: Stable Follow-up?with?Cardiology?as?recommended (3) Type 2 diabetes mellitus with unspecified complications: Code(s): E11.8 - Type 2 diabetes mellitus with unspecified complications Category: Medical Plan: A1c?is?improved?and?at?6.2%.??Goal?is?less?than?7.0% Continue?current?medication?regimen (4) PAF (paroxysmal atrial fibrillation): Comment: status post pulmonary vein isolation 08/2020 Code(s): I48.0 - Paroxysmal atrial fibrillation Category: Medical Plan: Patient?is?on?diltiazem?and?Eliquis. Currently?appears?in?regular?rhythm?and?has?no?shortness?of?breath?or?chest?pain. (5) Hematuria: Code(s): R31.9 - Hematuria, unspecified Category: Medical Plan: Patient?has?an?upcoming?appointment?with?his?urologist. Of?note,?he?has?recently?started?Eliquis. Follow-up?with?urology?as?recommended (6) Difficulty sleeping: Code(s): G47.9 - Sleep disorder, unspecified Category: Medical Plan: Patient?has?CPAP?and?is?using?this He?has?started?using?THC?gummies?and?these?are?working.
[2024-08-16 08:48] VITALS: BP 121/56; PULSE 89; RESP 14; TEMP 37.4; O2SAT 94; BMI 27.9
== END 2024-08-16 09:10 | disposition home or self-care (01) ==
PROVIDERS: PCP Family Medicine; Visit Provider Family Medicine
DX: E11.8 Type 2 diabetes mellitus with unspecified complications (principal)

== ENCOUNTER → 2024-08-16 08:32 | Outpatient (BNVA) | payer MEDICARE, OTHER, SELFPAY | PROVIDERS: PCP Family Medicine; Visit Provider Family Medicine | DX: I10 Essential (primary) hypertension (principal); I25.10 Atherosclerotic heart disease of native coronary artery without angina pectoris; E11.8 Type 2 diabetes mellitus with unspecified complications; I48.0 Paroxysmal atrial fibrillation; R31.9 Hematuria, unspecified; G47.9 Sleep disorder, unspecified; Z79.01 Long term (current) use of anticoagulants; Z79.899 Other long term (current) drug therapy | CPT/HCPCS: 83036; 99212 ==

== ENCOUNTER 2024-08-23 10:47 | Outpatient (REF) | payer MEDICARE, OTHER, SELFPAY ==
[2024-08-23 17:30] LABS: Appearance Urine Turbid; Color Urine Dark Yellow; Glucose Urine UA Negative (Negative); Leukocyte Esterase Urine Moderate (2+) (Negative); Nitrite Urine Negative (Negative); PH 6.5 (5.0-9.0); Specific Gravity - Urine 1.015 (1.005-1.025); UMIC TRIGGER UA YES; Urine Blood Large (3+) (Negative); Urine Ketones Trace mg/dL (Negative); Urine Protein 100 (2+) mg/dL (Neg-Trace)
[2024-08-23 17:55] LABS: Bacteria Urine 4+ (None Seen); Hyaline Casts Urine >20 /LPF (0-2); RBC Urine >20 /HPF (0-2); Squamous Epithelial Cell Urine 0-2 /HPF (0-2); WBC Urine >50 /HPF (0-5)
== END 2024-08-23 10:48 | disposition home or self-care (01) ==
LOC: HO.LNP 10:47
PROVIDERS: PCP Family Medicine; Visit Provider Nurse Practitioner Family
DX: C67.9 Malignant neoplasm of bladder, unspecified (principal); R31.9 Hematuria, unspecified; Z85.51 Personal history of malignant neoplasm of bladder; Z85.46 Personal history of malignant neoplasm of prostate; Z79.01 Long term (current) use of anticoagulants
CPT/HCPCS: 81001; 87086; 87088; 87186; 88121; 99202

== ENCOUNTER 2024-08-23 10:47 | Outpatient (AMB) | payer MEDICARE, OTHER, SELFPAY ==
--- NOTE | 2024-08-23 10:49 | A.OFFVIS_ITS ---
Intake Visit Reasons: hematuria unspecified Intake Note: New Patient presents for initial visit for hematuria Urology Medications: none Blood Thinner: Apixaban Apprentice Plumber Required: No Accompanied by: Self / Same As Patient Allergies Iodinated Contrast Media [IV CONTRAST] Allergy (Severe, Verified 08/23/24 11:32) ANAPHYLAXIS Penicillins [PENICILLINS] Allergy (Severe, Verified 08/23/24 11:32) trouble breathing doxycycline Adverse Reaction (Intermediate, Verified 08/23/24 11:32) rASH Medication List - Last Reconciled 08/23/24 by SHAWNA Haley acetaminophen (Tylenol) 650 mg PO DAILY apixaban (Eliquis) 5 mg PO BID atorvastatin 40 mg PO BEDTIME cholecalciferol (vitamin D3) 50 mcg PO DAILY diltiazem HCl CD 180 mg PO DAILY ferrous gluconate 324 mg PO .MTTHF 28 days fluoxetine 40 mg (2 x 20 mg) PO DAILY 90 days lisinopril 10 mg PO DAILY 90 days mecobalamin (vitamin B12) 1,000 mcg sublingual DAILY 90 days metformin ER 500 mg PO BID [id number] mcg (Centrum Silver Men) 1 tab PO DAILY omeprazole 20 mg PO DAILY HPI Comments Details: Chilo is a very pleasant 79-year-old male patient of Dr. Roy. He has a past medical history of prostate cancer, bladder cancer, obstructive sleep apnea on CPAP, COPD, paroxysmal AFib, smoker, hyperlipidemia, type 2 diabetes, hypertension, and arteriosclerotic cardiovascular disease. He presents to the office today as a new patient for his history of prostate cancer and bladder cancer. He discusses he is status post prostatectomy with urostomy placement in 2013 at [facility]. He reports following up with his PCP Dr. Roy in discussing potential for hematuria in his urostomy bag at which time recommendation was made for urology referral for further assessment evaluation. In assessment of the patient today no visible hematuria noted in urostomy bag today. He discusses last follow-up with [facility] was 8 years ago. Discussed obtaining imaging for further assessment evaluation however patient with gina phylaxis to IV contrast therefore will order MRI urogram. Also discussed obtaining urine for urine culture and FISH for further assessment and evaluation. He otherwise denies any bothersome urinary issues or concerns. In review of patient's chart it appears PSAs are as follows: PSA 03/16 <0.05, 03/17 <0.10, 11/18 <0.10 He denies foul smelling urine, changes to urinary stream, flank pain, fever, and or chills. He is happy with her current voiding parameters. 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 [facility] Medical History MRSA infection Foot drop, left foot ALISON on CPAP COPD (chronic obstructive pulmonary disease) Upper GI bleeding PAF (paroxysmal atrial fibrillation) Smoker Hyperlipidemia, unspecified Type 2 diabetes mellitus with unspecified complications Essential hypertension Arteriosclerotic cardiovascular disease Atrial flutter by electrocardiogram Surgical History H/O colonoscopy Status post surgical removal of malignant neoplasm of skin History of knee replacement (~10/2021) Hx of cardiac cath (~2017) History of surgical removal of ganglion cyst (~2016) S/P radical cystoprostatectomy (~2014) Hx of total knee replacement (~2004) Family History Father Staph infection Mother Hypertension Brother Heart problem Social History Household Members: Spouse Household Members Other:: pets: dogs Housing: House Do you presently have visiting nurse or other home services: No Alcohol intake: current Alcohol intake frequency: 0-2 drinks per day Alcohol type: hard liquor Patient Tobacco Use Status: Current someday Tobacco user Tobacco use type: Cigarette Cigarette Packs Per Day: 1 Cigarettes Per Day: 5 Years Smoked: 64 e-Cigarette/Vaping Use: Never Used Second Hand Smoke Exposure: No Advance Directives Date on File: 05/26/24 service: Yes Current occupational status: retired Current occupational exposures/hazards: No Cognitive needs: No Hearing needs: Yes Vision needs: No Review of Systems Const All systems reviewed & are unremarkable except as noted in HPI and below Physical Exam Const General: cooperative, healthy appearing, comfortable, no acute distress, well d eveloped, alert and awake Orientation/consciousness: patient oriented x3 Limitations: no limitations HEENT Head: Yes normal to inspection, Yes normocephalic and Yes atraumatic Ears: hearing grossly normal bilaterally Eyes General: appearance normal, both eyes and all related structures Neck Neck: Yes normal visual inspection and Yes trachea midline Chest Chest palpation & inspection: normal inspection of the chest Resp Effort & Inspection: normal respiratory effort and able to speak in complete sentences Cardio Rate: regular rate GI Inspection: Yes normal to inspection General: Yes no CVA tenderness Back/Spine/Pelvis Back: no CVA tenderness Skin General skin exam: no rashes or lesions noted Neuro General: patient oriented x3 Extrem General: Yes normal to inspection Psych Appearance: grossly normal and well kempt Mental Status: mental status grossly normal Speech and movement: Normal speech and movement present and Clear speech present Affect: normal affect Attitude: cooperative Thought process: Normal thought process present Thought content: Normal thought content present Insight: Fair insight present (Psych) Judgement: Fair judgement present (Psych) Assessment & Plan Assessment & Plan (1) Hematuria: Code(s): R31.9 - Hematuria, unspecified Category: Medical (2) History of bladder cancer: Code(s): Z85.51 - Personal history of malignant neoplasm of bladder Category: Medical (3) History of prostate cancer: Code(s): Z85.46 - Personal history of malignant neoplasm of prostate Category: Medical Plan Will obtain urine culture and FISH for further assessment evaluation. Will obtain MRI urogram for further assessment evaluation. Discussed, educated, and stressed the importance of adequate hydration. He reports be happy with current voiding parameters. Recent PSA results reviewed with the patient today; as noted above. Medical release form signed to obtain previous urology records for continuity of care. Follow-up status post imaging in 1-3 months; or sooner with any issues, concerns, and or questions. Orders: Orders AMB Urinalysis Automated Today Z13.9 - Encounter for screening, unspecified MR abdomen wo/w con Today R31.9 - Hematuria, unspecified FISH Bladder Cancer Today C67.9 - Malignant neoplasm of bladder, unspecified Urine Culture Today R31.9 - Hematuria, unspecified Patient Instructions: The patient had an opportunity to ask questions regarding the treatment plan. All questions were answered. Physical exam, labs, and imaging were discussed and reviewed in detail. As well as risks, benefits, and discussion of treatment choices. No major barriers to understanding were identified. The patient expressed understanding and agreement with the above treatment plan. The patient was made aware they should contact our office by phone for worsening of their current condition, the appearance of new symptoms, or with any questions or concerns. Compliance is encouraged with any medications and follow up testing that is ordered. It is a privilege to be allowed the opportunity to participate in? your urological care.? Again, if you have any questions or conc erns If you have any questions or concerns please do not hesitate to contact me. The office is [phone]. This note is constructed using voice recognition software. While every effort has been made to ensure accuracy voice intercept technician errors may have been included. Yours sincerely, SHAWNA Haley Coding Level of Care Code New Pt Level 3 (40619) Diagnoses Hematuria R31.9 History of bladder cancer Z85.51 History of prostate cancer Z85.46
== END 2024-08-23 11:34 | disposition home or self-care (01) ==
LOC: HO.HUSH 10:48
PROVIDERS: PCP Family Medicine; Visit Provider Nurse Practitioner Family
DX: R31.9 Hematuria, unspecified (principal); Z85.51 Personal history of malignant neoplasm of bladder; Z85.46 Personal history of malignant neoplasm of prostate
CPT/HCPCS: 99203; 99213

== ENCOUNTER 2024-08-31 14:08 | Inpatient (IN) | payer MEDICARE, OTHER, SELFPAY ==
--- NOTE | ~2024-08-31 | CT_ITS ---
EXAMINATION: CT ABDOMEN AND PELVIS WITHOUT CONTRAST CLINICAL INFORMATION: Abdominal pain COMPARISON: 03/28/2018 TECHNIQUE: Multidetector volumetric imaging was performed from the superior aspect of the liver through the pubic symphysis. Sagittal and coronal reformatted images were obtained on the technologist's workstation. This CT examination was performed using dose optimization techniques as appropriate, variously including the following: *Automated exposure control *Adjustment of mA and/or kV according to patient size (this includes techniques or standardized protocols for targeted exams where dose is matched to indication/reason for exam; i.e. extremities or head) *Use of iterative reconstruction technique DLP: 697 mGy-cm FINDINGS: LUNG BASES: Honeycombing and fibrotic changes at the lung base bilaterally, increased since prior study. ABDOMINAL AND PELVIC WALL: Bilateral fat-containing inguinal hernias and right inguinal hernia also contains a loop of small bowel without evidence of obstruction. LIVER AND BILIARY TREE: Unremarkable. GALLBLADDER: Unremarkable. PANCREAS: Unremarkable. SPLEEN: Unremarkable. ADRENAL GLANDS: Left adrenal gland mass measuring 2.3 cm with macroscopic fat distended with an adrenal myelolipoma. Right adrenal gland is unremarkable. KIDNEYS AND URETERS: Benign-appearing right renal cysts. GASTROINTESTINAL TRACT: Colonic diverticulosis without evidence of diverticulitis. Ileal loop anastomosis in the right lower quadrant is patent. Right lower quadrant diverting ileostomy is unremarkable. VASCULAR: Aortic atherosclerotic calcifications, no aneurysmal dialation. LYMPH NODES/PERITONEUM: No lymphadenopathy. FREE FLUID: None. BLADDER: Status post radical cystectomy. PELVIC VISCERA: Brachytherapy prosthetic beads are present. OSSEOUS STRUCTURES: Unremarkable. CT/CT abdomen pelvis wo IV con IMPRESSION: * No acute intra-abdominal abnormality. * Honeycombing and fibrotic changes at the lung base bilaterally, increased since prior study. Electronically signed by: Claudia Li MD 08/31/2024 06:54 PM [facility]
[2024-08-31 14:15] VITALS: BP 147/76; PULSE 67; RESP 16; TEMP 37.2; O2SAT 98; BMI 26.3
[2024-08-31 15:31] LABS: Hematocrit 30.2 % (42.0-52.0); Hemoglobin 10.4 g/dl (14.0-18.0); Mean Corpuscular HGB Conc 34.4 g/dl (31.0-36.0); Mean Corpuscular Hemoglobin 38.4 pg (27.0-33.0); Mean Platelet Volume 9.1 fL (9.4-12.4); Red Blood Count 2.71 X10*6/uL (4.60-5.80); Red Cell Distribution Width 14.3 % (11.0-16.0)
[2024-08-31 15:32] LABS: Appearance Urine Cloudy; Color Urine Yellow; Glucose Urine UA Negative (Negative); Leukocyte Esterase Urine Negative (Negative); Nitrite Urine Negative (Negative); PH >= 9.0 (5.0-9.0); Specific Gravity - Urine 1.015 (1.005-1.025); UMIC TRIGGER UACC YES; Urine Blood Negative (Negative); Urine Ketones Negative (Negative); Urine Protein 100 (2+) mg/dL (Neg-Trace)
[2024-08-31 15:33] LABS: Mean Corpuscular Volume 111.4 fL (80.0-98.0); Platelet Count 47 X10*3/uL (160-400); White Blood Count 1.1 X10*3/uL (4.8-10.8)
[2024-08-31 15:34] LABS: NRBC Pct Auto 1.8 /100WBC (0.0-0.2)
[2024-08-31 15:49] LABS: Alanine Aminotransferase 20 U/L (0-40); Alkaline Phosphatase 104 U/L (39-117); Anion Gap 15 (12-20); Aspartate Amino Transferase 27 U/L (5-37); Bilirubin Total 0.6 mg/dL (0.0-1.0); Blood Urea Nitrogen 27 mg/dL (9-16); Carbon Dioxide 20 mmol/L (22-29); Chloride 107 mmol/L (96-108); Creatinine Clr Calc Pharmacy 59.1; Estimated Glomerular Filt Rate > 60; Glucose Random 191 mg/dL (60-115); Magnesium 1.4 mg/dL (1.6-2.6); Potassium 4.5 mmol/L (3.3-5.1); Sodium 137 mmol/L (135-145); Total Protein 7.1 g/dL (6.5-8.0)
[2024-08-31 15:52] LABS: Bacteria Urine 4+ (None Seen); RBC Urine 0-2 /HPF (0-2); UACC Culture Trigger YES; WBC Urine 21-50 /HPF (0-5)
[2024-08-31 16:02] LABS: SLIDE REVIEW MANUAL DIFF
--- NOTE | 2024-08-31 16:13 | ED.MALEGU ---
HPI - Male Genitourinary General Chief complaint: Urogenital-Male Stated complaint: blood in urine-l flank pain Time Seen by Provider: 08/31/24 16:11 Source: patient Mode of arrival: ambulatory Limitations: no limitations History of Present Illness HPI Narrative: This is a 79-year-old man with a past medical history of prostate cancer, bladder cancer, obstructive sleep apnea on CPAP, COPD, paroxysmal atrial fibrillation on Eliquis, smoker, hyperlipidemia, type 2 diabetes mellitus, hypertension, arteriosclerotic cardiovascular disease, history of prostatectomy with urostomy placement in 2013 at [facility] who presents for evaluation of hematuria, flank pain and lower abdominal pain. Patient states feeling unwell for the last approximate 1 week. He states no fevers or shaking chills. He states that he did see the urologist recently and was prescribed antibiotics, which he reports taking as prescribed. He states no chest pain, cough or difficulty breathing. He states no changes to bowel habits. Related Data Home Medications ?Medication ?Instructions ?Recorded ?Confirmed omeprazole 20 mg capsule,delayed 20 mg PO DAILY@0630 11/07/20 08/31/24 release cholecalciferol (vitamin D3) 50 50 mcg PO DAILY 11/14/20 08/16/24 mcg (2,000 unit) capsule metformin 500 mg tablet,extended 500 mg PO BID 11/11/21 08/31/24 release 24 hr acetaminophen 325 mg tablet 650 mg PO DAILY 06/20/24 08/16/24 (Tylenol) [id number] 300 mcg-K 60 1 tab PO DAILY 08/23/24 08/31/24 mcg-lycop 600 mcg-lutein 300 mcg tablet (Centrum Silver Men) ferrous gluconate 324 mg (38 mg 324 mg PO MOWEFR 08/31/24 08/31/24 iron) tablet Previous Rx's ?Medication ?Instructions ?Recorded apixaban 5 mg tablet (Eliquis) 5 mg PO BID #180 tabs 10/05/23 atorvastatin 40 mg tablet 40 mg PO BEDTIME #90 tabs 06/03/24 mecobalamin (vitamin B12) 1,000 1,000 mcg sublingual DAILY 90 days 06/17/24 mcg disintegrating #90 tabs tablet,sublingual diltiazem HCl 180 mg 180 mg PO DAILY #90 caps 08/15/24 capsule,extended release 24 hr fluoxetine 20 mg capsule 40 mg (2 x 20 mg) PO DAILY 90 days 08/19/24 #180 caps lisinopril 10 mg tablet 10 mg PO DAILY 90 days #90 tabs 08/19/24 Allergies Allergy/AdvReac Type Severity Reaction Status Date / Time Iodinated Contrast Media Allergy Severe ANAPHYLAXIS Verified 08/31/24 14:18 [IV CONTRAST] Penicillins [PENICILLINS] Allergy Severe trouble Verified 08/31/24 14:18 breathing doxycycline AdvReac Intermediate rASH Verified 08/31/24 14:18 PMFSH Past Medical History Medical History MRSA infection Foot drop, left foot ALISON on CPAP COPD (chronic obstructive pulmonary disease) Upper GI bleeding PAF (paroxysmal atrial fibrillation) Smoker Hyperlipidemia, unspecified Type 2 diabetes mellitus with unspecified complications Essential hypertension Arteriosclerotic cardiovascular disease Atrial flutter by electrocardiogram Surgical History H/O colonoscopy Status post surgical removal of malignant neoplasm of skin History of knee replacement (~10/2021) Hx of cardiac cath (~2017) History of surgical removal of ganglion cyst (~2016) S/P radical cystoprostatectomy (~2014) Hx of total knee replacement (~2004) Family History Family History Father Staph infection Mother Hypertension Brother Heart problem Social History Social History Household Members: Spouse Household Members Other:: pets: dogs Housing: House Do you presently have visiting nurse or other home services: No Alcohol intake: current Alcohol intake frequency: 0-2 drinks per day Alcohol type: hard liquor Patient Tobacco Use Status: Current someday Tobacco user Tobacco use type: Cigarette Cigarette Packs Per Day: 1 Cigarettes Per Day: 5 Years Smoked: 64 e-Cigarette/Vaping Use: Never Used Second Hand Smoke Exposure: No Advance Directives: Yes Advance Directives Information Provided: No Advance Directives on File: No Advance Directives Date on File: 05/26/24 Do you have a plan to hurt others: No Plan service: Yes Current occupational status: retired Current occupational exposures/hazards: No Cognitive needs: No Hearing needs: Yes Vision needs: No Physical Exam Vital Signs: Vital Signs: Last Vital Signs Temp 98.9 F 08/31/24 14:15 Pulse 89 08/31/24 17:06 Resp 17 08/31/24 17:06 BP 116/71 08/31/24 17:06 Pulse Ox 97 08/31/24 17:06 O2 Del Method Room Air 08/31/24 17:06 BMI result Body Mass Index 26.3 Gen: NAD, AOx3 HEENT: NCAT, EOMI, normal conjunctiva CV: RRR Pulm: CTAB, no increased work of breathing GI: Soft, NTND, no rebound, guarding or rigidity, urostomy with pink stoma and yellow urine without gross hematuria, no CVAT Neuro: Grossly non focal Medical Decision Making Medical Decision Making [facility] Narrative: Differential diagnosis includes, but is not limited to urinary tract infection, pyelonephritis, hematuria, failed oral antibiotics. Patient is afebrile and hemodynamically stable on room air. Exam is benign and reassuring. I reviewed labs, urinalysis and EKG as below. I have low clinical suspicion for nephrolithiasis given patient's clinical presentation and lack of abrupt onset flank pain. Review of the medical record demonstrates outpatient urine cultures from 08/23/2024 growing greater than [id number] CFU/mL pansensitive Escherichia coli. I considered ceftriaxone, patient has a penicillin allergy and for this reason patient is provided ciprofloxacin. I discussed this choice antibiotic with inpatient pharmacist. I discussed the patient's case and management with admitting hospitalist, Dr. Loya, and patient is admitted in stable and improved condition. Critical Care Time: A total of 35 minutes spent in direct patient care with coordinating critical resuscitation, procedures, reviewing records, discussing with consultants, reviewing labs, and/or managing patient. Admission/Observation Consideration of admission/observation: Escalation of care including admission/observation considered Consult Healthcare Provider Management of the patient was discussed with: Hospitalist Lab Data [facility] Lab Attestation statement: I reviewed the patient's lab results. I independently reviewed and interpreted the patient's labs, which demonstrates pancytopenia with white blood cell count 1.1 (previous 2.5), hemoglobin 10.4 (previous 12.2), platelet 47 (previous 75). Metabolic panel is reassuring. There is no evidence of acute kidney injury. There is hypomagnesemia of 1.4, which is repleted with 2 g IV magnesium sulfate x2. LFTs are reassuring. Urinalysis demonstrates proteinuria, 0 2 to RBCs per high-power field, 21-50 WBCs per high-power field and 4+ bacteria, which is consistent with urinary tract infection. 08/31/24 15:22 08/31/24 15:22 Labs: Lab Results 08/31/24 08/31/24 Range/Units 15:22 15:23 WBC 1.1 L (4.8-10.8) X10*3/uL RBC 2.71 L (4.60-5.80) X10*6/uL Hgb 10.4 L (14.0-18.0) g/dl Hct 30.2 L (42.0-52.0) % MCV 111.4 H (80.0-98.0) fL MCH 38.4 H (27.0-33.0) pg MCHC 34.4 (31.0-36.0) g/dl RDW 14.3 (11.0-16.0) % Plt Count 47 L D (160-400) X10*3/uL MPV 9.1 L (9.4-12.4) fL Immature Gran % (Auto) Cancelled Neut % (Auto) Cancelled Lymph % (Auto) Cancelled [place] % (Auto) Cancelled Eos % (Auto) Cancelled Baso % (Auto) Cancelled Lymph # (Auto) Cancelled [place] # (Auto) Cancelled Eos # (Auto) Cancelled Baso # (Auto) Cancelled Abs Immat Gran (auto) Cancelled Absolute Neuts (auto) Cancelled Absolute Nucleated RBC 0.020 H (0.0-0.012) X10*3/uL Nucleated RBC % (auto) 1.8 H (0.0-0.2) /100WBC Smear Tech's Comments MANUAL DIFF Hold Blue Top SEE NOTE Sodium 137 (135-145) mmol/L Potassium 4.5 (3.3-5.1) mmol/L Chloride 107 (96-108) mmol/L Carbon Dioxide 20 L (22-29) mmol/L Anion Gap 15 (12-20) BUN 27 H (9-16) mg/dL Creatinine 1.13 (0.5-1.4) mg/dL Estim Creat Clear Calc 59.1 Estimated GFR > 60 Random Glucose 191 H (60-115) mg/dL Calcium 9.0 (8.4-10.2) mg/dL Magnesium 1.4 L* (1.6-2.6) mg/dL Total Bilirubin 0.6 (0.0-1.0) mg/dL AST 27 (5-37) U/L ALT 20 (0-40) U/L Alkaline Phosphatase 104 (39-117) U/L Total Protein 7.1 (6.5-8.0) g/dL Albumin 3.0 L (3.5-5.0) g/dL Urine Color Yellow Urine Appearance Cloudy Urine pH >= 9.0 (5.0-9.0) Ur Specific [place] 1.015 (1.005-1.025) Urine Protein 100 (2+) H (Neg-Trace) mg/dL Urine Glucose (UA) Negative (Negative) mg/dL Urine Ketones Negative (Negative) mg/dL Urine Blood Negative (Negative) Urine Nitrite Negative (Negative) Ur Leukocyte Esterase Negative (Negative) Urine RBC 0-2 (0-2) /HPF Urine WBC 21-50 H (0-5) /HPF Ur Squamous Epith Cells 11-20 (0-2) /HPF Urine Bacteria 4+ (None Seen) Hyaline Casts 3-5 (0-2) /LPF Discharge Plan Discharge Clinical Impression: Urinary tract infection, Hypomagnesemia Patient Disposition: Admitted As Inpatient Prescriptions: No Action Eliquis 5 mg tablet 5 mg PO BID Qty: 180 3RF atorvastatin 40 mg tablet 40 mg PO BEDTIME Qty: 90 3RF mecobalamin (vitamin B12) 1,000 mcg tablet,disintegrating 1,000 mcg sublingual DAILY 90 Days Qty: 90 3RF Rx Instructions: place tablet under tongue and allow to dissolve for at least 30 secs before swallowing diltiazem HCl 180 mg capsule,extended release 24hr 180 mg PO DAILY Qty: 90 3RF lisinopril 10 mg tablet 10 mg PO DAILY 90 Days Qty: 90 2RF fluoxetine 20 mg capsule 40 mg PO DAILY 90 Days Qty: 180 3RF acetaminophen [Tylenol] 325 mg Tablet 650 mg PO DAILY PRN (Reason: Pain) ferrous gluconate 324 mg (38 mg iron) tablet 324 mg PO MOWEFR Rx Instructions: 4x week due to constipation. cholecalciferol (vitamin D3) 50 mcg (2,000 unit) capsule 50 mcg PO DAILY omeprazole 20 mg capsule,delayed release(DR/EC) 20 mg PO DAILY@0630 metformin 500 mg tablet extended release 24 hr 500 mg PO BID Seda Silver Men [id number] mcg tablet 1 tab PO DAILY Print Language: Indonesian
--- NOTE | 2024-08-31 16:37 | ECG_ITS ---
Test Reason : hypomagnesemia Blood Pressure : / mmHG Vent. Rate : 086 BPM Atrial Rate : 086 BPM P-R Int : 126 ms QRS Dur : 104 ms QT Int : 352 ms P-R-T Axes : 035 -32 021 degrees QTc Int : 421 ms Sinus rhythm with Premature supraventricular complexes Left axis deviation Abnormal ECG When compared with ECG of 19-JUN-2024 17:40, No significant changes seen Referred By: Joseph Alejo Electronically Signed By:NAKUL RHODES MD
--- NOTE | 2024-08-31 16:58 | PM.IMHP ---
History of Present Illness Date of Service: 08/31/24 Chief Complaint: hematuria, flank pain 79M PMH paroxysmal atrial fibrillation, bladder cancer status post urostomy in remission, ALISON on CPAP at night, hypertension, diabetes, coronary disease status post stent, B12 deficiency, mood disorder presented with hematuria and left flank pain. Patient states hematuria has been on and off for the past week has been on Macrobid for UTI due to pansensitive E coli just completed course but continues to have hematuria. Also complaining of left-sided flank pain and left lower quadrant abdominal pain on and off worse with eating. Review of Systems Review of Systems: Yes all other systems are reviewed and are negative [facility] Medical History MRSA infection Foot drop, left foot ALISON on CPAP COPD (chronic obstructive pulmonary disease) Upper GI bleeding PAF (paroxysmal atrial fibrillation) Smoker Hyperlipidemia, unspecified Type 2 diabetes mellitus with unspecified complications Essential hypertension Arteriosclerotic cardiovascular disease Atrial flutter by electrocardiogram Family History Father Staph infection Mother Hypertension Brother Heart problem Surgical History H/O colonoscopy Status post surgical removal of malignant neoplasm of skin History of knee replacement (~10/2021) Hx of cardiac cath (~2017) History of surgical removal of ganglion cyst (~2016) S/P radical cystoprostatectomy (~2014) Hx of total knee replacement (~2004) Social History Household Members: Spouse Household Members Other:: pets: dogs Housing: House Do you presently have visiting nurse or other home services: No Alcohol intake: current Alcohol intake frequency: 0-2 drinks per day Alcohol type: hard liquor Patient Tobacco Use Status: Current someday Tobacco user Tobacco use type: Cigarette Cigarette Packs Per Day: 1 Cigarettes Per Day: 5 Years Smoked: 64 e-Cigarette/Vaping Use: Never Used Second Hand Smoke Exposure: No Advance Directives: Yes Advance Directives Information Provided: No Advance Directives on File: No Advance Directives Date on File: 05/26/24 Do you have a plan to hurt others: No Plan service: Yes Current occupational status: retired Current occupational exposures/hazards: No Cognitive needs: No Hearing needs: Yes Vision needs: No Meds Allergies Allergy/AdvReac Type Severity Reaction Status Date / Time Iodinated Contrast Media Allergy Severe ANAPHYLAXIS Verified 08/31/24 14:18 [IV CONTRAST] Penicillins [PENICILLINS] Allergy Severe trouble Verified 08/31/24 14:18 breathing doxycycline AdvReac Intermediate rASH Verified 08/31/24 14:18 Active Medications: Current Medications Acetaminophen (Acetaminophen 325 Mg Tablet) 650 mg PO Q6H PRN PRN Reason: Pain, Mild (Pain Scale 1-3), fever or headache Calcium Carbonate (Calcium Carbonate 750 Mg Tab.Chew) 750 mg PO Q4H PRN PRN Reason: Heartburn Ceftriaxone Sodium (Ceftriaxone Sodium 1 Gm Vial) 1 gm IVPUSH Q24H JASMYNE Ciprofloxacin (Cipro) 400 mg in 200 mls @ 200 mls/hr IV ONCE ONE Stop: 08/31/24 17:59 Magnesium Sulfate (Magnesium Sulfate/H2o) 2 gm in 50 mls @ 25 mls/hr IV ONCE ONE Stop: 08/31/24 18:34 Magnesium Sulfate (Magnesium Sulfate/H2o) 2 gm in 50 mls @ 25 mls/hr IV ONCE ONE Stop: 08/31/24 18:35 Magnesium Hydroxide (Milk Of Magnesia 30 Ml Oral.Susp) 30 ml PO DAILY PRN PRN Reason: Constipation Melatonin (Melatonin 3 Mg Tablet) 6 mg PO BEDTIME PRN PRN Reason: Insomnia Sodium Chloride (0.9 % Sodium Chloride Flush 3 Ml Syringe) 3 [facility] Medications ?Medication ?Instructions ?Recorded ?Confirmed ?Last Taken ?Type omeprazole 20 mg capsule,delayed 20 mg PO DAILY@0630 11/07/20 08/31/24 08/31/24 History release cholecalciferol (vitamin D3) 50 50 mcg PO DAILY 11/14/20 08/31/24 08/31/24 History mcg (2,000 unit) capsule metformin 500 mg tablet,extended 500 mg PO BID 11/11/21 08/31/24 08/31/24 History release 24 hr acetaminophen 325 mg tablet 650 mg PO DAILY PRN Pain 06/20/24 08/31/24 08/31/24 History (Tylenol) [id number] 300 mcg-K 60 1 tab PO DAILY 08/23/24 08/31/24 08/31/24 History mcg-lycop 600 mcg-lutein 300 mcg tablet (Centrum Silver Men) ferrous gluconate 324 mg (38 mg 324 mg PO MOWEFR 08/31/24 08/31/24 08/31/24 History iron) tablet Physical Exam Vital Signs and Narrative: Vital Signs: Last Vital Signs Temp 98.9 F 08/31/24 14:15 Pulse 67 08/31/24 14:15 Resp 16 08/31/24 14:15 BP 147/76 H 08/31/24 14:15 Pulse Ox 98 08/31/24 14:15 O2 Del Method Room Air 08/31/24 14:15 BMI result Body Mass Index 26.3 General: AO X 3, no acute distress Resp: CTA bilateral, no accessory muscles used CVS: S1,S2,RRR GI: soft, non tender, non distended Neuro: motor grossly intact, alert Psych: appropriate affect, appropriate insight urostomy yellow Results Labs 08/31/24 15:22 08/31/24 15:22 Labs: Laboratory Results - last 24 hr 08/31/24 08/31/24 15:22 15:23 MCV 111.4 H MCH 38.4 H MCHC 34.4 RDW 14.3 Plt Count 47 L D MPV 9.1 L Immature Gran % (Auto) Cancelled Neut % (Auto) Cancelled Lymph % (Auto) Cancelled [place] % (Auto) Cancelled Eos % (Auto) Cancelled Baso % (Auto) Cancelled Lymph # (Auto) Cancelled [place] # (Auto) Cancelled Eos # (Auto) Cancelled Baso # (Auto) Cancelled Abs Immat Gran (auto) Cancelled Absolute Neuts (auto) Cancelled Absolute Nucleated RBC 0.020 H Nucleated RBC % (auto) 1.8 H Smear Tech's Comments MANUAL DIFF Hold Blue Top SEE NOTE Anion Gap 15 Estim Creat Clear Calc 59.1 Estimated GFR > 60 Random Glucose 191 H Calcium 9.0 Magnesium 1.4 L* Total Bilirubin 0.6 AST 27 ALT 20 Alkaline Phosphatase 104 Total Protein 7.1 Albumin 3.0 L Urine Color Yellow Urine Appearance Cloudy Urine pH >= 9.0 Ur Specific [place] 1.015 Urine Protein 100 (2+) H Urine Glucose (UA) Negative Urine Ketones Negative Urine Blood Negative Urine Nitrite Negative Ur Leukocyte Esterase Negative Urine RBC 0-2 Urine WBC 21-50 H Ur Squamous Epith Cells 11-20 Urine Bacteria 4+ Hyaline Casts 3-5 Assessment and Plan (1) Essential hypertension: Status: Acute Plan 79M PMH paroxysmal atrial fibrillation, bladder cancer status post urostomy in remission, ALISON on CPAP at night, hypertension, diabetes, coronary disease status post stent, B12 deficiency, mood disorder presented with hematuria and left flank pain Hematuria due to UTI Ceftriaxone, hold Eliquis Flank pain Check CT abdomen Pancytopenia Hematology eval Paroxysmal atrial fibrillation Continue diltiazem, hold Eliquis Diabetes Insulin sliding scale ALISON CPAP at night DVT prophylaxis-mechanical due to thrombocytopenia Full code Patient with significant flank pain and hematuria due to UTI expected require at least 2 midnights inpatient for hematuria to fully discontinue and for resolution of flank pain. Quality Stroke Does the patient have a stroke diagnosis?: No VTE Prior VTE?: No VTE Risk Level:: Medical - moderate - high VTE Device Contraindication: N/A - Device Ordered VTE Drug Contraindication: Treatment Not Tolerated
[2024-08-31 17:06] VITALS: BP 116/71; PULSE 89; RESP 17; O2SAT 97
--- NOTE | 2024-08-31 17:12 | PHA.MEDREC ---
Addendum entered by Michaela Velasquez RPh 08/31/24 17:35: Med rec was reviewed by [facility]. Original Note: Pharmacy Consult ? Medication Reconciliation Pharmacy has completed the medication reconciliation. Spoke to patient to confirm med list. Patient was able to name what medications he takes. Everything match with claims. Patient states he completed his antibiotic Nitrofurantoin Monohydrate / mac 100 mg .
[2024-08-31] MEDS: Ciprofloxacin Lactate/D5W 400 MG/200 ML PIGGYBACK 200 MG IV (17:24)
[2024-08-31 18:10] LABS: Glucose, Whole Blood 154 mg/dL (60-115)
[2024-08-31 18:15] LABS: Atypical Lymph Absolute Manual 0.1 x10*3/uL; Atypical Lymphs Percent Manual 8 % (0-6); Band Neutrophils Percent 4 % (3-5); Eosinophils Percent Manual 2 % (0-4); Lymphocytes Absolute Manual 0.7 X10*3/uL (1.2-4.9); Lymphocytes Percent Manual 68 % (20-40); Metamyelocytes Percent 4 %; Neutrophils Absolute Manual 0.2 X10*3/uL (2.0-8.3); Neutrophils Percent Manual 14 % (45-73); Nucleated Red Blood Cells 1 /100WBC (0-0)
[2024-08-31 18:16] LABS: Burr Cells 1+ (0-2) /OIF; Macrocytosis 1+ (5-14) /OIF; RBC Morphology NOTED; Schistocytes 1+ (0-2) /OIF
[2024-08-31 18:17] LABS: Platelet Estimate DECREASED (NORMAL); Platelet Morphology Comment NORMAL
[2024-08-31] MEDS: Magnesium Sulfate/H2O 2 GM/50 ML PIGGYBACK IV ×2 (18:31→20:45)
[2024-08-31 19:31] VITALS: BP 134/75; PULSE 77; RESP 18; TEMP 37.7; O2SAT 98
--- NOTE | 2024-08-31 19:35 | MHC.EDTECH ---
This tech took over care of patient at 1900,rounded and introduced self to patient,vitals taken,oral temp is 99.9,RN aware, patient ate 25% of dinner,drank 120MLS,patient is resting quietly,call pemberton in reach
--- NOTE | 2024-08-31 19:43 | MHC.EDTECH ---
Belongings list updated,patient has $51.00 [place],copy placed in chart
[2024-08-31 22:00] VITALS: BP 121/57; PULSE 84; RESP 16; TEMP 37.1; O2SAT 97
[2024-08-31 22:04] LABS: Glucose, Whole Blood 134 mg/dL (60-115)
--- NOTE | 2024-08-31 22:09 | MHC.EDTECH ---
POC taken and is 134,RN aware,vitals/rounds completed,call pemberton in reach
[2024-08-31] MEDS: Atorvastatin Calcium 40 MG TABLET PO (22:18)
--- NOTE | 2024-08-31 22:47 | PC.RT ---
Pt refused CPAP
--- NOTE | 2024-08-31 22:52 | MHC.EDTECH ---
Emptied 700MS of tea color urine from urostomy
[2024-09-01] VITALS: BP 145/77; PULSE 66; RESP 16; TEMP 37.1; O2SAT 97
[2024-09-01 02:15] VITALS: BP 150/75; PULSE 58; RESP 18; TEMP 37.1; O2SAT 100
[2024-09-01] MEDS: 0.9 % Sodium Chloride Flush 3 ML SYRINGE IVFLUSH ×4 (02:19→22:09)
[2024-09-01] MEDS: Omeprazole 20 MG CAPSULE.DR PO (06:30)
[2024-09-01 06:43] LABS: Hematocrit 28.5 % (42.0-52.0); Hemoglobin 9.7 g/dl (14.0-18.0); Mean Platelet Volume 9.9 fL (9.4-12.4); Red Blood Count 2.55 X10*6/uL (4.60-5.80)
[2024-09-01 06:45] LABS: Mean Corpuscular Volume 111.8 fL (80.0-98.0); NRBC Pct Auto 1.7 /100WBC (0.0-0.2); Platelet Count 43 X10*3/uL (160-400); White Blood Count 1.2 X10*3/uL (4.8-10.8)
[2024-09-01 06:55] LABS: Anion Gap 14 (12-20); Blood Urea Nitrogen 24 mg/dL (9-16); Calcium 8.8 mg/dL (8.4-10.2); Carbon Dioxide 21 mmol/L (22-29); Chloride 106 mmol/L (96-108); Creatinine Clr Calc Pharmacy 76.8; Estimated Glomerular Filt Rate > 60; Glucose Fasting 148 mg/dL (60-99); Potassium 4.7 mmol/L (3.3-5.1); Sodium 136 mmol/L (135-145)
[2024-09-01 07:48] LABS: Glucose, Whole Blood 137 mg/dL (60-115)
[2024-09-01 07:56] VITALS: BP 147/70; PULSE 81; RESP 18; TEMP 37.2; O2SAT 96
[2024-09-01] MEDS: FLUoxetine HCl 20 MG CAPSULE 40 MG PO (08:24)
[2024-09-01] MEDS: dilTIAZem HCL CD 180 MG CAP.ER.24H PO (08:24)
[2024-09-01] MEDS: Cholecalciferol (Vitamin D3) 25 MCG TABLET 50 MCG PO (08:24)
[2024-09-01] MEDS: cefTRIAXone sodium 1 GM VIAL IVPUSH (08:24)
[2024-09-01] MEDS: lisinopriL 10 MG TABLET PO (08:25)
[2024-09-01] MEDS: Cyanocobalamin (Vitamin B-12) 1,000 MCG TABLET 1000 MCG PO (08:25)
--- NOTE | 2024-09-01 08:30 | PM.HEMONCCN ---
Subjective - Subjective Chief complaint: Consult for: Pancytopenia. Patient: new to practice Consult date: 09/01/24 Requesting Physician: Matias Roy MD. Primary Care Provider: Matias Roy MD Family Provider: Matias Roy MD. Medical Summary: DIAGNOSIS: PANCYTOPENIA. HPI - Consult Narrative Reason for consult: CONSULT FOR: Pancytopenia. Narrative: Chilo Fox is a 79 year old gentleman with a history of bladder cancer, admitted yesterday with hematuria. Patient has been noted to be pancytopenic. presented with hematuria and left flank pain. Patient states hematuria has been on and off for the past week has been on Macrobid for UTI due to pansensitive E coli just completed course but continues to have hematuria. Also complaining of left-sided flank pain and left lower quadrant abdominal pain on and off worse with eating. PMH: Paroxysmal atrial fibrillation, bladder cancer status post urostomy in remission, ALISON on CPAP at night, hypertension, diabetes, coronary disease status post stent, B12 deficiency, mood disorder. Medical History: MRSA infection Foot drop, left foot ALISON on CPAP COPD (chronic obstructive pulmonary disease) Upper GI bleeding PAF (paroxysmal atrial fibrillation) Smoker Hyperlipidemia, unspecified Type 2 diabetes mellitus with unspecified complications Essential hypertension Arteriosclerotic cardiovascular disease Atrial flutter by electrocardiogram Surgical History: H/O colonoscopy Status post surgical removal of malignant neoplasm of skin History of knee replacement (~10/2021) Hx of cardiac cath (~2017) History of surgical removal of ganglion cyst (~2016) S/P radical cystoprostatectomy (~2014) Hx of total knee replacement (~2004) Family History: Father Staph infection Mother Hypertension Brother Heart problem Social History:) Household Members: Spouse Household Members Other:: pets: dogs Housing: House Do you presently have visiting nurse or other home services: No Alcohol intake: current Alcohol intake frequency: 0-2 drinks per day Alcohol type: hard liquor Patient Tobacco Use Status: Current someday Tobacco user Review of Systems Review of Systems: Yes all other systems are reviewed and are negative Review of Systems - Constitutional Reports system reviewed and no additional complaints, except as documented, Reports fatigue, Reports lack of energy, Reports malaise, Reports weight loss, Denies fever(s) - Eyes Reports system reviewed and no additional complaints, except as documented - ENT Reports system reviewed and no additional complaints, except as documented - Cardiovascular Reports system reviewed and no additional complaints, except as documented - Respiratory Reports no additional respiratory complaints - Gastrointestinal Reports system reviewed and no additional complaints, except as documented - Genitourinary Genitourinary: Reports no additional male genitourinary complaints - Musculoskeletal Reports system reviewed and no additional complaints, except as documented - Integumentary/Breasts Skin/Breast: Reports no additional skin complaints - Neurologic Reports system reviewed and no additional complaints, except as documented - Psychiatric Reports system reviewed and no additional complaints, except as documented - Endocrine Reports no additional endocrine complaints - Hematologic/Lymphatic Reports system reviewed and no additional complaints, except as documented - Allergic/Immunologic Reports system reviewed and no additional complaints, except as documented Oncology Screenings - ECOG Performance Status ECOG Performance Status: 2 [facility] Medical History: Medical History (Last Reviewed 08/31/24 @ 17:00 by Richard Loya MD) Arteriosclerotic cardiovascular disease Atrial flutter by electrocardiogram COPD (chronic obstructive pulmonary disease) Essential hypertension Foot drop, left foot Hyperlipidemia, unspecified MRSA infection ALISON on CPAP PAF (paroxysmal atrial fibrillation) Smoker Type 2 diabetes mellitus with unspecified complications Upper GI bleeding Functional capacity: wheelchair bound Patient : No Family History: Family History (Last Reviewed 08/31/24 @ 17:00 by Richard Loya MD) Father Staph infection Mother Hypertension Brother Heart problem Surgical History: Surgical History (Last Reviewed 08/31/24 @ 17:00 by Richard Loya MD) H/O colonoscopy History of knee replacement Onset Date: ~10/2021 History of surgical removal of ganglion cyst Onset Date: ~2016 Hx of cardiac cath Onset Date: ~2017 Hx of total knee replacement Onset Date: ~2004 S/P radical cystoprostatectomy Onset Date: ~2014 Status post surgical removal of malignant neoplasm of skin Social History: Social History (Last Reviewed 08/31/24 @ 17:00 by Richard Loya MD) Living Situation History: Household Members: Spouse Household Members Other:: pets: dogs Housing: House Do you presently have visiting nurse or other home services: No Tobacco History: Patient Tobacco Use Status: Current everyday Tobacco Tobacco use type: Cigarette Cigarette Packs Per Day: 1 Years Smoked: 64 e-Cigarette/Vaping Use: Never Used Second Hand Smoke Exposure: No Advance Directives: Advance Directives Date on File: 05/26/24 Occupation Assessmet: service: Yes Current occupational status: retired Current occupational exposures/hazards: No Home Medications and Allergies Current Medications: Current Medications Acetaminophen (Acetaminophen 325 Mg Tablet) 650 mg PO Q6H PRN PRN Reason: Pain, Mild (Pain Scale 1-3), fever or headache Atorvastatin Calcium (Atorvastatin Calcium 40 Mg Tablet) 40 mg PO BEDTIME [facility] Last Admin: 08/31/24 22:18 Dose: 40 mg Calcium Carbonate (Calcium Carbonate 750 Mg Tab.Chew) 750 mg PO Q4H PRN PRN Reason: Heartburn Ceftriaxone Sodium (Ceftriaxone Sodium 1 Gm Vial) 1 gm IVPUSH Q24H [facility] Last Admin: 09/01/24 08:24 Dose: 1 gm Cyanocobalamin (Cyanocobalamin (Vitamin B-12) 1,000 Mcg Tablet) 1,000 mcg PO DAILY [facility] Last Admin: 09/01/24 08:25 Dose: 1,000 mcg Diltiazem HCl (Diltiazem Hcl Cd 180 Mg Cap.Er.24h) 180 mg PO DAILY [facility]; Protocol Last Admin: 09/01/24 08:24 Dose: 180 mg Ferrous Sulfate (Ferrous Sulfate 324 Mg Tablet.) 324 mg PO MOWEFR [facility] Last Admin: 08/31/24 19:21 Dose: Not Given Fluoxetine HCl (Fluoxetine Hcl 20 Mg Capsule) 40 mg PO DAILY [facility] Last Admin: 09/01/24 08:24 Dose: 40 mg Glucose (Glucose Gel 15 Gm Gel..Gram.) 15 gm PO Q15M PRN; Protocol PRN Reason: per Hypoglycemia Standing Ord. Dextrose (D10) 250 mls @ 750 mls/hr IV Q15M PRN; Protocol PRN Reason: per Hypoglycemia Standing Ord. Insulin Human Lispro (Insulin Lispro 100 Unit/Ml 3 Ml Vial) 0 unit SUBCUT QIDACHS [facility]; Protocol Last Admin: 09/01/24 08:17 Dose: Not Given Lisinopril (Lisinopril 10 Mg Tablet) 10 mg PO DAILY [facility]; Protocol Last Admin: 09/01/24 08:25 Dose: 10 mg Magnesium Hydroxide (Milk Of Magnesia 30 Ml Oral.Susp) 30 ml PO DAILY PRN PRN Reason: Constipation Melatonin (Melatonin 3 Mg Tablet) 6 mg PO BEDTIME PRN PRN Reason: Insomnia Omeprazole (Omeprazole 20 Mg Capsule.) 20 mg PO DAILY@0630 [facility] Last Admin: 09/01/24 06:30 Dose: 20 mg Sodium Chloride (0.9 % Sodium Chloride Flush 3 Ml Syringe) 3 ml IVFLUSH QSHIFT [facility] Last Admin: 09/01/24 08:25 Dose: 3 ml Vitamin D (Cholecalciferol (Vitamin D3) 25 Mcg Tablet) 50 mcg PO DAILY [facility] Last Admin: 09/01/24 08:24 Dose: 50 mcg Home Medications ?Medication ?Instructions ?Recorded ?Confirmed ?Type omeprazole 20 mg capsule,delayed 20 mg PO DAILY@0630 11/07/20 08/31/24 History release cholecalciferol (vitamin D3) 50 50 mcg PO DAILY 11/14/20 08/31/24 History mcg (2,000 unit) capsule metformin 500 mg tablet,extended 500 mg PO BID 11/11/21 08/31/24 History release 24 hr acetaminophen 325 mg tablet 650 mg PO DAILY PRN Pain 06/20/24 08/31/24 History (Tylenol) [id number] 300 mcg-K 60 1 tab PO DAILY 08/23/24 08/31/24 History mcg-lycop 600 mcg-lutein 300 mcg tablet (Centrum Silver Men) ferrous gluconate 324 mg (38 mg 324 mg PO MOWEFR 08/31/24 08/31/24 History iron) tablet Allergies Allergy/AdvReac Type Severity Reaction Status Date / Time Iodinated Contrast Media Allergy Severe ANAPHYLAXIS Verified 08/31/24 14:18 [IV CONTRAST] Penicillins [PENICILLINS] Allergy Severe trouble Verified 08/31/24 14:18 breathing doxycycline AdvReac Intermediate rASH Verified 08/31/24 14:18 Physical Exam Vital signs: Vital Signs Temp 98.9 F 09/01/24 07:56 Pulse 81 09/01/24 07:56 Resp 18 09/01/24 07:56 BP 147/70 H 09/01/24 07:56 Pulse Ox 96 09/01/24 07:56 O2 Del Method Room Air 09/01/24 07:56 Intake & Output 08/31/24 09/01/24 09/01/24 18:59 06:59 18:59 Intake Total 200 / 660 460 / 660 Output Total 1500 / 1500 Balance 200 / -840 -1040 / -840 Urine Output (Average ml/kg/hr) 1.42 Intake: Intake, Oral Amount 360 / 360 Intake, IV Amount 200 / 300 100 / 300 Ciprofloxacin Lactate/D5W 400 200 / 200 mg In 200 ml @ 200 mls/hr IV ONCE ONE Rx#:[id number] Magnesium Sulfate/H2O 2 gm In 100 / 100 50 ml @ 25 mls/hr IV ONCE ONE Rx#:[id number] Output: Output, Urine Amount (Catheter) 1500 / 1500 Urostomy 1500 / 1500 Other: Dinner % Eaten 25% Urine Color Yellow Weight 87.997 kg Weight 87.997 kg - Constitutional Present: mild distress - Routine HEENT Exam Head: Present: normal inspection, normocephalic ENT: Present: mucous membranes moist - Routine Neck Exam Present: supple - Routine Respiratory Exam Present: CTAB - Routine Cardiovascular Exam Cardiovascular: Present: RRR, S1, S2 - Routine Skin Exam Present: intact, normal turgor - Routine Neurological Exam Present: alert, oriented X3 - Detailed Neurological Exam: Coma Scale Eye Opening: Spontaneous (4) Verbal Response: Oriented (5) - Routine Psychiatric Exam Present: normal affect Hem/Onc Consult Result - Labs CBC & Chem 7: 09/01/24 05:21 09/01/24 05:21 Labs: Short CBC 08/31/24 09/01/24 Range/Units 15:22 05:21 WBC 1.1 L 1.2 L (4.8-10.8) X10*3/uL Hgb 10.4 L 9.7 L (14.0-18.0) g/dl Hct 30.2 L 28.5 L (42.0-52.0) % Plt Count 47 L D 43 L (160-400) X10*3/uL BMP 08/31/24 09/01/24 15:22 05:21 Sodium 137 136 Potassium 4.5 4.7 Chloride 107 106 Carbon Dioxide 20 L 21 L BUN 27 H 24 H Creatinine 1.13 0.87 Calcium 9.0 8.8 Liver Function 08/31/24 Range/Units 15:22 Total Bilirubin 0.6 (0.0-1.0) mg/dL AST 27 (5-37) U/L ALT 20 (0-40) U/L Alkaline Phosphatase 104 (39-117) U/L Albumin 3.0 L (3.5-5.0) g/dL Urine 08/31/24 Range/Units 15:23 Urine Color Yellow Urine Appearance Cloudy Urine pH >= 9.0 (5.0-9.0) Ur Specific [place] 1.015 (1.005-1.025) Urine Protein 100 (2+) H (Neg-Trace) mg/dL Urine Glucose (UA) Negative (Negative) mg/dL Assessment and Plan Patient Active problem list reviewed?: Yes (1) Pancytopenia Status: Acute Assessment and plan: 79-year-old gentleman, with a previous history of bladder cancer, now presents with hematuria. Concern is for UTI. He has been noted to be pancytopenic. CT SCAN OF THE ABDOMEN PELVIS REVEALED: * No acute intra-abdominal abnormality. * Honeycombing and fibrotic changes at the lung base bilaterally, increased since prior study. DIFFERENTIAL DIAGNOSIS: 1. INFECTION RELATED: Acute: UTI, Chronic: HIV versus hepatitis B or C. 2. LIVER DISEASE: Alcohol related. 3. COLLAGEN VASCULAR DISORDER: SLE versus rheumatoid arthritis. 4. UNDERLYING MYELO INFILTRATIVE DISORDER: MDS versus myeloma versus lymphoma. PLAN: I will proceed with further evaluation. HIV and hepatitis-B and C: Negative. Will check ESR:224, RA:<13, MARGE: negative. Check LDH: 226. Check an SIEP: Normal profile. Will follow the trend of the CBC. If it continues to drop we will proceed with a bone marrow exam for further evaluation. Thank you, CC: Dr. Matias Roy. - Time Spent With Patient Time Spent with Patient (in minutes): 30
--- NOTE | 2024-09-01 09:21 | P.PNIM_ITS ---
Subjective Subjective Date of Service: 09/01/24 Interval History: hematuria and pain improved Physical Exam 2 Vital Signs: Vital Signs: Last Vital Signs Temp 98.9 F 09/01/24 07:56 Pulse 81 09/01/24 07:56 Resp 18 09/01/24 07:56 BP 147/70 H 09/01/24 07:56 Pulse Ox 96 09/01/24 07:56 O2 Del Method Room Air 09/01/24 07:56 BMI result Body Mass Index 26.3 General: AO X 3, no acute distress Resp: CTA bilateral, no accessory muscles used CVS: S1,S2,RRR GI: soft, non tender, non distended Neuro: motor grossly intact, alert Psych: appropriate affect, appropriate insight Objective Data Active Medications Acetaminophen (Acetaminophen 325 Mg Tablet) 650 mg PO Q6H PRN PRN Reason: Pain, Mild (Pain Scale 1-3), fever or headache Atorvastatin Calcium (Atorvastatin Calcium 40 Mg Tablet) 40 mg PO BEDTIME [facility] Last Admin: 08/31/24 22:18 Dose: 40 mg Documented By: LOCO Calcium Carbonate (Calcium Carbonate 750 Mg Tab.Chew) 750 mg PO Q4H PRN PRN Reason: Heartburn Ceftriaxone Sodium (Ceftriaxone Sodium 1 Gm Vial) 1 gm IVPUSH Q24H [facility] Last Admin: 09/01/24 08:24 Dose: 1 gm Documented By: PARRIS Cyanocobalamin (Cyanocobalamin (Vitamin B-12) 1,000 Mcg Tablet) 1,000 mcg PO DAILY [facility] Last Admin: 09/01/24 08:25 Dose: 1,000 mcg Documented By: PARRIS Diltiazem HCl (Diltiazem Hcl Cd 180 Mg Cap.Er.24h) 180 mg PO DAILY [facility]; Protocol Last Admin: 09/01/24 08:24 Dose: 180 mg Documented By: PARRIS Ferrous Sulfate (Ferrous Sulfate 324 Mg Tablet.Dr) 324 mg PO MOWEFR [facility] Last Admin: 08/31/24 19:21 Dose: Not Given Documented By: LOCO Non-Admin Reason: Med Not Available Fluoxetine HCl (Fluoxetine Hcl 20 Mg Capsule) 40 mg PO DAILY [facility] Last Admin: 09/01/24 08:24 Dose: 40 mg Documented By: PARRIS Glucose (Glucose Gel 15 Gm Gel..Gram.) 15 gm PO Q15M PRN; Protocol PRN Reason: per Hypoglycemia Standing Ord. Dextrose (D10) 250 mls @ 750 mls/hr IV Q15M PRN; Protocol PRN Reason: per Hypoglycemia Standing Ord. Insulin Human Lispro (Insulin Lispro 100 Unit/Ml 3 Ml Vial) 0 unit SUBCUT QIDACHS [facility]; Protocol Last Admin: 09/01/24 08:17 Dose: Not Given Documented By: PARRIS Non-Admin Reason: No Insulin Coverage Lisinopril (Lisinopril 10 Mg Tablet) 10 mg PO DAILY [facility]; Protocol Last Admin: 09/01/24 08:25 Dose: 10 mg Documented By: PARRIS Magnesium Hydroxide (Milk Of Magnesia 30 Ml Oral.Susp) 30 ml PO DAILY PRN PRN Reason: Constipation Melatonin (Melatonin 3 Mg Tablet) 6 mg PO BEDTIME PRN PRN Reason: Insomnia Omeprazole (Omeprazole 20 Mg Capsule.Dr) 20 mg PO DAILY@0630 [facility] Last Admin: 09/01/24 06:30 Dose: 20 mg Documented By: KAIDEN Sodium Chloride (0.9 % Sodium Chloride Flush 3 Ml Syringe) 3 ml IVFLUSH QSHIFT [facility] Last Admin: 09/01/24 08:25 Dose: 3 ml Documented By: PARRIS Vitamin D (Cholecalciferol (Vitamin D3) 25 Mcg Tablet) 50 mcg PO DAILY [facility] Last Admin: 09/01/24 08:24 Dose: 50 mcg Documented By: PARRIS Labs 09/01/24 05:21 09/01/24 05:21 Labs: Laboratory Results - last 24 hr 08/31/24 08/31/24 08/31/24 15:22 15:23 18:07 MCV 111.4 H MCH 38.4 H MCHC 34.4 RDW 14.3 Plt Count 47 L D MPV 9.1 L Immature Gran % (Auto) Cancelled Neut % (Auto) Cancelled Lymph % (Auto) Cancelled [place]verse % (Auto) Cancelled Eos % (Auto) Cancelled Baso % (Auto) Cancelled Lymph # (Auto) Cancelled [place] # (Auto) Cancelled Eos # (Auto) Cancelled Baso # (Auto) Cancelled Abs Immat Gran (auto) Cancelled Absolute Neuts (auto) Cancelled Absolute Nucleated RBC 0.020 H Nucleated RBC % (auto) 1.8 H Neutrophils % (Manual) 14 L Band Neutrophils % 4 Lymphocytes % (Manual) 68 H Atypical Lymphs % (Man) 8 H Eosinophils % (Manual) 2 Metamyelocytes % 4 Abs Neuts (Manual) 0.2 L Lymphocytes # (Manual) 0.7 L Atyp Lymphs # (Manual) 0.1 Nucleated RBCs 1 H Platelet Estimate DECREASED Plt Morphology Comment NORMAL RBC Morphology NOTED Macrocytosis 1+ (5-14) Steve Cells 1+ (0-2) Schistocytes 1+ (0-2) Smear Tech's Comments MANUAL DIFF Smear Path Review Cancelled Hold Blue Top SEE NOTE Anion Gap 15 Estim Creat Clear Calc 59.1 Estimated GFR > 60 POC Glucose 154 H Random Glucose 191 H Fasting Glucose Calcium 9.0 Magnesium 1.4 L* Total Bilirubin 0.6 AST 27 ALT 20 Alkaline Phosphatase 104 Total Protein 7.1 Albumin 3.0 L Urine Color Yellow Urine Appearance Cloudy Urine pH >= 9.0 Ur Specific [place] 1.015 Urine Protein 100 (2+) H Urine Glucose (UA) Negative Urine Ketones Negative Urine Blood Negative Urine Nitrite Negative Ur Leukocyte Esterase Negative Urine RBC 0-2 Urine WBC 21-50 H Ur Squamous Epith Cells 11-20 Urine Bacteria 4+ Hyaline Casts 3-5 08/31/24 09/01/24 09/01/24 21:57 05:21 07:36 MCV 111.8 H MCH 38.0 H MCHC 34.0 RDW 14.0 Plt Count 43 L MPV 9.9 Immature Gran % (Auto) Neut % (Auto) Lymph % (Auto) [place]verse % (Auto) Eos % (Auto) Baso % (Auto) Lymph # (Auto) [place]verse # (Auto) Eos # (Auto) Baso # (Auto) Abs Immat Gran (auto) Absolute Neuts (auto) Absolute Nucleated RBC 0.020 H Nucleated RBC % (auto) 1.7 H Neutrophils % (Manual) Band Neutrophils % Lymphocytes % (Manual) Atypical Lymphs % (Man) Eosinophils % (Manual) Metamyelocytes % Abs Neuts (Manual) Lymphocytes # (Manual) Atyp Lymphs # (Manual) Nucleated RBCs Platelet Estimate Plt Morphology Comment RBC Morphology Macrocytosis Steve Cells Schistocytes Smear Tech's Comments Smear Path Review Hold Blue Top Anion Gap 14 Estim Creat Clear Calc 76.8 Estimated GFR > 60 POC Glucose 134 H 137 H Random Glucose Fasting Glucose 148 H Calcium 8.8 Magnesium 2.0 Total Bilirubin AST ALT Alkaline Phosphatase Total Protein Albumin Urine Color Urine Appearance Urine pH Ur Specific [place] Urine Protein Urine Glucose (UA) Urine Ketones Urine Blood Urine Nitrite Ur Leukocyte Esterase Urine RBC Urine WBC Ur Squamous Epith Cells Urine Bacteria Hyaline Casts Assessment and Plan (1) Essential hypertension: Status: Acute Plan 79M PMH paroxysmal atrial fibrillation, bladder cancer status post urostomy in remission, ALISON on CPAP at night, hypertension, diabetes, coronary disease status post stent, B12 deficiency, mood disorder presented with hematuria and left flank pain Hematuria due to UTI Ceftriaxone, holding Eliquis Flank pain ct abd unremarkable Pancytopenia Hematology eval Paroxysmal atrial fibrillation Continue diltiazem, hold Eliquis Diabetes Insulin sliding scale ALISON CPAP at night DVT prophylaxis-mechanical due to thrombocytopenia Full code reason for continued hospitalization:awaiting cultures Quality Stroke Does the patient have a stroke diagnosis?: No VTE Prior VTE?: No VTE Risk Level:: Medical - moderate - high VTE Device Contraindication: N/A - Device Ordered VTE Drug Contraindication: Treatment Not Tolerated
[2024-09-01 09:39] LABS: Erythrocyte Sedimentation Rate 114 MM/HR (0-15)
[2024-09-01 09:41] LABS: Lactate Dehydrogenase 226 U/L (118-273)
[2024-09-01 11:31] LABS: Rheumatoid Factor < 13.0 IU/mL (<15.0)
[2024-09-01 11:39] LABS: Glucose, Whole Blood 155 mg/dL (60-115)
[2024-09-01] MEDS: Insulin Lispro 100 UNIT/ML 3 ML VIAL SUBCUT (11:49)
[2024-09-01 11:57] LABS: HBc Num1 0.23 S/CO (0.00-0.79); HBsAGNum1 0.26 S/CO (0.00-0.99); HIV AB/AG Nonreactive (Nonreactive); HIV Num 1 0.06 S/CO (0.00-0.99); Hepatitis B Core Antibody Nonreactive (Nonreactive); Hepatitis B Surface Antigen Negative (Negative); ~HepC Num1 0.33 S/CO (0.00-0.79); ~Hepatitis B Surface Antibody NONREACTIVE (Nonreactive); ~Hepatitis C Antibody Nonreactive (Nonreactive)
[2024-09-01 12:00] VITALS: BP 116/63; PULSE 67; RESP 16; TEMP 36.6; O2SAT 98
--- NOTE | 2024-09-01 12:06 | MHC.CM.PN ---
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
[2024-09-01 15:22] VITALS: BP 141/66; PULSE 60; RESP 18; TEMP 36.6; O2SAT 97
[2024-09-01 16:13] LABS: Glucose, Whole Blood 121 mg/dL (60-115)
[2024-09-01 19:17] VITALS: BP 135/75; PULSE 75; RESP 18; TEMP 37.6; O2SAT 100
[2024-09-01 20:09] LABS: Glucose, Whole Blood 149 mg/dL (60-115)
[2024-09-01] MEDS: Atorvastatin Calcium 40 MG TABLET PO (22:08)
[2024-09-02] VITALS: BP 121/65; PULSE 72; RESP 18; TEMP 36.9; O2SAT 96
[2024-09-02 03:59] VITALS: BP 151/71; PULSE 75; RESP 16; TEMP 36.5; O2SAT 97
[2024-09-02] MEDS: Omeprazole 20 MG CAPSULE.DR PO (05:31)
[2024-09-02 07:06] VITALS: BP 134/69; PULSE 85; RESP 18; TEMP 37; O2SAT 94
[2024-09-02 07:33] LABS: Glucose, Whole Blood 138 mg/dL (60-115)
--- NOTE | 2024-09-02 09:12 | P.DS_ITS ---
DS: Providers Provider Date of Service: 09/02/24 Date of admission: 08/31/24 16:57 Date of discharge: 09/02/24 Primary care physician: Matias Roy MD Consults: 08/31/24 16:55 Consult to Hematology / Oncology Routine Consulting Provider: [facility] Oncology/Hematology Reason for consultation: pancytopenia, ?etiology DS: Diagnosis Discharge Diagnosis (1) Pancytopenia: Status: Acute DS: Summary Hospital Course Hospital Course: from initial hpi: 79M PMH paroxysmal atrial fibrillation, bladder cancer status post urostomy in remission, ALISON on CPAP at night, hypertension, diabetes, coronary disease status post stent, B12 deficiency, mood disorder presented with hematuria and left flank pain. Patient states hematuria has been on and off for the past week has been on Macrobid for UTI due to pansensitive E coli just completed course but continues to have hematuria. Also complaining of left-sided flank pain and left lower quadrant abdominal pain on and off worse with eatin hospital course: Patient was admitted for hematuria due to urinary tract infection and chronic thrombocytopenia while on Eliquis. Patient initially had flank pain, CT abdomen was unremarkable and flank pain resolved. For pancytopenia was seen by Hematology who initiated workup and will continue follow up outpatient. For paroxysmal atrial fibrillation was continued on diltiazem, Eliquis will be discontinued for now as platelets below 50,000. For diabetes was continued on insulin sliding scale. For ALISON was continued on CPAP at night. Hematuria resolved and Patient is feeling better will be discharged home. Will be discharged on 3 more days of cefuroxime was seen, urine culture were mixed chris. Time Attestation Discharge Coordination Time (in mins): 33 Quality: Safe Use of Opioids Does Pt have an Active Cancer Diagnosis on the Problem List?: No Quality: Stroke Does the patient have a stroke diagnosis?: No Physical Exam Vital Signs: Vital Signs: Last Vital Signs Temp 98.6 F 09/02/24 07:06 Pulse 85 09/02/24 07:06 Resp 18 09/02/24 07:06 BP 134/69 09/02/24 07:06 Pulse Ox 94 09/02/24 07:06 O2 Del Method Room Air 09/02/24 07:06 BMI result Body Mass Index 26.3 General: AO X 3, no acute distress Resp: CTA bilateral, no accessory muscles used CVS: S1,S2,RRR GI: soft, non tender, non distended Neuro: motor grossly intact, alert Psych: appropriate affect, appropriate insight DS: Data Data Completed and Pending Completed studies during hospitalization [Text1]: Procedures Inspection of Upper Intestinal Tract, Via Natural or Artificial Opening Endoscopic (10/24/20) Labs on day of discharge: Laboratory Results - last 24 hr 09/01/24 09/01/24 09/01/24 05:21 10:46 11:35 ESR 114 H POC Glucose 155 H Lactate Dehydrogenase 226 Rheumatoid Factor < 13.0 Hep Bs Antigen Negative Hep Bs Antibody NONREACTIVE Hep B Core Total Ab Nonreactive Hepatitis C Ab (EIA) Nonreactive HIV 1&2 Ab/P24 Ag 4thGn Nonreactive 09/01/24 09/01/24 09/02/24 16:10 20:04 07:10 ESR POC Glucose 121 H 149 H 138 H Lactate Dehydrogenase Rheumatoid Factor Hep Bs Antigen Hep Bs Antibody Hep B Core Total Ab Hepatitis C Ab (EIA) HIV 1&2 Ab/P24 Ag 4thGn Discharge Plan Discharge Anticipated Discharge Date/Time: 09/02/24 09:10 Patient Disposition: Home, Self-Care Discharge Diagnosis: uti, hematuria Referrals: Gina Borrego MD [Physician] - 1 Week Matias Roy MD [Primary Care Provider] - 1 Week Discharge Medications: New cefuroxime axetil 500 mg tablet 500 mg PO BID Qty: 6 0RF Continued atorvastatin 40 mg tablet 40 mg PO BEDTIME Qty: 90 3RF mecobalamin (vitamin B12) 1,000 mcg tablet,disintegrating 1,000 mcg sublingual DAILY 90 Days Qty: 90 3RF Rx Instructions: place tablet under tongue and allow to dissolve for at least 30 secs before swallowing diltiazem HCl 180 mg capsule,extended release 24hr 180 mg PO DAILY Qty: 90 3RF lisinopril 10 mg tablet 10 mg PO DAILY 90 Days Qty: 90 2RF fluoxetine 20 mg capsule 40 mg PO DAILY 90 Days Qty: 180 3RF acetaminophen [Tylenol] 325 mg Tablet 650 mg PO DAILY PRN (Reason: Pain) ferrous gluconate 324 mg (38 mg iron) tablet 324 mg PO MOWEFR Rx Instructions: 4x week due to constipation. cholecalciferol (vitamin D3) 50 mcg (2,000 unit) capsule 50 mcg PO DAILY omeprazole 20 mg capsule,delayed release(DR/EC) 20 mg PO DAILY@0630 metformin 500 mg tablet extended release 24 hr 500 mg PO BID Centrum Silver Men [id number] mcg tablet 1 tab PO DAILY Discontinued Eliquis 5 mg tablet 5 mg PO BID Qty: 180 3RF Discharge Orders: Discharge Order (Routine); Ordered 09/02/24 Ordered By: Richard Loya Diet: Advance to usual diet Activity on Discharge: As tolerated Stand Alone Forms: Patient Portal Discharge page Print Language: Turkmen Care Plan Goals: Recovery Health Concerns: Hematuria, UTI, pancytopenia Plan of Treatment: Stop Eliquis, follow-up with Hematology to workup pancytopenia, 3 more days of cefuroxime Assessment: See above
[2024-09-02] MEDS: Cyanocobalamin (Vitamin B-12) 1,000 MCG TABLET 1000 MCG PO (09:44)
[2024-09-02] MEDS: 0.9 % Sodium Chloride Flush 3 ML SYRINGE IVFLUSH (09:44)
[2024-09-02] MEDS: FLUoxetine HCl 20 MG CAPSULE 40 MG PO (09:44)
[2024-09-02] MEDS: lisinopriL 10 MG TABLET PO (09:44)
[2024-09-02] MEDS: dilTIAZem HCL CD 180 MG CAP.ER.24H PO (09:44)
[2024-09-02] MEDS: Cholecalciferol (Vitamin D3) 25 MCG TABLET 50 MCG PO (09:44)
[2024-09-02] MEDS: cefTRIAXone sodium 1 GM VIAL IVPUSH (09:44)
--- NOTE | 2024-09-02 10:18 | MHC.CM.PN ---
PT CLEARED TO DC HOME TODAY WITH NO SERVICES VIA FAMILY TRAN[facility]ORT
[2024-09-02 21:48] LABS: IgA 209 mg/dL (70-320); IgG 1392 mg/dL (600-1540); IgM 168 mg/dL (50-300)
[2024-09-07 07:34] LABS: Anti Nuclear Antibody Screen NEGATIVE (NEGATIVE)
== END 2024-09-02 11:17 | disposition home or self-care (01) | DRG 690 ==
LOC: HO.ED 16:42 → HO.EDOVER 17:11 → HO.S3 23:50
PROVIDERS: Internal Medicine Medical Oncology; Physician Assistant Medical; Admitting Provider Internal Medicine; Emergency Provider Emergency Medicine; PCP Family Medicine; Visit Provider Internal Medicine
DX: N39.0 Urinary tract infection, site not specified (principal); D61.818 Other pancytopenia; G47.33 Obstructive sleep apnea (adult) (pediatric); R31.9 Hematuria, unspecified; F17.210 Nicotine dependence, cigarettes, uncomplicated; Z71.6 Tobacco abuse counseling; E11.9 Type 2 diabetes mellitus without complications; I48.0 Paroxysmal atrial fibrillation; Z85.51 Personal history of malignant neoplasm of bladder; Z79.84 Long term (current) use of oral hypoglycemic drugs; Z79.899 Other long term (current) drug therapy
CPT/HCPCS: 36415; 74176; 80048; 80053; 81001; 82784; 82947; 83615; 83735; 85007; 85025; 85027; 85652; 86038; 86334; 86431; 86704; 86706; 86803; 87086; 87340; 87389; 93005; 99285; J0696; J0744; J3475

== ENCOUNTER → 2024-08-31 16:37 | Outpatient (BNV) | payer MEDICARE, OTHER, SELFPAY | PROVIDERS: Admitting Provider Internal Medicine; Emergency Provider Emergency Medicine; PCP Family Medicine; Visit Provider Internal Medicine Cardiovascular Disease | DX: E83.42 Hypomagnesemia (principal) | CPT/HCPCS: 93010 ==

== ENCOUNTER → 2024-08-31 16:57 | Outpatient (BNV) | payer MEDICARE, OTHER, SELFPAY | PROVIDERS: Admitting Provider Internal Medicine; Emergency Provider Emergency Medicine; PCP Family Medicine; Visit Provider Internal Medicine | DX: D61.818 Other pancytopenia (principal); N30.01 Acute cystitis with hematuria; I48.91 Unspecified atrial fibrillation | CPT/HCPCS: 99223; 99232; 99239 ==

== ENCOUNTER → 2024-08-31 16:57 | Outpatient (BNV) | payer MEDICARE, OTHER, SELFPAY | PROVIDERS: Admitting Provider Internal Medicine; Emergency Provider Emergency Medicine; PCP Family Medicine; Visit Provider Internal Medicine Medical Oncology | DX: D61.818 Other pancytopenia (principal) | CPT/HCPCS: 99222 ==

== ENCOUNTER 2024-09-06 10:51 | Outpatient (AMB) | payer MEDICARE, OTHER, SELFPAY ==
[2024-09-06 11:46] VITALS: BP 125/60; PULSE 99; RESP 20; TEMP 37; O2SAT 100
--- NOTE | 2024-09-06 11:46 | A.OFFPC_ITS ---
Vital Signs 09/06/24 11:46 Weight 193 lb BP 125/60 Blood Pressure Location Lt brachial Position Sitting Respiration 20 Pulse 99 Pulse Source Pulse Oximeter Temp 98.6 F Temp Source Temporal Artery Scan Pulse Oximetry (%) 100 Oxygen Delivery Method Room Air Intake Visit Reasons: Urinary tract infection Intake Note: uti symptoms Allergies Iodinated Contrast Media [IV CONTRAST] Allergy (Severe, Verified 09/06/24 11:48) ANAPHYLAXIS Penicillins [PENICILLINS] Allergy (Severe, Verified 09/06/24 11:48) trouble breathing doxycycline Adverse Reaction (Intermediate, Verified 09/06/24 11:48) rASH Medication List - Last Reconciled 09/06/24 by Matias Roy MD acetaminophen (Tylenol) 650 mg PO DAILY PRN atorvastatin 40 mg PO BEDTIME cefuroxime axetil 500 mg PO BID cholecalciferol (vitamin D3) 50 mcg PO DAILY diltiazem HCl CD 180 mg PO DAILY ferrous gluconate 324 mg PO MOWEFR fluoxetine 40 mg (2 x 20 mg) PO DAILY 90 days lisinopril 10 mg PO DAILY 90 days mecobalamin (vitamin B12) 1,000 mcg sublingual DAILY 90 days metformin ER 500 mg PO BID [id number] mcg (Centrum Silver Men) 1 tab PO DAILY omeprazole 20 mg PO DAILY@0630 Tobacco use date assessed: 05/10/24 Dental Screening Dental Screen Date: 05/10/24 HPI Urinary tract infection HPI Details 79 y/o male presents to f/u UTI. Note poor appetite and feels unwell today. Reports ongoing nausea. FOR[facility]LY [facility], LATER [facility] Medical History MRSA infection Foot drop, left foot ALISON on CPAP COPD (chronic obstructive pulmonary disease) Upper GI bleeding PAF (paroxysmal atrial fibrillation) Smoker Hyperlipidemia, unspecified Type 2 diabetes mellitus with unspecified complications Essential hypertension Arteriosclerotic cardiovascular disease Atrial flutter by electrocardiogram Surgical History H/O colonoscopy Status post surgical removal of malignant neoplasm of skin History of knee replacement (~10/2021) Hx of cardiac cath (~2017) History of surgical removal of ganglion cyst (~2016) S/P radical cystoprostatectomy (~2014) Hx of total knee replacement (~2004) Family History Father Staph infection Mother Hypertension Brother Heart problem Social History Household Members: Spouse Household Members Other:: pets: dogs Housing: House Do you presently have visiting nurse or other home services: No Alcohol intake: current Alcohol intake frequency: 0-2 drinks per day Alcohol type: hard liquor Patient Tobacco Use Status: Current everyday Tobacco user Tobacco use type: Cigarette Cigarette Packs Per Day: 1 Years Smoked: 64 e-Cigarette/Vaping Use: Never Used Second Hand Smoke Exposure: No Advance Directives Date on File: 05/26/24 service: Yes Current occupational status: retired Current occupational exposures/hazards: No Cognitive needs: No Hearing needs: Yes Vision needs: No Questionnaire PHQ-9 Over the last 2 weeks, how often have you been bothered by any of the following problems? 2. Feeling down, depressed, or hopeless: not at all 3. Trouble falling or staying asleep, or sleeping too much: not at all Source: Developed by Drs. Shiva Kearney, Kaycee Berry, Dale Alston and colleagues, with an educational shannon from [employer] Thrive Questionnaire Date Thrive assessed: 08/13/24 I am a: Patient What is your living situation today?: I have a steady place to live Within the past 12 months, did the food you bought not last and you didn't have the money to get more?: Sometimes True Within the past 12 months, did you worry whether your food would run out before you got money to buy more?: Never true Do you have trouble paying for medicines?: No Do you have trouble getting transportation to medical appointments?: No Do you have trouble paying your heating and electricity bill?: No Do you have trouble taking care of your child, family member or friend?: No Do you have trouble with day-to-day activities such as bathing, preparing meals, shopping, managing finances, etc.?: No Are you currently unemployed and looking for a job?: No Are you interested in more education?: No Please select the resources that you would like help with: None Currently or been in a relationship where the following occur: No concerns reported THRIVE Score: 1 SURYA-7 AMB Questionnaire SURYA-7 Date SURYA - 7 assessed: 05/10/24 Source: Developed by Drs. Shiva Kearney, Kaycee Berry, Dale Alston and colleagues, with an educational shannon from [employer] Physical exam (Primary Care) Vital Signs: Last Vital Signs Temp 98.6 F 09/06/24 11:46 Pulse 99 09/06/24 11:46 Resp 20 09/06/24 11:46 BP 125/60 09/06/24 11:46 Pulse Ox 100 09/06/24 11:46 Oxygen Delivery Method Room Air 09/06/24 11:46 Tobacco/Smoking Status: Tobacco use Status Tobacco use date assessed 05/10/24 09/06/24 11:48 Patient Tobacco Use Status Current everyday Tobacco 09/06/24 11:48 Tobacco use type Cigarette 09/06/24 11:48 e-Cigarette/Vaping Use Never Used 09/06/24 11:48 Thrive Assessment: Date of Thrive Assessment Date Thrive assessed 08/13/24 09/06/24 11:48 Currently or been in a relationship where the following occur: No concerns reported Coding Level of Care Code Est Pt Level 4 (28527) Diagnoses Urinary tract infection N39.0 Hypomagnesemia E83.42 Pancytopenia D61.818 Assessment & Plan Assessment & Plan (1) Urinary tract infection: Code(s): N39.0 - Urinary tract infection, site not specified Category: Medical Plan: Recent?hospital?admission?for?urinary?tract?infection. Patient?was?discharged?on?cefuroxime?and?completed?this?last?night. However,?patient?seems?to?have?bee n?already?feeling?worse?again?prior?to?finishing?this?medication. Significant?decrease?in?appetite.??Patient?appears?dehydrated?and?has?shaking?ch ills?though?temperature?is?within?normal?range. Pulse?is?mildly?elevated?above?his?baseline Concern?for?ongoing?infection Patient?sent?back?to?the?emergency?department?by?ambulance?as?he?is?unable?to?st and/walk?safely (2) Hypomagnesemia: Code(s): E83.42 - Hypomagnesemia Category: Medical Plan: This?was?resolved?prior?to?leaving?the?hospital (3) Pancytopenia: Code(s): D61.818 - Other pancytopenia Category: Medical Plan: Patient?was?seen?by?Hematology- Oncology?while?admitted?as?he?has?pancytopenia?and?will?be?followed?as?an?outpat ient. Orders: Orders Urine Culture Today N39.0 - Urinary tract infection, site not specified UA and rflx microscopic Today N39.0 - Urinary tract infection, site not specified, Z00.00 - Encounter for general adult medical examination without abnormal findings
== END 2024-09-06 16:19 | disposition home or self-care (01) ==
PROVIDERS: PCP Family Medicine; Visit Provider Family Medicine
DX: N39.0 Urinary tract infection, site not specified (principal); E83.42 Hypomagnesemia; D61.818 Other pancytopenia

== ENCOUNTER 2024-09-06 10:51 | Outpatient (REF) | payer MEDICARE, OTHER, SELFPAY ==
[2024-09-06 18:28] LABS: Appearance Urine Clear; Color Urine Yellow; Glucose Urine UA Negative (Negative); Leukocyte Esterase Urine Negative (Negative); Nitrite Urine Negative (Negative); PH 6.5 (5.0-9.0); Specific Gravity - Urine 1.015 (1.005-1.025); UMIC TRIGGER UA YES; Urine Blood Moderate (2+) (Negative); Urine Ketones Negative (Negative); Urine Protein 100 (2+) mg/dL (Neg-Trace)
[2024-09-06 18:58] LABS: Bacteria Urine None Seen (None Seen); Hyaline Casts Urine 0-2 /LPF (0-2); Squamous Epithelial Cell Urine 0-2 /HPF (0-2); WBC Urine 0-5 /HPF (0-5)
== END 2024-09-06 10:52 | disposition home or self-care (01) ==
LOC: HO.LAB 10:51
PROVIDERS: PCP Family Medicine; Visit Provider Family Medicine
DX: Z13.89 Encounter for screening for other disorder (principal)
CPT/HCPCS: 81001; 87086; 99212

== ENCOUNTER 2024-09-06 12:29 | Inpatient (IN) | payer MEDICARE, OTHER, SELFPAY ==
--- NOTE | ~2024-09-06 | CT_ITS ---
EXAMINATION: CT CHEST WITHOUT IV CONTRAST, CT ABDOMEN PELVIS WITHOUT IV CONTRAST CLINICAL INFORMATION: Chills, absolute neutropenia evaluate for infectio COMPARISON: CT abdomen and pelvis 08/31/2024. CT chest 11/15/2019. TECHNIQUE: Unenhanced CT of the chest, abdomen and pelvis. Intravenous Contrast: None This CT examination was performed using dose optimization techniques as appropriate, variously including the following: *Automated exposure control *Adjustment of mA and/or kV according to patient size (this includes techniques or standardized protocols for targeted exams where dose is matched to indication/reason for exam; i.e. extremities or head) *Use of iterative reconstruction technique DLP: 986 mGy-cm FINDINGS: CT chest: Paraseptal emphysematous changes are noted along with subpleural honeycombing and traction bronchiectasis. Findings the lung bases are unchanged compared with 08/31/2024 and appears slightly progressed compared with 11/15/2019. A 5 mm partially calcified nodule within the base of the right middle pulmonary lobe is unchanged compared with 11/15/2019 and is benign in appearance and warrants no additional imaging follow-up (Dennise Society criteria). The punctate benign-appearing calcification measuring 3 mm diameter is present in the right lung base. No focal pulmonary consolidation. No pleural effusions or pneumothoraces. Scattered calcific plaques within the thoracic aorta which is normal in caliber. Partial visualization is made of marked diffuse coronary artery calcific atherosclerosis. Normal heart size. No thoracic wall inflammatory changes. No axillary lymphadenopathy. CT abdomen and pelvis: Normal appearance of the liver, gallbladder, pancreas, spleen. Diffuse prominence of the left adrenal gland is unchanged compared with 11/15/2019. The right adrenal gland is normal in appearance. Bilateral rounded low-density benign-appearing simple cysts are present within the left and right kidneys. These findings were no additional imaging follow-up. A single 5 mm hyperdense focus is present inferiorly within the left kidney and is on change compared with 08/31/2024. This finding is overall in the likely to be benign and warrants no additional imaging follow-up on the basis of this examination. No hydronephrosis or perinephric inflammatory changes. No urolithiasis identified. The urinary bladder is absent. A diverting ileal conduit is present within the right lower abdominal quadrant. Multiple brachial therapy seeds are present within the prostate. No intestinal dilatation or mural thickening noted. Normal appearance of the appendix. No free intraperitoneal fluid or gas collections. No inflammatory changes of the sigmoid or small bowel mesentery. A midline lower pelvic focal abdominal wall dehiscence is present and is associated with focal herniation of small bowel segment similar findings present 08/31/2024. No parastomal hernia noted in association with the right lower quadrant stoma. No abdominal or pelvic lymphadenopathy noted. Diffuse calcific atherosclerosis. No suspicious skeletal abnormalities noted in the chest, abdomen and pelvis. Bridging confluent endplate osteophytosis of the thoracic spine consistent with DISH is noted. CT/CT abdomen pelvis wo IV con IMPRESSION: Noncontrast CT of the chest, abdomen and pelvis: 1. No acute abnormalities identified. 2. Status post cystectomy with diverting ileal conduit in the right lower abdominal quadrant. No evidence of intestinal obstruction. No free intraperitoneal fluid or gas collections. 3. No abdominal or pelvic lymphadenopathy. 4. Mild-moderate paraseptal emphysema and pulmonary fibrosis. Findings are unchanged compared with 08/31/2024 and appears slightly progressed compared with 11/15/2019. 5. Marked diffuse coronary artery calcific atherosclerosis. Electronically signed by: Charlie Glass MD 09/07/2024 03:27 AM EST
--- NOTE | ~2024-09-06 | XR_ITS ---
EXAMINATION: XR CHEST CLINICAL INFORMATION: Chills. Shortness of breath. Rule out pneumonia. COMPARISON: Chest radiograph 06/19/2024. TECHNIQUE: 2 views of the chest were obtained. FINDINGS: Normal appearance of the cardiomediastinal structures. No effusions or pneumothoraces. Mild chronic appearing biapical pleural parenchymal scarring of the lungs. Mild diffuse pulmonary vascular indistinctness and fine pulmonary reticular opacities. Scattered aortic calcific atherosclerosis. No focal pulmonary consolidation. Confluent endplate osteophytosis of the thoracic spine. XR/XR chest 2V IMPRESSION: *Diffuse fine pulmonary reticular opacities and pulmonary vascular indistinctness. Findings could represent mild pulmonary vascular congestion. Alternatively, findings may represent bronchitis/bronchiolitis in the setting of viral/atypical infection. No focal pulmonary consolidation. Electronically signed by: Charlie Glass MD 09/07/2024 02:34 AM MARGARET
--- NOTE | ~2024-09-06 | CT_ITS ---
Pancytopenia PROCEDURES: 1. Limited preprocedure CT of the pelvis. Permanent images saved in PACS. 2. 11 g bone marrow core biopsy of the right posterior iliac spine 3. 11 g bone marrow aspirate of the right posterior iliac spine CLINICIANS: Gaurav Xiong PA-C MEDICATIONS: -Versed 1.5 mg, Fentanyl 75 mcg, and lidocaine 1% 10 mL SQ -Antibiotics: None -For additional details, please see nursing flowsheet. COMPLICATIONS: None ESTIMATED BLOOD LOSS: < 5 ml CONTRAST: None SPECIMENS: 11 g core placed in formalin. Bone marrow aspirate placed in EDTA and sodium heparin tubes MODERATE SEDATION TIME: 15 min PROCEDURE NOTE: The procedure, risks, benefits, and alternatives were carefully explained to the patient and written informed consent was obtained. The patient was placed prone on the CT table. A timeout was performed. A limited CT of the pelvis was performed to localize posterior iliac spine and choose appropriate needle entry and trajectory. The patient was prepped and draped in usual sterile fashion. The skin, subcutaneous tissues, and periosteum were anesthetized with lidocaine. Under CT guidance, an 11-gauge bone marrow biopsy needle was advanced into the right posterior iliac spine, with the tip positioned slightly cephalad. An 11-gauge core biopsy of the bone marrow was performed and was placed in formalin. Next, the 11-gauge bone marrow biopsy needle was then advanced into the right posterior iliac spine, under CT guidance, with the tip positioned slightly caudal. A bone marrow aspiration was performed. The specimen was placed in the provided EDTA and sodium heparin tubes. The needle was removed. A dry dressing was applied and secured with Tegaderm. There were no immediate complications. The patient was stable after the procedure and was transferred to the post anesthesia care unit. The procedure was done under moderate sedation with a dedicated nurse for monitoring of vital signs. CT/CT biopsy bone marrow IMPRESSION: CT-guided bone marrow biopsy and aspirate This procedure was performed by Gaurav Xiong PA-C and supervised by Dr. Gallo. Electronically signed by: Addison Muniz MD 09/09/2024 01:02 PM [facility]
[2024-09-06 12:41] VITALS: BP 158/84; PULSE 74; O2SAT 97
--- NOTE | 2024-09-06 13:28 | ED.GENADULT ---
HPI - General Adult General Chief complaint: General Medical Stated complaint: FLU LIKE SX FOR 1 DAY ,FROM URGENT CARE PER EMS Time Seen by Provider: 09/07/24 00:44 Source: patient Mode of arrival: ambulatory Limitations: no limitations History of Present Illness ED Provider: Dr. Sánchez Downey HPI narrative: 79-year-old male with a history of MRSA, ALISON on CPAP, COPD, paroxysmal atrial fibrillation, hyperlipidemia, diabetes mellitus, hypertension, coronary artery disease, bladder cancer with radical cysto prostatectomy 2013, recurrent hematuria, UTIs, pancytopenia diagnosed on recent admission 08/31/2024 until 09/02/2024 who was sent to the emergency department from his PCP's office by ambulance for evaluation of shaking chills, nausea, fatigue, weakness, intermittent back pain. Patient was hospitalized from 08/31/2024 until 09/02/2024 for hematuria, urinary tract infection, flank pain with negative CT scan. Patient was found to have a pancytopenia with WBC count of 1500 [place] [address]. Patient states that since leaving the hospital he was continued to have 3-4 episodes of shaking chills per day. He did not take his temperature at home but states that while he was seeing his PCP he had an episode of shaking chills and a normal temperature. He states he has had nausea with no vomiting. He states he has had severe weakness and fatigue. He also complains of diffuse abdominal pain which is 8/10 at its worse which she states has been present for several weeks. He states that he has a cough which is chronic. He has worsening shortness of breath and dyspnea on exertion. He was intermittent left-sided chest pain. Reviewing the patient's microbiology test the patient had a urine culture from 08/23/2020 which grew E coli which was pansensitive. Repeat urine cultures on 08/31/2024 grew mixed chris. Patient had no blood cultures from his previous admission. Related Data Home Medications ?Medication ?Instructions ?Recorded ?Confirmed omeprazole 20 mg capsule,delayed 20 mg PO DAILY@0630 11/07/20 09/06/24 release cholecalciferol (vitamin D3) 50 50 mcg PO DAILY 11/14/20 09/06/24 mcg (2,000 unit) capsule metformin 500 mg tablet,extended 500 mg PO BID 11/11/21 09/06/24 release 24 hr acetaminophen 325 mg tablet 650 mg PO DAILY PRN Pain 06/20/24 09/06/24 (Tylenol) [id number] 300 mcg-K 60 1 tab PO DAILY 08/23/24 09/06/24 mcg-lycop 600 mcg-lutein 300 mcg tablet (Centrum Silver Men) ferrous gluconate 324 mg (38 mg 324 mg PO MOWEFR 08/31/24 09/06/24 iron) tablet Previous Rx's ?Medication ?Instructions ?Recorded atorvastatin 40 mg tablet 40 mg PO BEDTIME #90 tabs 06/03/24 mecobalamin (vitamin B12) 1,000 1,000 mcg sublingual DAILY 90 days 06/17/24 mcg disintegrating #90 tabs tablet,sublingual diltiazem HCl 180 mg 180 mg PO DAILY #90 caps 08/15/24 capsule,extended release 24 hr fluoxetine 20 mg capsule 40 mg (2 x 20 mg) PO DAILY 90 days 08/19/24 #180 caps lisinopril 10 mg tablet 10 mg PO DAILY 90 days #90 tabs 08/19/24 cefuroxime axetil 500 mg tablet 500 mg PO BID #6 tabs 09/02/24 Allergies Allergy/AdvReac Type Severity Reaction Status Date / Time Iodinated Contrast Media Allergy Severe ANAPHYLAXIS Verified 09/06/24 13:34 [IV CONTRAST] Penicillins [PENICILLINS] Allergy Severe trouble Verified 09/06/24 13:34 breathing doxycycline AdvReac Intermediate rASH Verified 09/06/24 13:34 [facility] Past Medical History [facility] Narrative: Social history: The patient continues to smoke 4-6 cigarettes per day. He denies alcohol use. He states that he was using edible marijuana to help him sleep at night. Medical History MRSA infection Foot drop, left foot ALISON on CPAP COPD (chronic obstructive pulmonary disease) Upper GI bleeding PAF (paroxysmal atrial fibrillation) Smoker Hyperlipidemia, unspecified Type 2 diabetes mellitus with unspecified complications Essential hypertension Arteriosclerotic cardiovascular disease Atrial flutter by electrocardiogram Surgical History H/O colonoscopy Status post surgical removal of malignant neoplasm of skin History of knee replacement (~10/2021) Hx of cardiac cath (~2017) History of surgical removal of ganglion cyst (~2016) S/P radical cystoprostatectomy (~2014) Hx of total knee replacement (~2004) Family History Family History Father Staph infection Mother Hypertension Brother Heart problem Social History Social History Household Members: Spouse Household Members Other:: pets: dogs Housing: House Do you presently have visiting nurse or other home services: No Alcohol intake: current Alcohol intake frequency: 0-2 drinks per day Alcohol type: hard liquor Patient Tobacco Use Status: Never used Tobacco Tobacco use type: Cigarette Cigarette Packs Per Day: 1 Years Smoked: 64 Smoked in Last 30 Days: No e-Cigarette/Vaping Use: Never Used Second Hand Smoke Exposure: No Use of substances other than those prescribed or required for medical reasons: No Advance Directives: Yes Advance Directives Information Provided: Yes Advance Directives on File: No Advance Directives Date on File: 05/26/24 Do you have a plan to hurt others: No Plan Nutrition Risks: No Nutritional Risk service: Yes Current occupational status: retired Current occupational exposures/hazards: No Cognitive needs: No Hearing needs: Yes Vision needs: No Physical Exam ED Vital Signs: Vital Signs - 24 hr 09/06/24 13:29 09/06/24 21:51 09/07/24 00:52 Temperature 98.2 F 97.8 F 98.7 F Pulse Rate 78 83 89 Respiratory Rate 20 16 20 Blood Pressure 137/59 L 117/67 125/71 Pulse Oximetry 98 98 98 Oxygen Delivery Method Room Air Room Air BMI result Body Mass Index 26.3 Vital signs were normal Exam: General: Awake, alert in no distress Head: Normocephalic, atraumatic EENT: PERRL, Lids normal, sclera normal, conjunctiva normal, nose normal , ears normal, throat without erythema or exudates Neck: Supple, no adenopathy Lung: breath sounds symmetric, no wheezing, rales or rhonchi Chest: symmetric movement, nontender Heart: regular rate and rhythm, normal S1, S2 no murmurs or rubs Abdomen: soft, mild diffuse abdominal tender, nondistended, normal bowel sounds, the patient has a right-sided urostomy, urine is yellow with no blood in the ostomy bag. No voluntary, involuntary guarding. Back: Mild bilateral CVA tender Extremities: no deformities, moves all extremities symmetrically Neuro: Awake, alert, oriented, normal speech, cranial nerves intact, moves all extremities symmetrically Psych: Pleasant, cooperative Course Course Course Narrative: This is a rapid medical exam performed by Benjamin Erwin NP: Additional HPI, ROS, PE not included below will be deferred to primary provider. Patient is a 79-year-old male with history of paroxysmal atrial fibrillation, bladder cancer status post urostomy in remission, ALISON on CPAP at night, hypertension, diabetes, coronary disease status post stent, B12 deficiency, mood disorder presenting via EMS with complaint of nausea, vomiting, weight loss, fatigue, chills. Discharged from here on Thursday. Saw PCP today who referred him here. Taken off Eliquis during admission and put on diltiazem due to thrombocytopenia. Plan: EKG, labs, UA,. viral serology Medications Administered Discontinued Medications Generic Name Dose Route Start Last Admin Trade Name Freq PRN Reason Stop Dose Admin Sodium Chloride 1,000 mls @ 999 mls/hr 09/07/24 01:16 09/07/24 03:12 Ns IV 09/07/24 02:16 Infused .Q1H1M STA Infusion Cefepime HCl 2 gm in 50 mls @ 100 mls/hr 09/07/24 01:16 09/07/24 02:28 Maxipime IV 09/07/24 01:45 Infused ONCE ONE Infusion Vancomycin HCl 2,000 mg in 500 mls @ 250 mls/hr 09/07/24 01:16 09/07/24 02:30 Vancomycin/Ns IV 09/07/24 03:15 250 mls/hr ONCE ONE Administration Tbo-Filgrastim 480 mcg 09/07/24 02:10 09/07/24 02:48 Tbo-Filgrastim 480 Mcg/0.8 Ml Syringe SUBCUT 09/07/24 02:11 Not Given ONCE ONE Medical Decision Making Medical Decision Making MDM Narrative: 79-year-old male with a history of MRSA, ALISON on CPAP, COPD, paroxysmal atrial fibrillation, hyperlipidemia, diabetes mellitus, hypertension, coronary artery disease, bladder cancer with radical cysto prostatectomy 2013, recurrent hematuria, UTIs, pancytopenia diagnosed on recent admission 08/31/2024 until 09/02/2024 who was sent to the emergency department from his PCP's office by ambulance for evaluation of shaking chills, nausea, fatigue, weakness, intermittent back pain with symptoms getting worse since being discharged from the hospital. Patient had an episode of shaking chills in his PCP's office with a reported normal temperature by the patient vital signs were normal. Physical examination did reveal diffuse mild abdominal tenderness and bilateral CVA tenderness. 01:35 Differential diagnosis: ?Includes but is not limited to myocardial infarction, myocardial ischemia, urinary tract infection, bacteremia, anemia, electrolyte abnormalities, Course: 01:35 My interpretation patient's laboratory evaluation is as follows. Leukopenia with a WBC of 1500 with low absolute neutrophil count of 100. BUN elevated 27 with normal creatinine of 0.98. Bicarb low 17 with an elevated anion gap of 21. High sensitive troponin I was low 17.8. Alk-phos elevated 127. COVID-19, influenza and RSV were negative. Given the patient's absolute neutropenia, I am concerned that the patient's shaking chills may be secondary to bacteremia therefore I ordered lactic acid, blood cultures x2, ESR, CRP, procalcitonin, chest x-ray one view two view and repeat troponin. Patient was ordered to get normal saline IV x1 L, cefepime 2 g IV and vancomycin 2 g IV (patient has a history of MRSA). I did discuss admission with the covering hospitalist, Dr. Greer and the patient will be admitted for further treatment with broad-spectrum antibiotic and diagnostic workup. 04:08 CT scan of chest abdomen pelvis without IV contrast did not reveal any infectious source to explain the patient's shaking chills, fatigue or weakness. Admission/Observation Consideration of admission/observation: Escalation of care including admission/observation considered Consult Healthcare Provider Management of the patient was discussed with: Hospitalist Lab Data MDM Lab Attestation statement: I reviewed the patient's lab results. 09/06/24 13:50 09/06/24 13:50 Labs: Lab Results 09/06/24 09/06/24 09/07/24 Range/Units 13:50 13:52 01:39 WBC 1.5 L (4.8-10.8) X10*3/uL RBC 2.60 L (4.60-5.80) X10*6/uL Hgb 10.1 L (14.0-18.0) g/dl Hct 29.2 L (42.0-52.0) % MCV 112.3 H (80.0-98.0) fL MCH 38.8 H (27.0-33.0) pg MCHC 34.6 (31.0-36.0) g/dl RDW 14.2 (11.0-16.0) % Plt Count 43 L (160-400) X10*3/uL MPV 10.4 (9.4-12.4) fL Immature Gran % (Auto) 0.7 H (0.0-0.4) % Neut % (Auto) 7.6 L (45-73) % Lymph % (Auto) 84.2 H (20-40) % [place] % (Auto) 4.1 (2-11) % Eos % (Auto) 2.7 (0-4) % Baso % (Auto) 0.7 (0-2) % Lymph # (Auto) 1.2 (1.2-4.9) X10*3/uL [place] # (Auto) 0.1 (0.1-1.2) X10*3/uL Eos # (Auto) 0.0 (0.0-0.4) X10*3/uL Baso # (Auto) 0.0 (0.0-0.2) X10*3/uL Abs Immat Gran (auto) 0.01 (0.00-0.03) X10*3/uL Absolute Neuts (auto) 0.1 L (2.0-8.3) x10*3/uL Absolute Nucleated RBC 0.000 (0.0-0.012) X10*3/uL Nucleated RBC % (auto) 0.0 (0.0-0.2) /100WBC Smear Tech's Comments VERIFIED ESR 124 H (0-15) MM/HR PT 13.1 H (10.9-12.4) SEC INR 1.1 (0.9-1.1) APTT 21.5 L (26.0-36.8) SEC Hold Blue Top SEE NOTE Sodium 141 (135-145) mmol/L Potassium 4.6 (3.3-5.1) mmol/L Chloride 108 (96-108) mmol/L Carbon Dioxide 17 L (22-29) mmol/L Anion Gap 21 H (12-20) BUN 27 H (9-16) mg/dL Creatinine 0.98 (0.5-1.4) mg/dL Estim Creat Clear Calc 68.1 Estimated GFR > 60 Random Glucose 121 H (60-115) mg/dL Lactic Acid 2.2 H* (0.5-2.0) mmol/L Calcium 9.6 D (8.4-10.2) mg/dL Total Bilirubin 0.7 (0.0-1.0) mg/dL AST 33 (5-37) U/L ALT 30 (0-40) U/L Alkaline Phosphatase 127 H (39-117) U/L Troponin I High Sens 17.8 (<3.5-35.0) ng/L Total Protein 7.7 (6.5-8.0) g/dL Albumin 3.2 L (3.5-5.0) g/dL Lipase 10 (8-78) U/L Procalcitonin 0.09 ng/mL Urine Color Yellow Urine Appearance Clear Urine pH 7.0 (5.0-9.0) Ur Specific [place] 1.015 (1.005-1.025) Urine Protein 100 (2+) H (Neg-Trace) mg/dL Urine Glucose (UA) Negative (Negative) mg/dL Urine Ketones Negative (Negative) mg/dL Urine Blood Moderate (2+) H (Negative) Urine Nitrite Negative (Negative) Ur Leukocyte Esterase Negative (Negative) Urine RBC 11-20 H (0-2) /HPF Urine WBC 11-20 H (0-5) /HPF Ur Squamous Epith Cells 0-2 (0-2) /HPF Urine Bacteria None Seen (None Seen) Hyaline Casts 0-2 (0-2) /LPF Influenza Type A (PCR) NEGATIVE (Negative) Influenza Type B (PCR) NEGATIVE (Negative) RSV RNA Qual (PCR) NEGATIVE (Negative) SARS-CoV-2 RNA (RT-PCR) NEGATIVE (Negative) 09/07/24 Range/Units 01:41 WBC (4.8-10.8) X10*3/uL RBC (4.60-5.80) X10*6/uL Hgb (14.0-18.0) g/dl Hct (42.0-52.0) % MCV (80.0-98.0) fL MCH (27.0-33.0) pg MCHC (31.0-36.0) g/dl RDW (11.0-16.0) % Plt Count (160-400) X10*3/uL MPV (9.4-12.4) fL Immature Gran % (Auto) (0.0-0.4) % Neut % (Auto) (45-73) % Lymph % (Auto) (20-40) % [place] % (Auto) (2-11) % Eos % (Auto) (0-4) % Baso % (Auto) (0-2) % Lymph # (Auto) (1.2-4.9) X10*3/uL [place] # (Auto) (0.1-1.2) X10*3/uL Eos # (Auto) (0.0-0.4) X10*3/uL Baso # (Auto) (0.0-0.2) X10*3/uL Abs Immat Gran (auto) (0.00-0.03) X10*3/uL Absolute Neuts (auto) (2.0-8.3) x10*3/uL Absolute Nucleated RBC (0.0-0.012) X10*3/uL Nucleated RBC % (auto) (0.0-0.2) /100WBC Smear Tech's Comments ESR (0-15) MM/HR PT (10.9-12.4) SEC INR (0.9-1.1) APTT (26.0-36.8) SEC Hold Blue Top Sodium (135-145) mmol/L Potassium (3.3-5.1) mmol/L Chloride (96-108) mmol/L Carbon Dioxide (22-29) mmol/L Anion Gap (12-20) BUN (9-16) mg/dL Creatinine (0.5-1.4) mg/dL Estim Creat Clear Calc Estimated GFR Random Glucose (60-115) mg/dL Lactic Acid (0.5-2.0) mmol/L Calcium (8.4-10.2) mg/dL Total Bilirubin (0.0-1.0) mg/dL AST (5-37) U/L ALT (0-40) U/L Alkaline Phosphatase (39-117) U/L Troponin I High Sens 17.3 (<3.5-35.0) ng/L Total Protein (6.5-8.0) g/dL Albumin (3.5-5.0) g/dL Lipase (8-78) U/L Procalcitonin ng/mL Urine Color Urine Appearance Urine pH (5.0-9.0) Ur Specific [place] (1.005-1.025) Urine Protein (Neg-Trace) mg/dL Urine Glucose (UA) (Negative) mg/dL Urine Ketones (Negative) mg/dL Urine Blood (Negative) Urine Nitrite (Negative) Ur Leukocyte Esterase (Negative) Urine RBC (0-2) /HPF Urine WBC (0-5) /HPF Ur Squamous Epith Cells (0-2) /HPF Urine Bacteria (None Seen) Hyaline Casts (0-2) /LPF Influenza Type A (PCR) (Negative) Influenza Type B (PCR) (Negative) RSV RNA Qual (PCR) (Negative) SARS-CoV-2 RNA (RT-PCR) (Negative) Independent Interpretation I performed an independent interpretation of an: EKG and Plain X-Ray Interpretation: My interpretation the patient's 12 EKG done at 13:31 hours is as follows: Atrial fibrillation with a rate of 91, normal QRS and QTC interval, no ST segment elevation, no ST segment depression, no significant T-wave abnormalities, no PVCs. My interpretation of the patient's two view chest x-ray is as follows: Increased interstitial markings bilaterally Radiology Impression Discussion of test interpretation with radiology: I have reviewed the radiologist's reading. Radiologist Impression: XR chest 2V IMPRESSION: *Diffuse fine pulmonary reticular opacities and pulmonary vascular indistinctness. Findings could represent mild pulmonary vascular congestion. Alternatively, findings may represent bronchitis/bronchiolitis in the setting of viral/atypical infection. No focal pulmonary consolidation. Electronically signed by: Charlie Glass MD 09/07/2024 02:[address] [facility] Dictated By: Charlie Glass MD CT chest, abdomen pelvis wo IV con IMPRESSION: Noncontrast CT of the chest, abdomen and pelvis: 1. No acute abnormalities identified. 2. Status post cystectomy with diverting ileal conduit in the right lower abdominal quadrant. No evidence of intestinal obstruction. No free intraperitoneal fluid or gas collections. 3. No abdominal or pelvic lymphadenopathy. 4. Mild-moderate paraseptal emphysema and pulmonary fibrosis. Findings are unchanged compared with 08/31/2024 and appears slightly progressed compared with 11/15/2019. 5. Marked diffuse coronary artery calcific atherosclerosis. Electronically signed by: Charlie Glass MD 09/07/2024 03:27 AM Critical Care Time Critical Care Time Critical Care Time: Yes Total Critical Care Time: 45 Attestation: Critical Care: The patient was critically ill with a high probability of imminent or life threatening deterioration. I spent greater than 30 minutes of discontinuous time evaluating the patient,delivering critical care at the bedside, discussing and evaluating pertinent data with consultants. Critical care time does not include time spent performing separately billable procedures or teaching. Total time spent performing critical care was 45 minutes. Discharge Plan Discharge Clinical Impression: Neutropenia, Pancytopenia, Rigor, Fatigue Patient Disposition: Admitted As Inpatient
[2024-09-06 13:29] VITALS: BP 137/59; PULSE 78; RESP 20; TEMP 36.8; O2SAT 98; BMI 26.3
--- NOTE | 2024-09-06 13:31 | ECG_ITS ---
Test Reason : cp Blood Pressure : / mmHG Vent. Rate : 091 BPM Atrial Rate : 000 BPM P-R Int : 000 ms QRS Dur : 092 ms QT Int : 368 ms P-R-T Axes : 000 -43 024 degrees QTc Int : 452 ms Poor data quality Artifact on tracing and likely rhythm is sinus with PACs/ Abnormal ECG When compared with ECG of 31-AUG-2024 16:40, Poor data quality in current ECG precludes serial comparison Referred By: Anahi Erwin Electronically Signed By:Navarro King
[2024-09-06 14:02] LABS: Basophils Percent Auto 0.7 % (0-2); Eosinophils Percent Auto 2.7 % (0-4); Hematocrit 29.2 % (42.0-52.0); Hemoglobin 10.1 g/dl (14.0-18.0); Imm Gran Abs Auto 0.01 X10*3/uL (0.00-0.03); Imm Gran Pct Auto 0.7 % (0.0-0.4); Lymphocytes Absolute Auto 1.2 X10*3/uL (1.2-4.9); Lymphocytes Percent Auto 84.2 % (20-40); MANUAL DIFF FLAG SCAN; Mean Corpuscular HGB Conc 34.6 g/dl (31.0-36.0); Mean Corpuscular Hemoglobin 38.8 pg (27.0-33.0); Mean Platelet Volume 10.4 fL (9.4-12.4); Monocytes Absolute Auto 0.1 X10*3/uL (0.1-1.2); Monocytes Percent Auto 4.1 % (2-11); Neutrophils Absolute Auto 0.1 x10*3/uL (2.0-8.3); Neutrophils Percent Auto 7.6 % (45-73); Red Cell Distribution Width 14.2 % (11.0-16.0); SCAN SMEAR FLAG 1
[2024-09-06 14:03] LABS: Appearance Urine Clear; Color Urine Yellow; Glucose Urine UA Negative (Negative); Leukocyte Esterase Urine Negative (Negative); Nitrite Urine Negative (Negative); Specific Gravity - Urine 1.015 (1.005-1.025); UMIC TRIGGER UACC YES; Urine Blood Moderate (2+) (Negative); Urine Ketones Negative (Negative); Urine Protein 100 (2+) mg/dL (Neg-Trace)
[2024-09-06 14:05] LABS: Mean Corpuscular Volume 112.3 fL (80.0-98.0); Platelet Count 43 X10*3/uL (160-400); White Blood Count 1.5 X10*3/uL (4.8-10.8)
[2024-09-06 14:18] LABS: Bacteria Urine None Seen (None Seen); Hyaline Casts Urine 0-2 /LPF (0-2); Squamous Epithelial Cell Urine 0-2 /HPF (0-2); UACC Culture Trigger YES
[2024-09-06 14:18] LABS: Alanine Aminotransferase 30 U/L (0-40); Albumin Level 3.2 g/dL (3.5-5.0); Alkaline Phosphatase 127 U/L (39-117); Anion Gap 21 (12-20); Aspartate Amino Transferase 33 U/L (5-37); Bilirubin Total 0.7 mg/dL (0.0-1.0); Blood Urea Nitrogen 27 mg/dL (9-16); Calcium 9.6 mg/dL (8.4-10.2); Carbon Dioxide 17 mmol/L (22-29); Chloride 108 mmol/L (96-108); Creatinine Clr Calc Pharmacy 68.1; Estimated Glomerular Filt Rate > 60; Glucose Random 121 mg/dL (60-115); Potassium 4.6 mmol/L (3.3-5.1); Sodium 141 mmol/L (135-145); Total Protein 7.7 g/dL (6.5-8.0)
[2024-09-06 14:21] LABS: INTERNATIONAL NORM RATIO 1.1 (0.9-1.1); Prothrombin Time 13.1 SEC (10.9-12.4)
[2024-09-06 14:24] LABS: Troponin-I High Sensitivity 17.8 ng/L (<3.5-35.0)
[2024-09-06 14:34] LABS: Partial Thromboplastin Time 21.5 SEC (26.0-36.8)
[2024-09-06 14:37] LABS: Influenza A PCR NEGATIVE (Negative); Influenza B PCR NEGATIVE (Negative); Resp Syncy Virus RNA Qual PCR NEGATIVE (Negative); SARS COV2 PCR INHOUSE NEGATIVE (Negative)
[2024-09-06 14:40] LABS: SLIDE REVIEW VERIFIED
[2024-09-06 21:51] VITALS: BP 117/67; PULSE 83; RESP 16; TEMP 36.6; O2SAT 98
[2024-09-07 00:52] VITALS: BP 125/71; PULSE 89; RESP 20; TEMP 37.1; O2SAT 98
[2024-09-07] MEDS: cefEPime HCl/D5W 2 GM/50 ML PIGGYBACK IV ×3 (01:58→19:39)
[2024-09-07] MEDS: 0.9 % Sodium Chloride 1,000 ML 999 ML IV (01:58)
[2024-09-07 02:03] LABS: Lipase 10 U/L (8-78)
--- NOTE | 2024-09-07 02:08 | P.HPHOSP_ITS ---
History of Present Illness Date of Service: 09/07/24 Chief Complaint: Chills This is a 79-year-old male with pertinent history of paroxysmal atrial fibrillation not on anticoagulation, bladder cancer status post urostomy in remission, ALISON on CPAP at night, hypertension, rvh-lkeyota-bidqbljyu diabetes mellitus, CAD status post stent, B12 deficiency, mood disorder who was sent to the emergency department for evaluation of chills. Of note, patient was recently admitted on 08/31 for acute UTI and hematuria. Patient was found to be pancytopenic and Hematology Oncology was consulted. Patient states that he has been having 3-4 episodes of chills with shaking every day since being discharged from the hospital. Patient went to his PCP's office and was sent to the ER for further evaluation due to ongoing chills. No documented temperature. He does have nausea but no vomiting. Denies loose stools. Also has associate weakness and easy fatigability. No change in cough, palpitations, chest pain, shortness of breath. In the emergency department, patient was found to have severe neutropenia Review of Systems 2 Constitutional: Constitutional: Reports chills, Reports malaise and Reports weakness Cardiovascular: Cardiovascular: Reports no additional cardiovascular complaints Respiratory: Respiratory: Reports no additional respiratory complaints Genitourinary: Genitourinary: Reports no additional male genitourinary complaints Neurologic: Reports weakness [facility] Medical History MRSA infection Foot drop, left foot ALSION on CPAP COPD (chronic obstructive pulmonary disease) Upper GI bleeding PAF (paroxysmal atrial fibrillation) Smoker Hyperlipidemia, unspecified Type 2 diabetes mellitus with unspecified complications Essential hypertension Arteriosclerotic cardiovascular disease Atrial flutter by electrocardiogram Family History Father Staph infection Mother Hypertension Brother Heart problem Surgical History H/O colonoscopy Status post surgical removal of malignant neoplasm of skin History of knee replacement (~10/2021) Hx of cardiac cath (~2017) History of surgical removal of ganglion cyst (~2016) S/P radical cystoprostatectomy (~2014) Hx of total knee replacement (~2004) Social History Household Members: Spouse Household Members Other:: pets: dogs Housing: House Do you presently have visiting nurse or other home services: No Alcohol intake: current Alcohol intake frequency: 0-2 drinks per day Alcohol type: hard liquor Patient Tobacco Use Status: Never used Tobacco Tobacco use type: Cigarette Cigarette Packs Per Day: 1 Years Smoked: 64 Smoked in Last 30 Days: No e-Cigarette/Vaping Use: Never Used Second Hand Smoke Exposure: No Use of substances other than those prescribed or required for medical reasons: No Advance Directives: Yes Advance Directives Information Provided: Yes Advance Directives on File: No Advance Directives Date on File: 05/26/24 Do you have a plan to hurt others: No Plan Nutrition Risks: No Nutritional Risk service: Yes Current occupational status: retired Current occupational exposures/hazards: No Cognitive needs: No Hearing needs: Yes Vision needs: No Meds Allergies Allergy/AdvReac Type Severity Reaction Status Date / Time Iodinated Contrast Media Allergy Severe ANAPHYLAXIS Verified 09/06/24 13:34 [IV CONTRAST] Penicillins [PENICILLINS] Allergy Severe trouble Verified 09/06/24 13:34 breathing doxycycline AdvReac Intermediate rASH Verified 09/06/24 13:34 Active Medications: Current Medications Sodium Chloride (Ns) 1,000 mls @ 999 mls/hr IV .Q1H1M STA Stop: 09/07/24 02:16 Last Admin: 09/07/24 01:58 Dose: 999 mls/hr Vancomycin HCl (Vancomycin/Ns) 2,000 mg in 500 mls @ 250 mls/hr IV ONCE ONE Stop: 09/07/24 03:15 Pharmacy Consult (Consult Rx Vancomycin Dosing) 1 each MISCELLANE DAILY PRN PRN Reason: Consult order Home Medications ?Medication ?Instructions ?Recorded ?Confirmed ?Last Taken ?Type omeprazole 20 mg capsule,delayed 20 mg PO DAILY@0630 11/07/20 09/06/24 08/31/24 History release cholecalciferol (vitamin D3) 50 50 mcg PO DAILY 11/14/20 09/06/24 08/31/24 History mcg (2,000 unit) capsule metformin 500 mg tablet,extended 500 mg PO BID 11/11/21 09/06/24 08/31/24 History release 24 hr acetaminophen 325 mg tablet 650 mg PO DAILY PRN Pain 06/20/24 09/06/24 08/31/24 History (Tylenol) rdohurpp-qy-azrnu 300 mcg-K 60 1 tab PO DAILY 08/23/24 09/06/24 08/31/24 History mcg-lycop 600 mcg-lutein 300 mcg tablet (Centrum Silver Men) ferrous gluconate 324 mg (38 mg 324 mg PO MOWEFR 08/31/24 09/06/24 08/31/24 History iron) tablet Physical Exam 2 Vital Signs and Narrative: Vital Signs: Last Vital Signs Temp 98.7 F 09/07/24 00:52 Pulse 89 09/07/24 00:52 Resp 20 09/07/24 00:52 BP 125/71 09/07/24 00:52 Pulse Ox 98 09/07/24 00:52 O2 Del Method Room Air 09/07/24 00:52 BMI result Body Mass Index 26.3 Middle-aged male lying in bed in no distress Neck supple, no JVD Regular rate and rhythm, S1-S2 heard Regular breath sounds bilaterally, no wheezing or crackles appreciated Abdomen soft nontender, no guarding, no rigidity Patient is awake, alert and oriented to self, place, time and person ; no focal motor deficit Psych: Normal mood No pedal edema Results Labs 09/06/24 13:50 09/06/24 13:50 Labs: Laboratory Results - last 24 hr 09/06/24 09/06/24 13:50 13:52 MCV 112.3 H MCH 38.8 H MCHC 34.6 RDW 14.2 Plt Count 43 L MPV 10.4 Immature Gran % (Auto) 0.7 H Neut % (Auto) 7.6 L Lymph % (Auto) 84.2 H [place] % (Auto) 4.1 Eos % (Auto) 2.7 Baso % (Auto) 0.7 Lymph # (Auto) 1.2 [place] # (Auto) 0.1 Eos # (Auto) 0.0 Baso # (Auto) 0.0 Abs Immat Gran (auto) 0.01 Absolute Neuts (auto) 0.1 L Absolute Nucleated RBC 0.000 Nucleated RBC % (auto) 0.0 Smear Tech's Comments VERIFIED PT 13.1 H INR 1.1 APTT 21.5 L Hold Blue Top SEE NOTE Anion Gap 21 H Estim Creat Clear Calc 68.1 Estimated GFR > 60 Random Glucose 121 H Calcium 9.6 D Total Bilirubin 0.7 AST 33 ALT 30 Alkaline Phosphatase 127 H Troponin I High Sens 17.8 Total Protein 7.7 Albumin 3.2 L Lipase 10 Urine Color Yellow Urine Appearance Clear Urine pH 7.0 Ur Specific [place] 1.015 Urine Protein 100 (2+) H Urine Glucose (UA) Negative Urine Ketones Negative Urine Blood Moderate (2+) H Urine Nitrite Negative Ur Leukocyte Esterase Negative Urine RBC 11-20 H Urine WBC 11-20 H Ur Squamous Epith Cells 0-2 Urine Bacteria None Seen Hyaline Casts 0-2 Influenza Type A (PCR) NEGATIVE Influenza Type B (PCR) NEGATIVE RSV RNA Qual (PCR) NEGATIVE SARS-CoV-2 RNA (RT-PCR) NEGATIVE Assessment and Plan (1) Severe neutropenia: Status: Acute Plan This is a 79-year-old male with pertinent history of paroxysmal atrial fibrillation not on anticoagulation, bladder cancer status post urostomy in remission, ALISON on CPAP at night, hypertension, hqv-pjnfnjc-pghpxgutf diabetes mellitus, CAD status post stent, B12 deficiency, mood disorder who was sent to the emergency department for evaluation of chills. #. Absolute severe neutropenia: No documented fever but does have chills. Will initiate empiric IV antibiotics. Blood culture pending. Ordered Granix. Consulted Hematology, appreciate assistance. CT chest/abdomen/pelvis without any acute abnormality #. Pancytopenia: Hematology workup ongoing. Defer prophylactic Lovenox #. Paroxysmal atrial fibrillation: Not on anticoagulation. Continue diltiazem #. Bro-hhbthet-cpmkfrvxs diabetes mellitus: Initiating Accu-Cheks with sliding scale insulin #. ALISON: Continue CPAP at night Med rec pending DVT prophylaxis: Mechanical Full code Admit as inpatient and will require two night minimum hospital stay for IV antibiotics close monitoring of neutrophils (as above), which is not possible in a lesser acute setting. Specialist consult pending Quality Stroke Does the patient have a stroke diagnosis?: No VTE Prior VTE?: No VTE Risk Level:: Medical - moderate - high VTE Device Contraindication: N/A - Device Ordered VTE Drug Contraindication: Treatment Not Indicated
[2024-09-07 02:13] LABS: Lactic Acid 2.2 mmol/L (0.5-2.0)
[2024-09-07 02:19] LABS: Erythrocyte Sedimentation Rate 124 MM/HR (0-15)
[2024-09-07 02:26] LABS: Procalcitonin 0.09 ng/mL
[2024-09-07] MEDS: vancomycin/NS 2,000 MG/500 ML PLAST..BAG 250 MG IV (02:30)
[2024-09-07 03:45] LABS: Reflex Lactate? Lactic Acid Added
[2024-09-07 03:52] LABS: Troponin-I High Sensitivity 17.3 ng/L (<3.5-35.0)
[2024-09-07 05:20] LABS: Eosinophils Percent Auto 0.9 % (0-4); Hematocrit 23.1 % (42.0-52.0); Hemoglobin 7.8 g/dl (14.0-18.0); Imm Gran Abs Auto 0.01 X10*3/uL (0.00-0.03); Imm Gran Pct Auto 0.9 % (0.0-0.4); Lymphocytes Absolute Auto 0.9 X10*3/uL (1.2-4.9); Lymphocytes Percent Auto 86.1 % (20-40); MANUAL DIFF FLAG SCAN; Mean Corpuscular HGB Conc 33.8 g/dl (31.0-36.0); Mean Corpuscular Volume 112.7 fL (80.0-98.0); Mean Platelet Volume 9.7 fL (9.4-12.4); Monocytes Absolute Auto 0.1 X10*3/uL (0.1-1.2); Monocytes Percent Auto 5.6 % (2-11); NRBC Pct Auto 1.9 /100WBC (0.0-0.2); Neutrophils Absolute Auto 0.1 x10*3/uL (2.0-8.3); Neutrophils Percent Auto 6.5 % (45-73); Red Blood Count 2.05 X10*6/uL (4.60-5.80); Red Cell Distribution Width 14.2 % (11.0-16.0); SCAN SMEAR FLAG 1; White Blood Count 1.1 X10*3/uL (4.8-10.8)
[2024-09-07 05:23] LABS: Platelet Count 34 X10*3/uL (160-400)
[2024-09-07 05:37] LABS: Anion Gap 13 (12-20); Blood Urea Nitrogen 31 mg/dL (9-16); Calcium 8.3 mg/dL (8.4-10.2); Carbon Dioxide 17 mmol/L (22-29); Chloride 110 mmol/L (96-108); Creatinine Clr Calc Pharmacy 67.4; Estimated Glomerular Filt Rate > 60; Glucose Random 120 mg/dL (60-115); Sodium 136 mmol/L (135-145)
[2024-09-07 05:51] LABS: SLIDE REVIEW VERIFIED
--- NOTE | 2024-09-07 06:53 | PC.NURSE ---
MD Greer made aware of drop in H&H overnight.
--- NOTE | 2024-09-07 06:53 | PHA.PROG ---
Admission Date/Time: September 07, 2024 02:06 Indication: bacteremia Weight in k.99 kg Adjusted body weight in Kg: [place] body weight in Kg: Obesity Dosing Indication % IBW: BMI 26.3 Serum Creatinine - Last 168 Hours 09/06/24 09/07/24 13:50 04:11 Creatinine 0.98 0.99 Estimated CrCl and GFR - Last 168 Hours 09/06/24 09/07/24 13:50 04:11 Estim Creat Clear Calc 68.1 67.4 Estimated GFR > 60 > 60 Vancomycin Loading Dose: 2000 x1 Current Vancomycin Dosing Regimen: 750 Q12H Vancomycin Monitoring using AUC goal of 400 - 600 range with trough as surrogate marker: 469 Date and Time for next Vancomycin Level to be drawn: 09/08 @1300 Pharmacist Comments on Vancomycin Plan: Patient's renal function stable, predicted trough 15.9, to be adjusted based on renal function and trough on 09/08. Vancomycin dosing will take advantage of [employer] as a clinical decision support tool that uses Bayesian modeling to calculate individual patient's pharmacokinetic parameters and forecast the patient's drug concentration time course with the target goal AUC 24 range of 400 - 600 mg/L/hr.
[2024-09-07 07:42] LABS: Glucose, Whole Blood 102 mg/dL (60-115)
[2024-09-07 08:30] VITALS: BP 130/67; PULSE 87; RESP 18; TEMP 36.6; O2SAT 97
[2024-09-07 08:31] LABS: C Reactive Protein 3.21 mg/dL (< or = 0.50); Lactate Dehydrogenase 219 U/L (118-273)
--- NOTE | 2024-09-07 09:46 | MHC.CM.PN ---
CM met with Patient at bedside, in the ED and addressed IMM with him, providing Patient with the original and a copy has been placed on the chart. 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 Home/self care is the goal and CM has initiated and will follow for dc planning. Patient's PCP is Dr.Thomas Roy and his will transport to home.
--- NOTE | 2024-09-07 09:57 | PHA.MEDREC ---
Addendum entered by Jovani Harvey RPh 09/07/24 10:14: Reviewed by [facility], will contact provider pt is not longer on an anticoagulant Original Note: Pharmacy Consult ? Medication Reconciliation Pharmacy has completed the medication reconciliation. Spoke to patient to confirm med list. Patient states he was just discharge from [facility] 09/02/24. The only change was that [facility] discontinued Eliquis 5 mg, and he was given Cefuroxime 500 mg that he has completed. Utilized discharge packet to confirm med list.
--- NOTE | 2024-09-07 10:27 | PM.EVENT ---
Event Note Date of Service: 09/07/24 Event Note: seen and evaluated this morning reporting chills, no fever or any other specific symptoms pending hematology eval will likely need bone marrow biopsy continue IV empirical antibiotics Time Spent With Patient Time: Total time managing care of this patient today ____ minutes.
[2024-09-07 11:30] LABS: Glucose, Whole Blood 137 mg/dL (60-115)
[2024-09-07 11:40] VITALS: BP 128/64; PULSE 88; RESP 16; TEMP 36.2; O2SAT 100
--- NOTE | 2024-09-07 11:44 | PC.NURSE ---
Did not medicate pt pet mar for Diltiazem hydrochloride due to protocol, pt BP 128/64 protocol instructions hold for SBP .<90
[2024-09-07 12:39] LABS: Glucose, Whole Blood 105 mg/dL (60-115)
[2024-09-07 13:24] VITALS: BP 150/83; PULSE 83; RESP 14; TEMP 36.3; O2SAT 100
[2024-09-07] MEDS: vancomycin HCL 750 MG in 0.9 % Sodium Chloride 250 ML 265 MG IV (14:27)
[2024-09-07 16:47] LABS: Glucose, Whole Blood 207 mg/dL (60-115)
[2024-09-07] MEDS: Insulin Lispro 100 UNIT/ML 3 ML VIAL SUBCUT (17:16)
--- NOTE | 2024-09-07 18:26 | PC.NURSE ---
contacted pharmacy for abx. waiting for pharmacognosist to drop off med
--- NOTE | 2024-09-07 19:39 | PC.NURSE ---
1700 antibiotic just delivered from pharmacy and hung
[2024-09-07 20:08] VITALS: BP 171/74; PULSE 101; RESP 20; TEMP 38.2; O2SAT 94
[2024-09-07] MEDS: Atorvastatin Calcium 40 MG TABLET PO (20:21)
[2024-09-07] MEDS: Acetaminophen 325 MG TABLET 650 MG PO (20:21)
[2024-09-07 21:27] LABS: Glucose, Whole Blood 134 mg/dL (60-115)
[2024-09-08] MEDS: 0.9 % Sodium Chloride Flush 3 ML SYRINGE IVFLUSH ×4 (01:33→19:24)
[2024-09-08] MEDS: cefEPime HCl/D5W 2 GM/50 ML PIGGYBACK IV ×3 (02:00→17:46)
[2024-09-08] MEDS: vancomycin HCL 750 MG in 0.9 % Sodium Chloride 250 ML 265 MG IV (02:57)
[2024-09-08 04:43] LABS: Hematocrit 22.9 % (42.0-52.0); Hemoglobin 7.8 g/dl (14.0-18.0); Mean Corpuscular HGB Conc 34.1 g/dl (31.0-36.0); Mean Corpuscular Hemoglobin 37.7 pg (27.0-33.0); Mean Corpuscular Volume 110.6 fL (80.0-98.0); Mean Platelet Volume 9.3 fL (9.4-12.4); Red Blood Count 2.07 X10*6/uL (4.60-5.80); Red Cell Distribution Width 13.9 % (11.0-16.0); White Blood Count 1.5 X10*3/uL (4.8-10.8)
[2024-09-08 04:48] LABS: Platelet Count 28 X10*3/uL (160-400)
[2024-09-08 04:56] LABS: Anion Gap 14 (12-20); Blood Urea Nitrogen 25 mg/dL (9-16); Calcium 8.3 mg/dL (8.4-10.2); Carbon Dioxide 17 mmol/L (22-29); Chloride 111 mmol/L (96-108); Creatinine Clr Calc Pharmacy 75.9; Estimated Glomerular Filt Rate > 60; Glucose Random 117 mg/dL (60-115); Potassium 4.3 mmol/L (3.3-5.1); Sodium 138 mmol/L (135-145)
[2024-09-08 05:07] VITALS: BP 134/70; PULSE 77; RESP 16; TEMP 36; O2SAT 97
[2024-09-08] MEDS: Omeprazole 20 MG CAPSULE.DR PO (06:32)
--- NOTE | 2024-09-08 06:46 | PC.NURSE ---
Pt asleep throughout the night. Compliant to all medications administered.
[2024-09-08 07:45] VITALS: BP 169/60; PULSE 92; RESP 18; TEMP 37.8; O2SAT 98
[2024-09-08 08:25] LABS: Glucose, Whole Blood 95 mg/dL (60-115)
[2024-09-08] MEDS: FLUoxetine HCl 20 MG CAPSULE 40 MG PO (08:27)
[2024-09-08] MEDS: Acetaminophen 325 MG TABLET 650 MG PO (08:27)
[2024-09-08] MEDS: dilTIAZem HCL CD 120 MG CAP.ER.DEG PO (10:09)
--- NOTE | 2024-09-08 11:04 | HO.PM.IMPN ---
Subjective Subjective Date of Service: 09/08/24 Interval History: seen and evaluated this morning reporting chills , weakness had document 100.8 fever cultures pending and negative Review of Systems Review of Systems: Yes all other systems are reviewed and are negative Physical Exam Vital Signs: Vital Signs: Last Vital Signs Temp 100.1 F 09/08/24 07:45 Pulse 92 09/08/24 07:45 Resp 18 09/08/24 07:45 BP 169/60 H 09/08/24 07:45 Pulse Ox 98 09/08/24 07:45 O2 Del Method Room Air 09/08/24 07:45 BMI result Body Mass Index 26.3 Const: Other: Constitutional : Awake, interactive, frail looking, not in distress Neck : Normal inspection, Supple Cardiovascular : RRR, no JVP, no lower extremity edema Respiratory : good bilateral air entry, no crackles, wheezes or rhonchi Gastrointestinal: soft, lax, Normal bowel sounds, Non tender Skin : Warm, Dry Neurological : Alert & oriented x3, No focal deficit Objective Data Active Medications Acetaminophen (Acetaminophen 325 Mg Tablet) 650 mg PO Q6H PRN PRN Reason: Pain, Mild (Pain Scale 1-3), fever or headache Last Admin: 09/08/24 08:27 Dose: 650 mg Documented By: CARLOS Atorvastatin Calcium (Atorvastatin Calcium 40 Mg Tablet) 40 mg PO BEDTIME [facility] Last Admin: 09/07/24 20:21 Dose: 40 mg Documented By: OMAR-JULIÁN Calcium Carbonate (Calcium Carbonate 750 Mg Tab.Chew) 750 mg PO Q4H PRN PRN Reason: Heartburn Diltiazem HCl (Diltiazem Hcl Cd 120 Mg Cap.Er.Deg) 120 mg PO DAILY [facility]; Protocol Last Admin: 09/08/24 10:09 Dose: 120 mg Documented By: CARLOS Fluoxetine HCl (Fluoxetine Hcl 20 Mg Capsule) 40 mg PO DAILY [facility] Last Admin: 09/08/24 08:27 Dose: 40 mg Documented By: CARLOS Glucose (Glucose Gel 15 Gm Gel..Gram.) 15 gm PO Q15M PRN; Protocol PRN Reason: per Hypoglycemia Standing Ord. Cefepime HCl (Maxipime) 2 gm in 50 mls @ 100 mls/hr IV Q8H [facility] Last Infusion: 09/08/24 09:02 Dose: Infused Documented By: CARLOS Dextrose (D10) 250 mls @ 750 mls/hr IV Q15M PRN; Protocol PRN Reason: per Hypoglycemia Standing Ord. Vancomycin HCl 750 mg/ Sodium (Chloride) 265 mls @ 265 mls/hr IV Q12H [facility] Last Infusion: 09/08/24 04:08 Dose: Infused Documented By: STACIE Insulin Human Lispro (Insulin Lispro 100 Unit/Ml 3 Ml Vial) 0 unit SUBCUT QIDACHS [facility]; Protocol Last Admin: 09/08/24 08:29 Dose: Not Given Documented By: CARLOS Non-Admin Reason: No Insulin Coverage Magnesium Hydroxide (Milk Of Magnesia 30 Ml Oral.Susp) 30 ml PO DAILY PRN PRN Reason: Constipation Melatonin (Melatonin 3 Mg Tablet) 6 mg PO BEDTIME PRN PRN Reason: Insomnia Omeprazole (Omeprazole 20 Mg Capsule.Dr) 20 mg PO DAILY@0630 [facility] Last Admin: 09/08/24 06:32 Dose: 20 mg Documented By: STACIE Ondansetron HCl (Ondansetron Hcl 4 Mg/2 Ml Vial) 4 mg IVPUSH Q8H PRN PRN Reason: Nausea and Vomiting Pharmacy Consult (Consult Rx Vancomycin Dosing) 1 each MISCELLANE DAILY PRN PRN Reason: Consult order Sodium Chloride (0.9 % Sodium Chloride Flush 3 Ml Syringe) [facility] Last Admin: 09/08/24 09:19 Dose: 3 ml Documented By: CARLOS Labs 09/08/24 04:07 09/08/24 04:07 Labs: Laboratory Results - last 24 hr 09/07/24 09/07/24 09/07/24 11:26 12:35 16:40 MCV MCH MCHC RDW Plt Count MPV Absolute Nucleated RBC Nucleated RBC % (auto) Anion Gap Estim Creat Clear Calc Estimated GFR POC Glucose 137 H 105 207 H Random Glucose Calcium 09/07/24 09/08/24 09/08/24 21:19 04:07 07:48 MCV 110.6 H MCH 37.7 H MCHC 34.1 RDW 13.9 Plt Count 28 L MPV 9.3 L Absolute Nucleated RBC 0.000 Nucleated RBC % (auto) 0.0 Anion Gap 14 Estim Creat Clear Calc 75.9 Estimated GFR > 60 POC Glucose 134 H 95 Random Glucose 117 H Calcium 8.3 L Microbiology Microbiology Results: Microbiology 09/07/24 01:54 Blood Culture - Preliminary Blood - Venous No growth after 24 hours. 09/07/24 01:39 Blood Culture - Preliminary Blood - Venous No growth after 24 hours. 09/06/24 Unknown Urine Culture - Final Urine clean catch - Clean Catch Midstream Assessment and Plan (1) Severe neutropenia: Status: Acute (2) Neutropenic fever: Status: Acute Plan This is a 79-year-old male with pertinent history of paroxysmal atrial fibrillation not on anticoagulation, bladder cancer status post urostomy in remission, ALISON on CPAP at night, hypertension, yqk-uoheafa-wiztpjxtj diabetes mellitus, CAD status post stent, B12 deficiency, mood disorder who was sent to the emergency department for evaluation of chills. # Absolute severe neutropenia with neutropenic fever with Pancytopenia CT chest/abdomen/pelvis without any acute abnormality no clear source of infection Pending cultures empiric IV antibiotics with Vancomycin and Cefepime received Granix Consulted Hematology To do BM biopsy with IR # Paroxysmal atrial fibrillation Not on anticoagulation. Continue diltiazem # Mqx-grpmunr-gloctkyea diabetes mellitus Initiating Accu-Cheks with sliding scale insulin # ALISON: Continue CPAP at night DVT prophylaxis: SCDs Full code Admit as inpatient and will require overnight hospital stay for IV antibiotics close monitoring of neutrophils (as above), which is not possible in a lesser acute setting. Specialist consult pending Quality Stroke Does the patient have a stroke diagnosis?: No VTE Prior VTE?: No VTE Risk Level:: Medical - moderate - high VTE Device Contraindication: N/A - Device Ordered VTE Drug Contraindication: Treatment Not Indicated
[2024-09-08 12:00] VITALS: BP 139/74; PULSE 83; RESP 17; TEMP 36.7; O2SAT 95
[2024-09-08 12:07] LABS: Glucose, Whole Blood 147 mg/dL (60-115)
[2024-09-08 15:33] VITALS: BP 151/66; PULSE 80; RESP 17; TEMP 36.7; O2SAT 98
--- NOTE | 2024-09-08 15:46 | HE.PHANOTE ---
Re Vanc Trough came back at 13.0, estimated AUC of 503 mg/L. Will increase to 1g q21h for a trough of ~17 and AUC of 539 mg/L.
[2024-09-08] MEDS: vancomycin HCL 1,000 MG in 0.9 % Sodium Chloride 250 ML 270 MG IV (16:07)
[2024-09-08 16:09] LABS: Glucose, Whole Blood 99 mg/dL (60-115)
[2024-09-08] MEDS: Atorvastatin Calcium 40 MG TABLET PO (19:24)
[2024-09-08 19:50] VITALS: BP 121/73; PULSE 96; RESP 17; TEMP 37.2; O2SAT 93
[2024-09-08 20:41] LABS: Glucose, Whole Blood 149 mg/dL (60-115)
--- NOTE | 2024-09-08 23:18 | PC.RT ---
Pt refusing CPAP; will call if needed
[2024-09-09] VITALS (20 sets, daily range): BP systolic 97–168; BP diastolic 51–87; PULSE 57–88; RESP 12–21; TEMP 36.3–36.9; O2SAT 94–100
[2024-09-09] MEDS: cefEPime HCl/D5W 2 GM/50 ML PIGGYBACK IV ×3 (00:04→20:12)
[2024-09-09] MEDS: Acetaminophen 325 MG TABLET 650 MG PO (03:11)
[2024-09-09] MEDS: ondansetron HCL 4 MG/2 ML VIAL IVPUSH ×2 (03:12→22:02)
[2024-09-09] MEDS: vancomycin HCL 1,000 MG in 0.9 % Sodium Chloride 250 ML 270 MG IV ×2 (03:16→18:52)
[2024-09-09] MEDS: Omeprazole 20 MG CAPSULE.DR PO (05:52)
[2024-09-09 06:42] LABS: Hematocrit 21.3 % (42.0-52.0); Hemoglobin 7.4 g/dl (14.0-18.0); Mean Corpuscular HGB Conc 34.7 g/dl (31.0-36.0); Mean Corpuscular Hemoglobin 38.7 pg (27.0-33.0); Mean Platelet Volume 9.4 fL (9.4-12.4); Red Blood Count 1.91 X10*6/uL (4.60-5.80); Red Cell Distribution Width 13.6 % (11.0-16.0)
[2024-09-09 06:44] LABS: White Blood Count 1.4 X10*3/uL (4.8-10.8)
[2024-09-09 06:45] LABS: Mean Corpuscular Volume 111.5 fL (80.0-98.0); Platelet Count 26 X10*3/uL (160-400)
[2024-09-09 07:06] LABS: Anion Gap 11 (12-20); Blood Urea Nitrogen 22 mg/dL (9-16); Calcium 8.3 mg/dL (8.4-10.2); Carbon Dioxide 20 mmol/L (22-29); Chloride 107 mmol/L (96-108); Estimated Glomerular Filt Rate > 60; Glucose Random 110 mg/dL (60-115); Potassium 3.9 mmol/L (3.3-5.1); Sodium 134 mmol/L (135-145)
[2024-09-09 07:21] LABS: Glucose, Whole Blood 99 mg/dL (60-115)
[2024-09-09] MEDS: dilTIAZem HCL CD 120 MG CAP.ER.DEG PO (07:30)
[2024-09-09] MEDS: FLUoxetine HCl 20 MG CAPSULE 40 MG PO (07:30)
[2024-09-09] MEDS: 0.9 % Sodium Chloride Flush 3 ML SYRINGE IVFLUSH ×2 (07:31→20:43)
[2024-09-09] MEDS: Midazolam HCl/PF 2 MG/2 ML VIAL 1 MG IVPUSH (08:44)
[2024-09-09] MEDS: fentaNYL citrate/PF 100 MCG/2 ML VIAL 50 MCG IVPUSH (08:45)
[2024-09-09] MEDS: fentaNYL citrate/PF 100 MCG/2 ML VIAL 25 MCG EPIDURAL (08:50)
[2024-09-09] MEDS: Midazolam HCl/PF 2 MG/2 ML VIAL 0.5 MG IVPUSH (08:51)
--- NOTE | 2024-09-09 09:01 | PM.PROC ---
Brief Operative Note Date of procedure: 09/09/24 Pre-op diagnosis: Pancytopenia Post-op diagnosis: same Procedure: CT Bone marrow biopsy 11 g core and aspiration performed in right posterior iliac spine. No immediate complications.
[2024-09-09 09:41] LABS: Reticulocytes Absolute 0.014 X10*6/uL (0.026-0.095)
[2024-09-09 09:42] LABS: Immature Retic Fraction 14.3 % (2.3-13.4); Retic HGB Equivalent 37.9 pg (30.0-35.0); Reticulocyte Percent 0.7 % (0.5-1.8)
[2024-09-09] MEDS: Lidocaine HCl 1 % MPF 30 ML VIAL 10 ML SUBCUT (09:59)
[2024-09-09 10:01] LABS: Bone Marrow SEE SEPARATE REPORT
[2024-09-09 11:05] LABS: Glucose, Whole Blood 101 mg/dL (60-115)
--- NOTE | 2024-09-09 14:51 | P.PNIM_ITS ---
Subjective Subjective Date of Service: 09/09/24 Interval History: seen and evaluated this morning feels little better but reports weakness no fever overnight cultures pending and negative Review of Systems Review of Systems: Yes all other systems are reviewed and are negative Physical Exam 2 Vital Signs: Vital Signs: Last Vital Signs Temp 97.4 F 09/09/24 11:02 Pulse 75 09/09/24 11:02 Resp 18 09/09/24 11:02 BP 128/60 09/09/24 11:02 Pulse Ox 100 09/09/24 11:02 O2 Del Method Room Air 09/09/24 11:02 O2 Flow Rate 2 09/09/24 08:50 BMI result Body Mass Index 26.3 Const: Other: Constitutional : Awake, interactive, frail looking, not in distress Neck : Normal inspection, Supple Cardiovascular : RRR, no JVP, no lower extremity edema Respiratory : good bilateral air entry, no crackles, wheezes or rhonchi Gastrointestinal: soft, lax, Normal bowel sounds, Non tender Skin : Warm, Dry Neurological : Alert & oriented x3, No focal deficit Objective Data Active Medications Acetaminophen (Acetaminophen 325 Mg Tablet) 650 mg PO Q6H PRN PRN Reason: Pain, Mild (Pain Scale 1-3), fever or headache Last Admin: 09/09/24 03:11 Dose: 650 mg Documented By: PATTI Atorvastatin Calcium (Atorvastatin Calcium 40 Mg Tablet) 40 mg PO BEDTIME [facility] Last Admin: 09/08/24 19:24 Dose: 40 mg Documented By: PATTI Calcium Carbonate (Calcium Carbonate 750 Mg Tab.Chew) 750 mg PO Q4H PRN PRN Reason: Heartburn Diltiazem HCl (Diltiazem Hcl Cd 120 Mg Cap.Er.Deg) 120 mg PO DAILY [facility]; Protocol Last Admin: 09/09/24 07:30 Dose: 120 mg Documented By: TAYLOR Fluoxetine HCl (Fluoxetine Hcl 20 Mg Capsule) 40 mg PO DAILY [facility] Last Admin: 09/09/24 07:30 Dose: 40 mg Documented By: TAYLOR Glucose (Glucose Gel 15 Gm Gel..Gram.) 15 gm PO Q15M PRN; Protocol PRN Reason: per Hypoglycemia Standing Ord. Dextrose (D10) 250 mls @ 750 mls/hr IV Q15M PRN; Protocol PRN Reason: per Hypoglycemia Standing Ord. Vancomycin HCl 1,000 mg/ (Sodium Chloride) 270 mls @ 270 mls/hr IV Q12H [facility] Last Infusion: 09/09/24 04:19 Dose: Infused Documented By: PATTI Cefepime HCl (Maxipime) 2 gm in 50 mls @ 100 mls/hr IV Q8H [facility] Last Infusion: 09/09/24 13:35 Dose: Infused Documented By: TAYLOR Insulin Human Lispro (Insulin Lispro 100 Unit/Ml 3 Ml Vial) 0 unit SUBCUT QIDACHS [facility]; Protocol Last Admin: 09/09/24 11:41 Dose: Not Given Documented By: TAYLOR Non-Admin Reason: No Insulin Coverage Magnesium Hydroxide (Milk Of Magnesia 30 Ml Oral.Susp) 30 ml PO DAILY PRN PRN Reason: Constipation Melatonin (Melatonin 3 Mg Tablet) 6 mg PO BEDTIME PRN PRN Reason: Insomnia Omeprazole (Omeprazole 20 Mg Capsule.Dr) 20 mg PO DAILY@0630 [facility] Last Admin: 09/09/24 05:52 Dose: 20 mg Documented By: PATTI Ondansetron HCl (Ondansetron Hcl 4 Mg/2 Ml Vial) 4 mg IVPUSH Q8H PRN PRN Reason: Nausea and Vomiting Last Admin: 09/09/24 03:12 Dose: 4 mg Documented By: PATTI Pharmacy Consult (Consult Rx Vancomycin Dosing) 1 each MISCELLANE DAILY PRN PRN Reason: Consult order Sodium Chloride (0.9 % Sodium Chloride Flush 3 Ml Syringe) [facility] Last Admin: 09/09/24 07:31 Dose: 3 ml Documented By: TAYLOR Labs 09/09/24 05:42 09/09/24 05:42 Labs: Laboratory Results - last 24 hr 09/08/24 09/08/24 09/08/24 13:52 16:04 20:37 MCV MCH MCHC RDW Plt Count MPV Absolute Nucleated RBC Nucleated RBC % (auto) Absolute Retic Percent Retic Immature Retic Fraction Retic Hgb Equivalent Anion Gap Estim Creat Clear Calc Estimated GFR POC Glucose 99 149 H Random Glucose Calcium Random Vancomycin 13.0 L Blood Type Antibody Screen Crossmatch 09/09/24 09/09/24 09/09/24 05:42 07:17 11:00 MCV 111.5 H MCH 38.7 H MCHC 34.7 RDW 13.6 Plt Count 26 L MPV 9.4 Absolute Nucleated RBC 0.000 Nucleated RBC % (auto) 0.0 Absolute Retic 0.014 L Percent Retic 0.7 Immature Retic Fraction 14.3 H Retic Hgb Equivalent 37.9 H Anion Gap 11 L Estim Creat Clear Calc 71.0 Estimated GFR > 60 POC Glucose 99 101 Random Glucose 110 Calcium 8.3 L Random Vancomycin Blood Type Antibody Screen Crossmatch 09/09/24 11:09 MCV MCH MCHC RDW Plt Count MPV Absolute Nucleated RBC Nucleated RBC % (auto) Absolute Retic Percent Retic Immature Retic Fraction Retic Hgb Equivalent Anion Gap Estim Creat Clear Calc Estimated GFR POC Glucose Random Glucose Calcium Random Vancomycin Blood Type A Positive Antibody Screen NEGATIVE Crossmatch See Detail Microbiology Microbiology Results: Microbiology 09/07/24 01:54 Blood Culture - Preliminary Blood - Venous No growth after 48 hours. 09/07/24 01:39 Blood Culture - Preliminary Blood - Venous No growth after 48 hours. Assessment and Plan (1) Neutropenic fever: Status: Acute (2) Severe neutropenia: Status: Acute (3) Fatigue: Status: Acute Plan This is a 79-year-old male with pertinent history of paroxysmal atrial fibrillation not on anticoagulation, bladder cancer status post urostomy in remission, ALISON on CPAP at night, hypertension, [id number] diabetes mellitus, CAD status post stent, B12 deficiency, mood disorder who was sent to the emergency department for evaluation of chills. # Absolute severe neutropenia with neutropenic fever with Pancytopenia CT chest/abdomen/pelvis without any acute abnormality no clear source of infection Pending cultures continue empiric IV antibiotics with Vancomycin and Cefepime Consulted Hematology BM biopsy done along with omentum biopsy To give a unit of blood give a 2nd dose of Granix # Paroxysmal atrial fibrillation Not on anticoagulation. Continue diltiazem # [id number] diabetes mellitus Initiating Accu-Cheks with sliding scale insulin # ALISON: Continue CPAP at night DVT prophylaxis: SCDs Full code Admit as inpatient and will require overnight hospital stay for IV antibiotics close monitoring of neutrophils (as above), which is not possible in a lesser acute setting. Specialist consult pending Quality Stroke Does the patient have a stroke diagnosis?: No VTE Prior VTE?: No VTE Risk Level:: Medical - moderate - high VTE Device Contraindication: N/A - Device Ordered VTE Drug Contraindication: Treatment Not Indicated
[2024-09-09 15:13] LABS: Vancomycin Random 15.5 mcg/mL (15-20)
[2024-09-09 16:12] LABS: Glucose, Whole Blood 130 mg/dL (60-115)
--- NOTE | 2024-09-09 16:22 | MHC.CM.PN ---
PER MD ROUNDS, PT WILL LIKELY REMAIN OVER THE WEEKEND DCP: HOME WITH NO SERVICES TO TRANSPORT
[2024-09-09 20:02] LABS: Glucose, Whole Blood 192 mg/dL (60-115)
--- NOTE | 2024-09-09 20:02 | PC.RT ---
Pt does not want CPAP tonight
[2024-09-09] MEDS: Atorvastatin Calcium 40 MG TABLET PO (20:43)
[2024-09-09] MEDS: Insulin Lispro 100 UNIT/ML 3 ML VIAL SUBCUT (20:46)
[2024-09-10] MEDS: cefEPime HCl/D5W 2 GM/50 ML PIGGYBACK IV ×3 (03:09→19:12)
[2024-09-10 03:57] VITALS: BP 129/63; PULSE 81; RESP 18; TEMP 36.7; O2SAT 99
[2024-09-10] MEDS: Omeprazole 20 MG CAPSULE.DR PO (06:12)
[2024-09-10] MEDS: vancomycin HCL 1,000 MG in 0.9 % Sodium Chloride 250 ML 270 MG IV ×2 (06:12→17:44)
[2024-09-10 07:30] VITALS: BP 147/63; PULSE 58; RESP 18; TEMP 37.2; O2SAT 97
[2024-09-10 07:43] LABS: Glucose, Whole Blood 109 mg/dL (60-115)
[2024-09-10 08:28] LABS: Hematocrit 22.5 % (42.0-52.0); Hemoglobin 8.2 g/dl (14.0-18.0); Mean Corpuscular HGB Conc 36.4 g/dl (31.0-36.0); Mean Corpuscular Hemoglobin 37.3 pg (27.0-33.0); Mean Corpuscular Volume 102.3 fL (80.0-98.0); Mean Platelet Volume 10.1 fL (9.4-12.4); Red Cell Distribution Width 17.2 % (11.0-16.0)
[2024-09-10 08:34] LABS: Platelet Count 22 X10*3/uL (160-400); White Blood Count 1.4 X10*3/uL (4.8-10.8)
[2024-09-10 08:54] LABS: Estimated Glomerular Filt Rate > 60
[2024-09-10 08:55] LABS: Anion Gap 14 (12-20); Blood Urea Nitrogen 18 mg/dL (9-16); Calcium 8.5 mg/dL (8.4-10.2); Carbon Dioxide 19 mmol/L (22-29); Chloride 107 mmol/L (96-108); Estimated Glomerular Filt Rate > 60; Glucose Random 114 mg/dL (60-115); Potassium 3.7 mmol/L (3.3-5.1); Sodium 136 mmol/L (135-145)
[2024-09-10] MEDS: 0.9 % Sodium Chloride Flush 3 ML SYRINGE IVFLUSH ×3 (09:20→19:48)
[2024-09-10] MEDS: FLUoxetine HCl 20 MG CAPSULE 40 MG PO (09:20)
[2024-09-10] MEDS: dilTIAZem HCL CD 120 MG CAP.ER.DEG PO (09:20)
--- NOTE | 2024-09-10 10:20 | P.PNIM_ITS ---
Subjective Subjective Date of Service: 09/10/24 Interval History: seen and evaluated this morning feels better Hb of 8.2 no fever overnight cultures negative Review of Systems Review of Systems: Yes all other systems are reviewed and are negative Physical Exam 2 Vital Signs: Vital Signs: Last Vital Signs Temp 99.0 F 09/10/24 07:30 Pulse 58 09/10/24 07:30 Resp 18 09/10/24 07:30 BP 147/63 H 09/10/24 07:30 Pulse Ox 97 09/10/24 07:30 O2 Del Method Room Air 09/10/24 07:30 O2 Flow Rate 2 09/09/24 08:50 BMI result Body Mass Index 26.3 Const: Other: Constitutional : Awake, interactive, frail looking, not in distress Neck : Normal inspection, Supple Cardiovascular : RRR, no JVP, no lower extremity edema Respiratory : good bilateral air entry, no crackles, wheezes or rhonchi Gastrointestinal: soft, lax, Normal bowel sounds, Non tender Skin : Warm, Dry Neurological : Alert & oriented x3, No focal deficit Objective Data Active Medications Acetaminophen (Acetaminophen 325 Mg Tablet) 650 mg PO Q6H PRN PRN Reason: Pain, Mild (Pain Scale 1-3), fever or headache Last Admin: 09/09/24 03:11 Dose: 650 mg Documented By: PATTI Atorvastatin Calcium (Atorvastatin Calcium 40 Mg Tablet) 40 mg PO BEDTIME [facility] Last Admin: 09/09/24 20:43 Dose: 40 mg Documented By: LAST Calcium Carbonate (Calcium Carbonate 750 Mg Tab.Chew) 750 mg PO Q4H PRN PRN Reason: Heartburn Diltiazem HCl (Diltiazem Hcl Cd 120 Mg Cap.Er.Deg) 120 mg PO DAILY [facility]; Protocol Last Admin: 09/10/24 09:20 Dose: 120 mg Documented By: PARRIS Fluoxetine HCl (Fluoxetine Hcl 20 Mg Capsule) 40 mg PO DAILY [facility] Last Admin: 09/10/24 09:20 Dose: 40 mg Documented By: PARRIS Glucose (Glucose Gel 15 Gm Gel..Gram.) 15 gm PO Q15M PRN; Protocol PRN Reason: per Hypoglycemia Standing Ord. Dextrose (D10) 250 mls @ 750 mls/hr IV Q15M PRN; Protocol PRN Reason: per Hypoglycemia Standing Ord. Cefepime HCl (Maxipime) 2 gm in 50 mls @ 100 mls/hr IV Q8H [facility] Last Infusion: 09/10/24 03:39 Dose: Infused Documented By: LAST Vancomycin HCl 1,000 mg/ (Sodium Chloride) 270 mls @ 270 mls/hr IV Q12H [facility] Last Infusion: 09/10/24 07:12 Dose: Infused Documented By: LAST Insulin Human Lispro (Insulin Lispro 100 Unit/Ml 3 Ml Vial) 0 unit SUBCUT QIDACHS [facility]; Protocol Last Admin: 09/10/24 08:01 Dose: Not Given Documented By: PARRIS Non-Admin Reason: No Insulin Coverage Magnesium Hydroxide (Milk Of Magnesia 30 Ml Oral.Susp) 30 ml PO DAILY PRN PRN Reason: Constipation Melatonin (Melatonin 3 Mg Tablet) 6 mg PO BEDTIME PRN PRN Reason: Insomnia Omeprazole (Omeprazole 20 Mg Capsule.Dr) 20 mg PO DAILY@0630 [facility] Last Admin: 09/10/24 06:12 Dose: 20 mg Documented By: LAST Ondansetron HCl (Ondansetron Hcl 4 Mg/2 Ml Vial) 4 mg IVPUSH Q8H PRN PRN Reason: Nausea and Vomiting Last Admin: 09/09/24 22:02 Dose: 4 mg Documented By: LAST Pharmacy Consult (Consult Rx Vancomycin Dosing) 1 each MISCELLANE DAILY PRN PRN Reason: Consult order Sodium Chloride (0.9 % Sodium Chloride Flush 3 Ml Syringe) [facility] Last Admin: 09/10/24 09:20 Dose: 3 ml Documented By: PARRIS Labs 09/10/24 07:39 09/10/24 07:39 Labs: Laboratory Results - last 24 hr 09/09/24 09/09/24 09/09/24 11:00 11:09 14:10 MCV MCH MCHC RDW Plt Count MPV Absolute Nucleated RBC Nucleated RBC % (auto) Anion Gap Estim Creat Clear Calc Estimated GFR POC Glucose 101 Random Glucose Calcium Random Vancomycin 15.5 Blood Type A Positive Antibody Screen NEGATIVE Crossmatch See Detail 09/09/24 09/09/24 09/10/24 16:03 19:47 07:19 MCV MCH MCHC RDW Plt Count MPV Absolute Nucleated RBC Nucleated RBC % (auto) Anion Gap Estim Creat Clear Calc Estimated GFR POC Glucose 130 H 192 H 109 Random Glucose Calcium Random Vancomycin Blood Type Antibody Screen Crossmatch 09/10/24 09/10/24 09/10/24 07:39 07:39 07:39 MCV 102.3 H D MCH 37.3 H MCHC 36.4 H RDW 17.2 H Plt Count 22 L MPV 10.1 Absolute Nucleated RBC 0.000 Nucleated RBC % (auto) 0.0 Anion Gap 14 Estim Creat Clear Calc 75.0 75.0 Estimated GFR > 60 > 60 POC Glucose Random Glucose 114 Calcium 8.5 Random Vancomycin Blood Type Antibody Screen Crossmatch Assessment and Plan (1) Neutropenic fever: Status: Acute (2) Severe neutropenia: Status: Acute (3) Rigor: Status: Acute (4) Fatigue: Status: Acute (5) Pancytopenia: Status: Acute Plan This is a 79-year-old male with pertinent history of paroxysmal atrial fibrillation not on anticoagulation, bladder cancer status post urostomy in remission, ALISON on CPAP at night, hypertension, [id number] diabetes mellitus, CAD status post stent, B12 deficiency, mood disorder who was sent to the emergency department for evaluation of chills. # Absolute severe neutropenia with neutropenic fever with Pancytopenia CT chest/abdomen/pelvis without any acute abnormality no source of infection, negative blood cultures continue empiric IV antibiotics with Vancomycin and Cefepime Consulted Hematology BM biopsy done along with omentum biopsy received 1 unit of blood had 2nd doses of Granix follow CBC follow Vancomycin trough # Paroxysmal atrial fibrillation Not on anticoagulation. Continue diltiazem # Ewl-mkouyfs-nnueqfppo diabetes mellitus Initiating Accu-Cheks with sliding scale insulin # ALISON: Continue CPAP at night DVT prophylaxis: SCDs Full code Admit as inpatient and will require overnight hospital stay for IV antibiotics close monitoring of neutrophils (as above), which is not possible in a lesser acute setting. Specialist consult pending Quality Stroke Does the patient have a stroke diagnosis?: No VTE Prior VTE?: No VTE Risk Level:: Medical - moderate - high VTE Device Contraindication: N/A - Device Ordered VTE Drug Contraindication: Treatment Not Indicated
[2024-09-10 11:26] LABS: Glucose, Whole Blood 220 mg/dL (60-115)
[2024-09-10] MEDS: Insulin Lispro 100 UNIT/ML 3 ML VIAL SUBCUT ×2 (12:19→21:05)
[2024-09-10 15:35] VITALS: BP 135/64; PULSE 67; RESP 18; TEMP 36.7; O2SAT 98
[2024-09-10 16:07] LABS: Glucose, Whole Blood 122 mg/dL (60-115)
[2024-09-10 17:27] LABS: Vancomycin Random 17.6 mcg/mL (15-20)
[2024-09-10 19:38] VITALS: BP 137/65; PULSE 97; RESP 18; TEMP 36.6; O2SAT 95
[2024-09-10 20:32] LABS: Glucose, Whole Blood 153 mg/dL (60-115)
[2024-09-10] MEDS: Atorvastatin Calcium 40 MG TABLET PO (21:05)
--- NOTE | 2024-09-10 22:44 | PC.RT ---
pt refusing to wear cpap therefore order will be dc'd.
[2024-09-11] MEDS: cefEPime HCl/D5W 2 GM/50 ML PIGGYBACK IV ×3 (03:17→17:54)
[2024-09-11 03:23] VITALS: BP 142/65; PULSE 72; RESP 18; TEMP 36.6; O2SAT 99
[2024-09-11] MEDS: Omeprazole 20 MG CAPSULE.DR PO (06:07)
[2024-09-11] MEDS: vancomycin HCL 1,000 MG in 0.9 % Sodium Chloride 250 ML 270 MG IV ×2 (06:07→18:36)
[2024-09-11 07:15] VITALS: BP 142/65; PULSE 80; RESP 16; TEMP 36.1; O2SAT 96
[2024-09-11 07:20] LABS: Glucose, Whole Blood 107 mg/dL (60-115)
[2024-09-11 07:52] LABS: Hemoglobin 7.9 g/dl (14.0-18.0); Mean Corpuscular HGB Conc 34.3 g/dl (31.0-36.0); Mean Corpuscular Hemoglobin 36.1 pg (27.0-33.0); Mean Platelet Volume 9.8 fL (9.4-12.4); Red Blood Count 2.19 X10*6/uL (4.60-5.80); Red Cell Distribution Width 16.9 % (11.0-16.0)
[2024-09-11 07:55] LABS: Platelet Count 23 X10*3/uL (160-400); White Blood Count 1.4 X10*3/uL (4.8-10.8)
[2024-09-11 07:56] LABS: NRBC Pct Auto 1.4 /100WBC (0.0-0.2)
[2024-09-11 08:12] LABS: Creatinine Clr Calc Pharmacy 75.9; Estimated Glomerular Filt Rate > 60
[2024-09-11 08:14] LABS: Anion Gap 11 (12-20); Blood Urea Nitrogen 21 mg/dL (9-16); Calcium 8.1 mg/dL (8.4-10.2); Carbon Dioxide 22 mmol/L (22-29); Chloride 107 mmol/L (96-108); Creatinine Clr Calc Pharmacy 78.6; Estimated Glomerular Filt Rate > 60; Glucose Random 112 mg/dL (60-115); Potassium 3.9 mmol/L (3.3-5.1); Sodium 136 mmol/L (135-145)
[2024-09-11] MEDS: FLUoxetine HCl 20 MG CAPSULE 40 MG PO (08:39)
[2024-09-11] MEDS: dilTIAZem HCL CD 120 MG CAP.ER.DEG PO (08:39)
[2024-09-11] MEDS: 0.9 % Sodium Chloride Flush 3 ML SYRINGE IVFLUSH ×3 (08:39→20:38)
--- NOTE | 2024-09-11 10:14 | HO.PM.IMPN ---
Subjective Subjective Date of Service: 09/11/24 Interval History: seen and evaluated this morning feels better Hb of 7.9, cultures negative no fever overnight cultures negative Review of Systems Review of Systems: Yes all other systems are reviewed and are negative Physical Exam Vital Signs: Vital Signs: Last Vital Signs Temp 96.9 F 09/11/24 07:15 Pulse 80 09/11/24 07:15 Resp 16 09/11/24 07:15 BP 142/65 H 09/11/24 07:15 Pulse Ox 96 09/11/24 07:15 O2 Del Method Room Air 09/11/24 07:15 O2 Flow Rate 2 09/09/24 08:50 BMI result Body Mass Index 26.3 Const: Other: Constitutional : Awake, interactive, frail looking, not in distress Neck : Normal inspection, Supple Cardiovascular : RRR, no JVP, no lower extremity edema Respiratory : good bilateral air entry, no crackles, wheezes or rhonchi Gastrointestinal: soft, lax, Normal bowel sounds, Non tender Skin : Warm, Dry Neurological : Alert & oriented x3, No focal deficit Objective Data Active Medications Acetaminophen (Acetaminophen 325 Mg Tablet) 650 mg PO Q6H PRN PRN Reason: Pain, Mild (Pain Scale 1-3), fever or headache Last Admin: 09/09/24 03:11 Dose: 650 mg Documented By: PATTI Atorvastatin Calcium (Atorvastatin Calcium 40 Mg Tablet) 40 mg PO BEDTIME [facility] Last Admin: 09/10/24 21:05 Dose: 40 mg Documented By: LAST Calcium Carbonate (Calcium Carbonate 750 Mg Tab.Chew) 750 mg PO Q4H PRN PRN Reason: Heartburn Diltiazem HCl (Diltiazem Hcl Cd 120 Mg Cap.Er.Deg) 120 mg PO DAILY [facility]; Protocol Last Admin: 09/11/24 08:39 Dose: 120 mg Documented By: PARRIS Fluoxetine HCl (Fluoxetine Hcl 20 Mg Capsule) 40 mg PO DAILY [facility] Last Admin: 09/11/24 08:39 Dose: 40 mg Documented By: PARRIS Glucose (Glucose Gel 15 Gm Gel..Gram.) 15 gm PO Q15M PRN; Protocol PRN Reason: per Hypoglycemia Standing Ord. Dextrose (D10) 250 mls @ 750 mls/hr IV Q15M PRN; Protocol PRN Reason: per Hypoglycemia Standing Ord. Cefepime HCl (Maxipime) 2 gm in 50 mls @ 100 mls/hr IV Q8H [facility] Last Infusion: 09/11/24 03:47 Dose: Infused Documented By: LAST Vancomycin HCl 1,000 mg/ (Sodium Chloride) 270 mls @ 270 mls/hr IV Q12H [facility] Last Infusion: 09/11/24 07:07 Dose: Infused Documented By: LAST Insulin Human Lispro (Insulin Lispro 100 Unit/Ml 3 Ml Vial) 0 unit SUBCUT QIDACHS [facility]; Protocol Last Admin: 09/11/24 08:06 Dose: Not Given Documented By: PARRIS Non-Admin Reason: No Insulin Coverage Magnesium Hydroxide (Milk Of Magnesia 30 Ml Oral.Susp) 30 ml PO DAILY PRN PRN Reason: Constipation Melatonin (Melatonin 3 Mg Tablet) 6 mg PO BEDTIME PRN PRN Reason: Insomnia Omeprazole (Omeprazole 20 Mg Capsule.Dr) 20 mg PO DAILY@0630 [facility] Last Admin: 09/11/24 06:07 Dose: 20 mg Documented By: LAST Ondansetron HCl (Ondansetron Hcl 4 Mg/2 Ml Vial) 4 mg IVPUSH Q8H PRN PRN Reason: Nausea and Vomiting Last Admin: 09/09/24 22:02 Dose: 4 mg Documented By: LAST Pharmacy Consult (Consult Rx Vancomycin Dosing) 1 each MISCELLANE DAILY PRN PRN Reason: Consult order Sodium Chloride (0.9 % Sodium Chloride Flush 3 Ml Syringe) 3 ml IVFLUSH QSHIFT [facility] Last Admin: 09/11/24 08:39 Dose: 3 ml Documented By: PARRIS Labs 09/11/24 07:19 09/11/24 07:19 Labs: Laboratory Results - last 24 hr 09/10/24 09/10/24 09/10/24 11:12 15:58 16:18 MCV MCH MCHC RDW Plt Count MPV Absolute Nucleated RBC Nucleated RBC % (auto) Anion Gap Estim Creat Clear Calc Estimated GFR POC Glucose 220 H 122 H Random Glucose Calcium Random Vancomycin 17.6 09/10/24 09/11/24 09/11/24 20:24 07:06 07:19 MCV 105.0 H MCH 36.1 H MCHC 34.3 RDW 16.9 H Plt Count 23 L MPV 9.8 Absolute Nucleated RBC 0.020 H Nucleated RBC % (auto) 1.4 H Anion Gap 11 L Estim Creat Clear Calc 78.6 Estimated GFR POC Glucose 153 H 107 Random Glucose Calcium Random Vancomycin 09/11/24 09/11/24 07:19 07:19 MCV MCH MCHC RDW Plt Count MPV Absolute Nucleated RBC Nucleated RBC % (auto) Anion Gap Estim Creat Clear Calc 75.9 Estimated GFR > 60 > 60 POC Glucose Random Glucose 112 Calcium 8.1 L Random Vancomycin Assessment and Plan (1) Neutropenic fever: Status: Acute (2) Severe neutropenia: Status: Acute (3) Fatigue: Status: Acute (4) Pancytopenia: Status: Acute Plan This is a 79-year-old male with pertinent history of paroxysmal atrial fibrillation not on anticoagulation, bladder cancer status post urostomy in remission, ALISON on CPAP at night, hypertension, [id number] diabetes mellitus, CAD status post stent, B12 deficiency, mood disorder who was sent to the emergency department for evaluation of chills. # Absolute severe neutropenia with neutropenic fever with Pancytopenia CT chest/abdomen/pelvis without any acute abnormality no source of infection, negative blood cultures ANC <500 continue empiric IV antibiotics with Vancomycin and Cefepime Consulted Hematology BM biopsy done along with omentum biopsy received 1 unit of blood had 2nd doses of Granix follow CBC follow Vancomycin trough # Paroxysmal atrial fibrillation Not on anticoagulation. Continue diltiazem # Bmr-xnoszue-eisbqagea diabetes mellitus Initiating Accu-Cheks with sliding scale insulin # ALISON: Continue CPAP at night DVT prophylaxis: SCDs Full code Admit as inpatient and will require overnight hospital stay for IV antibiotics close monitoring of neutrophils (as above), which is not possible in a lesser acute setting. Specialist consult pending Quality Stroke Does the patient have a stroke diagnosis?: No VTE Prior VTE?: No VTE Risk Level:: Medical - moderate - high VTE Device Contraindication: N/A - Device Ordered VTE Drug Contraindication: Treatment Not Indicated
[2024-09-11 10:22] LABS: Basophils Percent Auto 0.7 % (0-2); Eosinophils Percent Auto 0.7 % (0-4); Imm Gran Abs Auto 0.06 X10*3/uL (0.00-0.03); Imm Gran Pct Auto 4.1 % (0.0-0.4); Lymphocytes Percent Auto 66.7 % (20-40); MANUAL DIFF FLAG SCAN; Monocytes Absolute Auto 0.2 X10*3/uL (0.1-1.2); Monocytes Percent Auto 10.2 % (2-11); Neutrophils Absolute Auto 0.3 x10*3/uL (2.0-8.3); Neutrophils Percent Auto 17.6 % (45-73); SCAN SMEAR FLAG 1
[2024-09-11 10:40] LABS: SLIDE REVIEW VERIFIED
[2024-09-11 11:14] LABS: Glucose, Whole Blood 196 mg/dL (60-115)
[2024-09-11] MEDS: Calcium Carbonate 750 MG TAB.CHEW PO (11:41)
[2024-09-11] MEDS: Insulin Lispro 100 UNIT/ML 3 ML VIAL SUBCUT ×2 (12:19→20:37)
[2024-09-11] MEDS: ondansetron HCL 4 MG/2 ML VIAL IVPUSH (13:46)
[2024-09-11 15:05] VITALS: BP 134/66; PULSE 69; RESP 18; TEMP 36.8; O2SAT 99
[2024-09-11 16:19] LABS: Glucose, Whole Blood 144 mg/dL (60-115)
[2024-09-11 17:11] LABS: Vancomycin Random 18.5 mcg/mL (15-20)
[2024-09-11 19:38] VITALS: BP 148/72; PULSE 66; RESP 18; TEMP 37.2; O2SAT 96
[2024-09-11 19:50] LABS: Glucose, Whole Blood 188 mg/dL (60-115)
[2024-09-11] MEDS: Atorvastatin Calcium 40 MG TABLET PO (20:37)
[2024-09-12 03:11] VITALS: BP 127/61; PULSE 64; RESP 18; TEMP 36.8; O2SAT 99
[2024-09-12] MEDS: cefEPime HCl/D5W 2 GM/50 ML PIGGYBACK IV ×3 (03:12→18:04)
[2024-09-12] MEDS: vancomycin HCL 1,000 MG in 0.9 % Sodium Chloride 250 ML 270 MG IV (06:17)
[2024-09-12] MEDS: Omeprazole 20 MG CAPSULE.DR PO (06:17)
[2024-09-12 07:23] LABS: Hematocrit 22.4 % (42.0-52.0); Hemoglobin 7.8 g/dl (14.0-18.0); Mean Corpuscular HGB Conc 34.8 g/dl (31.0-36.0); Mean Corpuscular Hemoglobin 36.3 pg (27.0-33.0); Mean Corpuscular Volume 104.2 fL (80.0-98.0); Mean Platelet Volume 9.2 fL (9.4-12.4); Red Blood Count 2.15 X10*6/uL (4.60-5.80); Red Cell Distribution Width 16.6 % (11.0-16.0)
[2024-09-12 07:27] LABS: Anion Gap 10 (12-20); Blood Urea Nitrogen 21 mg/dL (9-16); Calcium 8.3 mg/dL (8.4-10.2); Carbon Dioxide 21 mmol/L (22-29); Chloride 108 mmol/L (96-108); Creatinine Clr Calc Pharmacy 69.6; Estimated Glomerular Filt Rate > 60; Glucose Random 125 mg/dL (60-115); Potassium 3.8 mmol/L (3.3-5.1); Sodium 135 mmol/L (135-145)
[2024-09-12 07:29] VITALS: BP 135/62; PULSE 54; RESP 18; TEMP 36.9; O2SAT 98
[2024-09-12 07:53] LABS: Glucose, Whole Blood 125 mg/dL (60-115)
[2024-09-12 07:57] LABS: White Blood Count 1.6 X10*3/uL (4.8-10.8)
[2024-09-12 08:00] LABS: NRBC Pct Auto 1.3 /100WBC (0.0-0.2); Platelet Count 19 X10*3/uL (160-400)
--- NOTE | 2024-09-12 08:27 | PM.HEMONCCN ---
Subjective - Subjective Chief complaint: Consult for: Pancytopenia. Patient: known to practice within the last 3 years Consult date: 09/12/24 Requesting Physician: Anoop. Primary Care Provider: Matias Roy MD Family Provider: Matias Roy MD Medical Summary: DIAGNOSIS: PANCYTOPENIA. HPI - Consult Narrative Reason for consult: Consult for: Pancytopenia. Narrative: Chilo Fox is a 79 year old gentleman, he admitted on 09/07, with pancytopenia. He was sent to the emergency department for evaluation of chills. Patient states that he has been having 3-4 episodes of chills with shaking every day since being discharged from the hospital. Patient went to his PCP's office and was sent to the ER for further evaluation due to ongoing chills. No documented temperature. He does have nausea but no vomiting. Denies loose stools. Also has associate weakness and easy fatigability. No change in cough, palpitations, chest pain, shortness of breath. In the emergency department, patient was found to have severe neutropenia. CBC: WBC 1.1, HGB 7.8, HCT 23.1, MCV 112, PLT 34. He was recently admitted on 08/31 for acute UTI and hematuria. He was found to be pancytopenic. PAST MEDICAL HISTORY: Paroxysmal atrial fibrillation not on anticoagulation, bladder cancer status post urostomy in remission, ALISON on CPAP at night, hypertension, [id number]-qjirgvaee diabetes mellitus, CAD status post stent, B12 deficiency. MRSA infection Foot drop, left foot ALISON on CPAP COPD (chronic obstructive pulmonary disease) Upper GI bleeding PAF (paroxysmal atrial fibrillation) Smoker Hyperlipidemia, unspecified Type 2 diabetes mellitus with unspecified complications Essential hypertension Arteriosclerotic cardiovascular disease Atrial flutter by electrocardiogram Surgical History: H/O colonoscopy Status post surgical removal of malignant neoplasm of skin History of knee replacement (~10/2021) Hx of cardiac cath (~2017) History of surgical removal of ganglion cyst (~2016) S/P radical cystoprostatectomy (~2014) Hx of total knee replacement (~2004) Family History: Father Staph infection Mother Hypertension Brother Heart problem Social History:) Household Members: Spouse Household Members Other:: pets: dogs Review of Systems Constitutional: Constitutional: Reports chills, Reports malaise and Reports weakness Cardiovascular: Cardiovascular: Reports no additional cardiovascular complaints Respiratory: Respiratory: Reports no additional respiratory complaints Genitourinary: Genitourinary: Reports no additional male genitourinary complaints Neurologic: Reports weakness Review of Systems - Constitutional Reports no additional constitutional complaints, Reports anorexia, Reports chills, Reports fatigue, Reports fever(s), Reports lack of energy, Reports malaise, Reports weight loss - Eyes Reports no additional eye complaints - ENT Reports no additional ear, nose, mouth, and throat complaints - Cardiovascular Reports no additional cardiovascular complaints - Respiratory Reports no additional respiratory complaints - Gastrointestinal Reports no additional gastrointestinal complaints - Genitourinary Genitourinary: Reports no additional male genitourinary complaints - Musculoskeletal Reports no additional musculoskeletal complaints - Integumentary/Breasts Skin/Breast: Reports no additional skin complaints - Neurologic Reports weakness - Psychiatric Reports no additional psychiatric complaints - Endocrine Reports no additional endocrine complaints - Hematologic/Lymphatic Reports no additional hematologic/lymphatic complaints - Allergic/Immunologic Reports no additional allergic/immunologic complaints Oncology Screenings - ECOG Performance Status ECOG Performance Status: 2 [facility] Medical History: Medical History (Last Reviewed 09/07/24 @ 02:30 by Todd Greer MD) Arteriosclerotic cardiovascular disease Atrial flutter by electrocardiogram COPD (chronic obstructive pulmonary disease) Essential hypertension Foot drop, left foot Hyperlipidemia, unspecified MRSA infection ALISON on CPAP PAF (paroxysmal atrial fibrillation) Smoker Type 2 diabetes mellitus with unspecified complications Upper GI bleeding Functional capacity: wheelchair bound Family History: Family History (Last Reviewed 09/07/24 @ 02:30 by Todd Greer MD) Father Staph infection Mother Hypertension Brother Heart problem Surgical History: Surgical History (Last Reviewed 09/07/24 @ 02:30 by Todd Greer MD) H/O colonoscopy History of knee replacement Onset Date: ~10/2021 History of surgical removal of ganglion cyst Onset Date: ~2016 Hx of cardiac cath Onset Date: ~2017 Hx of total knee replacement Onset Date: ~2004 S/P radical cystoprostatectomy Onset Date: ~2014 Status post surgical removal of malignant neoplasm of skin Social History: Social History (Last Reviewed 09/07/24 @ 02:30 by Todd Greer MD) Living Situation History: Household Members: Spouse Household Members Other:: pets: dogs Housing: House Do you presently have visiting nurse or other home services: No Tobacco History: Patient Tobacco Use Status: Never used Tobacco Tobacco use type: Cigarette Cigarette Packs Per Day: 1 Years Smoked: 64 e-Cigarette/Vaping Use: Never Used Second Hand Smoke Exposure: No Advance Directives: Advance Directives Date on File: 05/26/24 Occupation Assessmet: service: No Current occupational status: retired Current occupational exposures/hazards: No Home Medications and Allergies Current Medications: Current Medications Acetaminophen (Acetaminophen 325 Mg Tablet) 650 mg PO Q6H PRN PRN Reason: Pain, Mild (Pain Scale 1-3), fever or headache Last Admin: 09/09/24 03:11 Dose: 650 mg Atorvastatin Calcium (Atorvastatin Calcium 40 Mg Tablet) 40 mg PO BEDTIME [facility] Last Admin: 09/11/24 20:37 Dose: 40 mg Calcium Carbonate (Calcium Carbonate 750 Mg Tab.Chew) 750 mg PO Q4H PRN PRN Reason: Heartburn Last Admin: 09/11/24 11:41 Dose: 750 mg Diltiazem HCl (Diltiazem Hcl Cd 120 Mg Cap.Er.Deg) 120 mg PO DAILY [facility]; Protocol Last Admin: 09/11/24 08:39 Dose: 120 mg Fluoxetine HCl (Fluoxetine Hcl 20 Mg Capsule) 40 mg PO DAILY [facility] Last Admin: 09/11/24 08:39 Dose: 40 mg Glucose (Glucose Gel 15 Gm Gel..Gram.) 15 gm PO Q15M PRN; Protocol PRN Reason: per Hypoglycemia Standing Ord. Dextrose (D10) 250 mls @ 750 mls/hr IV Q15M PRN; Protocol PRN Reason: per Hypoglycemia Standing Ord. Cefepime HCl (Maxipime) 2 gm in 50 mls @ 100 mls/hr IV Q8H [facility] Last Infusion: 09/12/24 03:42 Dose: Infused Vancomycin HCl 1,000 mg/ (Sodium Chloride) 270 mls @ 270 mls/hr IV Q12H [facility] Last Infusion: 09/12/24 07:28 Dose: Infused Insulin Human Lispro (Insulin Lispro 100 Unit/Ml 3 Ml Vial) 0 unit SUBCUT QIDACHS [facility]; Protocol Last Admin: 09/12/24 07:55 Dose: Not Given Magnesium Hydroxide (Milk Of Magnesia 30 Ml Oral.Susp) 30 ml PO DAILY PRN PRN Reason: Constipation Melatonin (Melatonin 3 Mg Tablet) 6 mg PO BEDTIME PRN PRN Reason: Insomnia Omeprazole (Omeprazole 20 Mg Capsule.) 20 mg PO DAILY@0630 [facility] Last Admin: 09/12/24 06:17 Dose: 20 mg Ondansetron HCl (Ondansetron Hcl 4 Mg/2 Ml Vial) 4 mg IVPUSH Q8H PRN PRN Reason: Nausea and Vomiting Last Admin: 09/11/24 13:46 Dose: 4 mg Pharmacy Consult (Consult Rx Vancomycin Dosing) 1 each MISCELLANE DAILY PRN PRN Reason: Consult order Sodium Chloride (0.9 % Sodium Chloride Flush 3 Ml Syringe) 3 ml IVFLUSH QSHIFT [facility] Last Admin: 09/11/24 20:38 Dose: 3 ml Tbo-Filgrastim (Tbo-Filgrastim 480 Mcg/0.8 Ml Syringe) 480 mcg SUBCUT ONCE ONE Stop: 09/12/24 08:23 Home Medications ?Medication ?Instructions ?Recorded ?Confirmed ?Type omeprazole 20 mg capsule,delayed 20 mg PO DAILY@0630 11/07/20 09/07/24 History release cholecalciferol (vitamin D3) 50 50 mcg PO DAILY 11/14/20 09/07/24 History mcg (2,000 unit) capsule metformin 500 mg tablet,extended 500 mg PO BID 11/11/21 09/07/24 History release 24 hr acetaminophen 325 mg tablet 650 mg PO DAILY PRN Pain 06/20/24 09/07/24 History (Tylenol) hsapzbds-rs-taouk 300 mcg-K 60 1 tab PO DAILY 08/23/24 09/07/24 History mcg-lycop 600 mcg-lutein 300 mcg tablet (Centrum Silver Men) ferrous gluconate 324 mg (38 mg 324 mg PO MOWEFR 08/31/24 09/07/24 History iron) tablet Allergies Allergy/AdvReac Type Severity Reaction Status Date / Time Iodinated Contrast Media Allergy Severe ANAPHYLAXIS Verified 09/06/24 13:34 [IV CONTRAST] Penicillins [PENICILLINS] Allergy Severe trouble Verified 09/06/24 13:34 breathing doxycycline AdvReac Intermediate rASH Verified 09/06/24 13:34 Physical Exam Vital signs: Vital Signs Temp 98.5 F 09/12/24 07:29 Pulse 54 09/12/24 07:29 Resp 18 09/12/24 07:29 BP 135/62 09/12/24 07:29 Pulse Ox 98 09/12/24 07:29 O2 Del Method Room Air 09/12/24 07:29 O2 Flow Rate 2 09/09/24 08:50 Intake & Output 09/11/24 09/12/24 09/12/24 18:59 06:59 18:59 Intake Total 710 / 2470 1760 / 2470 270 / 270 Output Total 625 / 1875 1250 / 1875 Balance 85 / 595 510 / 595 270 / 270 Urine Output (Average ml/kg/hr) 0.28 1.18 1.18 Intake: Intake, Oral Amount 340 / 1780 1440 / 1780 Intake, IV Amount 370 / 690 320 / 690 270 / 270 cefEPime HCl/D5W 2 gm In 50 ml 100 / 150 50 / 150 @ 100 mls/hr IV Q8H [facility] Rx#: [id number] vancomycin HCL 1,000 mg In 0.9 270 / 540 270 / 540 270 / 270 % Sodium Chloride 250 ml @ 270 mls/hr IV Q12H [facility] Rx#: [id number] Output: Output, Urine Amount 300 / 1050 750 / 1050 Output, Post Void Residual 325 / 325 Amount Output, Urine Amount (Catheter) 500 / 500 Urostomy 500 / 500 Other: Breakfast % Eaten 50% Lunch % Eaten 100% Dinner % Eaten 100% Eating (Feeding) Ability Independent Urine mcbride Urine Color Yellow Stool Color Yellow Weight 87.99 kg - Constitutional Present: mild distress - Routine HEENT Exam Head: Present: normal inspection, normocephalic Eye: Present: normal appearance ENT: Present: mucous membranes moist - Routine Neck Exam Present: supple - Routine Respiratory Exam Present: CTAB - Routine Cardiovascular Exam Cardiovascular: Present: RRR, S1, S2 - Routine Abdominal Exam Present: soft, nontender - Routine Extremities Exam Present: nontender - Routine Skin Exam Present: intact, normal turgor Hem/Onc Consult Result - Labs CBC & Chem 7: 09/12/24 05:45 09/12/24 05:45 Labs: Short CBC 09/12/24 Range/Units 05:45 WBC 1.6 L (4.8-10.8) X10*3/uL Hgb 7.8 L (14.0-18.0) g/dl Hct 22.4 L (42.0-52.0) % Plt Count 19 L* (160-400) X10*3/uL [facility] 09/12/24 05:45 Sodium 135 Potassium 3.8 Chloride 108 Carbon Dioxide 21 L BUN 21 H Creatinine 0.96 Calcium 8.3 L Assessment and Plan Patient Active problem list reviewed?: Yes (1) Pancytopenia Status: Acute Assessment and plan: 79 year old gentleman with a history of bladder cancer and recent hematuria. Concern was UTI. He was noted to be pancytopenic on a recent admission. He now presented with fever and chills. DIFFERENTIAL DIAGNOSIS: 1. INFECTION RELATED: He had recent UTI he now presents with fever so concern is neutropenic bacteremia. 2. ALCOHOL-RELATED LIVER DISEASE. 3. UNDERLYING MYELO INFILTRATIVE DISORDER: Acute leukemia, Myelodysplastic syndrome, lymphoma versus multiple myeloma. DATABASE: HIV and hepatitis-B and C: Negative. Collagen vascular profile: ESR: 224, RA: <13, MARGE: Negative. LDH: 226. SIEP: Normal profile. PLAN: Patient already had a bone marrow exam done on 09/09. Will expedite the results. Meanwhile patient is on broad-spectrum antibiotic for neutropenic bacteremia. He is on G-CSF. He is being transfused as required. Thank you for the consult, I will follow along with you, CC: Dr. Matias Roy. Addendum: Preliminary bone marrow results: Acute leukemia. Marrow is packed with blasts. Further molecular testing pending to define the type of leukemia, likely AML versus ALL. Patient was notified about the results. Discussed options with him and his via phone. Explained that we have 2 choices: 1. Palliative care. 2. There is a choice of undergoing induction chemotherapy, with 7 and 3 (Latrice C infusion for 7 days and idarubicin for 3 days.) Patient will need to be transferred to a tertiary care hospital to facilitate the treatment. After discussion, they would like to undergo a trial of treatment. Discussed with Dr. Davalos. He will make arrangements to transfer the patient whenever bed is available. The bone marrow slides will be requested, and sent. Will proceed with molecular testing later today. CC: Matias Roy MD - Time Spent With Patient Time Spent with Patient (in minutes): 30
[2024-09-12 08:46] VITALS: PULSE 79
[2024-09-12] MEDS: FLUoxetine HCl 20 MG CAPSULE 40 MG PO (08:46)
[2024-09-12] MEDS: dilTIAZem HCL CD 120 MG CAP.ER.DEG PO (08:46)
[2024-09-12] MEDS: 0.9 % Sodium Chloride Flush 3 ML SYRINGE IVFLUSH ×2 (08:51→18:06)
--- NOTE | 2024-09-12 09:13 | HO.PM.IMPN ---
Subjective Subjective Date of Service: 09/12/24 Interval History: seen and evaluated this morning feels better overall Hb of 7.8, cultures negative no fever or chills overnight Review of Systems Review of Systems: Yes all other systems are reviewed and are negative Physical Exam Vital Signs: Vital Signs: Last Vital Signs Temp 98.5 F 09/12/24 07:29 Pulse 79 09/12/24 08:46 Resp 18 09/12/24 07:29 BP 135/62 09/12/24 07:29 Pulse Ox 98 09/12/24 07:29 O2 Del Method Room Air 09/12/24 07:29 O2 Flow Rate 2 09/09/24 08:50 BMI result Body Mass Index 26.3 Const: Other: Constitutional : Awake, interactive, frail looking, not in distress Neck : Normal inspection, Supple Cardiovascular : RRR, no JVP, no lower extremity edema Respiratory : good bilateral air entry, no crackles, wheezes or rhonchi Gastrointestinal: soft, lax, Normal bowel sounds, Non tender Skin : Warm, Dry Neurological : Alert & oriented x3, No focal deficit Objective Data Active Medications Acetaminophen (Acetaminophen 325 Mg Tablet) 650 mg PO Q6H PRN PRN Reason: Pain, Mild (Pain Scale 1-3), fever or headache Last Admin: 09/09/24 03:11 Dose: 650 mg Documented By: PATTI Atorvastatin Calcium (Atorvastatin Calcium 40 Mg Tablet) 40 mg PO BEDTIME [facility] Last Admin: 09/11/24 20:37 Dose: 40 mg Documented By: HELENRISAnnabelle Calcium Carbonate (Calcium Carbonate 750 Mg Tab.Chew) 750 mg PO Q4H PRN PRN Reason: Heartburn Last Admin: 09/11/24 11:41 Dose: 750 mg Documented By: PARRIS Diltiazem HCl (Diltiazem Hcl Cd 120 Mg Cap.Er.Deg) 120 mg PO DAILY [facility]; Protocol Last Admin: 09/12/24 08:46 Dose: 120 mg Documented By: ARACELI Fluoxetine HCl (Fluoxetine Hcl 20 Mg Capsule) 40 mg PO DAILY [facility] Last Admin: 09/12/24 08:46 Dose: 40 mg Documented By: ARACELI Glucose (Glucose Gel 15 Gm Gel..Gram.) 15 gm PO Q15M PRN; Protocol PRN Reason: per Hypoglycemia Standing Ord. Dextrose (D10) 250 mls @ 750 mls/hr IV Q15M PRN; Protocol PRN Reason: per Hypoglycemia Standing Ord. Cefepime HCl (Maxipime) 2 gm in 50 mls @ 100 mls/hr IV Q8H [facility] Last Infusion: 09/12/24 03:42 Dose: Infused Documented By: JENNIFER Vancomycin HCl 1,000 mg/ (Sodium Chloride) 270 mls @ 270 mls/hr IV Q12H [facility] Last Infusion: 09/12/24 07:28 Dose: Infused Documented By: ARACELI Insulin Human Lispro (Insulin Lispro 100 Unit/Ml 3 Ml Vial) 0 unit SUBCUT QIDACHS [facility]; Protocol Last Admin: 09/12/24 07:55 Dose: Not Given Documented By: ARACELI Non-Admin Reason: No Insulin Coverage Magnesium Hydroxide (Milk Of Magnesia 30 Ml Oral.Susp) 30 ml PO DAILY PRN PRN Reason: Constipation Melatonin (Melatonin 3 Mg Tablet) 6 mg PO BEDTIME PRN PRN Reason: Insomnia Omeprazole (Omeprazole 20 Mg Capsule.Dr) 20 mg PO DAILY@0630 [facility] Last Admin: 09/12/24 06:17 Dose: 20 mg Documented By: JENNIFER Ondansetron HCl (Ondansetron Hcl 4 Mg/2 Ml Vial) 4 mg IVPUSH Q8H PRN PRN Reason: Nausea and Vomiting Last Admin: 09/11/24 13:46 Dose: 4 mg Documented By: PARRIS Pharmacy Consult (Consult Rx Vancomycin Dosing) 1 each MISCELLANE DAILY PRN PRN Reason: Consult order Sodium Chloride (0.9 % Sodium Chloride Flush 3 Ml Syringe) 3 ml IVFLUSH QSHIFT [facility] Last Admin: 09/12/24 08:51 Dose: 3 ml Documented By: ARACELI Labs 09/12/24 05:45 09/12/24 05:45 Labs: Laboratory Results - last 24 hr 09/11/24 09/11/24 09/11/24 07:19 11:03 16:14 MCV MCH MCHC RDW Plt Count MPV Immature Gran % (Auto) 4.1 H Neut % (Auto) 17.6 L Lymph % (Auto) 66.7 H [place] % (Auto) 10.2 Eos % (Auto) 0.7 Baso % (Auto) 0.7 Lymph # (Auto) 1.0 L [place] # (Auto) 0.2 Eos # (Auto) 0.0 Baso # (Auto) 0.0 Abs Immat Gran (auto) 0.06 H Absolute Neuts (auto) 0.3 L Absolute Nucleated RBC Nucleated RBC % (auto) Smear Tech's Comments VERIFIED Anion Gap Estim Creat Clear Calc Estimated GFR POC Glucose 196 H 144 H Random Glucose Calcium Random Vancomycin 09/11/24 09/11/24 09/12/24 16:22 19:41 05:45 MCV 104.2 H MCH 36.3 H MCHC 34.8 RDW 16.6 H Plt Count 19 L* MPV 9.2 L Immature Gran % (Auto) Neut % (Auto) Lymph % (Auto) [place] % (Auto) Eos % (Auto) Baso % (Auto) Lymph # (Auto) [place] # (Auto) Eos # (Auto) Baso # (Auto) Abs Immat Gran (auto) Absolute Neuts (auto) Absolute Nucleated RBC 0.020 H Nucleated RBC % (auto) 1.3 H Smear Tech's Comments Anion Gap 10 L Estim Creat Clear Calc 69.6 Estimated GFR > 60 POC Glucose 188 H Random Glucose 125 H Calcium 8.3 L Random Vancomycin 18.5 09/12/24 07:28 MCV MCH MCHC RDW Plt Count MPV Immature Gran % (Auto) Neut % (Auto) Lymph % (Auto) [place] % (Auto) Eos % (Auto) Baso % (Auto) Lymph # (Auto) [place] # (Auto) Eos # (Auto) Baso # (Auto) Abs Immat Gran (auto) Absolute Neuts (auto) Absolute Nucleated RBC Nucleated RBC % (auto) Smear Tech's Comments Anion Gap Estim Creat Clear Calc Estimated GFR POC Glucose 125 H Random Glucose Calcium Random Vancomycin Microbiology Microbiology Results: Microbiology 09/07/24 01:54 Blood Culture - Final Blood - Venous No growth after 5 days. 09/07/24 01:39 Blood Culture - Final Blood - Venous No growth after 5 days. Assessment and Plan (1) Neutropenic fever: Status: Acute (2) Fatigue: Status: Acute (3) Severe neutropenia: Status: Acute Plan This is a 79-year-old male with pertinent history of paroxysmal atrial fibrillation not on anticoagulation, bladder cancer status post urostomy in remission, ALISON on CPAP at night, hypertension, tht-agnneua-xlsktgril diabetes mellitus, CAD status post stent, B12 deficiency, mood disorder who was sent to the emergency department for evaluation of chills. # Absolute severe neutropenia with neutropenic fever and Pancytopenia CT chest/abdomen/pelvis without any acute abnormality no source of infection, negative blood cultures ANC still <500 continue empiric IV antibiotics with Vancomycin and Cefepime started 09/07 (to finish one week or until ANC>500) Consulted Hematology BM biopsy done along with omentum biopsy received 1 unit of blood had 2nd doses of Granix, to give a 3rd follow CBC follow Vancomycin trough # Paroxysmal atrial fibrillation Not on anticoagulation. Continue diltiazem # Icy-hykgltk-cgryvuixd diabetes mellitus Initiating Accu-Cheks with sliding scale insulin # ALISON: Continue CPAP at night DVT prophylaxis: SCDs Full code Admit as inpatient and will require overnight hospital stay for IV antibiotics close monitoring of neutrophils and give IV antibiotics, which is not possible in a lesser acute setting. Specialist consult pending Quality Stroke Does the patient have a stroke diagnosis?: No VTE Prior VTE?: No VTE Risk Level:: Medical - moderate - high VTE Device Contraindication: N/A - Device Ordered VTE Drug Contraindication: Treatment Not Indicated
[2024-09-12] MEDS: Calcium Carbonate 750 MG TAB.CHEW PO (10:59)
[2024-09-12 11:25] LABS: Glucose, Whole Blood 201 mg/dL (60-115)
[2024-09-12] MEDS: Insulin Lispro 100 UNIT/ML 3 ML VIAL SUBCUT (11:36)
--- NOTE | 2024-09-12 13:25 | PM.DS ---
DS: Providers Provider Date of Service: 09/12/24 Date of admission: 09/07/24 02:06 Date of discharge: 09/12/24 Primary care physician: Matias Roy MD Consults: 09/07/24 02:08 Consult to Hematology / Oncology Routine Consulting Provider: [facility] Oncology/Hematology Reason for consultation: absolute neutropenia DS: Diagnosis Discharge Diagnosis (1) Pancytopenia: Status: Acute (2) Neutropenic fever: Status: Acute (3) Severe neutropenia: Status: Acute (4) Fatigue: Status: Acute (5) Rigor: Status: Acute (6) Neutropenia: Status: Acute (7) Pancytopenia: Status: Acute (8) Leukemia, acute: Status: Acute DS: Summary Hospital Course Hospital Course: Admission note HPI This is a 79-year-old male with pertinent history of paroxysmal atrial fibrillation not on anticoagulation, bladder cancer status post urostomy in remission, ALISON on CPAP at night, hypertension, [id number] diabetes mellitus, CAD status post stent, B12 deficiency, mood disorder who was sent to the emergency department for evaluation of chills. Of note, patient was recently admitted on 08/31 for acute UTI and hematuria. Patient was found to be pancytopenic and Hematology Oncology was consulted. Patient states that he has been having 3-4 episodes of chills with shaking every day since being discharged from the hospital. Patient went to his PCP's office and was sent to the ER for further evaluation due to ongoing chills. No documented temperature. He does have nausea but no vomiting. Denies loose stools. Also has associate weakness and easy fatigability. No change in cough, palpitations, chest pain, shortness of breath. In the emergency department, patient was found to have severe neutropenia Hospital course The patient was admitted for Absolute severe neutropenia with neutropenic fever and Pancytopenia. CT chest/abdomen/pelvis without any acute abnormality. no source of infection, negative blood cultures ANC on admission <100. now around 200+. Peripheral smear showed dysplastic features like dark blue cytoplasm and round/irregular nuclei with variable chromatin and distinct nucleoli; admixed granulocytes with pelgeroid changes are present (coarse chromatin).? Started on empiric IV antibiotics with Vancomycin and Cefepime started 09/07 with a plan to finish one week or until ANC>500 as he was evaluated by community education specialist as biopsy done along with omentum biopsy. The BM biopsy prelim report showing Marrow packed with blasts suggestive of acute leukemia. molecular testing pending to define the type of leukemia. He received 1 unit of blood with Hb stable between 7-8. received 3 doses of Granix with mild improvement of ANC as reported. Oncology recommended transfer [facility] for induction chemotherapy, with 7 and 3 (Latrice C infusion for 7 days and idarubicin for 3 days). as patient wants to undergo a trial of treatment. Admitting provider dr Cyndee Preston. Time Attestation Discharge Coordination Time (in mins): 53 Quality: Safe Use of Opioids Does Pt have an Active Cancer Diagnosis on the Problem List?: Yes Opioid Measure Date for [facility] Report: 08/13/24 Opioid Measure Time for [facility] Report: 13:56 Quality: Stroke Does the patient have a stroke diagnosis?: No Physical Exam Vital Signs: Vital Signs: Last Vital Signs Temp 98.5 F 09/12/24 07:29 Pulse 79 09/12/24 08:46 Resp 18 09/12/24 07:29 BP 135/62 09/12/24 07:29 Pulse Ox 98 09/12/24 07:29 O2 Del Method Room Air 09/12/24 07:29 O2 Flow Rate 2 09/09/24 08:50 BMI result Body Mass Index 26.3 Const: Other: Constitutional : Awake, interactive, frail looking, not in distress Neck : Normal inspection, Supple Cardiovascular : RRR, no JVP, no lower extremity edema Respiratory : good bilateral air entry, no crackles, wheezes or rhonchi Gastrointestinal: soft, lax, Normal bowel sounds, Non tender Skin : Warm, Dry Neurological : Alert & oriented x3, No focal deficit DS: Data Data Completed and Pending Completed studies during hospitalization [Text1]: Procedures Inspection of Upper Intestinal Tract, Via Natural or Artificial Opening Endoscopic (10/24/20) Pending studies at discharge: Pending at discharge 09/09/24 08:59 Surgical Path [Surgical] [PTH] Routine Labs on day of discharge: Laboratory Results - last 24 hr 09/11/24 09/11/24 09/11/24 16:14 16:22 19:41 WBC RBC Hgb Hct MCV MCH MCHC RDW Plt Count MPV Absolute Nucleated RBC Nucleated RBC % (auto) Smear Path Review Sodium Potassium Chloride Carbon Dioxide Anion Gap BUN Creatinine Estim Creat Clear Calc Estimated GFR POC Glucose 144 H 188 H Random Glucose Calcium Random Vancomycin 18.5 09/12/24 09/12/24 09/12/24 05:45 07:28 10:58 WBC 1.6 L RBC 2.15 L Hgb 7.8 L Hct 22.4 L MCV 104.2 H MCH 36.3 H MCHC 34.8 RDW 16.6 H Plt Count 19 L* MPV 9.2 L Absolute Nucleated RBC 0.020 H Nucleated RBC % (auto) 1.3 H Smear Path Review SEE NOTE Sodium 135 Potassium 3.8 Chloride 108 Carbon Dioxide 21 L Anion Gap 10 L BUN 21 H Creatinine 0.96 Estim Creat Clear Calc 69.6 Estimated GFR > 60 POC Glucose 125 H 201 H Random Glucose 125 H Calcium 8.3 L Random Vancomycin Imaging CT scan - chest: Radiologist's impression: ITS Impressions Chest X-Ray 09/07/24 01:16 IMPRESSION: *Diffuse fine pulmonary reticular opacities and pulmonary vascular indistinctness. Findings could represent mild pulmonary vascular congestion. Alternatively, findings may represent bronchitis/bronchiolitis in the setting of viral/atypical infection. No focal pulmonary consolidation. Electronically signed by: Charlie Glass MD 09/07/2024 02:34 AM EST RP Abdomen/Pelvis CT 09/07/24 02:10 IMPRESSION: Noncontrast CT of the chest, abdomen and pelvis: 1. No acute abnormalities identified. 2. Status post cystectomy with diverting ileal conduit in the right lower abdominal quadrant. No evidence of intestinal obstruction. No free intraperitoneal fluid or gas collections. 3. No abdominal or pelvic lymphadenopathy. 4. Mild-moderate paraseptal emphysema and pulmonary fibrosis. Findings are unchanged compared with 08/31/2024 and appears slightly progressed compared with 11/15/2019. 5. Marked diffuse coronary artery calcific atherosclerosis. Electronically signed by: Charlie Glass MD 09/07/2024 03:27 AM EST RP Chest CT 09/07/24 02:10 IMPRESSION: Noncontrast CT of the chest, abdomen and pelvis: 1. No acute abnormalities identified. 2. Status post cystectomy with diverting ileal conduit in the right lower abdominal quadrant. No evidence of intestinal obstruction. No free intraperitoneal fluid or gas collections. 3. No abdominal or pelvic lymphadenopathy. 4. Mild-moderate paraseptal emphysema and pulmonary fibrosis. Findings are unchanged compared with 08/31/2024 and appears slightly progressed compared with 11/15/2019. 5. Marked diffuse coronary artery calcific atherosclerosis. Electronically signed by: Charlie Glass MD 09/07/2024 03:27 AM EST RP Bone Marrow Biopsy w/ CT 09/09/24 08:29 IMPRESSION: CT-guided bone marrow biopsy and aspirate This procedure was performed by Gaurav Xiong PA-C and supervised by Dr. Gallo. Electronically signed by: Addison Muniz MD 09/09/2024 01:02 PM EST RP Discharge Plan Discharge Anticipated Discharge Date/Time: 09/12/24 13:11 Patient Disposition: Xfer Acute Care Hospital Discharge Diagnosis: Acute leukemia Neutropenic fever Referrals: Matias Roy MD [Primary Care Provider] - 1 Week Discharge Medications: Continued atorvastatin 40 mg tablet 40 mg PO BEDTIME Qty: 90 3RF mecobalamin (vitamin B12) 1,000 mcg tablet,disintegrating 1,000 mcg sublingual DAILY 90 Days Qty: 90 3RF Rx Instructions: place tablet under tongue and allow to dissolve for at least 30 secs before swallowing diltiazem HCl 180 mg capsule,extended release 24hr 180 mg PO DAILY Qty: 90 3RF fluoxetine 20 mg capsule 40 mg PO DAILY 90 Days Qty: 180 3RF acetaminophen [Tylenol] 325 mg Tablet 650 mg PO DAILY PRN (Reason: Pain) ferrous gluconate 324 mg (38 mg iron) tablet 324 mg PO MOWEFR Rx Instructions: 4x week due to constipation. cholecalciferol (vitamin D3) 50 mcg (2,000 unit) capsule 50 mcg PO DAILY omeprazole 20 mg capsule,delayed release(DR/EC) 20 mg PO DAILY@0630 metformin 500 mg tablet extended release 24 hr 500 mg PO BID Centrum Silver Men [id number] mcg tablet 1 tab PO DAILY Held lisinopril 10 mg tablet 10 mg PO DAILY 90 Days Qty: 90 2RF Hold Instructions: low bp Discharge Orders: Discharge Order (Routine); Ordered 09/12/24 Ordered By: Alyssa Davalos Diet: Advance to usual diet Activity on Discharge: As tolerated Stand Alone Forms: Patient Portal Discharge page Print Language: Uzbek Care Plan Goals: Transfer to a tertiary [facility] for leukemia treatment Health Concerns: Acute leukemia Plan of Treatment: chemotherapy Assessment: as above
[2024-09-12 14:01] LABS: Neutrophils Absolute Auto 0.2 x10*3/uL (2.0-8.3)
[2024-09-12 15:26] VITALS: BP 126/69; PULSE 81; RESP 19; TEMP 36.4; O2SAT 95
[2024-09-12 16:13] LABS: Glucose, Whole Blood 129 mg/dL (60-115)
[2024-09-12 18:10] LABS: Vancomycin Random 19.7 mcg/mL (15-20)
--- NOTE | 2024-09-12 18:17 | HE.PHANOTE ---
AYSHA Changed dose to 750 Q12H as trough was approaching 20. Renal function decreased slightly over the last couple days. Predicted trough with new dosin.5, predicted AUC 430. Next trough to be drawn 09/13 @1700.
[2024-09-12] MEDS: vancomycin HCL 750 MG in 0.9 % Sodium Chloride 250 ML 265 MG IV (18:39)
== END 2024-09-12 20:50 | disposition short-term general hospital (02) | DRG 841 ==
LOC: HO.ED 09-07 01:47 → HO.EDOVER 09-07 02:16 → HO.S3 09-08 11:22
PROVIDERS: Internal Medicine; Internal Medicine Medical Oncology; Pathology Anatomic Pathology & Clinical Pathology; Registered Nurse Emergency; Student in an Organized Health Care Education/Training Program; Admitting Provider Student in an Organized Health Care Education/Training Program; Emergency Provider Emergency Medicine Emergency Medical Services; PCP Family Medicine; Visit Provider Student in an Organized Health Care Education/Training Program
PROC: (CPT 38221; principal; 2024-09-09 08:00)
DX: C95.90 Leukemia, unspecified not having achieved remission (principal); D61.818 Other pancytopenia; D70.9 Neutropenia, unspecified; I25.10 Atherosclerotic heart disease of native coronary artery without angina pectoris; J44.9 Chronic obstructive pulmonary disease, unspecified; I48.0 Paroxysmal atrial fibrillation; G47.33 Obstructive sleep apnea (adult) (pediatric); E11.9 Type 2 diabetes mellitus without complications; Z20.822 Contact with and (suspected) exposure to COVID-19; Z93.6 Other artificial openings of urinary tract status; Z85.51 Personal history of malignant neoplasm of bladder; Z95.5 Presence of coronary angioplasty implant and graft; Z79.84 Long term (current) use of oral hypoglycemic drugs; Z79.899 Other long term (current) drug therapy
CPT/HCPCS: 0241U; 36415; 38221; 71046; 71250; 74176; 80048; 80053; 80202; 81001; 81003; 81245; 81246; 81455; 82565; 82947; 83605; 83615; 83690; 84145; 84484; 85025; 85027; 85045; 85610; 85652; 85730; 86140; 86850; 86900; 86901; 86923; 87040; 87086; 88184; 88185; 88237; 88264; 88280; 88305; 88311; 88313; 88374; 93005; 97161; 99152; 99212; 99285; J0692; J1447; J2003; J2250; J2405; J3010; J3370; P9016

== ENCOUNTER → 2024-09-06 13:31 | Outpatient (BNV) | payer MEDICARE, OTHER, SELFPAY | PROVIDERS: PCP Family Medicine; Visit Provider Internal Medicine Cardiovascular Disease | DX: R07.9 Chest pain, unspecified (principal) | CPT/HCPCS: 93010 ==

== ENCOUNTER 2024-09-07 02:06 | Outpatient (BNV) | payer MEDICARE, OTHER, SELFPAY | END 2024-09-09 09:00 | PROVIDERS: Admitting Provider Student in an Organized Health Care Education/Training Program; Emergency Provider Emergency Medicine Emergency Medical Services; PCP Family Medicine; Visit Provider Physician Assistant Surgical | DX: D61.818 Other pancytopenia (principal) | CPT/HCPCS: 38222; 77012; 99152 ==

== ENCOUNTER → 2024-09-07 02:06 | Outpatient (BNV) | payer MEDICARE, OTHER, SELFPAY | PROVIDERS: Admitting Provider Student in an Organized Health Care Education/Training Program; Emergency Provider Emergency Medicine Emergency Medical Services; PCP Family Medicine; Visit Provider Student in an Organized Health Care Education/Training Program | DX: D61.818 Other pancytopenia (principal); D70.9 Neutropenia, unspecified; R50.81 Fever presenting with conditions classified elsewhere; R53.83 Other fatigue; R68.89 Other general symptoms and signs; C95.00 Acute leukemia of unspecified cell type not having achieved remission | CPT/HCPCS: 99223; 99232; 99233; 99239; 99499 ==

== ENCOUNTER → 2024-09-07 02:06 | Outpatient (BNV) | payer MEDICARE, OTHER, SELFPAY | PROVIDERS: Admitting Provider Student in an Organized Health Care Education/Training Program; Emergency Provider Emergency Medicine Emergency Medical Services; PCP Family Medicine; Visit Provider Internal Medicine Medical Oncology | DX: D61.818 Other pancytopenia (principal) | CPT/HCPCS: 99222 ==